=== PATIENT | male | born 1965 | race Caucasian/White ===

== ENCOUNTER 2018-02-13 14:57 | Inpatient (IN) | payer OTHER, SELFPAY ==
[2018-02-13] VITALS (27 sets, daily range): BP systolic 93–165; BP diastolic 62–106; PULSE 54–93; RESP 9–20; TEMP 36.6–37; O2SAT 93–100; BMI 40.2; BMI 18.2; BMI 41.3
--- NOTE | 2018-02-13 14:59 | EKG12_ITS ---
Test Reason : STEMI Blood Pressure : / mmHG Vent. Rate : 062 BPM Atrial Rate : 062 BPM P-R Int : 196 ms QRS Dur : 088 ms QT Int : 404 ms P-R-T Axes : 040 019 098 degrees QTc Int : 410 ms Normal sinus rhythm Inferior injury pattern ACUTE RI / STEMI Consider right ventricular involvement in acute inferior infarct Abnormal ECG Confirmed by VIKASH MEADOWS, BERTHA ([id number]), editor publications FLORIDALMA IRENE ([id number]) on 02/15/2018 2:09:21 PM Referred By: Davian Ngo Confirmed By:BERTHA SUH MD
--- NOTE | 2018-02-13 14:59 | RAD_ITS ---
STUDY: X-RAY CHEST REASON FOR EXAM: Male, 52 years old. Sudden onset of chest pain TECHNIQUE: Single view of the chest was obtained COMPARISON: None. FINDINGS: No lung consolidation or pneumothorax. Cardiomegaly with mild perihilar streaky opacities. Osseous structures demonstrate no acute abnormalities. Degenerative changes in the thoracic spine. IMPRESSION: Cardiomegaly. No evidence for focal airspace consolidation. Electronically Signed: Hamlet Ortez, at 15:15 EDT Tel , Service support , RAD/Chest 1 View (Portable)
--- NOTE | 2018-02-13 15:01 | NURSING ---
NO OLD EKGS
--- NOTE | 2018-02-13 15:05 | PCM.HP.STD ---
Problem List (1) Morbid obesity Status: Chronic (2) STEMI (ST elevation myocardial infarction) Status: Acute Comment: Inferiolateral History of Present Illness Date of Admission: 02/13/18 Chief Complaint: Chest Pain The patient is a 52 y/o M w/ PMHx: Morbid Obesity otherwise noting he takes no medications and healthy who presents to the [facility] [place] ED on 02/13/18 via EMS with reported onset of diffuse across the chest pressure and discomfort with radiation to BL UE and jaws initially while seated at rest at ~ 8 pm the evening prior rated 5/10 with at that time no markedly associated symptoms with continued symptoms eventually worsening [employer] in the ED with reported mowing with onset worsened discomfort, rated then 8/10 with associated diaphoresis and dyspnea. In the ED work-up included EMS EKG w/ evidence of inferiolateral STEMI, VS AF, HR 55, BP 93/75, RR19, 96% on 2L NC, pending CBC, BMP, coags, trop, CXR, repeat EKG. Dr. Ngo contacted w/ STEMI call and requested administration of heparin 4,000 u IV load, brillinta 180 mg po x 1 load, NS 1L IVFs given hypotension. Past Medical History Past Medical History (Chronic Problems): Chronic Problems Morbid obesity (Chronic) Allergies No Known Allergies Allergy (Verified 02/13/18 14:58) Home Medications: Ambulatory Orders Medication Instructions Recorded NK [NK] 02/13/18 Surgical History: - - T+A, appendectomy. Psychiatric History: No pertinent psych hx Lives: Spouse/ Significant Other Smoking Status: Never smoker Tobacco Use: Non-smoker Alcohol: Occasional Drugs: None - *Family History Maternal History Items: - - Patient is a maternal and paternal family history of diabetes. Paternal History Items: - - Patient is a maternal and paternal family history of diabetes. Review of Systems Constitutional: Reports: Malaise, Weakness, Fatigue. Denies: Chills, Fever, Weight Change HEENT: Denies: Head Aches, Sinus Congestion, Sinus Drainage Cardiovascular: Reports: Chest Pain, Chest Pressure, Heaviness. Denies: Light Headedness, Orthopnea, Palpitations, Syncope Respiratory: Reports: Shortness of Breath, Shortness of breath at rest, Shortness of breath upon exertion. Denies: Cough, Sputum production Gastrointestinal: Denies: Abdominal Pain, Nausea, Vomiting Genitourinary: Denies: Dysuria Musculoskeletal: Reports: Arm Pain. Denies: Joint Pain, Joint Tenderness Skin: Denies: Rash, Wounds Neurological: Denies: Numbness, Tingling, Focal weakness Psychiatric: Denies: Anxiety, Depression, Homicidal Ideations, Suicidal Ideations Hematologic/ Lymphatic: Denies: Easy Bruising, Easy Bleeding VTE Information - Inpt Only VTE Present on Admission: No VTE Mechan Device Prophylaxis: SCD's VTE Pharm Prophylaxis ordered?: Yes Patient Problems: Active and Suspected Problems STEMI (ST elevation myocardial infarction) (Acute) Inferiolateral Subjective: Seated upright in the ED, uncomfortable appearing, ongoing chest discomfort, pressure. Objective: Physical Examination: General: awake, alert, oriented x 3 and cooperative, seated upright in the ED bed, notes ongoing chest pain, arm heaviness primarily. Skin: normal color, turgor, no icterus, cyanosis. HEENT: AT/NC, EOMI, PERRLA, MMM, no carotid bruits or JVD noted. Lungs: CTA bilaterally, moderate effort, mild decrease BL bases, no rales, ronchi or wheezing. Heart: Regular rate and rhythm; no gallop, rub audible. Abdomen: soft, morbidly obese, NTTP, ND, normal BS, no HSM; however, habitus makes examination difficult. Extremities: no cyanosis, clubbing, or edema. Neurological: patient awake, alert, oriented x 3; cognitive function intact; pupils equally reactive to light and accomodation; cranial nerves II-XII grossly normal, moving all 4 extremities, no focal deficits, strength moderately to severely globally decreased secondary to acute presentation. Psychiatric: affect appears fatigued, mildly strained, no acute evidence of depressive or anxiety feelings. - Physical Exam Vital Signs Pulse Resp BP Pulse Ox 55 L 19 H 93/75 96 02/13/18 14:59 02/13/18 14:59 02/13/18 14:59 02/13/18 14:59 Weight: 296 lb 11.875 oz Body Mass Index (BMI) 40.2 Assessment/Plan Active and Suspected Problems STEMI (ST elevation myocardial infarction) (Acute) Inferiolateral The patient is a 52 y/o M w/ PMHx: Morbid Obesity otherwise noting he takes no medications and healthy who presents to the [facility] [place] ED on 02/13/18 via EMS with reported onset of diffuse across the chest pressure and discomfort with radiation to BL UE and jaws initially while seated at rest at ~ 8 pm the evening prior rated 5/10 with at that time no markedly associated symptoms with continued symptoms eventually worsening [employer] in the ED with reported mowing with onset worsened discomfort, rated then 8/10 with associated diaphoresis and dyspnea. (1) Chest Pain w/ Acute Inferiolateral STEMI: EKG in ED transmitted per EMS with inferior lateral STEMI evident with repeat pending, CXR w/ no acute process on preliminary, final read pending. ED presentation labs including CBC, BMP, coags and cardiac enzymes pending. Dr. Ngo called per STEMI protocol and patient administered heparin and brillinta bolus. Will transition from ED to catheterization lab w/ expected PCI needs, following if appropriate expect transition to the ICU, will continue IVFs given hypotension noted in the ED, maintain on a monitored bed, continue serial cardiac enzymes and EKGs. Obtain magnesium level upon admission. Continue medical management w/ asa, brillinta, add low dose BB pending BP post-catheterization, add high dose statin w/ AM FLP. ASA, NG, morphine. (2) Morbid Obesity: Weight loss and lifestyle changes encouraged, nutrition consulted. (3) DVT Prophylaxis: SCDs, heparin bolus given in the ED, start SC lovenox chemoprophylaxis 02/14/18. Code Visit Inpatient E&M: 99789 Init Hosp L3
--- NOTE | 2018-02-13 15:07 | NURSING ---
ICU 1 STEMI BURK
[2018-02-13] MEDS: TICAGRELOR 90 MG TABLET 180 MG PO (15:10)
--- NOTE | 2018-02-13 15:16 | HP.PCM_ITS ---
Problem List (1) Morbid obesity Status: Chronic (2) STEMI (ST elevation myocardial infarction) Status: Acute Comment: Inferiolateral History of Present Illness Date of Admission: 02/13/18 Chief Complaint: Chest Pain The patient is a 52 y/o M w/ PMHx: Morbid Obesity otherwise noting he takes no medications and healthy who presents to the [facility] ED on 02/13/18 via EMS with reported onset of diffuse across the chest pressure and discomfort with radiation to BL UE and jaws initially while seated at rest at ~ 8 pm the evening prior rated 5/10 with at that time no markedly associated symptoms with continued symptoms eventually worsening [employer] in the ED with reported mowing with onset worsened discomfort, rated then 8/10 with associated diaphoresis and dyspnea. In the ED work-up included EMS EKG w/ evidence of inferiolateral STEMI , VS AF, HR 55, BP 93/75, RR19, 96% on 2L NC, pending CBC, BMP, coags, trop, CXR , repeat EKG. Dr. Ngo contacted w/ STEMI call and requested administration of heparin 4,000 u IV load, brillinta 180 mg po x 1 load, NS 1L IVFs given hypotension. Past Medical History Past Medical History (Chronic Problems): Chronic Problems Morbid obesity (Chronic) Allergies No Known Allergies Allergy (Verified 02/13/18 14:58) Home Medications: Ambulatory Orders Medication Instructions Recorded NK [NK] 02/13/18 Surgical History: - - T+A, appendectomy. Psychiatric History: No pertinent psych hx Lives: Spouse/ Significant Other Smoking Status: Never smoker Tobacco Use: Non-smoker Alcohol: Occasional Drugs: None - *Family History Maternal History Items: - - Patient is a maternal and paternal family history of diabetes. Paternal History Items: - - Patient is a maternal and paternal family history of diabetes. Review of Systems Constitutional: Reports: Malaise, Weakness, Fatigue. Denies: Chills, Fever, Weight Change HEENT: Denies: Head Aches, Sinus Congestion, Sinus Drainage Cardiovascular: Reports: Chest Pain, Chest Pressure, Heaviness. Denies: Light Headedness, Orthopnea, Palpitations, Syncope Respiratory: Reports: Shortness of Breath, Shortness of breath at rest, Shortness of breath upon exertion. Denies: Cough, Sputum production Gastrointestinal: Denies: Abdominal Pain, Nausea, Vomiting Genitourinary: Denies: Dysuria Musculoskeletal: Reports: Arm Pain. Denies: Joint Pain, Joint Tenderness Skin: Denies: Rash, Wounds Neurological: Denies: Numbness, Tingling, Focal weakness Psychiatric: Denies: Anxiety, Depression, Homicidal Ideations, Suicidal Ideations Hematologic/ Lymphatic: Denies: Easy Bruising, Easy Bleeding VTE Information - Inpt Only VTE Present on Admission: No VTE Mechan Device Prophylaxis: SCD's VTE Pharm Prophylaxis ordered?: Yes Patient Problems: Active and Suspected Problems STEMI (ST elevation myocardial infarction) (Acute) Inferiolateral Subjective: Seated upright in the ED, uncomfortable appearing, ongoing chest discomfort, pressure. Objective: Physical Examination: General: awake, alert, oriented x 3 and cooperative, seated upright in the ED bed, notes ongoing chest pain, arm heaviness primarily. Skin: normal color, turgor, no icterus, cyanosis. HEENT: AT/NC, EOMI, PERRLA, MMM, no carotid bruits or JVD noted. Lungs: CTA bilaterally, moderate effort, mild decrease BL bases, no rales, ronchi or wheezing. Heart: Regular rate and rhythm; no gallop, rub audible. Abdomen: soft, morbidly obese, NTTP, ND, normal BS, no HSM; however, habitus makes examination difficult. Extremities: no cyanosis, clubbing, or edema. Neurological: patient awake, alert, oriented x 3; cognitive function intact; pupils equally reactive to light and accomodation; cranial nerves II-XII grossly normal, moving all 4 extremities, no focal deficits, strength moderately to severely globally decreased secondary to acute presentation. Psychiatric: affect appears fatigued, mildly strained, no acute evidence of depressive or anxiety feelings. - Physical Exam Vital Signs Pulse Resp BP Pulse Ox 55 L 19 H 93/75 96 02/13/18 14:59 02/13/18 14:59 02/13/18 14:59 02/13/18 14:59 Weight: 296 lb 11.875 oz Body Mass Index (BMI) 40.2 Assessment/Plan Active and Suspected Problems STEMI (ST elevation myocardial infarction) (Acute) Inferiolateral The patient is a 52 y/o M w/ PMHx: Morbid Obesity otherwise noting he takes no medications and healthy who presents to the [facility] ED on 02/13/18 via EMS with reported onset of diffuse across the chest pressure and discomfort with radiation to BL UE and jaws initially while seated at rest at ~ 8 pm the evening prior rated 5/10 with at that time no markedly associated symptoms with continued symptoms eventually worsening [employer] in the ED with reported mowing with onset worsened discomfort, rated then 8/10 with associated diaphoresis and dyspnea. (1) Chest Pain w/ Acute Inferiolateral STEMI: EKG in ED transmitted per EMS with inferior lateral STEMI evident with repeat pending, CXR w/ no acute process on preliminary, final read pending. ED presentation labs including CBC , BMP, coags and cardiac enzymes pending. Dr. Ngo called per STEMI protocol and patient administered heparin and brillinta bolus. Will transition from ED to catheterization lab w/ expected PCI needs, following if appropriate expect transition to the ICU, will continue IVFs given hypotension noted in the ED, maintain on a monitored bed, continue serial cardiac enzymes and EKGs. Obtain magnesium level upon admission. Continue medical management w/ asa, brillinta, add low dose BB pending BP post-catheterization, add high dose statin w/ AM FLP. ASA, NG, morphine. (2) Morbid Obesity: Weight loss and lifestyle changes encouraged, nutrition consulted. (3) DVT Prophylaxis: SCDs, heparin bolus given in the ED, start SC lovenox chemoprophylaxis 02/14/18. Code Visit Inpatient E&M: 28895 Init Hosp L3
--- NOTE | 2018-02-13 15:16 | ED.VISSUMM ---
- ER Visit Summary Date of Service: 02/13/18 Chief Complaint: Chest tightness radiating to both shoulders and neck with nausea, diaphoresis and dyspnea. History of Present Illness: The patient is a 52 M who has no sniffing a past medical history states that his chest discomfort started last night. The discomfort got worse while mowing the yard. He states he took a shower prior to calling the paramedics. EKG that was submitted by EMS prior to his arrival reveals an acute inferolateral AR. Heart rate is 78. He denies any fever, chills night sweats. Eyes ocular, visual auditory symptoms. He denies cough. He denies hematemesis, melena hematochezia. Denies abdominal pain or back pain. He denies any symptoms of claudication. He denies any urologic symptoms. He has no contraindication to anticoagulation therapy. Physical Examination: Blood pressure is 93/75 with a heart rate of 55 respiration of 19 and saturation 96%. Patient appears uncomfortable. Head is atraumatic normocephalic. Pupils are equal round reactive. Extraocular muscles are intact. TMs are pearly white with landmarks noted. Nares patent with no drainage. Posterior pharynx without erythema or exudate. Uvula is midline. There is no dysphonia or dysphasia. Trachea is midline. There is no stridor with auscultation of the neck. Heart is regular without murmur, gallop or rub. S1 and S2 are normal. Lungs are clear to auscultation with good movement of air bilaterally. Abdomen is soft and nontender. There is no guarding or peritoneal findings. There is no palpable pulsatile mass. There is no abdominal bruit. García sign is negative. Negative Rovsing sign. There is no evidence of inguinal or umbilical hernia. There is no asymmetry, swelling, discoloration, leg vein distention, palpable cords or tenderness along the distribution of the deep venous system. Neuro exam is nonfocal. Test Results: Next field EKG that was obtained by respiratory therapist reveals an acute ST elevation inferolateral injury pattern. Because patient is bradycardic and hypotensive he received a fluid bolus and a right-sided EKG was obtained. There is no evidence of RV involvement. He received aspirin by paramedics. He was given 4000 units of heparin IV push and 180 mg of Brilinta p.o. He was made n.p.o. Chest x-ray is suboptimal because it is portable and the fact that he has limited inspiratory volume with only 5 ribs visualized. Difficult to make any assessment because of the suboptimal quality. Blood work is pending. Emergency Department Course and Treatment: ST elevation order set was initiated. Dr. Ngo was paged. He has been spoken to on 3 separate occasions. Patient was consented for emergent cardiac catheterization. Please read test results Treatment Plan: To Mandarin Speaking Nanny with patient. Disposition: To cardiac Mandarin Speaking Nanny Impression: 1. Acute inferolateral ST elevation AR 2. Hypotension 3. Bradycardia This note was generated with Chatterfly dictation software. It may contain incorrect words, spelling, and punctuation that were not noted in review of the chart prior to signing ED Disposition - Plan for ED Patient: Chief Complaint: Chest Pain
[2018-02-13] MEDS: HYDROmorphone 1 MG/ML Syringe 0.5 MG IV (15:18)
[2018-02-13] MEDS: Heparin Injection (Vial) 5,000 UNIT/ML VIAL 4000 UNIT IV (15:18)
[2018-02-13] MEDS: Ondansetron 4 MG/2 ML Vial IV (15:19)
--- NOTE | 2018-02-13 15:21 | ED.DCSUM_ITS ---
- ER Visit Summary Date of Service: 02/13/18 Chief Complaint: Chest tightness radiating to both shoulders and neck with nausea, diaphoresis and dyspnea. History of Present Illness: The patient is a 52 M who has no sniffing a past medical history states that his chest discomfort started last night. The discomfort got worse while mowing the yard. He states he took a shower prior to calling the paramedics. EKG that was submitted by EMS prior to his arrival reveals an acute inferolateral AL. Heart rate is 78. He denies any fever, chills night sweats. Eyes ocular, visual auditory symptoms. He denies cough. He denies hematemesis, melena hematochezia. Denies abdominal pain or back pain. He denies any symptoms of claudication. He denies any urologic symptoms. He has no contraindication to anticoagulation therapy. Physical Examination: Blood pressure is 93/75 with a heart rate of 55 respiration of 19 and saturation 96%. Patient appears uncomfortable. Head is atraumatic normocephalic. Pupils are equal round reactive. Extraocular muscles are intact. TMs are pearly white with landmarks noted. Nares patent with no drainage. Posterior pharynx without erythema or exudate. Uvula is midline. There is no dysphonia or dysphasia. Trachea is midline. There is no stridor with auscultation of the neck. Heart is regular without murmur, gallop or rub. S1 and S2 are normal. Lungs are clear to auscultation with good movement of air bilaterally. Abdomen is soft and nontender. There is no guarding or peritoneal findings. There is no palpable pulsatile mass. There is no abdominal bruit. García sign is negative. Negative Rovsing sign. There is no evidence of inguinal or umbilical hernia. There is no asymmetry, swelling , discoloration, leg vein distention, palpable cords or tenderness along the distribution of the deep venous system. Neuro exam is nonfocal. Test Results: Next field EKG that was obtained by respiratory therapist reveals an acute ST elevation inferolateral injury pattern. Because patient is bradycardic and hypotensive he received a fluid bolus and a right-sided EKG was obtained. There is no evidence of RV involvement. He received aspirin by paramedics. He was given 4000 units of heparin IV push and 180 mg of Brilinta p.o. He was made n.p.o. Chest x-ray is suboptimal because it is portable and the fact that he has limited inspiratory volume with only 5 ribs visualized. Difficult to make any assessment because of the suboptimal quality. Blood work is pending. Emergency Department Course and Treatment: ST elevation order set was initiated. Dr. Ngo was paged. He has been spoken to on 3 separate occasions. Patient was consented for emergent cardiac catheterization. Please read test results Treatment Plan: To Receiving Operator with patient. Disposition: To cardiac Receiving Operator Impression: 1. Acute inferolateral ST elevation AL 2. Hypotension 3. Bradycardia This note was generated with TransferGo dictation software. It may contain incorrect words, spelling, and punctuation that were not noted in review of the chart prior to signing ED Disposition - Plan for ED Patient: Chief Complaint: Chest Pain
[2018-02-13 15:26] LABS: Prothrombin Time (Protime)PT. 12.8 SECONDS (11.7-14.9)
[2018-02-13 15:27] LABS: Partial Thromboplast Time 25.6 Seconds (24.1-36.2)
[2018-02-13 15:28] LABS: Basophil# 0.04 X10^3/uL; Basophil% 0.4 % (0-1); Eosinophil# 0.07 X10^3/uL; Eosinophils% 0.8 % (0-5); Hematocrit 43.4 % (40-54); Hemoglobin 15.2 g/dl (13.0-16.5); Mean Corpuscular Hgb 31.9 pg (27.0-32.0); Mean Platelet Vol. 9.2 fl (6.2-12.0); Monocyte# 0.67 X10^3/uL; Monocyte% 7.3 % (0-10); Neutrophil # 5.04 X10^3/uL (2.7-7.7); Neutrophil % 55.1 % (47-70); Platelet Count 332 K/mm3 (150-450); RBC Distribution Width CV 11.5 % (11.6-14.6); RBC Distribution Width SD 38.3 fl (35.1-43.9); Red Blood Count 4.77 M/mm3 (4.6-6.2); White Blood Count 9.2 K/mm3 (4.4-11.0)
[2018-02-13 15:30] LABS: POSITIVE COUNT NO; POSITIVE DIFFERENTIAL NO; POSITIVE MORPHOLOGY NO
[2018-02-13 15:39] LABS: Anion Gap 6 (5-15); BUN 18 mg/dL (7-18); BUN/Creat Ratio 19.7 RATIO (10-20); Calcium,Total 8.8 mg/dL (8.5-10.1); Chloride 103 mmol/L (98-107); Creatinine, Serum 0.91 mg/dL (0.70-1.30); EST Glomerular Filtration Rate 93 mL/min (>60); Est Glom Filt Rate - Afr Amer 113 mL/min (>60); Estimated Creatinine Clearance 106.59 ml/min; Glucose 158 mg/dL (74-106); Potassium 3.7 mmol/L (3.5-5.1); Sodium Level 136 mmol/L (136-145)
--- NOTE | 2018-02-13 16:17 | ECHOCS_ITS ---
Reason For Study: CAD/ASHD Procedure This was a 2D Doppler, Color Flow transthoracic echocardiogram. The study was technically difficult. Exam performed portable in ICU/CCU. Left Ventricle Normal size and thickness. The estimated ejection fraction is 50-55 %. Stage 1 diastolic dysfunction. Posterior-Basal: Mildly hypokinetic. Infero-Basal: Mildly hypokinetic. Mid-Lateral : Mildly hypokinetic. Right Ventricle Normal size and thickness. Normal systolic function. Atria Normal left atrium. Normal right atrium. Normal atrial septum. Mitral Valve The mitral valve is structurally normal. No prolapse or stenosis seen. Tricuspid Valve Normal tricuspid valve. Trivial tricuspid valve insufficiency. Right ventricular systolic pressure estimated to be 23 mmHg. Aortic Valve Normal aortic valve. Trisinus/trileaflet aortic valve. Pulmonic Valve Normal pulmonic valve. Great Vessels Normal aortic root. Normal arch. Normal inferior vena cava. Inferior vena cava collapse with sniff. Pericardium/Pleural No pericardial effusion. Medication Definity0.4ml given slow IV push to enhance endocardial definition. MMode/2D Measurements & Calculations LVIDd: 4.7 cm IVSd: 1.0 cm Ao root diam: 3.1 cm LVIDs: 3.5 cm LVPWd: 0.96 cm LA dimension: 3.9 cm RVDd: 4.2 cm FS: 26.2 % LAV(MOD-bp): 28.8 ml LA A4 area: 11.5 cm2 RA A4 area: 11.8 cm2 LAV(MOD-bp) Indexed: 11.4 ml/m2 LAV(MOD-sp2): 35.9 ml LAV(MOD-sp4): 22.9 ml Doppler Measurements & Calculations MV E max ramon: 51.7 cm/sec Lat Peak E' Ramon: 8.6 cm/sec Med Peak E' Ramon: 7.4 cm/sec MV A max ramon: 66.1 cm/sec E/E' lat: 6.0 E/E' med: 7.0 MV E/A: 0.78 Ao V2 max: 118.1 cm/sec LV V1 max: 96.6 cm/sec PA V2 max: 104.2 cm/sec Ao max P.6 mmHg LV V1 max P.7 mmHg Ao V2 mean: 81.4 cm/sec Ao mean P.0 mmHg Ao V2 VTI: 21.5 cm TR max ramon: 206.3 cm/sec TR max P.0 mmHg Interpretation Summary The estimated ejection fraction is 50-55 %. Stage 1 diastolic dysfunction. Posterior-Basal: Mildly hypokinetic Infero-Basal: Mildly hypokinetic Mid-Lateral : Mildly hypokinetic Trivial tricuspid valve insufficiency. Right ventricular systolic pressure estimated to be 23 mmHg. The study was technically difficult. There is no comparison study available. Contrast injection was performed. Ordering Physician: Davian Ngo Referring Physician: Davian Ngo Performed By: Martita Green RDCS, RVT
--- NOTE | 2018-02-13 16:30 | EKG12_ITS ---
Test Reason : STEMI Blood Pressure : / mmHG Vent. Rate : 055 BPM Atrial Rate : 055 BPM P-R Int : 180 ms QRS Dur : 090 ms QT Int : 418 ms P-R-T Axes : 039 027 104 degrees QTc Int : [address] elevation consider inferolateral injury or acute infarct ACUTE ID / STEMI Consider right ventricular involvement in acute inferior infarct Abnormal ECG Confirmed by VIKASH MEADOWS, BERTHA ([id number]), publications editor FLORIDALMA IRENE ([id number]) on 02/15/2018 2:09:50 PM Referred By: Davian Ngo Confirmed By:BERTHA SUH MD
--- NOTE | 2018-02-13 16:34 | CL.I_ITS ---
Patient Name: SAM SHANKS Study Date: 02/13/2018 Performing: Davian Ngo MD Ht: 72 inches 183 cm : 1965 Wt: 298 lbs 135 kg Age: 52 Gender: male BSA: 2.52 PROCEDURE(S) PERFORMED [id number], DEBBIE AND/OR PTCA, ARTERY OR GRAFT, SINGLE VESSEL PS50-RYP/COR/LV CLINICAL PROFILE AND CO-MORBIDITIES Patient presents with STEMI for emergent cardiac cath. Indications: ACS <= 24 hrs Heart Failure: None Stress/Imaging Stress/Image Study Performed: No CAD Presentations: STEMI. Symptom onset Date/Time: 02/12/2018 20:00:00 Time Estimated CONCLUSIONS Single vessel CAD of the distal RCA with thrombus Successful emergent PCI with Drug eluting stent and PTCA to the distal RCA, utilizing Sheldon catheter , with 3.5 x 16 Promus Synergy, post dilated throughout with a 4.0 x 12 NC Balloon; 90%-->0%, no diss ection. RECOMMENDATIONS Referred for immediate PCI ASA Indefinitely Management as per referring Cardboard Inserter Highly recommend quitting all tobacco products Follow up with primary gas or water meter installer Risk factor modification ASA Indefinitley Plavix for at least 12 months Routine post interventional care Refer for Outpatient Cardiac Rehab Manual sheath removal per protocol Follow up with Dr. Huber GARCIA Indefinisofiya Brilinta for at least 12 months Routine post interventional care Manual sheath removal per protocol DESCRIPTION OF PROCEDURE The patient arrived to the procedure lab. The risks and benefits of the procedure as well as a full d escription of our services here and lack of surgical backup were fully explained to the patient and/o r their significant other prior to the catheterization. The Timeout was completed, verifying the malvin ect patient and procedure. The patient's procedural site was prepped and draped in the usual fashion. Local anesthetic was given subcutaneously to right groin region with Lidocaine 2%. Using a modified Seldinger technique, arterial access was obtained via the right femoral artery, a 6Fr sheath was inse rted.. Left Coronary Artery selective angiography was performed in multiple views using a 4 Fr. JL5 catheter. Left Ventriculography was performed in SALAS projection using a 4 Fr. Pigtail catheter. LV to AO pullback pressures were then recorded HS II medtronic Guide catheter was inserted and engaged into the RCA. Angiogram performed pre balloon dilatation. runthrough Guide wire was advanced to the Right PDA. Sheldon AP inserted Pass # 1 Sheldon AP Removed 2.5 x 12 emerge Balloon catheter was advanced across lesion in the posterior descending, d istal. PTCA balloon inflated at 8 atms for 10 secs Angiogram performed post balloon dilatation. 3.5x1 6 synergy Drug Eluting stent was advanced across the lesion in the posterior descending, distal. 4.0x 12 NC emerge Balloon catheter was inserted post stent. Angiogram performed post stent deployment.. . The arterial sheath was sutured in place and capped. CORONARY ANGIOGRAPHY DOMINANCE: Right Dominant LEFT HEART ASSESSMENT Left Ventricular Ejection Fraction: by LV Gram 4-45 % Depressed Left Ventricular systolic function Inferior Mid Hypokinesis - Moderate LEFT MAIN: Angiographically normal LEFT ANTERIOR DECENDING ARTERY: Angiographically normal CIRCUMFLEX ARTERY: Angiographically normal RIGHT CORONARY ARTERY: DISTAL RCA: 90 % Stenosis RT PDA: Proximal - Angiographically normal INTERVENTION INFORMATION LESION SITE: RT PDA (Distal) Lesion Complexity: High/C, lesion at bifurcation: Yes, thrombus present: Yes, lesion length: 16 mm, c ulprit lesion: Yes Pre Stenosis: 90 % Pre intervention EVELIA flow: 2 PROCEDURE: Drug Eluting Stent with pre and post dilatation Post Stenosis: 0 % Post intervention EVELIA flow: 3 Lesion Devices: Terumo .014 Runthrough Extra Floppy 180cm straight Medtronic 6 Fr HSII 100cm Guide Catheter Bo Sci EMERGE MR 2.50x12 BALLOON Bo Sci NC EMERGE MR 4.00x12 BALLOON Medtronic 6 Fr. Sheldon AP Aspiration Catheter Bo Sci Synergy MR DEBBIE 3.50x16 COMPLICATIONS No Complications PROCEDURE MEDICATIONS Oxygen: 2 L/min via nasal cannula Heparin 6000 unit(s) IV 02/13/2018 15:48:21 Heparin 6000 unit(s) IV 02/13/2018 15:48:21 Nitro 200 mcg IC 02/13/2018 15:50:11 Nitro 200 mcg IC 02/13/2018 15:50:11 SUMMARY OF HEMODYNAMIC DATA Time AIR REST ECG 15:33:41 LV 136/-8, 30 16:03:11 LV 136/-9, 24 16:03:19 LVp 142/-10, 22 16:03:26 AOp 123/72 (95) 16:03:31 Signed By Davian Ngo MD On 02/13/2018 16:33:24 Davian Ngo MD
[2018-02-13 16:36] LABS: ACT Activated Clotting Time 120 sec (74-137)
[2018-02-13 16:36] LABS: ACT Activated Clotting Time 142 sec (74-137)
[2018-02-13 17:06] LABS: Hematocrit 42.1 % (40-54); Hemoglobin 14.3 g/dl (13.0-16.5); Mean Corpuscular Volume 91.3 fL (80-94); Mean Platelet Vol. 8.9 fl (6.2-12.0); Platelet Count 228 K/mm3 (150-450); RBC Distribution Width CV 11.8 % (11.6-14.6); Red Blood Count 4.61 M/mm3 (4.6-6.2); White Blood Count 13.1 K/mm3 (4.4-11.0)
[2018-02-13 17:12] LABS: Scan Indicated on CBC? Y/N NO
[2018-02-13 17:25] LABS: Magnesium 1.7 mg/dL (1.6-2.6)
[2018-02-13 17:27] LABS: CPK Total, Creatine Kinase 87 U/L (39-308)
[2018-02-13 17:32] LABS: Hemoglobin A1c 8.1 % (4.2-6.3)
[2018-02-13] MEDS: 0.9% Normal Saline 1,000 ML 150 ML IV (17:37)
[2018-02-13 18:21] LABS: ACT Activated Clotting Time 175 sec (74-137)
[2018-02-13 19:34] LABS: M R Staph aureus DNA By PCR Negative (Negative); Probe Check PASS; Specimen Processing Control PASS
[2018-02-13 19:36] LABS: ACT Activated Clotting Time 147 sec (74-137)
[2018-02-13] MEDS: 0.9% NaCl Peripheral Flush Adult/Peds IV ×2 (20:10→20:19)
[2018-02-13] MEDS: Morphine 2 MG/ML Syringe IV (20:10)
[2018-02-13] MEDS: proMETHazine 25 MG/ML Syringe 12.5 MG IV (20:17)
[2018-02-13 21:55] LABS: Hematocrit 40.3 % (40-54); Hemoglobin 13.7 g/dl (13.0-16.5); Mean Corpuscular Hgb 31.1 pg (27.0-32.0); Mean Corpuscular Volume 91.4 fL (80-94); Mean Platelet Vol. 8.8 fl (6.2-12.0); Platelet Count 233 K/mm3 (150-450); RBC Distribution Width CV 11.9 % (11.6-14.6); RBC Distribution Width SD 39.6 fl (35.1-43.9); Red Blood Count 4.41 M/mm3 (4.6-6.2); White Blood Count 12.2 K/mm3 (4.4-11.0)
[2018-02-13 21:56] LABS: Scan Indicated on CBC? Y/N NO
[2018-02-13 22:15] LABS: CPK Total, Creatine Kinase 227 U/L (39-308)
[2018-02-13] MEDS: TICAGRELOR 90 MG TABLET PO (22:49)
[2018-02-13] MEDS: Metoprolol Tartrate 25 MG Tablet 12.5 MG PO (22:49)
[2018-02-13] MEDS: Famotidine 20 MG Tablet PO (22:50)
[2018-02-13] MEDS: Atorvastatin Calcium 80 MG Tablet PO (22:51)
[2018-02-14] VITALS (23 sets, daily range): BP systolic 123–153; BP diastolic 82–102; PULSE 66–91; RESP 11–24; TEMP 36.6–37.3; O2SAT 93–100
[2018-02-14 01:16] LABS: Bedside Glucose 174 mg/dL (70-110)
[2018-02-14 04:47] LABS: Absolute Lymphocyte Count 2.55 X10^3/ul (0.83-4.51); Absolute Neutrophil Count 6.7 X10^3/uL (2.0-7.7); Basophil# 0.02 X10^3/uL; Basophil% 0.2 % (0-1); Eosinophil# 0.02 X10^3/uL; Eosinophils% 0.2 % (0-5); Hematocrit 39.8 % (40-54); Hemoglobin 13.2 g/dl (13.0-16.5); Lymphocyte # 2.55 X10^3/ul (4.0); Mean Corp Hgb Conc 33.2 g/gl (32-36); Mean Corpuscular Hgb 30.8 pg (27.0-32.0); Mean Platelet Vol. 8.7 fl (6.2-12.0); Monocyte# 0.47 X10^3/uL; Monocyte% 4.8 % (0-10); Neutrophil # 6.69 X10^3/uL (2.7-7.7); Neutrophil % 68.4 % (47-70); Platelet Count 232 K/mm3 (150-450); RBC Distribution Width CV 12.2 % (11.6-14.6); RBC Distribution Width SD 41.2 fl (35.1-43.9); Red Blood Count 4.28 M/mm3 (4.6-6.2); White Blood Count 9.8 K/mm3 (4.4-11.0)
[2018-02-14 04:51] LABS: POSITIVE COUNT NO; POSITIVE DIFFERENTIAL NO; POSITIVE MORPHOLOGY NO
[2018-02-14 05:07] LABS: CPK Total, Creatine Kinase 334 U/L (39-308)
[2018-02-14 05:09] LABS: Anion Gap 7 (5-15); BUN 11 mg/dL (7-18); BUN/Creat Ratio 15.5 RATIO (10-20); Calcium,Total 7.4 mg/dL (8.5-10.1); Chloride 110 mmol/L (98-107); Cholesterol 208 mg/dL (200); Creatinine, Serum 0.71 mg/dL (0.70-1.30); EST Glomerular Filtration Rate 125 mL/min (>60); Est Glom Filt Rate - Afr Amer 151 mL/min (>60); Estimated Creatinine Clearance 132.57 ml/min; Glucose 142 mg/dL (74-106); High Density Lipoprotein 36 mg/dL; Sodium Level 142 mmol/L (136-145); Triglycerides 250 mg/dL; Very Low Density Lipoprotein 50 mg/dL (5-40)
--- NOTE | 2018-02-14 05:55 | EKG12_ITS ---
Test Reason : POST PCI Blood Pressure : / mmHG Vent. Rate : 082 BPM Atrial Rate : 082 BPM P-R Int : 174 ms QRS Dur : 088 ms QT Int : 382 ms P-R-T Axes : 056 -10 050 degrees QTc Int : 446 ms Normal sinus rhythm with sinus arrhythmia Nonspecific ST abnormality Abnormal ECG No previous ECGs available Confirmed by VIKASH MEADOWS, BERTHA ([id number]), manuscript editor FLORIDALMA IRENE ([id number]) on 02/18/2018 3:53:27 PM Referred By: Davian Ngo Confirmed By:BERTHA SUH MD
--- NOTE | 2018-02-14 08:06 | PCM.PN.CARD ---
Subjectve: Patient doing very well this morning, no further chest pain. Telemetry negative. Right groin is clean/dry/intact without evidence of thrills, bruits or hematoma. Hemoglobin and creatinine within nominal limits. Peak troponin of 9.58 this morning. Objective: Vital Signs Temp Pulse Resp BP Pulse Ox 99.1 F 79 19 H 124/82 H 97 02/14/18 02:39 02/14/18 07:00 02/14/18 07:00 02/14/18 07:00 02/14/18 07:00 Oxygen Flow Rate (L/min) 2 Oxygen Delivery Method Room Air Weight: 285 lb 0.923 oz Body Mass Index (BMI) 41.3 Intake and Output for Last 24 Hours 02/12/18 02/13/18 02/14/18 23:59 23:59 23:59 Intake Total 1544 / 1544 Output Total 2150 / 2150 Balance -606 / -606 General: Awake, Alert, Oriented x 3 HEENT: PERRL, EOMI, Sclera Non Icteric Neck: Supple, Good ROM, No Lymph Node Enlargement Lungs: Clear to auscultation Cardiovascular: Regular Rhythm, Normal S1, Normal S2, No Murmurs, No Rubs, No Gallops 02/13/18 16:55: Hemoglobin A1c 8.1 H 02/13/18 16:55: Magnesium 1.7 02/13/18 16:55: WBC 13.1 H, RBC 4.61, Hgb 14.3, Hct 42.1, MCV 91.3, MCH 31.0, MCHC 34.0, RDW 11.8, RDW Differential 39.0, Plt Count 228, MPV 8.9 02/13/18 16:55: Troponin I 0.96 H* 02/13/18 21:40: WBC 12.2 H, RBC 4.41 L, Hgb 13.7, Hct 40.3, MCV 91.4, MCH 31.1, MCHC 34.0, RDW 11.9, RDW Differential 39.6, Plt Count 233, MPV 8.8 02/13/18 21:40: Troponin I 5.91 H* 02/14/18 01:30: Troponin I 9.58 H* 02/14/18 04:30: WBC 9.8, RBC 4.28 L, Hgb 13.2, Hct 39.8 L, MCV 93.0, MCH 30.8, MCHC 33.2, RDW 12.2, RDW Differential 41.2, Plt Count 232, MPV 8.7, Immature Gran % (Auto) 0.400, Neut % (Auto) 68.4, Lymph % (Auto) 26.0, [place] % (Auto) 4.8, Eos % (Auto) 0.2, Baso % (Auto) 0.2, Absolute Neuts (auto) 6.7, Total Counted Not Reportable 02/14/18 04:30: Sodium 142, Potassium 4.0, Chloride 110 H, Carbon Dioxide 25.0, Anion Gap 7, BUN 11, Creatinine 0.71, Est GFR (MDRD) Af Amer 151, Est GFR (MDRD) Non-Af 125, BUN/Creatinine Ratio 15.5, Glucose 142 H, Calcium 7.4 L, Triglycerides 250 H, Cholesterol 208 H, LDL Cholesterol 122, VLDL Cholesterol 50 H, HDL Cholesterol 36 L Rhythm: EKG: Normal sinus rhythm with left anterior hemiblock, ST segments resolved. ECHO: Pending Stress Test: Cardiac Cath: PCI: CT Surgery: Holter monitor: EPS: PPM: CXR: Chest CT Scan: Medical Necessity - Tobacco Use Smoking Status: Never smoker Tobacco Use: Non-smoker, Chew Assessment/Plan 1. Coronary artery disease: The patient presented with acute inferior wall myocardial infarction requiring emergent catheterization, thrombectomy, drug-eluting stent ?1 to the distal RCA. All other coronary arteries appear to be within normal limits and minimal nonobstructive disease. Patient's EF of the end of the procedure was around 40-45% with moderate mid inferior hypokinesis. Overnight the patient has done very well. His chest pain is resolved. His peak troponin thus far is 9.58. Telemetry is negative. Recommend he continue his aspirin, Brilinta, Lopressor, lisinopril. Patient to be transferred to stepdown unit. He may be able to go home tomorrow if troponins are trending downward and no arrhythmias are occurring. 2. Hyperlipidemia: LDL is 208, and HDL is 44. Continue Lipitor. Repeat lipid profile in 6 weeks time. 3. Patient may be transferred to stepdown unit. Thank you very much for the opportunity to participate in the cardiac care of your patient. Code Visit Inpatient E&M: 95138 Subs Hosp L2
--- NOTE | 2018-02-14 08:09 | PN.CARD_ITS ---
Subjectve: Patient doing very well this morning, no further chest pain. Telemetry negative. Right groin is clean/dry/intact without evidence of thrills, bruits or hematoma. Hemoglobin and creatinine within nominal limits. Peak troponin of 9.58 this morning. Objective: Vital Signs Temp Pulse Resp BP Pulse Ox 99.1 F 79 19 H 124/82 H 97 02/14/18 02:39 02/14/18 07:00 02/14/18 07:00 02/14/18 07:00 02/14/18 07:00 Oxygen Flow Rate (L/min) 2 Oxygen Delivery Method Room Air Weight: 285 lb 0.923 oz Body Mass Index (BMI) 41.3 Intake and Output for Last 24 Hours 02/12/18 02/13/18 02/14/18 23:59 23:59 23:59 Intake Total 1544 / 1544 Output Total 2150 / 2150 Balance -606 / -606 General: Awake, Alert, Oriented x 3 HEENT: PERRL, EOMI, Sclera Non Icteric Neck: Supple, Good ROM, No Lymph Node Enlargement Lungs: Clear to auscultation Cardiovascular: Regular Rhythm, Normal S1, Normal S2, No Murmurs, No Rubs, No Gallops 02/13/18 16:55: Hemoglobin A1c 8.1 H 02/13/18 16:55: Magnesium 1.7 02/13/18 16:55: WBC 13.1 H, RBC 4.61, Hgb 14.3, Hct 42.1, MCV 91.3, MCH 31.0, MCHC 34.0, RDW 11.8, RDW Differential 39.0, Plt Count 228, MPV 8.9 02/13/18 16:55: Troponin I 0.96 H* 02/13/18 21:40: WBC 12.2 H, RBC 4.41 L, Hgb 13.7, Hct 40.3, MCV 91.4, MCH 31.1, MCHC 34.0, RDW 11.9, RDW Differential 39.6, Plt Count 233, MPV 8.8 02/13/18 21:40: Troponin I 5.91 H* 02/14/18 01:30: Troponin I 9.58 H* 02/14/18 04:30: WBC 9.8, RBC 4.28 L, Hgb 13.2, Hct 39.8 L, MCV 93.0, MCH 30.8, MCHC 33.2, RDW 12.2, RDW Differential 41.2, Plt Count 232, MPV 8.7, Immature Gran % (Auto) 0.400, Neut % (Auto) 68.4, Lymph % (Auto) 26.0, Wallace % (Auto) 4.8 , Eos % (Auto) 0.2, Baso % (Auto) 0.2, Absolute Neuts (auto) 6.7, Total Counted Not Reportable 02/14/18 04:30: Sodium 142, Potassium 4.0, Chloride 110 H, Carbon Dioxide 25.0, Anion Gap 7, BUN 11, Creatinine 0.71, Est GFR (MDRD) Af Amer 151, Est GFR (MDRD ) Non-Af 125, BUN/Creatinine Ratio 15.5, Glucose 142 H, Calcium 7.4 L, Triglycerides 250 H, Cholesterol 208 H, LDL Cholesterol 122, VLDL Cholesterol 50 H, HDL Cholesterol 36 L Rhythm: EKG: Normal sinus rhythm with left anterior hemiblock, ST segments resolved. ECHO: Pending Stress Test: Cardiac Cath: PCI: CT Surgery: Holter monitor: EPS: PPM: CXR: Chest CT Scan: Medical Necessity - Tobacco Use Smoking Status: Never smoker Tobacco Use: Non-smoker, Chew Assessment/Plan 1. Coronary artery disease: The patient presented with acute inferior wall myocardial infarction requiring emergent catheterization, thrombectomy, drug- eluting stent ?1 to the distal RCA. All other coronary arteries appear to be within normal limits and minimal nonobstructive disease. Patient's EF of the end of the procedure was around 40-45% with moderate mid inferior hypokinesis. Overnight the patient has done very well. His chest pain is resolved. His peak troponin thus far is 9.58. Telemetry is negative. Recommend he continue his aspirin, Brilinta, Lopressor, lisinopril. Patient to be transferred to stepdown unit. He may be able to go home tomorrow if troponins are trending downward and no arrhythmias are occurring. 2. Hyperlipidemia: LDL is 208, and HDL is 44. Continue Lipitor. Repeat lipid profile in 6 weeks time. 3. Patient may be transferred to stepdown unit. Thank you very much for the opportunity to participate in the cardiac care of your patient. Code Visit Inpatient E&M: 78720 Subs Hosp L2
--- NOTE | 2018-02-14 08:59 | CASEMGMT ---
Addendum entered by Elias Gonzalez 02/14/18 09:51: Pt sees Dr. Lynn for PCP, has insurance and prescription coverage. [facility] pharmacy. brilinta savings card given to pt and explained. Dinah ZAVALA RN ACM Original Note: See RN CM Assessment Link. DC Plan home. Dinah ZAVALA RN ACM
[2018-02-14] MEDS: 0.9% NaCl Peripheral Flush Adult/Peds IV (09:29)
[2018-02-14] MEDS: Enoxaparin 40 MG/0.4 ML Syringe SC (09:29)
[2018-02-14] MEDS: Metoprolol Tartrate 25 MG Tablet 12.5 MG PO ×2 (09:30→21:21)
[2018-02-14] MEDS: Famotidine 20 MG Tablet PO ×2 (09:30→21:22)
[2018-02-14] MEDS: Aspirin 81 MG TAB.CHEW PO (09:30)
[2018-02-14] MEDS: TICAGRELOR 90 MG TABLET PO ×2 (09:30→21:21)
[2018-02-14] MEDS: Lisinopril 2.5 MG Tablet PO (09:30)
--- NOTE | 2018-02-14 10:08 | NURSING ---
BP meds given see MAR
--- NOTE | 2018-02-14 10:45 | CRPHASE1 ---
Patient Data/Charges Start Phase II:: FOLLOWING OFFICE VISIT WITH LABORER WOOD PRESERVING PLANT Risk Factors/Lifestyle Smoking Status: Never smoker Hx Diabetes Mellitus Type 2: Yes - NEW DX Hx Metabolic Disorders: Yes Hx Dyslipidemia: Yes Hx Obesity: Yes Height: 5 ft 11 in - BMI 39.8 Stress: Work-related, Home/Family Substance Abuse: No Risk Factor for Sedentary Lifestyle: Moderate Risk, Highest Risk Laboratory Values: Cardiac Rehab Phase I Labs Hemoglobin A1c 8.1 % (4.2-6.3) H 02/13/18 16:55 Triglycerides 250 mg/dL (-199) H 02/14/18 04:30 Cholesterol 208 mg/dL (200) H 02/14/18 04:30 LDL Cholesterol 122 mg/dL (0-130) 02/14/18 04:30 HDL Cholesterol 36 mg/dL (40-) L 02/14/18 04:30 Phase I Education Given On:: [place], Nutrition, Antiplatelet medication, Diabetes - Type II Issues Affecting Care:: None Knowledge of Condition:: Yes Learning Preferences: Verbal, Written - AND FAMILY AT BEDSIDE Hospital Course Presenting Symptoms:: STEMI Medical/Surgical History NV:: Yes - STEMI Diabetes Type II:: Yes - NEW DX Hypertension:: No Dyslipidemia:: Yes Discharge/Home/Social Eval Discharge Disposition: Home Marital Status:
--- NOTE | 2018-02-14 10:49 | CRPHASE1_ITS ---
Patient Data/Charges Start Phase II:: FOLLOWING OFFICE VISIT WITH RESEARCH ASSISTANT PROFESSOR Risk Factors/Lifestyle Smoking Status: Never smoker Hx Diabetes Mellitus Type 2: Yes - NEW DX Hx Metabolic Disorders: Yes Hx Dyslipidemia: Yes Hx Obesity: Yes Height: 5 ft 11 in - BMI 39.8 Stress: Work-related, Home/Family Substance Abuse: No Risk Factor for Sedentary Lifestyle: Moderate Risk, Highest Risk Laboratory Values: Cardiac Rehab Phase I Labs Hemoglobin A1c 8.1 % (4.2-6.3) H 02/13/18 16:55 Triglycerides 250 mg/dL (-199) H 02/14/18 04:30 Cholesterol 208 mg/dL (200) H 02/14/18 04:30 LDL Cholesterol 122 mg/dL (0-130) 02/14/18 04:30 HDL Cholesterol 36 mg/dL (40-) L 02/14/18 04:30 Phase I Education Given On:: [place], Nutrition, Antiplatelet medication, Diabetes - Type II Issues Affecting Care:: None Knowledge of Condition:: Yes Learning Preferences: Verbal, Written - AND FAMILY AT BEDSIDE Hospital Course Presenting Symptoms:: STEMI Medical/Surgical History AL:: Yes - STEMI Diabetes Type II:: Yes - NEW DX Hypertension:: No Dyslipidemia:: Yes Discharge/Home/Social Eval Discharge Disposition: Home Marital Status:
--- NOTE | 2018-02-14 10:51 | CRPH1.INST_ITS ---
General Education CAD and cardiac anatomy and function:: Patient communicates acknowledgment, Family communicates acknowledgment Explanation of diagnoses and procedures:: Patient communicates acknowledgment, Family communicates acknowledgment Sign/Symptoms of NM:: Patient communicates acknowledgment, Family communicates acknowledgment Antiplatelet therapy: Patient communicates acknowledgment, Family communicates acknowledgment Proper use of NTG-SL: Patient communicates acknowledgment, Family communicates acknowledgment Emergency procedures and activation of EMS: Patient communicates acknowledgment , Family communicates acknowledgment Compliance of all prescribed medications: Patient communicates acknowledgment, Family communicates acknowledgment - AND FAMILY AT BEDSIDE Smoking Patient Nicotine/Smoking Risk Factors Are:: Never smoked Dyslipidemia Patient Dyslipidemia Risk Factors Are:: Total Cholesterol, Triglycerides, HDL, LDL Recommendations Include:: Lipid profile provided, Reviewed NCEP/ATP guidelines, Therapeutic Lifestyle Change dietary guidelines Dyslipidemia Response Code:: Patient communicates acknowledgment, Family communicates acknowledgment Overweight/Obesity Patient Overweight/Obesity Risk Factors Are:: Obesity - > or = 30 Recommendations Include:: Weight loss of 5-10%, Reduced calorie diet, Exercise 5 -7 times/week Overweight/Obesity:: Patient communicates acknowledgment, Family communicates acknowledgment Hypertension Patient Hypertension Risk Factors Are:: No documented hx of HTN Heart Disease Recommendations Include:: Educated family members of their risk Heart Disease Response Code:: Patient communicates acknowledgment, Family communicates acknowledgment Diabetes Patient Diabetes Risk Factors Are:: Elevated blood sugars Recommendations Include:: Maintain fasting blood sugars 70-110 md/dL, Maintain HgbA1c of 6% or less, Monitor blood sugar as prescribed, Diabetic dietary guidelines, Decrease/maintain body weight Diabetes:: Patient communicates acknowledgment, Family communicates acknowledgment Metabolic Syndrome Patient Metabolic Syndrome Risk Factors Are [3 of 5]:: Fasting blood sugar > 100 mg/dL, Waist circumference > 35 [female] or 40 [male], High triglyceride > 150, Low HDL <40 [male] or < 50 [female] Recommendations Include:: Reinforce compliance to risk factor modifications, Patient is diabetic, Encouraged follow-up with Primary Care Physician Metabolic Syndrome Response Code:: Patient communicates acknowledgment, Family communicates acknowledgment Sedentary Patient Sedentary Risk Factors Are:: Lack of regular exercise Recommendations Include:: Aerobic exercise 5-7 times/week for 20-30 minutes continuously, Benefits of regular exercise, Discussed home walking program, Monitored Outpatient Cardiac Rehab Sedentary Response Code:: Patient communicates acknowledgment, Family communicates acknowledgment - PT TRAVELS FOR JOB, NOT SURE HE'LL BE ABLE TO DO REHAB Stress Recommendations Include:: Identification of stressors, and assessment of coping skills, Stress management techniques Stress Response Code:: Patient communicates acknowledgment, Family communicates acknowledgment
--- NOTE | 2018-02-14 11:04 | PCM.PN.HOSP ---
Patient Problems: Active and Suspected Problems STEMI (ST elevation myocardial infarction) (Acute) Inferiolateral Subjective: no chest pain. no leg pain. Vitals/I&O's: Vital Signs Temp Pulse Resp BP Pulse Ox 36.8 C 81 20 H 153/101 H 99 02/14/18 08:00 02/14/18 10:00 02/14/18 10:00 02/14/18 10:00 02/14/18 10:00 Oxygen Flow Rate (L/min) 2 Oxygen Delivery Method Room Air Weight: 129.3 kg Body Mass Index (BMI) 41.3 Intake and Output for Last 24 Hours 02/12/18 02/13/18 02/14/18 23:59 23:59 23:59 Intake Total 1544 / 1544 Output Total 2150 / 2150 Balance -606 / -606 General: Alert, Cooperative, No apparent distress HEENT: Atraumatic, Normocephalic Neck: No Nodes, Thyroid Normal Size and Texture Lungs: Clear to auscultation, Normal air movement, No rhonchi, No wheeze Cardiovascular: Regular rate, Regular Rhythm, Normal S1, Normal S2, No murmurs Abdomen: Bowel Sounds Present, Soft, Non Tender, Non-Distended, No Hepato-splenomegaly Extremities: No edema, No Calf Tenderness, Peripheral Pulses Normal Skin: No rashes, No breakdown Psych/Mental Status: Normal Affect, Appropriate Laboratory Results 02/13/18 15:45: Activated Clotting Time 120 02/13/18 16:04: Activated Clotting Time 142 H 02/13/18 16:55: Hemoglobin A1c 8.1 H 02/13/18 16:55: Magnesium 1.7 02/13/18 16:55: Total Creatine Kinase 87 02/13/18 16:55: WBC 13.1 H, RBC 4.61, Hgb 14.3, Hct 42.1, MCV 91.3, MCH 31.0, MCHC 34.0, RDW 11.8, RDW Differential 39.0, Plt Count 228, MPV 8.9 02/13/18 16:55: Troponin I 0.96 H* 02/13/18 18:00: MRSA (PCR) Negative 02/13/18 18:06: Activated Clotting Time 175 H 02/13/18 19:23: Activated Clotting Time 147 H 02/13/18 21:40: Total Creatine Kinase 227 02/13/18 21:40: WBC 12.2 H, RBC 4.41 L, Hgb 13.7, Hct 40.3, MCV 91.4, MCH 31.1, MCHC 34.0, RDW 11.9, RDW Differential 39.6, Plt Count 233, MPV 8.8 02/13/18 21:40: Troponin I 5.91 H* 02/13/18 22:55: POC Glucose 174 H 02/14/18 01:30: Troponin I 9.58 H* 02/14/18 04:30: WBC 9.8, RBC 4.28 L, Hgb 13.2, Hct 39.8 L, MCV 93.0, MCH 30.8, MCHC 33.2, RDW 12.2, RDW Differential 41.2, Plt Count 232, MPV 8.7, Immature Gran % (Auto) 0.400, Neut % (Auto) 68.4, Lymph % (Auto) 26.0, [place] % (Auto) 4.8, Eos % (Auto) 0.2, Baso % (Auto) 0.2, Absolute Neuts (auto) 6.7, Absolute Lymphs (auto) 2.55, Total Counted Not Reportable 02/14/18 04:30: Sodium 142, Potassium 4.0, Chloride 110 H, Carbon Dioxide 25.0, Anion Gap 7, BUN 11, Creatinine 0.71, Estim Creat Clear Calc 132.57, Est GFR (MDRD) Af Amer 151, Est GFR (MDRD) Non-Af 125, BUN/Creatinine Ratio 15.5, Glucose 142 H, Calcium 7.4 L, Triglycerides 250 H, Cholesterol 208 H, LDL Cholesterol 122, VLDL Cholesterol 50 H, HDL Cholesterol 36 L 02/14/18 04:30: Total Creatine Kinase 334 H 02/14/18 07:35: Troponin I 9.86 H* Current Medications Acetaminophen (Tylenol) 650 mg PO Q6H PRN PRN PRN Reason: Non-cardiac pain (mod-severe) Hydrocodone Bitart/Acetaminophen ([place] 5mg-325mg) 1 - 2 tablet PO Q6H PRN PRN PRN Reason: Moderate-severe pain Al Hydroxide/Mg Hydroxide (Mylanta Ii) 30 ml PO Q6H PRN PRN PRN Reason: Gastric burning Aspirin (Aspirin, Baby) 81 mg PO DAILY@0800 [facility] Last Admin: 02/14/18 09:30 Dose: 81 mg Atorvastatin Calcium (Lipitor) 80 mg PO QHS [facility] Last Admin: 02/13/18 22:51 Dose: 80 mg Atropine Sulfate () 0.5 mg IV UD PRN PRN Reason: HR <50 bpm Dextrose (D50w Syringe) 0 gm IV X1 PRN; Protocol PRN Reason: Hypoglycemia Diazepam (Valium) 5 mg PO Q6H PRN PRN PRN Reason: BACK SPASMS/ANXIETY Enoxaparin Sodium (Lovenox) 40 mg SC DAILY@1000 [facility] Last Admin: 02/14/18 09:29 Dose: 40 mg Famotidine (Pepcid) 20 mg PO BID [facility] Last Admin: 02/14/18 09:30 Dose: 20 mg Glucagon () 1 mg IM .X1 PRN PRN Reason: Hypoglycemia Hydralazine HCl (Apresoline Iv) 10 mg IV Q4H PRN PRN PRN Reason: SBP > 160 Insulin Aspart (Novolog Flexpen (Bkc)) 0 units SC ACHS [facility] PRN Reason: Protocol Last Admin: 02/14/18 08:01 Dose: Not Given Lisinopril (Zestril) 2.5 mg PO DAILY [facility] Last Admin: 02/14/18 09:30 Dose: 2.5 mg Magnesium Hydroxide (Milk Of Magnesia) 30 ml PO DAILY PRN PRN PRN Reason: Constipation Metoclopramide HCl (Reglan) 5 mg IV Q6H PRN PRN Reason: NAUSEA/VOMITING Metoprolol Tartrate (Lopressor (Beta Marcia)) 12.5 mg PO BID [facility] Last Admin: 02/14/18 09:30 Dose: 12.5 mg Morphine Sulfate () 1 - 2 mg IV Q4H PRN PRN PRN Reason: PAIN Last Admin: 02/13/18 20:10 Dose: 2 mg Nitroglycerin (Nitrostat) 0.4 mg SUBLINGUAL Q5M PRN PRN Reason: CHEST PAIN Ondansetron HCl (Zofran) 4 mg IV Q8H PRN PRN PRN Reason: NAUSEA Promethazine HCl (Phenergan) 12.5 mg IV Q6H PRN PRN PRN Reason: NAUSEA/VOMITING Last Admin: 02/13/18 20:17 Dose: 12.5 mg Sodium Chloride () 500 ml IV BOLUS PRN PRN Reason: VASO-VAGAL PROTOCOL Sodium Chloride () 5 - 30 ml IV UD PRN PRN Reason: SALINE FLUSH Last Admin: 02/14/18 09:29 Dose: 20 ml Ticagrelor (Brilinta) 90 mg PO BID [place] Last Admin: 02/14/18 09:30 Dose: 90 mg Medical Necessity - Tobacco Use Smoking Status: Never smoker Tobacco Use: Non-smoker, Chew Assessment/Plan Active and Suspected Problems STEMI (ST elevation myocardial infarction) (Acute) Inferiolateral 1. STEMI s/p DEBBIE to distal RCA on DAPT, HIS, metoprolol, lisinopril cardiology following 2. Ischemic CM: EF 40-45% on LHC, echo done, orders pending medical mgmt for now. 3. Hyperlipidemia: HIS 4. DVT proph: LMWH Code Visit Inpatient E&M: 70147 Subs Hosp L2
--- NOTE | 2018-02-14 11:08 | PN_ITS ---
Patient Problems: Active and Suspected Problems STEMI (ST elevation myocardial infarction) (Acute) Inferiolateral Subjective: no chest pain. no leg pain. Vitals/I&O's: Vital Signs Temp Pulse Resp BP Pulse Ox 36.8 C 81 20 H 153/101 H 99 02/14/18 08:00 02/14/18 10:00 02/14/18 10:00 02/14/18 10:00 02/14/18 10:00 Oxygen Flow Rate (L/min) 2 Oxygen Delivery Method Room Air Weight: 129.3 kg Body Mass Index (BMI) 41.3 Intake and Output for Last 24 Hours 02/12/18 02/13/18 02/14/18 23:59 23:59 23:59 Intake Total 1544 / 1544 Output Total 2150 / 2150 Balance -606 / -606 General: Alert, Cooperative, No apparent distress HEENT: Atraumatic, Normocephalic Neck: No Nodes, Thyroid Normal Size and Texture Lungs: Clear to auscultation, Normal air movement, No rhonchi, No wheeze Cardiovascular: Regular rate, Regular Rhythm, Normal S1, Normal S2, No murmurs Abdomen: Bowel Sounds Present, Soft, Non Tender, Non-Distended, No Hepato- splenomegaly Extremities: No edema, No Calf Tenderness, Peripheral Pulses Normal Skin: No rashes, No breakdown Psych/Mental Status: Normal Affect, Appropriate Laboratory Results 02/13/18 15:45: Activated Clotting Time 120 02/13/18 16:04: Activated Clotting Time 142 H 02/13/18 16:55: Hemoglobin A1c 8.1 H 02/13/18 16:55: Magnesium 1.7 02/13/18 16:55: Total Creatine Kinase 87 02/13/18 16:55: WBC 13.1 H, RBC 4.61, Hgb 14.3, Hct 42.1, MCV 91.3, MCH 31.0, MCHC 34.0, RDW 11.8, RDW Differential 39.0, Plt Count 228, MPV 8.9 02/13/18 16:55: Troponin I 0.96 H* 02/13/18 18:00: MRSA (PCR) Negative 02/13/18 18:06: Activated Clotting Time 175 H 02/13/18 19:23: Activated Clotting Time 147 H 02/13/18 21:40: Total Creatine Kinase 227 02/13/18 21:40: WBC 12.2 H, RBC 4.41 L, Hgb 13.7, Hct 40.3, MCV 91.4, MCH 31.1, MCHC 34.0, RDW 11.9, RDW Differential 39.6, Plt Count 233, MPV 8.8 02/13/18 21:40: Troponin I 5.91 H* 02/13/18 22:55: POC Glucose 174 H 02/14/18 01:30: Troponin I 9.58 H* 02/14/18 04:30: WBC 9.8, RBC 4.28 L, Hgb 13.2, Hct 39.8 L, MCV 93.0, MCH 30.8, MCHC 33.2, RDW 12.2, RDW Differential 41.2, Plt Count 232, MPV 8.7, Immature Gran % (Auto) 0.400, Neut % (Auto) 68.4, Lymph % (Auto) 26.0, Hinds % (Auto) 4.8 , Eos % (Auto) 0.2, Baso % (Auto) 0.2, Absolute Neuts (auto) 6.7, Absolute Lymphs (auto) 2.55, Total Counted Not Reportable 02/14/18 04:30: Sodium 142, Potassium 4.0, Chloride 110 H, Carbon Dioxide 25.0, Anion Gap 7, BUN 11, Creatinine 0.71, Estim Creat Clear Calc 132.57, Est GFR ( MDRD) Af Amer 151, Est GFR (MDRD) Non-Af 125, BUN/Creatinine Ratio 15.5, Glucose 142 H, Calcium 7.4 L, Triglycerides 250 H, Cholesterol 208 H, LDL Cholesterol 122, VLDL Cholesterol 50 H, HDL Cholesterol 36 L 02/14/18 04:30: Total Creatine Kinase 334 H 02/14/18 07:35: Troponin I 9.86 H* Current Medications Acetaminophen (Tylenol) 650 mg PO Q6H PRN PRN PRN Reason: Non-cardiac pain (mod-severe) Hydrocodone Bitart/Acetaminophen ([place] 5mg-325mg) 1 - 2 tablet PO Q6H PRN PRN PRN Reason: Moderate-severe pain Al Hydroxide/Mg Hydroxide (Mylanta Ii) 30 ml PO Q6H PRN PRN PRN Reason: Gastric burning Aspirin (Aspirin, Baby) 81 mg PO DAILY@0800 [facility] Last Admin: 02/14/18 09:30 Dose: 81 mg Atorvastatin Calcium (Lipitor) 80 mg PO QHS [facility] Last Admin: 02/13/18 22:51 Dose: 80 mg Atropine Sulfate () 0.5 mg IV UD PRN PRN Reason: HR <50 bpm Dextrose (D50w Syringe) 0 gm IV X1 PRN; Protocol PRN Reason: Hypoglycemia Diazepam (Valium) 5 mg PO Q6H PRN PRN PRN Reason: BACK SPASMS/ANXIETY Enoxaparin Sodium (Lovenox) 40 mg SC DAILY@1000 [facility] Last Admin: 02/14/18 09:29 Dose: 40 mg Famotidine (Pepcid) 20 mg PO BID [facility] Last Admin: 02/14/18 09:30 Dose: 20 mg Glucagon () 1 mg IM .X1 PRN PRN Reason: Hypoglycemia Hydralazine HCl (Apresoline Iv) 10 mg IV Q4H PRN PRN PRN Reason: SBP > 160 Insulin Aspart (Novolog Flexpen (Bkc)) 0 units SC ACHS [facility] PRN Reason: Protocol Last Admin: 02/14/18 08:01 Dose: Not Given Lisinopril (Zestril) 2.5 mg PO DAILY [facility] Last Admin: 02/14/18 09:30 Dose: 2.5 mg Magnesium Hydroxide (Milk Of Magnesia) 30 ml PO DAILY PRN PRN PRN Reason: Constipation Metoclopramide HCl (Reglan) 5 mg IV Q6H PRN PRN Reason: NAUSEA/VOMITING Metoprolol Tartrate (Lopressor (Beta Marcia)) 12.5 mg PO BID [facility] Last Admin: 02/14/18 09:30 Dose: 12.5 mg Morphine Sulfate () 1 - 2 mg IV Q4H PRN PRN PRN Reason: PAIN Last Admin: 02/13/18 20:10 Dose: 2 mg Nitroglycerin (Nitrostat) 0.4 mg SUBLINGUAL Q5M PRN PRN Reason: CHEST PAIN Ondansetron HCl (Zofran) 4 mg IV Q8H PRN PRN PRN Reason: NAUSEA Promethazine HCl (Phenergan) 12.5 mg IV Q6H PRN PRN PRN Reason: NAUSEA/VOMITING Last Admin: 02/13/18 20:17 Dose: 12.5 mg Sodium Chloride () 500 ml IV BOLUS PRN PRN Reason: VASO-VAGAL PROTOCOL Sodium Chloride () 5 - 30 ml IV UD PRN PRN Reason: SALINE FLUSH Last Admin: 02/14/18 09:29 Dose: 20 ml Ticagrelor (Brilinta) 90 mg PO BID [facility] Last Admin: 02/14/18 09:30 Dose: 90 mg Medical Necessity - Tobacco Use Smoking Status: Never smoker Tobacco Use: Non-smoker, Chew Assessment/Plan Active and Suspected Problems STEMI (ST elevation myocardial infarction) (Acute) Inferiolateral 1. STEMI * s/p DEBBIE to distal RCA * on DAPT, HIS, metoprolol, lisinopril * cardiology following 2. Ischemic CM: * EF 40-45% on LHC, * echo done, orders pending * medical mgmt for now. 3. Hyperlipidemia: * HIS 4. DVT proph: * LMWH Code Visit Inpatient E&M: 22126 Subs Hosp L2
[2018-02-14 12:25] LABS: Bedside Glucose 168 mg/dL (70-110)
--- NOTE | 2018-02-14 16:30 | EKG12_ITS ---
Test Reason : AM EKG Blood Pressure : / mmHG Vent. Rate : 064 BPM Atrial Rate : 064 BPM P-R Int : 174 ms QRS Dur : 086 ms QT Int : 416 ms P-R-T Axes : 053 -23 025 degrees QTc Int : 429 ms Normal sinus rhythm Normal ECG When compared with ECG of 13-FEB-2018 16:39, MANUAL COMPARISON REQUIRED, DATA IS UNCONFIRMED Confirmed by VIKASH MEADOWS, BERTHA ([id number]), brands editor FLORIDALMA IRENE ([id number]) on 02/18/2018 3:53:18 PM Referred By: Davian Ngo Confirmed By:BERTHA SUH MD
[2018-02-14 17:35] LABS: Bedside Glucose 161 mg/dL (70-110)
[2018-02-14] MEDS: Atorvastatin Calcium 80 MG Tablet PO (21:22)
[2018-02-14 21:30] LABS: Bedside Glucose 151 mg/dL (70-110)
[2018-02-15] VITALS (7 sets, daily range): BP systolic 107–138; BP diastolic 74–89; PULSE 72–94; RESP 15–16; TEMP 36.8–37; O2SAT 94–98
--- NOTE | 2018-02-15 05:55 | EKG12_ITS ---
Test Reason : AM EKG Blood Pressure : / mmHG Vent. Rate : 074 BPM Atrial Rate : 074 BPM P-R Int : 170 ms QRS Dur : 086 ms QT Int : 392 ms P-R-T Axes : 041 -24 -43 degrees QTc Int : 435 ms Normal sinus rhythm Normal ECG When compared with ECG of 14-FEB-2018 05:37, MANUAL COMPARISON REQUIRED, DATA IS UNCONFIRMED Confirmed by VIKASH MEADOWS, BERTHA ([id number]), sound editor FLORIDALMA IRENE ([id number]) on 02/18/2018 3:50:43 PM Referred By: Davian Ngo Confirmed By:BERTHA SUH MD
[2018-02-15 06:56] LABS: Bedside Glucose 167 mg/dL (70-110)
[2018-02-15] MEDS: Aspirin 81 MG TAB.CHEW PO (08:02)
--- NOTE | 2018-02-15 09:09 | PN_ITS ---
Patient Problems: Active and Suspected Problems STEMI (ST elevation myocardial infarction) (Acute) Inferiolateral Subjective: no chest pain. no shortness of breath. Vitals/I&O's: Vital Signs Temp Pulse Resp BP Pulse Ox 37.0 C 76 16 138/89 H 95 02/15/18 02:18 02/15/18 07:40 02/15/18 02:18 02/15/18 02:18 02/15/18 02:18 Oxygen Flow Rate (L/min) 2 Oxygen Delivery Method Room Air Weight: 129.3 kg Body Mass Index (BMI) 41.3 Intake and Output for Last 24 Hours 02/13/18 02/14/18 02/15/18 23:59 23:59 23:59 Intake Total 2664 / 2664 60 / 60 Output Total 4550 / 4550 700 / 700 Balance -1886 / -1886 -640 / -640 General: Alert, Cooperative, No apparent distress HEENT: Atraumatic, Normocephalic Neck: No Nodes, Thyroid Normal Size and Texture Lungs: Clear to auscultation, Normal air movement, No rhonchi, No wheeze Cardiovascular: Regular rate, Regular Rhythm, Normal S1, Normal S2, No murmurs Abdomen: Bowel Sounds Present, Soft, Non Tender, Non-Distended Extremities: No edema, No Calf Tenderness Skin: No rashes, No breakdown Psych/Mental Status: Normal Affect, Appropriate Laboratory Results 02/14/18 12:14: POC Glucose 168 H 02/14/18 17:15: POC Glucose 161 H 02/14/18 21:20: POC Glucose 151 H 02/15/18 06:46: POC Glucose 167 H Current Medications Acetaminophen (Tylenol) 650 mg PO Q6H PRN PRN PRN Reason: Non-cardiac pain (mod-severe) Hydrocodone Bitart/Acetaminophen ([place] 5mg-325mg) 1 - 2 tablet PO Q6H PRN PRN PRN Reason: Moderate-severe pain Al Hydroxide/Mg Hydroxide (Mylanta Ii) 30 ml PO Q6H PRN PRN PRN Reason: Gastric burning Aspirin (Aspirin, Baby) 81 mg PO DAILY@0800 [facility] Last Admin: 02/15/18 08:02 Dose: 81 mg Atorvastatin Calcium (Lipitor) 80 mg PO QHS [facility] Last Admin: 02/14/18 21:22 Dose: 80 mg Atropine Sulfate () 0.5 mg IV UD PRN PRN Reason: HR <50 bpm Dextrose (D50w Syringe) 0 gm IV X1 PRN; Protocol PRN Reason: Hypoglycemia Diazepam (Valium) 5 mg PO Q6H PRN PRN PRN Reason: BACK SPASMS/ANXIETY Enoxaparin Sodium (Lovenox) 40 mg SC DAILY@1000 [facility] Last Admin: 02/14/18 09:29 Dose: 40 mg Famotidine (Pepcid) 20 mg PO BID [facility] Last Admin: 02/14/18 21:22 Dose: 20 mg Glucagon () 1 mg IM .X1 PRN PRN Reason: Hypoglycemia Hydralazine HCl (Apresoline Iv) 10 mg IV Q4H PRN PRN PRN Reason: SBP > 160 Insulin Aspart (Novolog Flexpen (Bkc)) 0 units SC ACHS [facility] PRN Reason: Protocol Last Admin: 02/15/18 08:02 Dose: 1 unit Lisinopril (Zestril) 2.5 mg PO DAILY [facility] Last Admin: 02/14/18 09:30 Dose: 2.5 mg Magnesium Hydroxide (Milk Of Magnesia) 30 ml PO DAILY PRN PRN PRN Reason: Constipation Metoclopramide HCl (Reglan) 5 mg IV Q6H PRN PRN Reason: NAUSEA/VOMITING Metoprolol Tartrate (Lopressor (Beta Marcia)) 12.5 mg PO BID [facility] Last Admin: 02/14/18 21:21 Dose: 12.5 mg Morphine Sulfate () 1 - 2 mg IV Q4H PRN PRN PRN Reason: PAIN Last Admin: 02/13/18 20:10 Dose: 2 mg Nitroglycerin (Nitrostat) 0.4 mg SUBLINGUAL Q5M PRN PRN Reason: CHEST PAIN Ondansetron HCl (Zofran) 4 mg IV Q8H PRN PRN PRN Reason: NAUSEA Promethazine HCl (Phenergan) 12.5 mg IV Q6H PRN PRN PRN Reason: NAUSEA/VOMITING Last Admin: 02/13/18 20:17 Dose: 12.5 mg Sodium Chloride () 500 ml IV BOLUS PRN PRN Reason: VASO-VAGAL PROTOCOL Sodium Chloride () 5 - 30 ml IV UD PRN PRN Reason: SALINE FLUSH Last Admin: 02/14/18 09:29 Dose: 20 ml Ticagrelor (Brilinta) 90 mg PO BID [facility] Last Admin: 02/14/18 21:21 Dose: 90 mg Medical Necessity - Tobacco Use Smoking Status: Never smoker Tobacco Use: Non-smoker, Chew Assessment/Plan Active and Suspected Problems STEMI (ST elevation myocardial infarction) (Acute) Inferiolateral 1. STEMI * s/p DEBBIE to distal RCA * on DAPT, HIS, metoprolol, lisinopril * cardiology following 2. Ischemic CM: * EF 40-45% on LHC, * echo done, orders pending * medical mgmt for now. 3. Hyperlipidemia: * HIS 4. DVT proph: * LMWH 5. Disposition: to home when ok'd by cardiology. Code Visit Inpatient E&M: 12526 Subs Hosp L2
[2018-02-15] MEDS: Famotidine 20 MG Tablet PO (09:15)
[2018-02-15] MEDS: Metoprolol Tartrate 25 MG Tablet 12.5 MG PO (09:15)
[2018-02-15] MEDS: Lisinopril 2.5 MG Tablet PO (09:15)
[2018-02-15] MEDS: Enoxaparin 40 MG/0.4 ML Syringe SC (09:16)
[2018-02-15] MEDS: TICAGRELOR 90 MG TABLET PO (09:16)
--- NOTE | 2018-02-15 09:38 | PN_ITS ---
Progress Note Patient is scheduled for a post PCI/STEMI follow-up with [facility] on March 17, 2018 at 10:00. This appointment will be with Lauren, Physician Fisheries Officer. He will follow-up with Dr. Ngo long-term.
--- NOTE | 2018-02-15 10:18 | PCM.PN.CARD ---
Subjectve: Patient continues to improve. Telemetry negative. Right groin is clean/dry/intact, creatinine and hemoglobin within nominal limits. Echocardiogram shows intact LV function, with an overall ejection fraction of 50-55% with mild inferior, posterior and lateral hypokinesis. Objective: Vital Signs Temp Pulse Resp BP Pulse Ox 98.2 F 94 15 122/74 H 94 02/15/18 08:15 02/15/18 09:15 02/15/18 08:15 02/15/18 08:15 02/15/18 08:15 Oxygen Flow Rate (L/min) 2 Oxygen Delivery Method Room Air Weight: 285 lb 0.923 oz Body Mass Index (BMI) 41.3 Intake and Output for Last 24 Hours 02/13/18 02/14/18 02/15/18 23:59 23:59 23:59 Intake Total 2664 / 2664 60 / 60 Output Total 4550 / 4550 700 / 700 Balance -1886 / -1886 -640 / -640 General: Awake, Alert, Oriented x 3 HEENT: PERRL, EOMI, Sclera Non Icteric Neck: Supple, Good ROM, No Lymph Node Enlargement Lungs: Clear to auscultation Cardiovascular: Regular Rhythm, Normal S1, Normal S2, No Murmurs, No Rubs, No Gallops Rhythm: EKG: ECHO: Stress Test: Cardiac Cath: PCI: CT Surgery: Holter monitor: EPS: PPM: CXR: Chest CT Scan: Medical Necessity - Tobacco Use Smoking Status: Never smoker Tobacco Use: Non-smoker, Chew Assessment/Plan 1. Coronary artery disease: The patient presented with acute inferior wall myocardial infarction requiring emergent catheterization, thrombectomy, drug-eluting stent ?1 to the distal RCA. All other coronary arteries appear to be within normal limits and minimal nonobstructive disease. Patient's EF of the end of the procedure was around 40-45% with moderate mid inferior hypokinesis. Echocardiogram shows intact LV function, with an overall ejection fraction of 50-55% with mild inferior, posterior and lateral hypokinesis. Overnight the patient has done very well. His chest pain is resolved. His peak troponin thus far is 9.58. Telemetry is negative. Recommend he continue his aspirin, Brilinta, Lopressor, lisinopril. Patient to be transferred to stepdown unit. He may be able to go home today to follow-up with me going forward. Arrangements have been made for the patient to undergo cardiac rehab. 2. Hyperlipidemia: LDL is 208, and HDL is 44. Continue Lipitor. Repeat lipid profile in 6 weeks time. 3. Patient may be transferred to stepdown unit. Thank you very much for the opportunity to participate in the cardiac care of your patient.
--- NOTE | 2018-02-15 10:24 | PN.CARD_ITS ---
Subjectve: Patient continues to improve. Telemetry negative. Right groin is clean/dry/ intact, creatinine and hemoglobin within nominal limits. Echocardiogram shows intact LV function, with an overall ejection fraction of 50-55% with mild inferior, posterior and lateral hypokinesis. Objective: Vital Signs Temp Pulse Resp BP Pulse Ox 98.2 F 94 15 122/74 H 94 02/15/18 08:15 02/15/18 09:15 02/15/18 08:15 02/15/18 08:15 02/15/18 08:15 Oxygen Flow Rate (L/min) 2 Oxygen Delivery Method Room Air Weight: 285 lb 0.923 oz Body Mass Index (BMI) 41.3 Intake and Output for Last 24 Hours 02/13/18 02/14/18 02/15/18 23:59 23:59 23:59 Intake Total 2664 / 2664 60 / 60 Output Total 4550 / 4550 700 / 700 Balance -1886 / -1886 -640 / -640 General: Awake, Alert, Oriented x 3 HEENT: PERRL, EOMI, Sclera Non Icteric Neck: Supple, Good ROM, No Lymph Node Enlargement Lungs: Clear to auscultation Cardiovascular: Regular Rhythm, Normal S1, Normal S2, No Murmurs, No Rubs, No Gallops Rhythm: EKG: ECHO: Stress Test: Cardiac Cath: PCI: CT Surgery: Holter monitor: EPS: PPM: CXR: Chest CT Scan: Medical Necessity - Tobacco Use Smoking Status: Never smoker Tobacco Use: Non-smoker, Chew Assessment/Plan 1. Coronary artery disease: The patient presented with acute inferior wall myocardial infarction requiring emergent catheterization, thrombectomy, drug- eluting stent ?1 to the distal RCA. All other coronary arteries appear to be within normal limits and minimal nonobstructive disease. Patient's EF of the end of the procedure was around 40-45% with moderate mid inferior hypokinesis. Echocardiogram shows intact LV function, with an overall ejection fraction of 50-55% with mild inferior, posterior and lateral hypokinesis. Overnight the patient has done very well. His chest pain is resolved. His peak troponin thus far is 9.58. Telemetry is negative. Recommend he continue his aspirin, Brilinta, Lopressor, lisinopril. Patient to be transferred to stepdown unit. He may be able to go home today to follow-up with me going forward. Arrangements have been made for the patient to undergo cardiac rehab. 2. Hyperlipidemia: LDL is 208, and HDL is 44. Continue Lipitor. Repeat lipid profile in 6 weeks time. 3. Patient may be transferred to stepdown unit. Thank you very much for the opportunity to participate in the cardiac care of your patient.
[2018-02-15 11:21] LABS: Bedside Glucose 199 mg/dL (70-110)
--- NOTE | 2018-02-15 11:51 | PCM.DC ---
- Discharge Diagnoses Current Active Problems: Current Active and Chronic Problems Morbid obesity (Chronic) STEMI (ST elevation myocardial infarction) (Acute) Inferiolateral You will use the following diet at home:: Cardiac Your food should be the consistency of: Regular Your liquids should be the consistency of: Regular/Thin Discharge Activity: Return to Normal Activity Call your doctor if you observe: Fever of 101 or Higher, Inability to urinate, Shortness of breath, Chest pain Allergies/Adverse Reactions: Allergies No Known Allergies Allergy (Verified 02/13/18 14:58) Medications to take at Discharge Aspirin [Aspirin, Baby] 81 mg PO DAILY@0800 tab.chew 02/15/18 Atorvastatin Calcium [Lipitor] 80 mg PO QHS #30 tab 02/15/18 Lisinopril [Zestril] 2.5 mg PO DAILY #30 tab 02/15/18 Metoprolol Tartrate [Lopressor (beta joel)] 12.5 mg PO BID #60 tab 02/15/18 Ticagrelor [Brilinta] 90 mg PO BID #60 tab 02/15/18 The following prescriptions were given: Atorvastatin Calcium [Lipitor] 80 mg PO QHS #30 tab Lisinopril [Zestril] 2.5 mg PO DAILY #30 tab Metoprolol Tartrate [Lopressor (beta joel)] 12.5 mg PO BID #60 tab Ticagrelor [Brilinta] 90 mg PO BID #60 tab Primary Care Physician: Care Physician,No Primary [NON-STAFF] - Please Follow Up With: [facility] When: March 17 at 10am Proposed Discharge Date: 02/15/18
--- NOTE | 2018-02-15 11:53 | PCM.DC.SUM ---
Discharge Date and Diagnosis - Problem List Patient Problems: Active and Suspected Problems STEMI (ST elevation myocardial infarction) (Acute) Inferiolateral Date of Admission: 02/13/18 Date of Discharge: 02/15/18 - Primary Discharge Diagnosis Active and Suspected Problems STEMI (ST elevation myocardial infarction) (Acute) Inferiolateral - Secondary Discharge Diagnosis Chronic Problems Morbid obesity (Chronic) Hospital Course and Treatment Imaging Results: Clinical Impression(s) from Imaging Studies Chest X-Ray 02/13/18 14:59 Operations: None Procedures: 2-D Echocardiogram, Cardiac catheterization Summary of Care Provided: The patient is a 52 year old M presents with a ST elevation myocardial infarction. Patient underwent a drug-eluting stent to the distal RCA. Patient also had an echocardiogram showed an EF of 50-55%. On left heart catheterization showed that was 40-45%. Patient be medically managed. Patient will follow up with cardiology on March 17. Patient is otherwise doing well. Patient may return to work in a week's time. 1. STEMI s/p DEBBIE to distal RCA on DAPT, HIS, metoprolol, lisinopril cardiology following 2. Ischemic CM: EF 40-45% on C, echo done, orders pending medical mgmt for now. 3. Hyperlipidemia: HIS [] Discharge Diet: Low fat/ Low Cholesterol Discharge Activity: Return to Normal Activity Return to work on:: 02/21/18 Call your doctor if you observe: Fever of 101 or Higher, Inability to urinate, Shortness of breath, Chest pain Home Medications: Medications to take at Discharge Aspirin [Aspirin, Baby] 81 mg PO DAILY@0800 tab.chew 02/15/18 Atorvastatin Calcium [Lipitor] 80 mg PO QHS #30 tab 02/15/18 Lisinopril [Zestril] 2.5 mg PO DAILY #30 tab 02/15/18 Metoprolol Tartrate [Lopressor (beta joel)] 12.5 mg PO BID #60 tab 02/15/18 Ticagrelor [Brilinta] 90 mg PO BID #60 tab 02/15/18 Following Prescrptions Were Given to Patient: Atorvastatin Calcium [Lipitor] 80 mg PO QHS #30 tab Lisinopril [Zestril] 2.5 mg PO DAILY #30 tab Metoprolol Tartrate [Lopressor (beta joel)] 12.5 mg PO BID #60 tab Ticagrelor [Brilinta] 90 mg PO BID #60 tab Primary Care Physician: Care Physician,No Primary [NON-STAFF] - Please Follow Up With: [facility] When: March 17 at 10am Medical Necessity - Tobacco Use Smoking Status: Never smoker Tobacco Use: Non-smoker, Chew Meaningful Use Info Meaningful Use Diagnoses (Choose all that apply): AMI - AMI Aspirin given w/in 24hrs of arrival?: Yes ASA at discharge?: Yes Statins at discharge?: Yes Chris/ARB at discharge?: Yes Beta Joel at discharge?: Yes Done w/ Acute [place] measure.: Yes Code Visit Inpatient E&M: 49423 Disch Hosp
--- NOTE | 2018-02-15 11:57 | DS.PCM_ITS ---
Discharge Date and Diagnosis - Problem List Patient Problems: Active and Suspected Problems STEMI (ST elevation myocardial infarction) (Acute) Inferiolateral Date of Admission: 02/13/18 Date of Discharge: 02/15/18 - Primary Discharge Diagnosis Active and Suspected Problems STEMI (ST elevation myocardial infarction) (Acute) Inferiolateral - Secondary Discharge Diagnosis Chronic Problems Morbid obesity (Chronic) Hospital Course and Treatment Imaging Results: Clinical Impression(s) from Imaging Studies Chest X-Ray 02/13/18 14:59 Operations: None Procedures: 2-D Echocardiogram, Cardiac catheterization Summary of Care Provided: The patient is a 52 year old M presents with a ST elevation myocardial infarction. Patient underwent a drug-eluting stent to the distal RCA. Patient also had an echocardiogram showed an EF of 50-55%. On left heart catheterization showed that was 40-45%. Patient be medically managed. Patient will follow up with cardiology on March 17. Patient is otherwise doing well. Patient may return to work in a week's time. 1. STEMI * s/p DEBBIE to distal RCA * on DAPT, HIS, metoprolol, lisinopril * cardiology following 2. Ischemic CM: * EF 40-45% on LHC, * echo done, orders pending * medical mgmt for now. 3. Hyperlipidemia: * HIS [] Discharge Diet: Low fat/ Low Cholesterol Discharge Activity: Return to Normal Activity Return to work on:: 02/21/18 Call your doctor if you observe: Fever of 101 or Higher, Inability to urinate, Shortness of breath, Chest pain Home Medications: Medications to take at Discharge Aspirin [Aspirin, Baby] 81 mg PO DAILY@0800 tab.chew 02/15/18 Atorvastatin Calcium [Lipitor] 80 mg PO QHS #30 tab 02/15/18 Lisinopril [Zestril] 2.5 mg PO DAILY #30 tab 02/15/18 Metoprolol Tartrate [Lopressor (beta joel)] 12.5 mg PO BID #60 tab 02/15/18 Ticagrelor [Brilinta] 90 mg PO BID #60 tab 02/15/18 Following Prescrptions Were Given to Patient: Atorvastatin Calcium [Lipitor] 80 mg PO QHS #30 tab Lisinopril [Zestril] 2.5 mg PO DAILY #30 tab Metoprolol Tartrate [Lopressor (beta joel)] 12.5 mg PO BID #60 tab Ticagrelor [Brilinta] 90 mg PO BID #60 tab Primary Care Physician: Care Physician,No Primary [NON-STAFF] - Please Follow Up With: [facility] When: March 17 at 10am Medical Necessity - Tobacco Use Smoking Status: Never smoker Tobacco Use: Non-smoker, Chew Meaningful Use Info Meaningful Use Diagnoses (Choose all that apply): AMI - AMI Aspirin given w/in 24hrs of arrival?: Yes ASA at discharge?: Yes Statins at discharge?: Yes Chris/ARB at discharge?: Yes Beta Joel at discharge?: Yes Done w/ Acute DE measure.: Yes Code Visit Inpatient E&M: 28108 Disch Hosp
== END 2018-02-15 13:00 | disposition home or self-care (01) | DRG 247 ==
LOC: ED 15:07 → ICU 15:22
PROVIDERS: Family Medicine; Admitting Provider Internal Medicine Cardiovascular Disease; Emergency Provider Emergency Medicine; Family Provider Family Medicine; PCP Family Medicine; Visit Provider Internal Medicine Cardiovascular Disease
DX: I21.19 ST elevation (STEMI) myocardial infarction involving other coronary artery of inferior wall (principal); Z68.41 Body mass index [BMI] 40.0-44.9, adult; I25.10 Atherosclerotic heart disease of native coronary artery without angina pectoris; E11.9 Type 2 diabetes mellitus without complications; E66.01 Morbid (severe) obesity due to excess calories; E78.5 Hyperlipidemia, unspecified; I25.5 Ischemic cardiomyopathy
CPT/HCPCS: 71045; 80048; 80061; 82550; 82962; 83036; 83735; 84484; 85025; 85027; 85347; 85610; 85730; 87641; 92941; 93005; 93306; 93458; 97802; 99284; J7030; J7040; Q9957; A4216; C1725; C1757; C1769; C1874; C1887; C8929; C9606; Q9967

== ENCOUNTER → 2018-03-11 12:29 | Outpatient (CLI) | payer OTHER, SELFPAY ==
--- NOTE | 2018-03-11 12:47 | PCM.CR.ITP ---
General Information - General Information Admitting Diagnosis: STEMI, f/b PCI w/ coronary stent placement Special Needs: Patient is scheduled to travel internationally for aprx 30-35 days for work - Education/Goals Barriers to Learning: None Individual Counseling: Initial Assessment: Abnormal Cholesterol Levels, Overweight/Obesity Cardiac Rehabilitation Goals: 1. Maintain the individual as the primary focus of care. 2. To improve the patient's quality of life. 3. Identification of cardiac risk factors and provide cardiac risk factor management. 4. Enhance the psychosocial status of the patient. 5. Reconditioning enough to allow the patient to resume customary activities. 6. Control symptoms of cardiac disease Scale for measuring improvement of personal goals: Enter appropriate number in Comments. 2 = Unchanged. 3 = Slightly Better. 4 = Moderate Improvement. 5 = Met my Goal Personal Goals: Initial Assessment: Improve energy level, Participate in home exercise program, Get back to work, or to resume activities faster, Improve knowledge of cardiac disease, Improve muscle strength and endurance, Improve diet and eating habits (eat healthier), Control risk factors (learn risk factor modification) Exercise - Initial Assessment - Visit Date of Eval: 03/11/18 - Delayed starting CR for now due to international travel in March-April Session #:: 0 - established initial ITP - Stages of Change Stages of Change:: Action - Exercise Prescription Mode:: Treadmill, Rower, Airdyne Angina with exercise?: Yes Target Heart Rate:: 127-136 - Hypertension Do any of the following apply?: No Resting Blood Pressure:: 120/82 - Intervention Home Exercise/Activity Goal:: Moderate Exercise 30 min/day x 5 days/wk - Education Goals:: Warm-up, RPE CHRISTINA Scale, S/S, Safe Exercise, Self-Monitoring - Exercise Program Goals Exercise Program Goals: Aerobic Activity >30 min Nutrition - Initial Assessment - Program Goals Nutrition Program Goals: LDL <70. Total Cholesterol <200. HDL >45. Triglycerides <150. HgbA1C <7%. BMI <25 - Visit Date of Assessment:: 03/11/18 - Stages of Change Stages of Change:: Action - Lipids Total Cholesterol (mg/dL) Goal = less than 200 mg/dL: 208 HDL Cholesterol (mg/dL) Goal = less than 45 mg/dL: 36 LDL Cholesterol (mg/dL) Goal = less than 70 mg/dL: 122 Triglycerides (mg/dL) Goal = less than 150 mg/dL: 250 - Diabetes Diabetes:: No - Weight Management Height: 6 ft Weight:: 264 lb - Intervention Referral to dietitian:: Yes - Patient may benefit from strucutred weight loss planning. Referral to Diabetic Clinic:: No Will attend diet classes:: Yes - Education Gave educational materials for:: Healthy eating Tobacco - Initial Assessment - Program Goals Tobacco Program Goals: Complete smoking cessation. Attend education classes. Improve Knowledge Test score - Stage of Change Stages of Change:: Action - Learning Barriers Learning Barriers: Ready to Learn - Family Support Do you have family support?: Yes - Tobacco Use Tobacco Use: Non-smoker - Intervention Smoking Cessation Referral:: No Individual Education/Counseling:: No Education Schedule Given:: Yes - Education Gave educational material for:: Coronary artery disease, Risk factors, Sexuality, Medical compliance, Cardiac A&P, Angina signs & symptoms Psychosocial - Initial Assess - Target Goals Target Goals: Assess presence or absence of depression. Using a valid screening tool, maximizes coping skills. Positive support system - Stages of Change Stages of Change:: Action - Psychosocial Test Tool Used:: HANDS Depression Questionnaire - Intervention PS - Interventions: Yes Attend Stress Management Classes, Yes Uses Stress Management Skills, No Referral to Mental Health, No Referral to [facility] Case Management, No Referral to Physician - Education Gave educational materials for:: Coping techniques, Signs & symptoms of depression, Stress management, Relaxation techniques - Patient/Program Goal Preventative Medication(s):: Aspirin, Clopidogrel, Beta joel, Statin/lipid - Assistive Devices Assistive Devices:: None Fall Risk Assessed:: Yes Patient Health Questionnaire Initial Assessment 1. Little interest or pleasure in doing things: Not at all 2. Feeling down, depressed, or hopeless: Not at all 3. Trouble falling or staying asleep, or sleeping too much: Not at all 4. Feeling tired or having little energy: Not at all 5. Poor appetite or overeating: Not at all 6. Feeling bad about yourself -- or that you are a failure or have let yourself or your family down: Not at all 7. Trouble concentrating on things, such as reading the newspaper or watching television: Not at all 8. Moving or speaking so slowly that other people could have noticed. Or the opposite - being so fidgety or restless that you have been moving around a lot more than usual: Not at all 9. Thoughts that you would be better off , or of hurting yourself in some way: Not at all How difficult have these problems made it for you to do your work, take care of things at home, or get along with other people?: Not difficult at all Total Score: 0 BEKA-Q SV Test - Statements CAD is a disease of the arteries in the heart: False Examples of risk factors for heart disease: True Angina is chest pain or discomfort: True The benefits of resistance training include: True Eating more meat and dairy products: False Anti-platelet medications such as aspirin are important: True The only effective way to manage stress: False An exercise warm-up slowly increases heart rate: True Prepared, processed foods usually have high sodium: True Depression is common after a heart attack: True The statin medications lower cholesterol: True To control blood pressure, lower the amount of sodium: True If someone gets chest discomfort during walking: False Transfats are partially hydrogenated vegetable oils: True Sleep apnea that is not treated increases the risk: True To control cholesterol, one should become a vegetarian: False Someone knows if he/she is exercising at the right level: True Diabetes cannot be prevented with exercise & health eating: False Stress is a large risk for heart attack: True A diet that can help lower blood pressure is rich in: True - Total Score Total Correct Responses: 19 Self-Efficacy Initial Assessment We would like to know how confident you are in doing certain activities. Please select your confidence level for:: Select your confidence level for the following using the scale 1-10 where 1 is not at all confident and 10 is totally confident. Your score is the average of all 6 responses. Fatigue: How confident are you that you can keep the fatigue caused by your disease from interfering with the things you want to do? Select Number: 9 Physical Discomfort or Pain: How confident are you that you can keep the physical discomfort or pain of your disease from interfering with the things you want to do? Select Number: 9 Emotional Distress: How confident are you that you can keep the emotional distress caused by your disease from interfering with the things you want to do? Select Number: 9 Other Symptoms or Health Problems: How confident are you that you can keep other symptoms or health problems from interfering with the things you want to do? Select Number: 9 Different Tasks and Activities: How confident are you that you can do the different tasks and activities needed to manage your health condition so as to reduce your need to see a doctor? Select Number: 10 Medication: How confident are you that you can do things other than just taking medication to reduce how much your illness affects your everyday life? Select Number: 9 Total Score:: 9 Nutrition Survey - Nutrition Survey Instructions Scoring Instructions: Scoring is as follows: Yes = 1 points. No = 0 point. Patient score that is >/=12 is considered to be at potential nutritional risk and could benefit from a referral to a registered dietitian. - Nutrition Survey Initial Have you lost >10 lbs over the past 2 months without trying?: No Are you following a special diet at home for diabetes, low fat, or low salt?: Yes Are you interested in meeting with a dietitian for help understanding your diet?: Yes Do you eat less than 3 meals a day?: No Do you eat fatty meats (guerin, sausage, ribs, etc), fried foods, desserts, large amounts of salad dressings, margarine, butter, or cheese most days?: No Do you have food allergies? [Enter types in comment field]: No Do you eat in restaurants more than 3 times a week?: Yes Do you season food with salt, seasoning salt, or garlic salt?: No Do you used canned, boxed, frozen meals, or soups, seasoning packets?: No Total Score:: 3
--- NOTE | 2018-03-11 12:48 | PCM.CR.HP2 ---
CR - History & Physical - General Arrival date:: 03/11/18 Arrival time:: 12:48 Date of Referral:: 02/18/18 Date of CR Evaluation:: 03/11/18 Referring Physician: Dr. Davian Ngo Primary Diagnosis: Status post coronary stent placement - History of Present Cardiac Event Onset Date: Enter Onset Date of cardiac illnesses in Comment field below Acute Myocardial Infarction within 12 months:: Yes - STEMI 02/13/2018 PTCA or coronary stenting:: Yes - 02/13/2018 Type of Symptoms:: TIGHTNESS AND PAIN IN UPPER CHEST AND IN TO THE JAW. Interventions with present event:: EMERGENCY ROOM TO EMERGENT HEART CATH Were there any complications?: NONE - Medications Home Medications: Ambulatory Orders Medication Instructions Recorded Aspirin [Aspirin, Baby] 81 mg PO DAILY@0800 tab.chew 02/15/18 Atorvastatin Calcium [Lipitor] 80 mg PO QHS #30 tab 02/15/18 Lisinopril [Zestril] 2.5 mg PO DAILY #30 tab 02/15/18 Metoprolol Tartrate [Lopressor 12.5 mg PO BID #60 tab 02/15/18 (beta joel)] Ticagrelor [Brilinta] 90 mg PO BID #60 tab 02/15/18 - Allergies Allergies/Adverse Reactions: Allergies No Known Allergies Allergy (Verified 02/13/18 14:58) - Sleep Disorder Evaluation Hx of Sleep Apnea: No Do you snore loudly (louder than talking or can be heard through closed doors)?: No Do you often feel tired/ fatigued/ sleepy during daytime?: No Has anyone observed you stop breathing during sleep?: No History of Hypertension (for STOP score): Yes STOP Results: Negative Advanced Directives - Advanced Directives Power of Auto Former Machine Operator: No Living Will: No Advance Directives Information Provided: Yes Advance Directives on File: No DNR Order?:: No - MOLST See MOLST form: No Past Medical History - Past Medical Illness Medical History: Past Medical History (Last Updated 02/18/18 @ 09:50 by Shirlene Aguilar) Stented coronary artery (Chronic) Z95.5 Morbid obesity (Chronic) E66.01 STEMI (ST elevation myocardial infarction) (Acute) I21.3 Inferiolateral - Past Surgical History Surgical History: - - T+A, appendectomy. Social History - Smoking History Smoking Status: Never smoker Hx Tobacco Use: No Hx Smoking Exposure: No - Alcohol Use Alcohol Usage: Yes - ocassional 2-3 beer liquor a day, occasionally wine. - Substance Abuse Hx Substance Use: No - Occupation Occupation (List type of work in comments):: Employed Hours worked per day:: 10 Returned to work on:: 02/21/18 - Hobbies, Recreation, Social Activities Hobbies: Other - horse back riding Recreational Activities: I am able to engage in all my recreational activities Social Environment - Status Marital Status: - Current Living Arrangements Living Environment:: Spouse - Children How many children do you have?: 2 Do any of your children live nearby?: Yes - no - Safety Do you feel safe in your surroundings?: Yes - Assistance Do you need any assistance at home?: none Review of Systems - Review of Systems Hints: Right click = Denies (Slash). Left click = Reports ([place]) Review of Present Symptoms: Reports: Appetite - Normal, Appetite - Special Diet - cardiac diet, low fat, low salt.. Denies: Shortness of Breath at Rest, Shortness of Breath with Exertion, Dizziness/Lightheadedness, Fatigue, Heart Arrhythmia/Irregularities, Sleep - Normal - sleep alot less now 6-7 hours max., Sexual Changes - Pain Is Patient Pain Free?: No Pain Location: none Risk Factor Assessment - Chief Complaint Chief Complaint: Carlos is a 52 year old male of Dr. Davian Ngo who presents to cardiac rehab today floowing a recent STEMI and PCI intervention on 02/13/2018. 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 Smoking Moderate Risk: Smoker or quit 6 months or less ago. Smoking High Risk: Smoker - For Dyslipidemia Dyslipidemia Risk Guidelines: Low Risk: Moderate Risk: High Risk: 15-25% fat 25.1-29% fat >/= 30% fat. <7% sat fat 7-9% sat fat >9% sat fat. <150 mg chol 150-299 mg chol >/= 300 mg chol. LDL <100 LDL 100-129 LDL >/= 130. Chol/HDL ratio <5.0 Chol/HDL ratio 5.0-6.0 Chol/HDL ratio >6.0. Triglycerides <100 Triglycerides 100-149 Triglycerides >/= 150 - For Diabetes Mellitus Diabetes Risk Guidelines: Diabetes Low Risk: HgA1c <6.5% and/or FBG <120. Diabetes Moderate Risk: HgA1c 6.6-7.9% and/or FBG 120-180. Diabetes High Risk: HgA1c >/= 8% and/or FBG >180 - For Obesity/Overweight Obesity/Overweight Risk Guidelines: Obesity Low Risk: BMI <25.0. Obesity Moderate Risk: BMI 25-29.9. Obesity High Risk: BMI >/= 30.0 - For Hypertension Hypertension Risk Guidelines: Hypertension Low Risk: Systolic <120 and Diastolic <80. Hypertension Moderate Risk: Systolic 120-139 and Diastolic 80-89. Hypertension High Risk: Systolic >/= 140 and Diastolic >/= 90 - For Sedentary Lifestyle Sedentary Lifestyle Risk Guidelines: Sedentary Lifestyle Low Risk: >/= 1,500 kcal/week. Sedentary Lifestyle Moderate Risk: 700-1,499 kcal/week. Sedentary Lifestyle High Risk: < 700 kcal/week - For Depression Depression Risk Guidelines: Depression Low Risk: Not clinically depressed. Depression Moderate Risk: Mildly depressed. Depression High Risk: Clinically depressed Motivation - Motivation to Participate On a scale of 1 to 10, how prepared are you to commit to attending program?: 10 What do you see as barriers to successfully being able to complete the program?: travel for work/training What do you see as the benefits of succesfully completing the program? In other words, what do you hope to get out of participating in the program?: educating myself about heart disease, correcting 50 years of bad habits Are there issues you are dealing with that will interfere with completing the program?: none Do you have a spouse or signficant other, family or friends who will help support you to complete the program?: excellent family support.
--- NOTE | 2018-03-11 12:58 | CR.HP_ITS ---
CR - History & Physical - General Arrival date:: 03/11/18 Arrival time:: 12:48 Date of Referral:: 02/18/18 Date of CR Evaluation:: 03/11/18 Referring Physician: Dr. Davian Ngo Primary Diagnosis: Status post coronary stent placement - History of Present Cardiac Event Onset Date: Enter Onset Date of cardiac illnesses in Comment field below Acute Myocardial Infarction within 12 months:: Yes - STEMI 02/13/2018 PTCA or coronary stenting:: Yes - 02/13/2018 Type of Symptoms:: TIGHTNESS AND PAIN IN UPPER CHEST AND IN TO THE JAW. Interventions with present event:: EMERGENCY ROOM TO EMERGENT HEART CATH Were there any complications?: NONE - Medications Home Medications: Ambulatory Orders Medication Instructions Recorded Aspirin [Aspirin, Baby] 81 mg PO DAILY@0800 tab.chew 02/15/18 Atorvastatin Calcium [Lipitor] 80 mg PO QHS #30 tab 02/15/18 Lisinopril [Zestril] 2.5 mg PO DAILY #30 tab 02/15/18 Metoprolol Tartrate [Lopressor 12.5 mg PO BID #60 tab 02/15/18 (beta joel)] Ticagrelor [Brilinta] 90 mg PO BID #60 tab 02/15/18 - Allergies Allergies/Adverse Reactions: Allergies No Known Allergies Allergy (Verified 02/13/18 14:58) - Sleep Disorder Evaluation Hx of Sleep Apnea: No Do you snore loudly (louder than talking or can be heard through closed doors)? : No Do you often feel tired/ fatigued/ sleepy during daytime?: No Has anyone observed you stop breathing during sleep?: No History of Hypertension (for STOP score): Yes STOP Results: Negative Advanced Directives - Advanced Directives Power of Mental Health Consultant: No Living Will: No Advance Directives Information Provided: Yes Advance Directives on File: No DNR Order?:: No - MOLST See MOLST form: No Past Medical History - Past Medical Illness Medical History: Past Medical History (Last Updated 02/18/18 @ 09:50 by Shirlene Aguilar) Stented coronary artery (Chronic) Z95.5 Morbid obesity (Chronic) E66.01 STEMI (ST elevation myocardial infarction) (Acute) I21.3 Inferiolateral - Past Surgical History Surgical History: - - T+A, appendectomy. Social History - Smoking History Smoking Status: Never smoker Hx Tobacco Use: No Hx Smoking Exposure: No - Alcohol Use Alcohol Usage: Yes - ocassional 2-3 beer liquor a day, occasionally wine. - Substance Abuse Hx Substance Use: No - Occupation Occupation (List type of work in comments):: Employed Hours worked per day:: 10 Returned to work on:: 02/21/18 - Hobbies, Recreation, Social Activities Hobbies: Other - horse back riding Recreational Activities: I am able to engage in all my recreational activities Social Environment - Status Marital Status: - Current Living Arrangements Living Environment:: Spouse - Children How many children do you have?: 2 Do any of your children live nearby?: Yes - no - Safety Do you feel safe in your surroundings?: Yes - Assistance Do you need any assistance at home?: none Review of Systems - Review of Systems Hints: Right click = Denies (Slash). Left click = Reports ([place]) Review of Present Symptoms: Reports: Appetite - Normal, Appetite - Special Diet - cardiac diet, low fat, low salt.. Denies: Shortness of Breath at Rest, Shortness of Breath with Exertion, Dizziness/Lightheadedness, Fatigue, Heart Arrhythmia/Irregularities, Sleep - Normal - sleep alot less now 6-7 hours max., Sexual Changes - Pain Is Patient Pain Free?: No Pain Location: none Risk Factor Assessment - Chief Complaint Chief Complaint: Carlos is a 52 year old male of Dr. Davian Ngo who presents to cardiac rehab today floowing a recent STEMI and PCI intervention on 02/13/2018. 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 Smoking Moderate Risk: Smoker or quit 6 months or less ago. Smoking High Risk: Smoker - For Dyslipidemia Dyslipidemia Risk Guidelines: Low Risk: Moderate Risk: High Risk: 15-25% fat 25.1-29% fat >/= 30% fat. <7% sat fat 7-9% sat fat >9% sat fat. <150 mg chol 150-299 mg chol >/= 300 mg chol. LDL <100 LDL 100-129 LDL >/= 130. Chol/HDL ratio <5.0 Chol/HDL ratio 5.0-6.0 Chol/HDL ratio >6.0. Triglycerides <100 Triglycerides 100-149 Triglycerides >/= 150 - For Diabetes Mellitus Diabetes Risk Guidelines: Diabetes Low Risk: HgA1c <6.5% and/or FBG <120. Diabetes Moderate Risk: HgA1c 6.6-7.9% and/or FBG 120-180. Diabetes High Risk: HgA1c >/= 8% and/or FBG >180 - For Obesity/Overweight Obesity/Overweight Risk Guidelines: Obesity Low Risk: BMI <25.0. Obesity Moderate Risk: BMI 25-29.9. Obesity High Risk: BMI >/= 30.0 - For Hypertension Hypertension Risk Guidelines: Hypertension Low Risk: Systolic <120 and Diastolic <80. Hypertension Moderate Risk: Systolic 120-139 and Diastolic 80-89. Hypertension High Risk: Systolic >/= 140 and Diastolic >/= 90 - For Sedentary Lifestyle Sedentary Lifestyle Risk Guidelines: Sedentary Lifestyle Low Risk: >/= 1 ,500 kcal/week. Sedentary Lifestyle Moderate Risk: 700-1,499 kcal/week. Sedentary Lifestyle High Risk: < 700 kcal/week - For Depression Depression Risk Guidelines: Depression Low Risk: Not clinically depressed. Depression Moderate Risk: Mildly depressed. Depression High Risk: Clinically depressed Motivation - Motivation to Participate On a scale of 1 to 10, how prepared are you to commit to attending program?: 10 What do you see as barriers to successfully being able to complete the program? : travel for work/training What do you see as the benefits of succesfully completing the program? In other words, what do you hope to get out of participating in the program?: educating myself about heart disease, correcting 50 years of bad habits Are there issues you are dealing with that will interfere with completing the program?: none Do you have a spouse or signficant other, family or friends who will help support you to complete the program?: excellent family support.
[2018-03-11 13:02] VITALS: BP 120/82; PULSE 71; RESP 14; TEMP 37.1; O2SAT 96; BMI 35.8
[2018-03-11 13:51] VITALS: BP 120/82
== END ==
PROVIDERS: Family Provider Family Medicine; PCP Family Medicine; Visit Provider Internal Medicine Cardiovascular Disease
DX: Z95.5 Presence of coronary angioplasty implant and graft (principal)

== ENCOUNTER → 2018-03-17 10:36 | Outpatient (CLI) | payer OTHER, SELFPAY ==
[2018-03-17 12:57] LABS: AST(SGOT) 30 U/L (15-37); Alanine Aminotransfer ALT/SGPT 68 U/L (16-61); Albumin, Serum 3.9 g/dL (3.2-5.0); Alkaline Phosphatase 82 U/L (45-117); Bilirubin, Direct 0.18 mg/dL (0.00-0.30); Cholesterol 119 mg/dL (200); Globulin 3.6 g/dL (2.2-4.2); High Density Lipoprotein 43 mg/dL; Protein, Total 7.5 g/dL (6.4-8.2); Triglycerides 85 mg/dL; Very Low Density Lipoprotein 17 mg/dL (5-40)
== END ==
PROVIDERS: Family Provider Family Medicine; PCP Family Medicine; Visit Provider Physician Assistant Medical
DX: I25.10 Atherosclerotic heart disease of native coronary artery without angina pectoris (principal); E78.5 Hyperlipidemia, unspecified
CPT/HCPCS: 80061; 80076

== ENCOUNTER → 2018-07-01 07:39 | Outpatient (CLI) | payer OTHER, SELFPAY ==
--- NOTE | 2018-07-01 07:41 | ECHOD_ITS ---
Reason For Study: CAD Procedure This was a 2D Doppler, Color Flow transthoracic echocardiogram. Exam performed in department. Left Ventricle Normal size and thickness. The estimated ejection fraction is 60 %. Normal diastology for age. Posterior-Basal: Mildly hypokinetic. Right Ventricle Normal size and thickness. Normal systolic function. Atria Normal left atrium. Normal right atrium. Normal atrial septum. Mitral Valve The mitral valve is structurally normal. No prolapse or stenosis seen. Tricuspid Valve Normal tricuspid valve. Mild (1+) tricuspid valve insufficiency. Right ventricular systolic pressure estimated to be 30 mmHg. Aortic Valve Trisinus/trileaflet aortic valve. Pulmonic Valve Normal pulmonic valve. Great Vessels Normal aortic root. Normal arch. Normal inferior vena cava. Inferior vena cava collapse with sniff. Pericardium/Pleural No pericardial effusion. Medication 22 gauge I.V. with prn adaptor inserted into right arm. Diluted definity 3ml given slow IV push to enhance endocardial definition. MMode/2D Measurements & Calculations LVIDd: 4.4 cm IVSd: 0.98 cm LVOT diam: 2.0 cm LVIDs: 3.0 cm LVPWd: 0.95 cm LVOT area: 3.2 cm2 RVDd: 3.6 cm FS: 31.4 % Ao root diam: 3.4 cm LAV(MOD-bp): 67.9 ml EDV(MOD-sp4): 109.9 ml LAV(MOD-bp) Indexed: 28.6 ml/m2 ESV(MOD-sp4): 44.4 ml LAV(MOD-sp2): 67.8 ml EF(MOD-sp4): 59.6 % LAV(MOD-sp4): 61.1 ml EDV(MOD-sp2): 130.8 ml SV(MOD-sp4): 65.5 ml SV(MOD-sp2): 80.7 ml EF(MOD-sp2): 61.7 % LA A4 area: 20.9 cm2 RA A4 area: 16.5 cm2 Time Measurements MV dec time: 0.18 sec Doppler Measurements & Calculations MV E max ramon: 80.2 cm/sec Lat Peak E' Ramon: 11.1 cm/sec Med Peak E' Ramon: 9.9 cm/sec MV A max ramon: 61.1 cm/sec E/E' lat: 7.2 E/E' med: 8.1 MV E/A: 1.3 Ao V2 max: 141.5 cm/sec LV V1 max: 100.2 cm/sec SV(LVOT): 74.4 ml Ao max P.0 mmHg LV V1 max P.0 mmHg Ao V2 mean: 97.9 cm/sec LV V1 mean P.2 mmHg Ao mean P.2 mmHg LV V1 mean: 68.8 cm/sec Ao V2 VTI: 29.2 cm LV V1 VTI: 23.3 cm LUCIA(I,D): 2.5 cm2 LUCIA(V,D): 2.3 cm2 TR max ramon: 236.7 cm/sec TR max P.6 mmHg Interpretation Summary The estimated ejection fraction is 60 %. Normal diastology for age. Posterior-Basal: Mildly hypokinetic Mild (1+) tricuspid valve insufficiency. Right ventricular systolic pressure estimated to be 30 mmHg. Compared to echo report dated 02/14/2018, LV function has normalized with only minimal inferobasal hypokinesis. EF has gone from 50% to 60%. The study was technically difficult. Contrast injection was performed. Ordering Physician: Davian Ngo Referring Physician: RANDA ALTMAN Performed By: Andressa Vora, MEGHA, RVT
[2018-07-01 08:39] LABS: AST(SGOT) 15 U/L (15-37); Alanine Aminotransfer ALT/SGPT 33 U/L (16-61); Albumin, Serum 3.6 g/dL (3.2-5.0); Alkaline Phosphatase 79 U/L (45-117); Bilirubin, Direct 0.23 mg/dL (0.00-0.30); Cholesterol 145 mg/dL (200); Globulin 3.7 g/dL (2.2-4.2); High Density Lipoprotein 46 mg/dL; Protein, Total 7.3 g/dL (6.4-8.2); Triglycerides 112 mg/dL; Very Low Density Lipoprotein 22 mg/dL (5-40)
== END ==
PROVIDERS: Family Provider Family Medicine; PCP Family Medicine; Visit Provider Internal Medicine Cardiovascular Disease
DX: I25.10 Atherosclerotic heart disease of native coronary artery without angina pectoris (principal); I21.3 ST elevation (STEMI) myocardial infarction of unspecified site; I42.9 Cardiomyopathy, unspecified; E78.5 Hyperlipidemia, unspecified; Z95.5 Presence of coronary angioplasty implant and graft
CPT/HCPCS: 36415; 80061; 80076; 93306; Q9957; A4216; C8929

== ENCOUNTER 2018-07-25 22:13 | Emergency (ER) | payer OTHER, SELFPAY ==
[2018-07-25 22:14] VITALS: BP 123/81; PULSE 107; RESP 14; TEMP 36.9; O2SAT 98; BMI 37.0
--- NOTE | 2018-07-25 22:42 | ED.DCSUM_ITS ---
- ER Visit Summary Date of Service: 07/25/18 Chief Complaint: [] Sided nosebleed History of Present Illness: The patient is a 53 M right-sided nosebleed for last 4-1/2 hours. Gradual onset continuous right-sided. He is on Brilinta for history of coronary artery disease and has a stent. He had one earlier this week. He was out in [place] where it was dry. He has had 4 since starting Brilinta and february. Use a napkin to get it to stop. He just got off the plane and came right here. Physical Examination: [] Vital signs reviewed General: Well-nourished well-developed Head: Normocephalic atraumatic Eyes: Pupils equal round and reactive to light extraocular movements intact ENT: TMs clear no hemotympanum no trauma. Right-sided nares with a clot. No active bleeding. Nothing in his throat Neck: Nontender full range of motion Cardiovascular: Regular rate rhythm no murmurs normal S1-S2 Respiratory: No distress clear to auscultation bilaterally chest nontender Abdomen: Soft nontender nondistended normal bowel sounds no masses Back: Nontender no CVA tenderness Extremities: Nontender active range of motion ?4 extremities no trauma Skin: Normal color no trauma Neuro alert oriented cranial nerves II through XII intact normal strength sensation reflexes Test Results: [] Emergency Department Course and Treatment: [] Patient use Afrin nasal spray and gently blew his nose. No active bleeding. He was given a nose clamp and cotton balls and surgical loop to use. He will follow-up with ENT. Stopped on its own. Treatment Plan: [] Disposition: [] Impression: [] Right-sided nosebleed This note was generated with [employer] dictation software. It may contain incorrect words, spelling, and punctuation that were not noted in review of the chart prior to signing ED Disposition - Plan for ED Patient: Chief Complaint: Nosebleed Referrals: Jonh Lynn MD [Primary Care Provider] -
[2018-07-25] MEDS: Oxymetazoline 0.05% 1 SPRAY SPRAY.BTL 2 SPRAY NASAL (22:47)
--- NOTE | 2018-07-25 23:02 | ED.DEP ---
ED Disposition - Plan for ED Patient: Disposition: Home or Assisted Living Chief Complaint: Nosebleed Instructions: Nosebleed Referrals: Jonh Lynn MD [Primary Care Provider] - Rohan Allen MD [STAFF PHYSICIAN] -
[2018-07-25 23:22] VITALS: RESP 16
== END 2018-07-25 23:23 | disposition home or self-care (01) ==
PROVIDERS: Emergency Provider Emergency Medicine; Family Provider Family Medicine; PCP Family Medicine
DX: R04.0 Epistaxis (principal); I25.10 Atherosclerotic heart disease of native coronary artery without angina pectoris; Z95.5 Presence of coronary angioplasty implant and graft; Z79.02 Long term (current) use of antithrombotics/antiplatelets; Z79.82 Long term (current) use of aspirin; Z79.899 Other long term (current) drug therapy
CPT/HCPCS: 99282

== ENCOUNTER 2018-09-03 13:20 | Emergency (ER) | payer OTHER, SELFPAY ==
[2018-09-03 13:20] VITALS: BP 148/92; PULSE 81; RESP 16; TEMP 36.7; O2SAT 98; BMI 34.5
--- NOTE | 2018-09-03 13:37 | ED.VISSUMM ---
- ER Visit Summary Date of Service: 09/03/18 Chief Complaint: Finger laceration History of Present Illness: The patient is a 53 M who sustained a finger laceration about 16 hours ago. He was in the kitchen cutting with his knife and sustained a right dorsum middle finger laceration. No sensory deficit no functional deficit. Physical Examination: Patient has a 3 cm laceration over the middle phalanx dorsally of his right hand. He has normal extensor and flexor function. Emergency Department Course and Treatment: Wound is too old to be sutured, we will clean it, applied Steri-Strips, update tetanus and given a finger splint. Disposition: Discharge stable condition Impression: 3 cm finger laceration This note was generated with [employer] dictation software. It may contain incorrect words, spelling, and punctuation that were not noted in review of the chart prior to signing ED Disposition - Plan for ED Patient: Disposition: Home or Assisted Living Chief Complaint: Laceration Instructions: ED Laceration Hand Referrals: Jonh Lynn MD [Primary Care Provider] - 1 Week
[2018-09-03] MEDS: Diphth,Pertuss(Acell),Tet Vac 0.5 ML Vial IM (13:54)
== END 2018-09-03 14:12 | disposition home or self-care (01) ==
LOC: ED 13:59
PROVIDERS: Emergency Provider Emergency Medicine; Family Provider Family Medicine; PCP Family Medicine
DX: S61.219A Laceration without foreign body of unspecified finger without damage to nail, initial encounter (principal); Z23 Encounter for immunization; I25.10 Atherosclerotic heart disease of native coronary artery without angina pectoris; Z79.82 Long term (current) use of aspirin; Z79.899 Other long term (current) drug therapy; W26.0XXA Contact with knife, initial encounter; Y93.89 Activity, other specified; Y92.000 Kitchen of unspecified non-institutional (private) residence as the place of occurrence of the external cause; Y99.8 Other external cause status
CPT/HCPCS: 90471; 90715; 99282

== ENCOUNTER → 2018-09-14 08:15 | Outpatient (CLI) | payer OTHER, SELFPAY ==
[2018-09-03 13:20] VITALS: BMI 34.5
[2018-09-14 08:28] LABS: Red Blood Cells-Urine 0 SEEN /hpf (0-5); White Blood Cells 0 SEEN /hpf (0-5)
[2018-09-14 09:17] LABS: Color, Urine Yellow (Yellow); Glucose, Dipstick Normal (Normal); Ketone-Dipstick Negative (Negative); Leukocyte Esterase-Dipstick Negative /ul (Negative); Nitrite-Dipstick Negative (Negative); Occult Blood-Urine Negative /ul (Negative); Protein-Dipstick 15 mg/dl (Negative); Specific Gravity, Urine 1.025 (1.002-1.030); Urine Bilirubin Dipstick Negative (Negative); Urine Clarity Sl. Cloudy (Clear); Urine Urobilinogen Normal (Normal)
[2018-09-14 09:21] LABS: BUN 16 mg/dL (7-18); Creatinine, Serum 0.86 mg/dL (0.70-1.30); Glucose 133 mg/dL (74-106)
[2018-09-14 09:22] LABS: AST(SGOT) 12 U/L (15-37); Alanine Aminotransfer ALT/SGPT 27 U/L (16-61); Albumin, Serum 3.6 g/dL (3.2-5.0); Alkaline Phosphatase 94 U/L (45-117); Anion Gap 6 (5-15); BUN/Creat Ratio 18.5 RATIO (10-20); Calcium,Total 8.9 mg/dL (8.5-10.1); Chloride 104 mmol/L (98-107); Cholesterol 151 mg/dL (200); EST Glomerular Filtration Rate 99 mL/min (>60); Est Glom Filt Rate - Afr Amer 120 mL/min (>60); Globulin 3.5 g/dL (2.2-4.2); High Density Lipoprotein 53 mg/dL; Potassium 4.7 mmol/L (3.5-5.1); Protein, Total 7.1 g/dL (6.4-8.2); Sodium Level 140 mmol/L (136-145); Triglycerides 101 mg/dL; Very Low Density Lipoprotein 20 mg/dL (5-40)
[2018-09-14 09:27] LABS: Bacteria 1+ /hpf (None Seen); Mucous, Urine 2+ /hpf (<or=2+); Squamous Epithelial Cells - UA 0-5 SEEN /hpf (0-5)
--- OUTSIDE RECORDS SUMMARY | 2018-11-09 13:25 | XMS RPT_ITS ---
:1965 Author Organization OHIP Support Name Relationship Address Phone DIMITRIS DORON Unavailable [address] + [place] [address] DIMITRIS, JANIS Unavailable Unavailable + [place] [address] RAYCO Unavailable [address] + [place] [address] DIMITRIS, DORON Unavailable [address] + [place] [address] DIMITRIS, JANIS Unavailable Unavailable + [place] [address] RAYCO Unavailable [address] + [place] [address] DIMITRIS, DORON Unavailable [address] + [place] [address] DIMITRIS, JANIS Unavailable Unavailable + [place] [address] RAYCO Unavailable [address] + [place] [address] DIMITRIS, DORON Unavailable [address] + [place] [address] DIMITRIS, JANIS Unavailable Unavailable + [place] [address] RAYCO Unavailable [address] + [place] [address] DIMITRIS, DORON Unavailable [address] + [place] [address] DIMITRIS, JANIS Unavailable Unavailable + [place] [address] RAYCO Unavailable [address] + [place] [address] DIMITRIS, DORON Unavailable [address] + [place] [address] RAYCO Unavailable [address] + [place] [address] DIMITRIS, DORON Unavailable [address] + [place] [address] RAYCO Unavailable [address] + [place] [address] DIMITRIS, DORON Unavailable [address] + [place] [address] RAYCO Unavailable [address] + [place] [address] RAYCO Unavailable [address] + [place] [address] DIMITRIS, DORON Unavailable [address] + [place] [address] DIMITRIS, STEPAN Unavailable Unavailable + [place] Unavailable [address] + [place] [address] DIMITRIS, DORON Unavailable [address] + [place] [address] DIMITRIS, STEPAN Unavailable Unavailable + [place] Unavailable [address] + [place] [address] DIMITRIS, DORON Unavailable [address] + [place] [address] DIMITRIS, STEPAN Unavailable Unavailable + [place] Unavailable [address] + [place] [address] DIMITRIS, DORON Unavailable [address] + [place] [address] DIMITRIS, STEPAN Unavailable Unavailable + [place] Unavailable [address] + [place] [address] DIMITRIS, DORON Unavailable [address] + [place] [address] DIMITRIS, STEPAN Unavailable Unavailable + [place] Unavailable [address] + [place] [address] DIMITRIS, DORON Unavailable [address] + [place] [address] DIMITRIS, STEPAN Unavailable Unavailable + [place] Unavailable [address] + [place] [address] DIMITRIS, DORON Unavailable [address] + [place] [address] DIMITRIS, STEPAN Unavailable Unavailable + [place] Unavailable [address] + [place] [address] DIMITRIS, DORON Unavailable [address] + [place] [address] DIMITRIS, STEPAN Unavailable Unavailable + [place] Unavailable [address] + [place] [address] DIMITRIS, DORON Unavailable [address] + [place] [address] RAYCO Unavailable [address] + [place] [address] Care Team Providers Name Role Phone PARMINDER MERCADO (WHEEL FILLER) Attending Unavailable GABI NEWBY (PA) Attending Unavailable JONH ALTMAN Referring Unavailable LUANNE SINGH Admitting Unavailable LUANNE SINGH Attending Unavailable JONH ALTMAN Referring Unavailable JONH ALTMAN Attending Unavailable JONH ALTMAN Attending Unavailable PARMINDER MERCADO (WHEEL FILLER) Referring Unavailable PARMINDER MERCADO (WHEEL FILLER) Referring Unavailable Davian Ngo Referring Unavailable Davian Ngo Admitting Unavailable Davian Ngo Attending Unavailable Davian Ngo Consulting Unavailable Jonh Altman Primary Care Unavailable Davian Ngo Admitting Unavailable Saadia Barrera Attending Unavailable Davian Ngo Referring Unavailable Primay Care Physicia, No Primary Care Unavailable Davian Ngo Consulting Unavailable Davian Ngo Admitting Unavailable Davian Ngo Attending Unavailable Davian Ngo Referring Unavailable Primay Care Physicia, No Primary Care Unavailable Davian Ngo Consulting Unavailable Davian Ngo Admitting Unavailable Quinn Warren Attending Unavailable Davian Ngo Referring Unavailable Jonh Altman Primary Care Unavailable Davian Ngo Consulting Unavailable Davian Ngo Admitting Unavailable Quinn Warren Attending Unavailable Ngo, Davian Referring Unavailable Leah, Jonh Primary Care Unavailable Ngo, Davian Consulting Unavailable Davian Ngo Admitting Unavailable Michi Green Attending Unavailable Ngo, Davian Referring Unavailable Leah, Jonh Primary Care Unavailable Ngo, Davian Consulting Unavailable Davian Ngo Attending Unavailable Ngo, Davian Attending Unavailable Ngo, Davian Referring Unavailable Leah, Jonh Primary Care Unavailable Lauren Valenzuela Attending Unavailable Leah, Jonh Referring Unavailable Leah, Jonh Primary Care Unavailable Lauren Valenzuela Attending Unavailable Leah, Jonh Primary Care Unavailable Reynaldo Cobb Attending Unavailable Ngo, Davian Referring Unavailable NgoDavian Attending Unavailable Leah, Jonh Referring Unavailable Leah, Jonh Primary Care Unavailable Davian Ngo Attending Unavailable Ngo, Davian Referring Unavailable Leah, Jonh Primary Care Unavailable Leah, Jonh Primary Care Unavailable Kareem Osborn Attending Unavailable Davian Ngo Attending Unavailable Ngo, Davian Referring Unavailable Leah, Jonh Primary Care Unavailable Norbert Hsieh Attending Unavailable Leah, Jonh Attending Unavailable Leah, Jonh Referring Unavailable Leah, Jonh Primary Care Unavailable PROBLEMS PROBLEMS DATE TYPE CONDITION / CODE ATTENDING STATUS SOURCE 08/12/2018 Active Snoring / NA Active [place] R06.83(ICD-10) Clinic Other [place] Repository 08/12/2018 Active Other specified NA Active [place] personal risk factors, Clinic Other not elsewhere [place] classified / Repository Z91.89(ICD-10) 08/09/2018 Active Encounter for [facility] screening for LUANNE T [facility] Main malignant neoplasm of [place] colon / Z12.11(ICD-10) Repository 07/01/2018 Unknown I25.10 - Davina Ngo Active [place] Atherosclerotic heart Community disease of [facility] coronary artery Repository without angina pectoris / I25.10(ICD-10) 07/01/2018 Unknown Z95.5 - Presence of Davian Ngo Active [place] coronary angioplasty Community implant and graft / Hospital Z95.5(ICD-10) Repository 06/17/2018 Unknown I21.3 - ST elevation Davian Ngo Active [place] (STEMI) myocardial Community infarction of Hospital unspecified site / Repository I21.3(ICD-10) 06/17/2018 Unknown E78.5 - Davian Ngo Active [place] Hyperlipidemia, Community unspecified / Hospital E78.5(ICD-10) Repository 06/17/2018 Unknown I42.9 - Davian Ngo Active [place] Cardiomyopathy, Community unspecified / Hospital I42.9(ICD-10) Repository 03/29/2018 Unknown R94.31 - Abnormal JordynReynaldo kincaid Active [place] electrocardiogram Community [ECG] [EKG] / Hospital R94.31(ICD-10) Repository PROCEDURES PROCEDURES No Procedure Records FoundRESULTS RESULTS PROGRESS Observed: 09/22/2018 Status: COMPLETED Source: [place] 9:58 AM [facility] REPOSITORY HNO ID: [id number] Author: Jonh Altman Service: (none) Author Type: Physician Type: Progress Notes Filed: 09/22/2018 11:15 PM Note Text: Chief Complaint Patient presents with: Recheck: 3 months HPI Sam Shanks is a 53 year old male who presents here today for Chronic Medical Conditions.. Patient with Hx of CAD, Hyperlipidemia, elevated fasting blood sugar, CAD, epistaxis as well as those reviewed and addressed below. Since last being in did see ENT and had the right nares catheterized. This has done much better. Some slight bleeding but not like it had been. Past medical history, appointments, medications, allergies reviewed. Previous Medical History PAST MEDICAL HISTORY Diagnosis Date - Arthritis of right knee 12/04/2015 - Coronary artery disease due to lipid rich plaque 02/16/2018 CT 01/2018, Stent to distal RCA - Hyperlipidemia - Hypertension - ST elevation myocardial infarction involving right coronary artery (HCC) 02/16/2018 CT 01/2018, Stent to distal RCA Previous Surgical History PAST SURGICAL HISTORY Procedure Laterality Date - 2D ECHO (EXEP) 02/14/2018 EF=50-55%,mid diast dysf, mild hypokensis - 2D ECHO (EXEP) 07/01/2018 EF=60%, 1+ TI, improved EF and hypokensis compared to echo from 01/2018 - APPENDECTOMY HX - COLONOSCOP W/ OR W/O BRSH SPEC 08/09/2018 Colonoscopy - HEART SURGERY HX cardiac stent January 2018 - PAST SURGICAL HISTORY OF tonsilectomy - PAST SURGICAL HISTORY OF 01/2018 single coronary stent placed Family History FAMILY HISTORY Problem Relation Age of Onset - Diabetes Father - Stroke Father - Alcohol/Drug Father alcohol - Diabetes Sister - Diabetes Brother - Seizures Brother due to brain trauma Patient Allergies ALLERGIES Allergen Reactions - Hay Fever [Seasonal* Itching Current Medications Current Outpatient Prescriptions on File Prior to Visit: atorvastatin (LIPITOR) 80 mg tablet AT BEDTIME lisinopril 2.5 mg tablet DAILY metoprolol tartrate, short acting, (LOPRESSOR) 25 mg tablet TWICE A DAY aspirin 81 mg chewable tablet DAILY@0800 coenzyme Q10 (COENZYME Q-10) 100 mg cap capsule Take 1 capsule by mouth twice daily. ticagrelor (BRILINTA) 90 mg tablet TWICE A DAY No current facility-administered medications on file prior to visit. Social History Social History Marital status: Spouse name: Years of education: Number of children: Social History Main Topics Smoking status: Never Smoker Smokeless tobacco: Former User Quit date: 10/18/2015 Alcohol use: Yes Comment: rarely Drug use: No Review of Symptoms REVIEW OF SYSTEMS GENERAL: No unexplained weight loss, malaise or fevers NECK: Negative for lumps, goiter, pain and significant neck swelling RESPIRATORY: Negative for cough, hemoptysis, wheezing, COPD, dyspnea or shortness of breath CARDIOVASCULAR: Negative for chest pain, increased occasional leg swelling, hypertension, CHF or palpitations GI: No nausea, vomiting, or diarrhea and No heartburn or reflux symptoms : No history of dysuria or blood. ENDOCRINE: Negative for polyuria, polydipsia or polyphagia NEURO: No history of headaches, syncope, paralysis, seizures or tremors. Downey some tingling in his feet at times. EXAM: BP 118/80 Pulse 78 Resp 18 Wt 116.6 kg (257 lb) BMI 35.84 kg/m? Last 4 Encounter Wt Readings: Date: Wt: 09/22/2018 116.6 kg (257 lb) 08/26/2018 117.5 kg (259 lb) 08/05/2018 120.7 kg (266 lb 1.5 oz) 07/04/2018 120.7 kg (266 lb) General Appearance: Well appearing, alert, in no acute distress, well-hydrated, well nourished.. Eyes: Anicteric sclera. Pupils are equally round and reactive to light. Extraocular movements are intact. . Oropharynx: Lips, mucosa, and tongue normal, teeth and gums normal, oropharynx normal. Neck: Supple, no adenopathy; thyroid symmetric, normal size, no bruits. Lungs: lungs clear to auscultation. No wheezing, rhonchi, rales. Heart: RRR without murmur, gallop, or rubs. No ectopy. Abdomen: Normal abdominal exam, Abdomen soft, non-tender. Bowel sounds normal. No masses, organomegaly. Extremities: No deformities, edema, skin discoloration, clubbing or cyanosis. Musculoskeletal: Muscular strength intact, No joint swelling, deformity, or tenderness. Peripheral Pulses: Normal. Neurologic: Gait normal. Reflexes normal and symmetric. Sensation to light touch and crainal nerves 2-12 intact.. Diabetic Foot Exam: Feet: Shoes and socks removed, normal distal pulses, sensitive to 10 gm microfilament, vibratory exam within normal limits and calluses noted bilaterally Skin: warm, dry and normal hair growth Vascular Pulses: Normal SEMMES-ANNABELLE MONOFILAMENT TESTING Left Foot Right Foot Dorsal Surface Intact Dorsal Surface Intact Plantar Surface Intact Plantar Surface Intact Health Maintenance List LDL CHOLESTEROL due on 04/21/2017 STATIN MED ADHERENCE due on 10/18/2018 ANNUAL PCP TEAM CHRONIC DISEASE VISIT due on 08/26/2019 DIABETES SCREEN due on 09/14/2021 LIPID SCREEN due on 09/14/2023 COLORECTAL CANCER SCREENING,SEE MODIFIER due on 08/09/2028 DTAP,TDAP,TD(3 - Td) due on 09/03/2028 INFLUENZA Completed Data reviewed Component Latest Ref Rng AND Units 03/17/2018 07/01/2018 09/14/2018 NA 136 - 145 mmol/L 140 K 3.5 - 5.1 mmol/L 4.7 Chloride 98 - 107 MEQ/L 104 CO2 21 - 32 MEQ/L 30.0 Glucose 74 - 106 MG/DL 133 (A) BUN 7 - 18 MG/DL 16 Creatinine 0.6 - 1.3 MG/DL 0.86 GFR mL/MIN 99 GFR AFR AMER mL/MIN 120 Total Protein 6.4 - 8.2 gm/dL 7.1 Albumin 3.2 - 4.6 gm/dL 3.6 Calcium 8.5 - 10.1 mg/dL 8.9 Bili Total 0.2 - 1 mg/dL 0.90 AST 8 - 37 U/L 12 ALT (SGPT) 12 - 78 U/L 27 Alk Phos Total 45 - 117 U/L 94 Triglyceride 149 mg/dL 85 112 101 Cholesterol, Total 0 - 200 MG/DL 119 145 151 HDC-L 41 mg/dL 43 (A) 46 (A) 53 (A) LDL Chol, calculated 130 MG/DL 59 77 78 Hemoglobin A1C 4.3 - 5.6 7.0 (A) A/P ASSESSMENT/PLAN: 1. Diabetes mellitus type 2, uncontrolled, without complications (HCC) - ICD9: 250.02, ICD10: E11.65 (primary diagnosis) uncontrolled newly diagnosed - Encouraged regular aerobic exercise and weight loss - Every other day Asprin therapy recommended - BP goal of <130/80 - LDL goal of <100 - Discussed life style changes with diet and exercise. No meds at this time. - Discussed need to start getting yearly eye exams. 2. Mixed hyperlipidemia - ICD9: 272.2, ICD10: E78.2 - good control - Encouraged following a low fat, low cholesterol diet. - Discussed the benefits of regular aerobic exercise and weight loss. - Encouraged following a low carbohydrate, healthy oil intake diet. - Continue current therapy. 3. Coronary artery disease due to lipid rich plaque - ICD9: 414.00, 414.3, ICD10: I25.10, I25.83 - clinically stable no changes and cont f/u with Cardio 4. ST elevation myocardial infarction involving right coronary artery (HCC) - ICD9: 410.31, ICD10: I21.11 - See #3 5. Epistaxis - ICD9: 784.7, ICD10: R04.0 - Improved since cauterization. - Ok with taking baby ASA QOD. 6. Need for vaccination - ICD9: V05.9, ICD10: Z23 - PNEUMOCOCCAL-13 VACCINE PCV-13 given F/u 4 months WAE check CMP, FLP, UA., urine micro albumin, A1c and PSA prior. Jonh Altman MD CNOV Observed: 09/22/2018 Status: COMPLETED Source: [place] 9:20 AM [facility] REPOSITORY Office Visit (FAMPWS) SAM SHANKS ([id number]) 1965 M Date Time Provider Department 09/22/18 9:20 AM JONH ALTMAN During your visit today, we recorded the following information about you: Pulse Respiration Blood pressure Weight 78/minute 18/minute 118/80 116.6 kg Jonh Altman MD 09/22/2018 11:15 PM Signed Chief Complaint Patient presents with: Recheck: 3 months HPI Sam Shanks is a 53 year old male who presents here today for Chronic Medical Conditions.. Patient with Hx of CAD, Hyperlipidemia, elevated fasting blood sugar, CAD, epistaxis as well as those reviewed and addressed below. Since last being in did see ENT and had the right nares catheterized. This has done much better. Some slight bleeding but not like it had been. Past medical history, appointments, medications, allergies reviewed. Previous Medical History PAST MEDICAL HISTORY Diagnosis Date - Arthritis of right knee 12/04/2015 - Coronary artery disease due to lipid rich plaque 02/16/2018 CT 01/2018, Stent to distal RCA - Hyperlipidemia - Hypertension - ST elevation myocardial infarction involving right coronary artery (HCC) 02/16/2018 CT 01/2018, Stent to distal RCA Previous Surgical History PAST SURGICAL HISTORY Procedure Laterality Date - 2D ECHO (EXEP) 02/14/2018 EF=50-55%,mid diast dysf, mild hypokensis - 2D ECHO (EXEP) 07/01/2018 EF=60%, 1+ TI, improved EF and hypokensis compared to echo from 01/2018 - APPENDECTOMY HX - COLONOSCOP W/ OR W/O BRSH SPEC 08/09/2018 Colonoscopy - HEART SURGERY HX cardiac stent January 2018 - PAST SURGICAL HISTORY OF tonsilectomy - PAST SURGICAL HISTORY OF 01/2018 single coronary stent placed Family History FAMILY HISTORY Problem Relation Age of Onset - Diabetes Father - Stroke Father - Alcohol/Drug Father alcohol - Diabetes Sister - Diabetes Brother - Seizures Brother due to brain trauma Patient Allergies ALLERGIES Allergen Reactions - Hay Fever [Seasonal* Itching Current Medications Current Outpatient Prescriptions on File Prior to Visit: atorvastatin (LIPITOR) 80 mg tablet AT BEDTIME lisinopril 2.5 mg tablet DAILY metoprolol tartrate, short acting, (LOPRESSOR) 25 mg tablet TWICE A DAY aspirin 81 mg chewable tablet DAILY@0800 coenzyme Q10 (COENZYME Q-10) 100 mg cap capsule Take 1 capsule by mouth twice daily. ticagrelor (BRILINTA) 90 mg tablet TWICE A DAY No current facility-administered medications on file prior to visit. Social History Social History Marital status: Spouse name: Years of education: Number of children: Social History Main Topics Smoking status: Never Smoker Smokeless tobacco: Former User Quit date: 10/18/2015 Alcohol use: Yes Comment: rarely Drug use: No Review of Symptoms REVIEW OF SYSTEMS GENERAL: No unexplained weight loss, malaise or fevers NECK: Negative for lumps, goiter, pain and significant neck swelling RESPIRATORY: Negative for cough, hemoptysis, wheezing, COPD, dyspnea or shortness of breath CARDIOVASCULAR: Negative for chest pain, increased occasional leg swelling, hypertension, CHF or palpitations GI: No nausea, vomiting, or diarrhea and No heartburn or reflux symptoms : No history of dysuria or blood. ENDOCRINE: Negative for polyuria, polydipsia or polyphagia NEURO: No history of headaches, syncope, paralysis, seizures or tremors. Downey some tingling in his feet at times. EXAM: BP 118/80 Pulse 78 Resp 18 Wt 116.6 kg (257 lb) BMI 35.84 kg/m? Last 4 Encounter Wt Readings: Date: Wt: 09/22/2018 116.6 kg (257 lb) 08/26/2018 117.5 kg (259 lb) 08/05/2018 120.7 kg (266 lb 1.5 oz) 07/04/2018 120.7 kg (266 lb) General Appearance: Well appearing, alert, in no acute distress, well-hydrated, well nourished.. Eyes: Anicteric sclera. Pupils are equally round and reactive to light. Extraocular movements are intact. . Oropharynx: Lips, mucosa, and tongue normal, teeth and gums normal, oropharynx normal. Neck: Supple, no adenopathy; thyroid symmetric, normal size, no bruits. Lungs: lungs clear to auscultation. No wheezing, rhonchi, rales. Heart: RRR without murmur, gallop, or rubs. No ectopy. Abdomen: Normal abdominal exam, Abdomen soft, non-tender. Bowel sounds normal. No masses, organomegaly. Extremities: No deformities, edema, skin discoloration, clubbing or cyanosis. Musculoskeletal: Muscular strength intact, No joint swelling, deformity, or tenderness. Peripheral Pulses: Normal. Neurologic: Gait normal. Reflexes normal and symmetric. Sensation to light touch and crainal nerves 2-12 intact.. Diabetic Foot Exam: Feet: Shoes and socks removed, normal distal pulses, sensitive to 10 gm microfilament, vibratory exam within normal limits and calluses noted bilaterally Skin: warm, dry and normal hair growth Vascular Pulses: Normal SEMMES-ANNABELLE MONOFILAMENT TESTING Left Foot Right Foot Dorsal Surface Intact Dorsal Surface Intact Plantar Surface Intact Plantar Surface Intact Health Maintenance List LDL CHOLESTEROL due on 04/21/2017 STATIN MED ADHERENCE due on 10/18/2018 ANNUAL PCP TEAM CHRONIC DISEASE VISIT due on 08/26/2019 DIABETES SCREEN due on 09/14/2021 LIPID SCREEN due on 09/14/2023 COLORECTAL CANCER SCREENING,SEE MODIFIER due on 08/09/2028 DTAP,TDAP,TD(3 - Td) due on 09/03/2028 INFLUENZA Completed Data reviewed Component Latest Ref Rng AND Units 03/17/2018 07/01/2018 09/14/2018 NA 136 - 145 mmol/L 140 K 3.5 - 5.1 mmol/L 4.7 Chloride 98 - 107 MEQ/L 104 CO2 21 - 32 MEQ/L 30.0 Glucose 74 - 106 MG/DL 133 (A) BUN 7 - 18 MG/DL 16 Creatinine 0.6 - 1.3 MG/DL 0.86 GFR mL/MIN 99 GFR AFR AMER mL/MIN 120 Total Protein 6.4 - 8.2 gm/dL 7.1 Albumin 3.2 - 4.6 gm/dL 3.6 Calcium 8.5 - 10.1 mg/dL 8.9 Bili Total 0.2 - 1 mg/dL 0.90 AST 8 - 37 U/L 12 ALT (SGPT) 12 - 78 U/L 27 Alk Phos Total 45 - 117 U/L 94 Triglyceride 149 mg/dL 85 112 101 Cholesterol, Total 0 - 200 MG/DL 119 145 151 HDC-L 41 mg/dL 43 (A) 46 (A) 53 (A) LDL Chol, calculated 130 MG/DL 59 77 78 Hemoglobin A1C 4.3 - 5.6 7.0 (A) A/P ASSESSMENT/PLAN: 1. Diabetes mellitus type 2, uncontrolled, without complications (HCC) - ICD9: 250.02, ICD10: E11.65 (primary diagnosis) uncontrolled newly diagnosed - Encouraged regular aerobic exercise and weight loss - Every other day Asprin therapy recommended - BP goal of <130/80 - LDL goal of <100 - Discussed life style changes with diet and exercise. No meds at this time. - Discussed need to start getting yearly eye exams. 2. Mixed hyperlipidemia - ICD9: 272.2, ICD10: E78.2 - good control - Encouraged following a low fat, low cholesterol diet. - Discussed the benefits of regular aerobic exercise and weight loss. - Encouraged following a low carbohydrate, healthy oil intake diet. - Continue current therapy. 3. Coronary artery disease due to lipid rich plaque - ICD9: 414.00, 414.3, ICD10: I25.10, I25.83 - clinically stable no changes and cont f/u with Cardio 4. ST elevation myocardial infarction involving right coronary artery (HCC) - ICD9: 410.31, ICD10: I21.11 - See #3 5. Epistaxis - ICD9: 784.7, ICD10: R04.0 - Improved since cauterization. - Ok with taking baby ASA QOD. 6. Need for vaccination - ICD9: V05.9, ICD10: Z23 - PNEUMOCOCCAL-13 VACCINE PCV-13 given F/u 4 months WAE check CMP, FLP, UA., urine micro albumin, A1c and PSA prior. MD Jonh Reynoso MD 09/22/2018 10:23 AM Signed Lease get fasting labs and urine testing done on or after 01/13/2019 prior to next visit. Referring Provider: PARMINDER MERCADO ([facility]) [[id number]] Allergies As of Date: 09/22/2018 Noted Allergy Reaction HAY FEVER (SEASONAL ALLERGIES) 12/04/2015 9 - Itching Date Reviewed: 09/22/2018 Reviewed by: Jonh Altman - Fully Assessed Reason for Visit: Recheck [92] Cmt: 3 months Primary Visit Diagnosis:Diabetes mellitus type 2, uncontrolled, without complications (HCC) [E11.65] Other Visit Diagnoses:Mixed hyperlipidemia [E78.2] Coronary artery disease due to lipid rich plaque [I25.10, I25.83] ST elevation myocardial infarction involving right coronary artery (HCC) [I21.11] Epistaxis [R04.0] Screening for prostate cancer [Z12.5] Need for vaccination [Z23] Order(s):COMP METABOLIC PANEL [SQCMP] Order #: [id number] FUTURE ALBUMIN/CREAT RATIO RND UR [SQUACR] Order #: [id number] FUTURE HGB A1C [NAUMF0X] Order #: [id number] FUTURE PSA/PROSTSPECAG DIAG [SQPSA] Order #: [id number] FUTURE URINALYSIS WITH MICROSCOPIC [SQUAWMIC] Order #: [id number] FUTURE LIPID PANEL, NONFASTING [SQLIPNF] Order #: [id number] FUTURE PNEUMOCOCCAL-13 VACCINE PCV-13 [12159NCI] Order #: [id number] Prescriptions as of 09/22/2018 Sig: ATORVASTATIN 80 MG TABLET AT BEDTIME LISINOPRIL 2.5 MG TABLET DAILY METOPROLOL TARTRATE 25 MG TAB* TWICE A DAY TICAGRELOR 90 MG TABLET TWICE A DAY ASPIRIN 81 MG CHEWABLE TABLET DAILY@0800 COENZYME Q10 100 MG CAPSULE Take 1 capsule by mouth twice* Problem List As Of Date 09/22/2018 Noted Resolved Arthritis of right knee [M17.11] INVALID FOR* Well adult exam [Z00.00] INVALID FOR* More... 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 Elevated blood pressure reading without diagnos*INVALID FOR* Tinea cruris [B35.6] INVALID FOR* Mixed hyperlipidemia [E78.2] INVALID FOR* ST elevation myocardial infarction involving ri*INVALID FOR* More... Coronary artery disease due to lipid rich plaqu*INVALID FOR* More... Diabetes mellitus type 2, uncontrolled, without*INVALID FOR* Epistaxis [R04.0] INVALID FOR* Screening for prostate cancer [Z12.5] INVALID FOR* Other instructions from your clinician: Makaylaase get fasting labs and urine testing done on or after 01/13/2019 prior to next visit. Disposition: Return in about 4 months (around 01/21/2019) for complete PE. Follow-up and Disposition History Recorded Encounter Status:Closed by JONH ALTMAN on 09/22/18 COMPREHENSIVE METABOLIC Collected: 09/14/2018 Status: F Source: [place] 8:26 AM [facility] REPOSITORY TYPE CODE TESTS RESULT OUT OF RANGE REFERENCE UNITS LAB L501.0100 74-106 mg/dL High GLU 133 Result Comment: Fasting Glucose result greater than or equal to 126 mg/dL suggests DIABETES MELLITUS per A.D.A. criteria. Please note revised GLUCOSE reference range effective 2017. LAB L501.1000 7-18 mg/dL Normal BUN 16 LAB L501.1100 0.70-1.30 mg/dL Normal CREAT,SERUM 0.86 Result Comment: The validity of the calculated GFR AND GFRAA in patients over 70 years has not been determined. Clinical correlation is essential. LAB L501.1110 >60 mL/min Normal EST GFR 99 Result Comment: Non- GFR Calc LAB L501.1115 >60 mL/min Normal EST GFR - AA 120 Result Comment: GFR Calc LAB L501.1300 10-20 RATIO Normal BUN/CRE 18.5 LAB L501.1500 6.4-8.2 g/dL T Normal PROT 7.1 LAB L501.1800 3.2-5.0 g/dL Normal ALB 3.6 LAB L501.1950 2.2-4.2 g/dL Normal GLOB 3.5 LAB L501.2000 0.9-2.4 RATIO Normal A/G 1.0 LAB L501.2200 8.5-10.1 mg/dL CA Normal 8.9 LAB L501.4100 15-37 U/L Low AST 12 LAB L501.4305 45-117 U/L Normal ALK P 94 LAB L501.4405 16-61 U/L Normal ALT 27 LAB L501.4600 0.20-1.00 mg/dL T Normal BILI 0.90 LAB L501.5300 136-145 mmol/L NA Normal 140 LAB L501.5600 3.5-5.1 mmol/L K Normal 4.7 LAB L501.5900 98-107 mmol/L CL Normal 104 LAB L501.6100 21.0-32.0 mmol/L Normal CO2 30.0 LAB L501.6200 5-15 Normal GAP 6 Performed By: #### L500.4050, L500.4100 #### [facility] [address] [place], [address] LIPID PROFILE Collected: 09/14/2018 Status: F Source: [place] 8:26 AM [facility] REPOSITORY TYPE CODE TESTS RESULT OUT OF RANGE REFERENCE UNITS LAB L501.4900 200 mg/dL Normal CHOL 151 Result Comment: <200 mg/dL Desirable 200-240 mg/dL Borderline >240 mg/dL High Risk LAB L501.5000 mg/dL Normal TRIG 101 Result Comment: The drugs N-Acetylcysteine and Metamizole may falsely depress this assay. Serum Triglycerides Reference Interval Normal <150 mg/dL Borderline high 150 - 199 mg/dL High 200 - 499 mg/dL Very High > or = 500 mg/dL LAB L501.6400 mg/dL Normal HDL 53 Result Comment: The drugs N-Acetylcysteine and Metamizole may falsely depress this assay. Reference Range HDL <40 mg/dL Low HDL Cholesterol HDL >or= 60 mg/dL High HDL Cholesterol LAB L501.6500 0-130 mg/dL Normal LDL 78 LAB L501.6600 5-40 mg/dL Normal VLDL 20 Performed By: #### L500.4050, L500.4100 #### [facility] [address] [place], [address] URINALYSIS, COMPLETE Collected: 09/14/2018 Status: F Source: [place] 8:26 AM [facility] REPOSITORY Order Comment: How was Urine Obtained? CLEAN CATCH TYPE CODE TESTS RESULT OUT OF RANGE REFERENCE UNITS LAB L400.3000 Yellow COLOR Normal Yellow LAB L400.3050 Clear Normal CLARITY Sl. Cloudy LAB L400.3200 Normal mg/dl Normal GLUCOSE, UR Normal LAB L400.3300 Negative mg/dL Normal BILIRUBIN URINE Negative LAB L400.3400 Negative mg/dl Normal KETONE UR Negative LAB L400.3465 1.002-1.030 Normal SP.GR. DIPSTX 1.025 LAB L400.3550 5.0 - 8.0 pH UR Normal 5.0 LAB L400.3600 Negative mg/dl High PROT 15 DIPSTX LAB L400.3700 Normal mg/dl Normal UROBILI Normal LAB L400.3750 Negative Normal NITRITE UR Negative LAB L400.3780 Negative /ul Normal OCCULT BLOOD-UR Negative LAB L400.3800 Negative /ul LEUK Normal ESTERASE Negative LAB L400.4050 0-5 /hpf WBC 0 Normal SEEN LAB L400.4100 0-5 /hpf 0 Normal RBC-UA SEEN LAB L400.4150 0-5 /hpf SQUAM Normal EPI 0-5 SEEN LAB L400.4300 None Seen /hpf 1+ Normal BACTERIA LAB L400.4350 <or=2+ /hpf 2+ Normal MUCUS, URINE Performed By: #### L400.0001 #### [facility] [address] [place] [place], [address] HEMOGLOBIN A1C Collected: 09/14/2018 Status: F Source: [place] 8:26 AM [facility] REPOSITORY TYPE CODE TESTS RESULT OUT OF RANGE REFERENCE UNITS LAB L501.9985 4.2-6.3 % High HGB A1C 7.0 Performed By: #### L501.9985 #### [facility] [address] [place], [address] CNPN Observed: 09/14/2018 Status: COMPLETED Source: [place] 12:00 AM [facility] RE[facility]ITORY [facility] ([id number]) 1965 M Date Time Provider Department 09/14/18 JONH ALTMAN [facility] During your visit today, we recorded the following information about you: Allergies As of Date: 09/14/2018 Noted Allergy Reaction HAY FEVER (SEASONAL ALLERGIES) 12/04/2015 9 - Itching Date Reviewed: 08/26/2018 Reviewed by: Jonh Altman - Fully Assessed Reason for Visit: Outside Labs-[facility] Ordered [1004] Order(s):CMP (EXTERNAL) [9971740] Order #: [id number] LIPID PANEL (EXTERNAL) [9924395] Order #: [id number] HBA1C (OUTSIDE) [3068090] Order #: [id number] Prescriptions as of 09/14/2018 Sig: ATORVASTATIN 80 MG TABLET AT BEDTIME LISINOPRIL 2.5 MG TABLET DAILY METOPROLOL TARTRATE 25 MG TAB* TWICE A DAY TICAGRELOR 90 MG TABLET TWICE A DAY ASPIRIN 81 MG CHEWABLE TABLET DAILY@0800 COENZYME Q10 100 MG CAPSULE Take 1 capsule by mouth twice* Problem List As Of Date 09/14/2018 Noted Resolved Arthritis of right knee [M17.11] INVALID FOR* Priority: M Well adult exam [Z00.00] INVALID FOR* Priority: E More... 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 Elevated blood pressure reading without diagnos*INVALID FOR* Tinea cruris [B35.6] INVALID FOR* Priority: D Mixed hyperlipidemia [E78.2] INVALID FOR* Priority: A Elevated fasting blood sugar [R73.01] INVALID FOR* Priority: A ST elevation myocardial infarction involving ri*INVALID FOR* Priority: A More... Coronary artery disease due to lipid rich plaqu*INVALID FOR* Priority: A More... Encounter Status:Closed by VICENTE LEE MA on 09/14/18 HOSP Observed: 09/05/2018 Status: COMPLETED Source: [place] 12:00 AM [facility] REPOSITORY Patient Update ([facility]) SAM SHANKS ([id number]) 1965 M Date Time Provider Department 09/05/18 [facility] During your visit today, we recorded the following information about you: Allergies As of Date: 09/05/2018 Noted Allergy Reaction HAY FEVER (SEASONAL ALLERGIES) 12/04/2015 9 - Itching Date Reviewed: 08/26/2018 Reviewed by: Jonh Altman - Fully Assessed Prescriptions as of 09/05/2018 Sig: ATORVASTATIN 80 MG TABLET AT BEDTIME LISINOPRIL 2.5 MG TABLET DAILY METOPROLOL TARTRATE 25 MG TAB* TWICE A DAY TICAGRELOR 90 MG TABLET TWICE A DAY ASPIRIN 81 MG CHEWABLE TABLET DAILY@0800 COENZYME Q10 100 MG CAPSULE Take 1 capsule by mouth twice* Problem List As Of Date 09/05/2018 Noted Resolved Arthritis of right knee [M17.11] INVALID FOR* Priority: M Well adult exam [Z00.00] INVALID FOR* Priority: E More... 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 Elevated blood pressure reading without diagnos*INVALID FOR* Tinea cruris [B35.6] INVALID FOR* Priority: D Mixed hyperlipidemia [E78.2] INVALID FOR* Priority: A Elevated fasting blood sugar [R73.01] INVALID FOR* Priority: A ST elevation myocardial infarction involving ri*INVALID FOR* Priority: A More... Coronary artery disease due to lipid rich plaqu*INVALID FOR* Priority: A More... Encounter Status:Closed by JONH ALTMAN on 09/05/18 EMERGENCY DEPARTMENT Observed: 09/03/2018 Status: F Source: [place] SUMMARY 1:39 PM [facility] REPOSITORY [facility] Medical Records Department [address] [place] [address] Emergency Department Summary 09/03/18 1337 MR#: [id number] Acct: [id number] Name: SAM SHANKS Rep #: [id number] : 1965 53 From: Norbert Hsieh MD PCP: Jonh Altman MD Status: PRE ER - ER Visit Summary Date of Service: 09/03/18 Chief Complaint: Finger laceration History of Present Illness: The patient is a 53 M who sustained a finger laceration about 16 hours ago. He was in the kitchen cutting with his knife and sustained a right dorsum middle finger laceration. No sensory deficit no functional deficit. Physical Examination: Patient has a 3 cm laceration over the middle phalanx dorsally of his right hand. He has normal extensor and flexor function. Emergency Department Course and Treatment: Wound is too old to be sutured, we will clean it, applied Steri-Strips, update tetanus and given a finger splint. Disposition: Discharge stable condition Impression: 3 cm finger laceration This note was generated with [employer] dictation software. It may contain incorrect words, spelling, and punctuation that were not noted in review of the chart prior to signing ED Disposition - Plan for ED Patient: Disposition: Home or Assisted Living Chief Complaint: Laceration Instructions: ED Laceration Hand Referrals: Jonh Altman MD [Primary Care Provider] - 1 Week What to do if you have Problems For any increased pain, shortness of breath, bleeding, nausea or vomiting, chest pain, or any unexpected problems, contact your Primary Care Provider. Call [facility] ([phone]) or report to the closest Emergency Room. Call 911 if necessary. 09/03/18 2914 <Electronically signed by Norbert Hsieh MD> Date Norbert Hsieh MD Cosigner Signature (If Indicated): Date CC: Jonh Altman MD PROGRESS Observed: 08/26/2018 Status: COMPLETED Source: [place] 3:52 PM [facility] REPOSITORY O ID: [id number] Author: Jonh Altman Service: (none) Author Type: Physician Type: Progress Notes Filed: 08/26/2018 9:09 PM Note Text: Chief Complaint Patient presents with: Nose Bleed: right nostril x 6 months (has one once a week) HPI Sam Shanks is a 53 year old male who presents here today for Above Complaints.. Since CT and being placed on the blood thinners he has had a nose bleed almost once a week. Tends to be the right nares. Was at the ER for a nose bleed a month ago. Had his nose cauterized in his twenties and had not had any significant issues till now. Past medical history, appointments, medications, allergies reviewed. Previous Medical History PAST MEDICAL HISTORY Diagnosis Date - Arthritis of right knee 12/04/2015 - Coronary artery disease due to lipid rich plaque 02/16/2018 CT 01/2018, Stent to distal RCA - Hyperlipidemia - Hypertension - ST elevation myocardial infarction involving right coronary artery (HCC) 02/16/2018 CT 01/2018, Stent to distal RCA Previous Surgical History PAST SURGICAL HISTORY Procedure Laterality Date - 2D ECHO (EXEP) 02/14/2018 EF=50-55%,mid diast dysf, mild hypokensis - 2D ECHO (EXEP) 07/01/2018 EF=60%, 1+ TI, improved EF and hypokensis compared to echo from 01/2018 - APPENDECTOMY HX - COLONOSCOP W/ OR W/O BRSH SPEC 08/09/2018 Colonoscopy - HEART SURGERY HX cardiac stent January 2018 - PAST SURGICAL HISTORY OF tonsilectomy - PAST SURGICAL HISTORY OF 01/2018 single coronary stent placed Family History FAMILY HISTORY Problem Relation Age of Onset - Diabetes Father - Stroke Father - Alcohol/Drug Father alcohol - Diabetes Sister - Diabetes Brother - Seizures Brother due to brain trauma Patient Allergies ALLERGIES Allergen Reactions - Hay Fever [Seasonal* Itching Current Medications Current Outpatient Prescriptions on File Prior to Visit: atorvastatin (LIPITOR) 80 mg tablet AT BEDTIME lisinopril 2.5 mg tablet DAILY metoprolol tartrate, short acting, (LOPRESSOR) 25 mg tablet TWICE A DAY ticagrelor (BRILINTA) 90 mg tablet TWICE A DAY aspirin 81 mg chewable tablet DAILY@0800 coenzyme Q10 (COENZYME Q-10) 100 mg cap capsule Take 1 capsule by mouth twice daily. No current facility-administered medications on file prior to visit. Social History Social History Marital status: Spouse name: Years of education: Number of children: Social History Main Topics Smoking status: Never Smoker Smokeless tobacco: Former User Quit date: 10/18/2015 Alcohol use: Yes Comment: rarely Drug use: No Review of Symptoms REVIEW OF SYSTEMS See HPI EXAM: BP 122/78 Pulse 76 Resp 14 Wt 117.5 kg (259 lb) BMI 36.12 kg/m? General Appearance: Well appearing, alert, in no acute distress, well-hydrated, well nourished.. Nose/Sinuses: Nares normal, septum midline, mucosa normal, no drainage or sinus tenderness, in the right nares has an enlarged vessel on the mid nasal septum. Health Maintenance List ANNUAL PCP TEAM CHRONIC DISEASE VISIT due on 1985 LDL CHOLESTEROL due on 04/21/2017 STATIN MED ADHERENCE due on 09/17/2018 DIABETES SCREEN due on 04/21/2019 DTAP,TDAP,TD(2 - Td) due on 06/27/2022 LIPID SCREEN due on 07/01/2023 COLORECTAL CANCER SCREENING,SEE MODIFIER due on 08/09/2028 INFLUENZA Completed Data reviewed A/P ASSESSMENT/PLAN: 1. Epistaxis - ICD9: 784.7, ICD10: R04.0 - CONSULT TO ENT: Dr. Allen's group for possible cauterization Jonh Altman MD CNOV Observed: 08/26/2018 Status: COMPLETED Source: [place] 3:40 PM [facility] REPOSITORY Office Visit ([facility]AMPWS) SAM SHANKS ([id number]) 1965 M Date Time Provider Department 08/26/18 3:40 PM [facility] During your visit today, we recorded the following information about you: Pulse Respiration Blood pressure Weight 76/minute 14/minute 122/78 117.5 kg Jonh Altman MD 08/26/2018 9:09 PM Signed Chief Complaint Patient presents with: Nose Bleed: right nostril x 6 months (has one once a week) HPI Sam Shanks is a 53 year old male who presents here today for Above Complaints.. Since CT and being placed on the blood thinners he has had a nose bleed almost once a week. Tends to be the right nares. Was at the ER for a nose bleed a month ago. Had his nose cauterized in his twenties and had not had any significant issues till now. Past medical history, appointments, medications, allergies reviewed. Previous Medical History PAST MEDICAL HISTORY Diagnosis Date - Arthritis of right knee 12/04/2015 - Coronary artery disease due to lipid rich plaque 02/16/2018 CT 01/2018, Stent to distal RCA - Hyperlipidemia - Hypertension - ST elevation myocardial infarction involving right coronary artery (HCC) 02/16/2018 CT 01/2018, Stent to distal RCA Previous Surgical History PAST SURGICAL HISTORY Procedure Laterality Date - 2D ECHO (EXEP) 02/14/2018 EF=50-55%,mid diast dysf, mild hypokensis - 2D ECHO (EXEP) 07/01/2018 EF=60%, 1+ TI, improved EF and hypokensis compared to echo from 01/2018 - APPENDECTOMY HX - COLONOSCOP W/ OR W/O BRSH SPEC 08/09/2018 Colonoscopy - HEART SURGERY HX cardiac stent January 2018 - PAST SURGICAL HISTORY OF tonsilectomy - PAST SURGICAL HISTORY OF 01/2018 single coronary stent placed Family History FAMILY HISTORY Problem Relation Age of Onset - Diabetes Father - Stroke Father - Alcohol/Drug Father alcohol - Diabetes Sister - Diabetes Brother - Seizures Brother due to brain trauma Patient Allergies ALLERGIES Allergen Reactions - Hay Fever [Seasonal* Itching Current Medications Current Outpatient Prescriptions on File Prior to Visit: atorvastatin (LIPITOR) 80 mg tablet AT BEDTIME lisinopril 2.5 mg tablet DAILY metoprolol tartrate, short acting, (LOPRESSOR) 25 mg tablet TWICE A DAY ticagrelor (BRILINTA) 90 mg tablet TWICE A DAY aspirin 81 mg chewable tablet DAILY@0800 coenzyme Q10 (COENZYME Q-10) 100 mg cap capsule Take 1 capsule by mouth twice daily. No current facility-administered medications on file prior to visit. Social History Social History Marital status: Spouse name: Years of education: Number of children: Social History Main Topics Smoking status: Never Smoker Smokeless tobacco: Former User Quit date: 10/18/2015 Alcohol use: Yes Comment: rarely Drug use: No Review of Symptoms REVIEW OF SYSTEMS See HPI EXAM: BP 122/78 Pulse 76 Resp 14 Wt 117.5 kg (259 lb) BMI 36.12 kg/m? General Appearance: Well appearing, alert, in no acute distress, well-hydrated, well nourished.. Nose/Sinuses: Nares normal, septum midline, mucosa normal, no drainage or sinus tenderness, in the right nares has an enlarged vessel on the mid nasal septum. Health Maintenance List ANNUAL PCP TEAM CHRONIC DISEASE VISIT due on 1985 LDL CHOLESTEROL due on 04/21/2017 STATIN MED ADHERENCE due on 09/17/2018 DIABETES SCREEN due on 04/21/2019 DTAP,TDAP,TD(2 - Td) due on 06/27/2022 LIPID SCREEN due on 07/01/2023 COLORECTAL CANCER SCREENING,SEE MODIFIER due on 08/09/2028 INFLUENZA Completed Data reviewed A/P ASSESSMENT/PLAN: 1. Epistaxis - ICD9: 784.7, ICD10: R04.0 - CONSULT TO ENT: Dr. Allen's group for possible cauterization Jonh Altman MD Referring Provider: SELF [200] Allergies As of Date: 08/26/2018 Noted Allergy Reaction HAY FEVER (SEASONAL ALLERGIES) 12/04/2015 9 - Itching Date Reviewed: 08/26/2018 Reviewed by: Jonh Altman - Fully Assessed Reason for Visit: Nose Bleed [204] Cmt: right nostril x 6 months (has one once a week) Primary Visit Diagnosis:Epistaxis [R04.0] Order(s):CONSULT TO ENT [9008] Order #: [id number]: 1 Prescriptions as of 08/26/2018 Sig: ATORVASTATIN 80 MG TABLET AT BEDTIME LISINOPRIL 2.5 MG TABLET DAILY METOPROLOL TARTRATE 25 MG TAB* TWICE A DAY TICAGRELOR 90 MG TABLET TWICE A DAY ASPIRIN 81 MG CHEWABLE TABLET DAILY@0800 COENZYME Q10 100 MG CAPSULE Take 1 capsule by mouth twice* Problem List As Of Date 08/26/2018 Noted Resolved Arthritis of right knee [M17.11] INVALID FOR* Priority: M Well adult exam [Z00.00] INVALID FOR* Priority: E More... 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 Elevated blood pressure reading without diagnos*INVALID FOR* Tinea cruris [B35.6] INVALID FOR* Priority: D Mixed hyperlipidemia [E78.2] INVALID FOR* Priority: A Elevated fasting blood sugar [R73.01] INVALID FOR* Priority: A ST elevation myocardial infarction involving ri*INVALID FOR* Priority: A More... Coronary artery disease due to lipid rich plaqu*INVALID FOR* Priority: A More... Encounter Status:Closed by JONH ALTMAN on 08/26/18 PROGRESS Observed: 08/13/2018 Status: COMPLETED Source: [place] 4:02 AM [facility] REPOSITORY O ID: [id number] Author: Ale Gilliland Service: (none) Author Type: (none) Type: Progress Notes Filed: 08/13/2018 4:03 AM Note Text: Sleep Study Check-In Documentation Date: August 13, 2018 Name: Sam Shanks Patient was accompanied by Self. Location: [place] Latex allergy: No Tape allergy: No Current medications were reviewed with the patient:Yes Sleep aid taken by patient for the sleep study: [place] of sleep aid: Not Applicable Procedure was explained to the patient and all questions were answered. PAP treatment discussed and shown to patient: Yes Knowledge Program (KP): KP was not completed in [facility] by patient and accepted Study type: Polysomnogram Adverse Event: No (If yes create a new abstract) SERS Event: No Comments: Patient was advised to follow up with their ordering provider regarding test results Ale Gilliland NURSING PROG Observed: 08/09/2018 Status: COMPLETED Source: [place] 10:40 AM [facility] REPOSITORY HNO ID: [id number] Author: Izabel Cantrell) MADHU Ramey Service: (none) Author Type: Registered Nurse Type: Nursing Progress Note Filed: 08/09/2018 10:43 AM Note Text: Patient did not experience a fall prior to discharge. Patient did not experience a burn prior to discharge. Izabel Ramey RN PT ED Observed: 08/09/2018 Status: COMPLETED Source: [place] 10:22 AM [facility] REPOSITORY HNO ID: [id number] Author: Izabel Ramey RN Service: (none) Author Type: Registered Nurse Type: Patient Education Filed: 08/09/2018 10:23 AM Note Text: POST OP LEARNING RESPONSE INSTRUCTION PROVIDED TO: Patient and Family member METHOD OF INSTRUCTION: Individual instruction Written instruction - handouts Verbal instruction PATIENT / FAMILY RESPONSE: Verbalizes understanding of: INFECTION MANAGEMENT-Signs and symptoms of an infection and importance of contacting the physician MEDICAL REGIMEN-Importance of following prescribed medical regimen PAIN MANAGEMENT-Effective strategies to manage pain in addition to pain medication PHYSICAL RESTRICTIONS-Physical restrictions and recommendations after discharge from the hospital POST-PROCEDURE INSTRUCTIONS-Correct actions to take to reduce post procedure complications PATIENT SAFETY PRINCIPLES SYMPTOM MANAGEMENT-Correct actions to take to manage symptoms associated with his/her disease/illness WORSENING CONDITION-Signs and symptoms of a worsening condition that warrant a call to the physician FOLLOW-UP PLAN: Patient instructed to call with any further issues Follow up phone call. Contact information given. SUPPLEMENTAL MATERIAL: AVS REFERRAL (RECOMMENDATION): None Electronically Signed By: Izabel Ramey RN In Department: AMBULATORY SURGERY NURSING PROG Observed: 08/09/2018 Status: COMPLETED Source: [place] 10:22 AM [facility] REPOSITORY HNO ID: [id number] Author: Izabel Ramey RN Service: (none) Author Type: Registered Nurse Type: Nursing Progress Note Filed: 08/09/2018 10:22 AM Note Text: Patient sitting up in bed tolerating snack and drink without problems. Izabel Ramey RN NURSING PROG Observed: 08/09/2018 Status: COMPLETED Source: [place] 9:57 AM [facility] REPOSITORY HNO ID: [id number] Author: Izabel Ramey RN Service: (none) Author Type: Registered Nurse Type: Nursing Progress Note Filed: 08/09/2018 10:03 AM Note Text: Patient arrived to PACU, on left side, abdomen soft. Patient resting comfortably. Izabel Ramey RN NURSING PROG Observed: 08/09/2018 Status: COMPLETED Source: [place] 9:55 AM [facility] REPOSITORY HNO ID: [id number] Author: Starr Rocha RN Service: Nursing Author Type: Registered Nurse Type: Nursing Progress Note Filed: 08/09/2018 9:55 AM Note Text: Patient did not experience a fall within the Intraoperative area. Patient did not experience a burn within the Intraoperative area. Starr Rocha RN NURSING PROG Observed: 08/09/2018 Status: COMPLETED Source: [place] 9:17 AM [facility] REPOSITORY HNO ID: [id number] Author: Izabel Ramey RN Service: (none) Author Type: Registered Nurse Type: Nursing Progress Note Filed: 08/09/2018 9:17 AM Note Text: Patient did not experience a fall within the Preoperative area. Patient did not experience a burn within the Preoperative area. [facility] [place] PRE-OP NURSING HAND OFF NOTE SBAR Hand off given to Starr Rocha RN. Hand off was communicated verbally and at the patient's bedside and all questions were answered. MADHU Ortega RN PT ED Observed: 08/09/2018 Status: COMPLETED Source: [place] 8:07 AM [facility] REPOSITORY HNO ID: [id number] Author: Izabel Ramey RN Service: (none) Author Type: Registered Nurse Type: Patient Education Filed: 08/09/2018 8:09 AM Note Text: PRE OP LEARNING ASSESSMENT PROCEDURE/SURGERY: GI PROCEDURES: Colonoscopy READINESS TO LEARN COGNITIVE ABILITY: Alert and oriented MOTIVATION TO LEARN: Eager Interested FAMILY SUPPORT: High - Very involved in pt care PATIENT LEARNS BEST BY: Individual Instruction Written Instruction - Hand-outs Verbal Instruction Multiple Methods FACTORS AFFECTING LEARNING: None PHYSICAL LIMITATIONS AFFECTING LEARNING: None Electronically Signed By: Izabel Ramey RN In Department: AMBULATORY SURGERY HISTORY PHYSICAL Observed: 08/09/2018 Status: COMPLETED Source: [place] 7:48 AM [facility] REPOSITORY O ID: [id number] Author: Luanne Singh Service: General Surgery Author Type: Physician Type: HANDP Filed: 08/09/2018 7:48 AM Note Text: HISTORY AND PHYSICAL ? Sam Shanks 1965 ? REFERRING PHYSICIAN: Jonh Altman MD ? CHIEF COMPLAINT: Consult (colonoscopy) ? HPI: The patient is a 53 year old male referred for endoscopy. Sam notes no history of colon complaints. He denies any change in bowel habits, weight changes, blood in stools, black tarry stools or abdominal pain. Denies family history of colon cancer. The patient notes no history of upper GI complaints. Sam has not undergone prior endoscopy. Patient's past medical history is significant for CT in January 2018. He had a single coronary stent placed and is maintained on aspirin and Brilinta. He denies any chest pain or shortness of breath currently. The patient follows with Dr. Altman for his chronic medical conditions and with Dr. Ngo in cardiology. He has had recent primary care follow-up. Patient is referred by Parminder Mercado CNP to set up screening colonoscopy. Patient denies any problems with sedation in the past. ? ? PAST?MEDICAL?HISTORY PAST MEDICAL HISTORY Diagnosis Date - Arthritis of right knee 12/04/2015 - Coronary artery disease due to lipid rich plaque 02/16/2018 ? CT 01/2018, Stent to distal RCA - Hyperlipidemia ? - Hypertension ? - ST elevation myocardial infarction involving right coronary artery (HCC) 02/16/2018 ? CT 01/2018, Stent to distal RCA ? ? PAST?SURGICAL?HISTORY PAST SURGICAL HISTORY Procedure Laterality Date - 2D ECHO (EXEP) ? 02/14/2018 ? EF=50-55%,mid diast dysf, mild hypokensis - APPENDECTOMY HX ? ? - PAST SURGICAL HISTORY OF ? ? ? tonsilectomy - PAST SURGICAL HISTORY OF ? 01/2018 ? single coronary stent placed ? ? ? CURRENT?MEDICATIONS ? Current Outpatient Prescriptions: atorvastatin (LIPITOR) 80 mg tablet AT BEDTIME lisinopril 2.5 mg tablet DAILY metoprolol tartrate, short acting, (LOPRESSOR) 25 mg tablet TWICE A DAY ticagrelor (BRILINTA) 90 mg tablet TWICE A DAY aspirin 81 mg chewable tablet DAILY@0800 coenzyme Q10 (COENZYME Q-10) 100 mg cap capsule Take 1 capsule by mouth twice daily. ? No current facility-administered medications for this visit. ? ALLERGIES: Hay Fever [Seasonal Allergies] ? PERSONAL HISTORY: SOCIAL?HISTORY Social History Marital status: Spouse name: Years of education: Number of children: ? Social History Main Topics Smoking status: Never Smoker ? Smokeless tobacco: Former User Quit date: 10/18/2015 Alcohol use: Yes Comment: rarely Drug use: No ? FAMILY HISTORY: FAMILY?HISTORY FAMILY HISTORY Problem Relation Age of Onset - Diabetes Father ? - Stroke Father ? - Alcohol/Drug Father ? ? alcohol - Diabetes Sister ? - Diabetes Brother ? - Seizures Brother ? ? due to brain trauma ? ? REVIEW OF SYMPTOMS: The review of systems data was entered by the nurse and reviewed by me ? Nursing Notes: Daina Preston RN 07/04/2018 8:56 AM Signed REVIEW OF SYSTEMS: General: The patient denies fatigue, denies weight loss, denies weight gain, denies feeling hot, and denies feelings of cold. Eyes: The patient denies glaucoma, denies eye injury/surgery, wears glasses or contacts. Ear/Nose/Throat: The patient denies allergies, notes hayfever, denies ear infections, and denies bloody noses. Cardiovascular: The patient denies chest pain, denies heart disease, notes high blood pressure,notes cardiac stent, notes prior heart attack, denies irregular heart beat, notes high cholesterol, denies poor circulation, denies heart failure, other cardiac issues, denies claudication, denies cold feet, denies peripheral arterial stent. Respiratory: The patient denies tuberculosis, denies pneumonia, denies frequent cough, denies pulmonary embolism, denies shortness of breath, and denies coughing up blood. Gastrointestinal: The patient denies difficulty swallowing, denies acid reflux, denies ulcers, denies vomiting, denies jaundice/hepatitis, denies gallbladder problems, denies black or tarry stools, notes hemorrhoids, denies bleeding from rectum, denies diverticulitis, denies constipation, denies diarrhea, denies loss of stool control, and denies hernias. Kidney/Bladder: The patient denies kidney stones, denies urine infections, and denies bloody urine. Skin: The patient notes a history of skin cancer, denies bleeding/changing moles, and denies a history of skin rash. Neurologic: The patient denies a history of epilepsy/convulsions, denies headaches, denies head/spinal injuries, and denies stroke/TIA. Psychiatric: The patient denies psychiatric medications, denies depression, and denies voices, denies substance abuse. Endocrine: The patient denies thyroid disorders, denies diabetes, and denies hormonal problems. Hematologic: The patient notes a history of bruising, notes bleeding, and denies anemia, denies blood clots. Infections: The patient denies a history of measles and mumps, denies rheumatic fever, and denies sexually transmitted diseases. Musculoskeletal: The patient denies back pain/injury, denies back problems, denies sciatica, denies knee/foot trouble, denies arthritis, or denies gout. ? ? When was patient's last Mammogram screening? N/A ? Last Colonoscopy: never ? Daina Preston RN I have confirmed and edited as necessary, the PFSH and ROS obtained by others. ? PHYSICAL EXAMINATION: ? General: The patient is 53 year old male, well nourished, well hydrated in no acute distress. The patient is oriented to time, place, and person. ? VITALS: Blood pressure 130/84, pulse 84, weight 120.7 kg (266 lb). Body mass index is 37.1 kg/m?. ? HEENT: Normal cephalic, ataumatic, pupils are equally round, sclera are anicteric, mucous membranes are moist, oropharynx is clear. Neck has no masses, asymmetry or lymphadenopathy. Thyroid is unremarkable. ? Respiratory: Clear to auscultation and percussion. Normal respiratory excursion and pattern. ? Cardiac: Examination is regular rate and rhythm. ? Abdominal exam: Soft, nontender, with no palpable masses. No hepatosplenomegaly. No palpable hernias. ? Rectal exam: exam deferred ? Extremities: no clubbing, cyanosis or edema. No adenopathy. ? Other: ? LABORATORY VALUES: As Noted ? RADIOLOGIC STUDIES: As Noted ? Assessment IMPRESSION: encounter for screening colonoscopy. History of STEMI January 2018 ? PLAN: We will plan for screening colonoscopy. We discussed the risks and benefits of the planned endoscopy. I have informed the patient that complications can occur including failure to complete the endoscopy and perforation. The patient had the opportunity to ask questions concerning the planned endoscopy. My staff has also explained the procedure to the patient in understandable terms and has given the patient printed material concerning the procedure. The patient freely consents to surgery. ? Cardiac clearance request form was faxed to Dr. Ngo's office, received clearance from Dr. Ngo to proceed with colonoscopy. Scanned into Quemulus. ? I plan to use golytely bowel preparation for endoscopy ? Patient to REMAIN ON his anticoagulation for the procedure ? Diagnoses: (Z12.11) Encounter for screening for malignant neoplasm of colon (primary encounter diagnosis) (I25.2) History of ST elevation myocardial infarction (STEMI) (Z79.01) On continuous oral anticoagulation ? My findings have been communicated to Dr. Altman via shared medical record. This note will be forwarded to Dr. Jonh Altman MD. Return to Clinic: The patient is instructed to follow-up with me 1 week post operatively. ? Gabi Newby PA-C HOSP Observed: 08/05/2018 Status: COMPLETED Source: [place] 12:00 AM [facility] REPOSITORY Patient:Sam Shanks MRN: <[id number]> Height:5' 11(1.803 m) Weight:266 lb 1.5 oz (120.7 kg) Outpatient Medications as of 08/09/18: atorvastatin (LIPITOR) 80 mg tablet lisinopril 2.5 mg tablet metoprolol tartrate, short acting, (LOPRESSOR) 25 mg tablet ticagrelor (BRILINTA) 90 mg tablet aspirin 81 mg chewable tablet coenzyme Q10 (COENZYME Q-10) 100 mg cap capsule Admission/Clinic Administered Medications as of 08/09/18: lactated ringers infusion Problem List: Arthritis of right knee [M17.11] Well adult exam [Z00.00] 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] Elevated blood pressure reading without diagnosis of hypertension [R03.0] Tinea cruris [B35.6] Mixed hyperlipidemia [E78.2] Elevated fasting blood sugar [R73.01] ST elevation myocardial infarction involving right coronary artery (HCC) [I21.11] Coronary artery disease due to lipid rich plaque [I25.10, I25.83] Allergies: Hay Fever [Seasonal Allergies] Date Verified: 08/09/18 Lab Values No results within the last 30 days for the following basenames: K,HCT Progress Notes (NEUR SLEEP MAIN): Elizabeth Cobos Psr 07/28/2018 3:49 PM Sign at close encounter July 28, 2018 An order has been received for Polysomnogram (PSG) from [facility] Staff. Visit prep complete. Comments :No The sleep study is scheduled for HSAT on 08/31. Insurance: Payor: [employer] / Plan: [employer] PPO / Product Type: PPO / Elizabeth Cobos Psr Gennaro Alcala III, PhD 07/29/2018 12:18 PM Sign at close encounter July 29, 2018 The electronic medical record was reviewed to determine if the proposed sleep study conforms to the AASM Practice Parameters for the Indications for Polysomnography and Related Procedures, or if the sleep study is indicated for other reasons. Indications for study: CRISTOFER suspected without comorbid medical or sleep disorders Sleep study to be performed: Polysomnogram Special instructions: Target REM/supine sleep Add EtCO2 or Transcutaneous CO2 if available Tori Chacon [facility] I have read the above protocol, edited as needed, and agree to the plan Gennaro Alcala III, PhD, [facility] Previous Version PROGRESS Observed: 07/29/2018 Status: COMPLETED Source: [place] 2:39 AM [facility] REPOSITORY O ID: [id number] Author: Gennaro Alcala III Service: (none) Author Type: Physician Type: Progress Notes Filed: 08/13/2018 4:03 AM Note Text: July 29, 2018 The electronic medical record was reviewed to determine if the proposed sleep study conforms to the AASM Practice Parameters for the Indications for Polysomnography and Related Procedures, or if the sleep study is indicated for other reasons. Indications for study: CRISTOFER suspected without comorbid medical or sleep disorders Sleep study to be performed: Polysomnogram Special instructions: Target REM/supine sleep Add EtCO2 or Transcutaneous CO2 if available Tori Chacon [facility] I have read the above protocol, edited as needed, and agree to the plan Gennaro Alcala III, PhD, [facility] PROGRESS Observed: 07/28/2018 Status: COMPLETED Source: [place] 3:48 PM [facility] REPOSITORY HNO ID: [id number] Author: Elizabeth Cobos Psr Service: (none) Author Type: (none) Type: Progress Notes Filed: 08/13/2018 4:03 AM Note Text: July 28, 2018 An order has been received for Polysomnogram (PSG) from [facility] Staff. Visit prep complete. Comments :No The sleep study is scheduled for HSAT on 08/31. Insurance: Payor: [employer] / Plan: [employer] PPO / Product Type: PPO / Elizabeth Cobos Psr EMERGENCY DEPARTMENT Observed: 07/25/2018 Status: F Source: [place] SUMMARY 11:20 PM [facility] REPOSITORY [facility] Medical Records Department [address] [place] [address] Emergency Department Summary 07/25/18 2241 MR#: [id number] Acct: [id number] Name: SAM SHANKS Rep #: [id number] : 1965 53 From: Kareem Osborn MD PCP: Jonh Altman MD Status: REG ER - ER Visit Summary Date of Service: 07/25/18 Chief Complaint: [] Sided nosebleed History of Present Illness: The patient is a 53 M right-sided nosebleed for last 4-1/2 hours. Gradual onset continuous right-sided. He is on Brilinta for history of coronary artery disease and has a stent. He had one earlier this week. He was out in [place] where it was dry. He has had 4 since starting Brilinta and february. Use a napkin to get it to stop. He just got off the plane and came right here. Physical Examination: [] Vital signs reviewed General: Well-nourished well-developed Head: Normocephalic atraumatic Eyes: Pupils equal round and reactive to light extraocular movements intact ENT: TMs clear no hemotympanum no trauma. Right-sided nares with a clot. No active bleeding. Nothing in his throat Neck: Nontender full range of motion Cardiovascular: Regular rate rhythm no murmurs normal S1-S2 Respiratory: No distress clear to auscultation bilaterally chest nontender Abdomen: Soft nontender nondistended normal bowel sounds no masses Back: Nontender no CVA tenderness Extremities: Nontender active range of motion 4 extremities no trauma Skin: Normal color no trauma Neuro alert oriented cranial nerves II through XII intact normal strength sensation reflexes Test Results: [] Emergency Department Course and Treatment: [] Patient use Afrin nasal spray and gently blew his nose. No active bleeding. He was given a nose clamp and cotton balls and surgical loop to use. He will follow-up with ENT. Stopped on its own. Treatment Plan: [] Disposition: [] Impression: [] Right-sided nosebleed This note was generated with [employer] dictation software. It may contain incorrect words, spelling, and punctuation that were not noted in review of the chart prior to signing ED Disposition - Plan for ED Patient: Chief Complaint: Nosebleed Referrals: Jonh Altman MD [Primary Care Provider] - What to do if you have Problems For any increased pain, shortness of breath, bleeding, nausea or vomiting, chest pain, or any unexpected problems, contact your Primary Care Provider. Call [facility] ([phone]) or report to the closest Emergency Room. Call 911 if necessary. 07/25/18 2320 <Electronically signed by Kareem Osborn MD> Date Kareem Osborn MD Cosigner Signature (If Indicated): Date CC: Jonh Altman MD DISCHARGE INSTRUCTION Observed: 07/25/2018 Status: F Source: [place] 11:20 PM [facility] REPOSITORY [facility] Medical Records Department [address] [place] [address] Discharge Instruction 07/25/18 2302 MR#: [id number] Acct: [id number] Name: SAM SHANKS Rep #: [id number] : 1965 53 From: Kareem Osborn MD PCP: Jonh Altman MD Status: REG ER ED Disposition - Plan for ED Patient: Disposition: Home or Assisted Living Chief Complaint: Nosebleed Instructions: Nosebleed Referrals: Jonh Altman MD [Primary Care Provider] - Rohan Allen MD [STAFF PHYSICIAN] - What to do if you have Problems For any increased pain, shortness of breath, bleeding, nausea or vomiting, chest pain, or any unexpected problems, contact your Primary Care Provider. Call [facility] ([phone]) or report to the closest Emergency Room. Call 911 if necessary. 07/25/182319 <Electronically signed by Kareem Osborn MD> Date Kareem Osborn MD Cosigner Signature (If Indicated): Date CC: Jonh Altman MD PROGRESS Observed: 07/04/2018 Status: COMPLETED Source: [place] 8:48 AM [facility] REPOSITORY O ID: [id number] Author: Gabi Newby (Pa) Service: (none) Author Type: Physician Sealing Machine Operator Type: Progress Notes Filed: 07/05/2018 4:38 PM Note Text: HISTORY AND PHYSICAL Sam Shanks 1965 REFERRING PHYSICIAN: Jonh Altman MD CHIEF COMPLAINT: Consult (colonoscopy) HPI: The patient is a 53 year old male referred for endoscopy. Sam notes no history of colon complaints. He denies any change in bowel habits, weight changes, blood in stools, black tarry stools or abdominal pain. Denies family history of colon cancer. The patient notes no history of upper GI complaints. Sam has not undergone prior endoscopy. Patient's past medical history is significant for CT in January 2018. He had a single coronary stent placed and is maintained on aspirin and Brilinta. He denies any chest pain or shortness of breath currently. The patient follows with Dr. Altman for his chronic medical conditions and with Dr. Ngo in cardiology. He has had recent primary care follow-up. Patient is referred by Parminder Mercado CNP to set up screening colonoscopy. Patient denies any problems with sedation in the past. PAST MEDICAL HISTORY Diagnosis Date - Arthritis of right knee 12/04/2015 - Coronary artery disease due to lipid rich plaque 02/16/2018 CT 01/2018, Stent to distal RCA - Hyperlipidemia - Hypertension - ST elevation myocardial infarction involving right coronary artery (HCC) 02/16/2018 CT 01/2018, Stent to distal RCA PAST SURGICAL HISTORY Procedure Laterality Date - 2D ECHO (EXEP) 02/14/2018 EF=50-55%,mid diast dysf, mild hypokensis - APPENDECTOMY HX - PAST SURGICAL HISTORY OF tonsilectomy - PAST SURGICAL HISTORY OF 01/2018 single coronary stent placed Current Outpatient Prescriptions: atorvastatin (LIPITOR) 80 mg tablet AT BEDTIME lisinopril 2.5 mg tablet DAILY metoprolol tartrate, short acting, (LOPRESSOR) 25 mg tablet TWICE A DAY ticagrelor (BRILINTA) 90 mg tablet TWICE A DAY aspirin 81 mg chewable tablet DAILY@0800 coenzyme Q10 (COENZYME Q-10) 100 mg cap capsule Take 1 capsule by mouth twice daily. No current facility-administered medications for this visit. ALLERGIES: Hay Fever [Seasonal Allergies] PERSONAL HISTORY: Social History Marital status: Spouse name: Years of education: Number of children: Social History Main Topics Smoking status: Never Smoker Smokeless tobacco: Former User Quit date: 10/18/2015 Alcohol use: Yes Comment: rarely Drug use: No FAMILY HISTORY: FAMILY HISTORY Problem Relation Age of Onset - Diabetes Father - Stroke Father - Alcohol/Drug Father alcohol - Diabetes Sister - Diabetes Brother - Seizures Brother due to brain trauma REVIEW OF SYMPTOMS: The review of systems data was entered by the nurse and reviewed by ky Nursing Notes: Daina Preston RN 07/04/2018 8:56 AM Signed REVIEW OF SYSTEMS: General: The patient denies fatigue, denies weight loss, denies weight gain, denies feeling hot, and denies feelings of cold. Eyes: The patient denies glaucoma, denies eye injury/surgery, wears glasses or contacts. Ear/Nose/Throat: The patient denies allergies, notes hayfever, denies ear infections, and denies bloody noses. Cardiovascular: The patient denies chest pain, denies heart disease, notes high blood pressure,notes cardiac stent, notes prior heart attack, denies irregular heart beat, notes high cholesterol, denies poor circulation, denies heart failure, other cardiac issues, denies claudication, denies cold feet, denies peripheral arterial stent. Respiratory: The patient denies tuberculosis, denies pneumonia, denies frequent cough, denies pulmonary embolism, denies shortness of breath, and denies coughing up blood. Gastrointestinal: The patient denies difficulty swallowing, denies acid reflux, denies ulcers, denies vomiting, denies jaundice/hepatitis, denies gallbladder problems, denies black or tarry stools, notes hemorrhoids, denies bleeding from rectum, denies diverticulitis, denies constipation, denies diarrhea, denies loss of stool control, and denies hernias. Kidney/Bladder: The patient denies kidney stones, denies urine infections, and denies bloody urine. Skin: The patient notes a history of skin cancer, denies bleeding/changing moles, and denies a history of skin rash. Neurologic: The patient denies a history of epilepsy/convulsions, denies headaches, denies head/spinal injuries, and denies stroke/TIA. Psychiatric: The patient denies psychiatric medications, denies depression, and denies voices, denies substance abuse. Endocrine: The patient denies thyroid disorders, denies diabetes, and denies hormonal problems. Hematologic: The patient notes a history of bruising, notes bleeding, and denies anemia, denies blood clots. Infections: The patient denies a history of measles and mumps, denies rheumatic fever, and denies sexually transmitted diseases. Musculoskeletal: The patient denies back pain/injury, denies back problems, denies sciatica, denies knee/foot trouble, denies arthritis, or denies gout. When was patient's last Mammogram screening? N/A Last Colonoscopy: never Daina Preston RN I have confirmed and edited as necessary, the PFSH and ROS obtained by others. PHYSICAL EXAMINATION: General: The patient is 53 year old male, well nourished, well hydrated in no acute distress. The patient is oriented to time, place, and person. VITALS: Blood pressure 130/84, pulse 84, weight 120.7 kg (266 lb). Body mass index is 37.1 kg/m?. HEENT: Normal cephalic, ataumatic, pupils are equally round, sclera are anicteric, mucous membranes are moist, oropharynx is clear. Neck has no masses, asymmetry or lymphadenopathy. Thyroid is unremarkable. Respiratory: Clear to auscultation and percussion. Normal respiratory excursion and pattern. Cardiac: Examination is regular rate and rhythm. Abdominal exam: Soft, nontender, with no palpable masses. No hepatosplenomegaly. No palpable hernias. Rectal exam: exam deferred Extremities: no clubbing, cyanosis or edema. No adenopathy. Other: LABORATORY VALUES: As Noted RADIOLOGIC STUDIES: As Noted Assessment IMPRESSION: encounter for screening colonoscopy. History of STEMI January 2018 PLAN: We will plan for screening colonoscopy. We discussed the risks and benefits of the planned endoscopy. I have informed the patient that complications can occur including failure to complete the endoscopy and perforation. The patient had the opportunity to ask questions concerning the planned endoscopy. My staff has also explained the procedure to the patient in understandable terms and has given the patient printed material concerning the procedure. The patient freely consents to surgery. Cardiac clearance request form was faxed to Dr. Ngo's office, received clearance from Dr. Ngo to proceed with colonoscopy. Scanned into Quemulus. I plan to use golytely bowel preparation for endoscopy Patient to REMAIN ON his anticoagulation for the procedure Diagnoses: (Z12.11) Encounter for screening for malignant neoplasm of colon (primary encounter diagnosis) (I25.2) History of ST elevation myocardial infarction (STEMI) (Z79.01) On continuous oral anticoagulation My findings have been communicated to Dr. Altman via shared medical record. This note will be forwarded to Dr. Jonh Altman MD. Return to Clinic: The patient is instructed to follow-up with me 1 week post operatively. EMERALD Kim Observed: 07/04/2018 Status: COMPLETED Source: [place] 8:30 AM [facility] REPOSITORY Office Visit (GENSWS) SAM SHANKS ([id number]) 1965 M Date Time Provider Department 07/04/18 8:30 AM GABI NEWBY (PA) GENDATS During your visit today, we recorded the following information about you: Pulse Blood pressure Weight 84/minute 130/84 120.7 kg Gabi Newby PA-C 07/05/2018 4:38 PM Signed HISTORY AND PHYSICAL Sam Zuluaga Dimitris 1965 REFERRING PHYSICIAN: Jonh Altman MD CHIEF COMPLAINT: Consult (colonoscopy) HPI: The patient is a 53 year old male referred for endoscopy. Sam notes no history of colon complaints. He denies any change in bowel habits, weight changes, blood in stools, black tarry stools or abdominal pain. Denies family history of colon cancer. The patient notes no history of upper GI complaints. Sam has not undergone prior endoscopy. Patient's past medical history is significant for CT in January 2018. He had a single coronary stent placed and is maintained on aspirin and Brilinta. He denies any chest pain or shortness of breath currently. The patient follows with Dr. Altman for his chronic medical conditions and with Dr. Ngo in cardiology. He has had recent primary care follow-up. Patient is referred by Parminder Mercado CNP to set up screening colonoscopy. Patient denies any problems with sedation in the past. PAST MEDICAL HISTORY Diagnosis Date - Arthritis of right knee 12/04/2015 - Coronary artery disease due to lipid rich plaque 02/16/2018 CT 01/2018, Stent to distal RCA - Hyperlipidemia - Hypertension - ST elevation myocardial infarction involving right coronary artery (HCC) 02/16/2018 CT 01/2018, Stent to distal RCA PAST SURGICAL HISTORY Procedure Laterality Date - 2D ECHO (EXEP) 02/14/2018 EF=50-55%,mid diast dysf, mild hypokensis - APPENDECTOMY HX - PAST SURGICAL HISTORY OF tonsilectomy - PAST SURGICAL HISTORY OF 01/2018 single coronary stent placed Current Outpatient Prescriptions: atorvastatin (LIPITOR) 80 mg tablet AT BEDTIME lisinopril 2.5 mg tablet DAILY metoprolol tartrate, short acting, (LOPRESSOR) 25 mg tablet TWICE A DAY ticagrelor (BRILINTA) 90 mg tablet TWICE A DAY aspirin 81 mg chewable tablet DAILY@0800 coenzyme Q10 (COENZYME Q-10) 100 mg cap capsule Take 1 capsule by mouth twice daily. No current facility-administered medications for this visit. ALLERGIES: Hay Fever [Seasonal Allergies] PERSONAL HISTORY: Social History Marital status: Spouse name: Years of education: Number of children: Social History Main Topics Smoking status: Never Smoker Smokeless tobacco: Former User Quit date: 10/18/2015 Alcohol use: Yes Comment: rarely Drug use: No FAMILY HISTORY: FAMILY HISTORY Problem Relation Age of Onset - Diabetes Father - Stroke Father - Alcohol/Drug Father alcohol - Diabetes Sister - Diabetes Brother - Seizures Brother due to brain trauma REVIEW OF SYMPTOMS: The review of systems data was entered by the nurse and reviewed by ky Nursing Notes: Daina Preston RN 07/04/2018 8:56 AM Signed REVIEW OF SYSTEMS: General: The patient denies fatigue, denies weight loss, denies weight gain, denies feeling hot, and denies feelings of cold. Eyes: The patient denies glaucoma, denies eye injury/surgery, wears glasses or contacts. Ear/Nose/Throat: The patient denies allergies, notes hayfever, denies ear infections, and denies bloody noses. Cardiovascular: The patient denies chest pain, denies heart disease, notes high blood pressure,notes cardiac stent, notes prior heart attack, denies irregular heart beat, notes high cholesterol, denies poor circulation, denies heart failure, other cardiac issues, denies claudication, denies cold feet, denies peripheral arterial stent. Respiratory: The patient denies tuberculosis, denies pneumonia, denies frequent cough, denies pulmonary embolism, denies shortness of breath, and denies coughing up blood. Gastrointestinal: The patient denies difficulty swallowing, denies acid reflux, denies ulcers, denies vomiting, denies jaundice/hepatitis, denies gallbladder problems, denies black or tarry stools, notes hemorrhoids, denies bleeding from rectum, denies diverticulitis, denies constipation, denies diarrhea, denies loss of stool control, and denies hernias. Kidney/Bladder: The patient denies kidney stones, denies urine infections, and denies bloody urine. Skin: The patient notes a history of skin cancer, denies bleeding/changing moles, and denies a history of skin rash. Neurologic: The patient denies a history of epilepsy/convulsions, denies headaches, denies head/spinal injuries, and denies stroke/TIA. Psychiatric: The patient denies psychiatric medications, denies depression, and denies voices, denies substance abuse. Endocrine: The patient denies thyroid disorders, denies diabetes, and denies hormonal problems. Hematologic: The patient notes a history of bruising, notes bleeding, and denies anemia, denies blood clots. Infections: The patient denies a history of measles and mumps, denies rheumatic fever, and denies sexually transmitted diseases. Musculoskeletal: The patient denies back pain/injury, denies back problems, denies sciatica, denies knee/foot trouble, denies arthritis, or denies gout. When was patient's last Mammogram screening? N/A Last Colonoscopy: never Daina Preston RN I have confirmed and edited as necessary, the PFSH and ROS obtained by others. PHYSICAL EXAMINATION: General: The patient is 53 year old male, well nourished, well hydrated in no acute distress. The patient is oriented to time, place, and person. VITALS: Blood pressure 130/84, pulse 84, weight 120.7 kg (266 lb). Body mass index is 37.1 kg/m?. HEENT: Normal cephalic, ataumatic, pupils are equally round, sclera are anicteric, mucous membranes are moist, oropharynx is clear. Neck has no masses, asymmetry or lymphadenopathy. Thyroid is unremarkable. Respiratory: Clear to auscultation and percussion. Normal respiratory excursion and pattern. Cardiac: Examination is regular rate and rhythm. Abdominal exam: Soft, nontender, with no palpable masses. No hepatosplenomegaly. No palpable hernias. Rectal exam: exam deferred Extremities: no clubbing, cyanosis or edema. No adenopathy. Other: LABORATORY VALUES: As Noted RADIOLOGIC STUDIES: As Noted Assessment IMPRESSION: encounter for screening colonoscopy. History of STEMI January 2018 PLAN: We will plan for screening colonoscopy. We discussed the risks and benefits of the planned endoscopy. I have informed the patient that complications can occur including failure to complete the endoscopy and perforation. The patient had the opportunity to ask questions concerning the planned endoscopy. My staff has also explained the procedure to the patient in understandable terms and has given the patient printed material concerning the procedure. The patient freely consents to surgery. Cardiac clearance request form was faxed to Dr. Ngo's office, received clearance from Dr. Ngo to proceed with colonoscopy. Scanned into [facility]. I plan to use golytely bowel preparation for endoscopy Patient to REMAIN ON his anticoagulation for the procedure Diagnoses: (Z12.11) Encounter for screening for malignant neoplasm of colon (primary encounter diagnosis) (I25.2) History of ST elevation myocardial infarction (STEMI) (Z79.01) On continuous oral anticoagulation My findings have been communicated to Dr. Altman via shared medical record. This note will be forwarded to Dr. Jonh Altman MD. Return to Clinic: The patient is instructed to follow-up with me 1 week post operatively. EMERALD Kim RN 07/04/2018 8:56 AM Signed REVIEW OF SYSTEMS: General: The patient denies fatigue, denies weight loss, denies weight gain, denies feeling hot, and denies feelings of cold. Eyes: The patient denies glaucoma, denies eye injury/surgery, wears glasses or contacts. Ear/Nose/Throat: The patient denies allergies, notes hayfever, denies ear infections, and denies bloody noses. Cardiovascular: The patient denies chest pain, denies heart disease, notes high blood pressure,notes cardiac stent, notes prior heart attack, denies irregular heart beat, notes high cholesterol, denies poor circulation, denies heart failure, other cardiac issues, denies claudication, denies cold feet, denies peripheral arterial stent. Respiratory: The patient denies tuberculosis, denies pneumonia, denies frequent cough, denies pulmonary embolism, denies shortness of breath, and denies coughing up blood. Gastrointestinal: The patient denies difficulty swallowing, denies acid reflux, denies ulcers, denies vomiting, denies jaundice/hepatitis, denies gallbladder problems, denies black or tarry stools, notes hemorrhoids, denies bleeding from rectum, denies diverticulitis, denies constipation, denies diarrhea, denies loss of stool control, and denies hernias. Kidney/Bladder: The patient denies kidney stones, denies urine infections, and denies bloody urine. Skin: The patient notes a history of skin cancer, denies bleeding/changing moles, and denies a history of skin rash. Neurologic: The patient denies a history of epilepsy/convulsions, denies headaches, denies head/spinal injuries, and denies stroke/TIA. Psychiatric: The patient denies psychiatric medications, denies depression, and denies voices, denies substance abuse. Endocrine: The patient denies thyroid disorders, denies diabetes, and denies hormonal problems. Hematologic: The patient notes a history of bruising, notes bleeding, and denies anemia, denies blood clots. Infections: The patient denies a history of measles and mumps, denies rheumatic fever, and denies sexually transmitted diseases. Musculoskeletal: The patient denies back pain/injury, denies back problems, denies sciatica, denies knee/foot trouble, denies arthritis, or denies gout. When was patient's last Mammogram screening? N/A Last Colonoscopy: never Daina Preston RN Referring Provider: JONH ALTMAN [[id number]] Allergies As of Date: 07/04/2018 Noted Allergy Reaction HAY FEVER (SEASONAL ALLERGIES) 12/04/2015 9 - Itching Date Reviewed: 07/04/2018 Reviewed by: Daina Preston RN - Fully Assessed Reason for Visit: Consult [173] Cmt: colonoscopy Primary Visit Diagnosis:Encounter for screening for malignant neoplasm of colon [Z12.11] Other Visit Diagnoses:History of ST elevation myocardial infarction (STEMI) [I25.2] On continuous oral anticoagulation [Z79.01] Order(s):[] peg 3350-Electrolytes (GOLYTELY) 236-22.74-6.74 -5.86 gram suspensionTake 4,000 mL by mouth one time only for 1 dose.Disp: 1 BottleRfl: 0 Prescriptions as of 07/04/2018 Sig: ATORVASTATIN 80 MG TABLET AT BEDTIME LISINOPRIL 2.5 MG TABLET DAILY METOPROLOL TARTRATE 25 MG TAB* TWICE A DAY TICAGRELOR 90 MG TABLET TWICE A DAY ASPIRIN 81 MG CHEWABLE TABLET DAILY@0800 COENZYME Q10 100 MG CAPSULE Take 1 capsule by mouth twice* PEG 3350-ELECTROLYTES 236 GRA* Take 4,000 mL by mouth one ti* Problem List As Of Date 07/04/2018 Noted Resolved Arthritis of right knee [M17.11] INVALID FOR* Priority: M Well adult exam [Z00.00] INVALID FOR* Priority: E More... 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 Elevated blood pressure reading without diagnos*INVALID FOR* Tinea cruris [B35.6] INVALID FOR* Priority: D Mixed hyperlipidemia [E78.2] INVALID FOR* Priority: A Elevated fasting blood sugar [R73.01] INVALID FOR* Priority: A ST elevation myocardial infarction involving ri*INVALID FOR* Priority: A More... Coronary artery disease due to lipid rich plaqu*INVALID FOR* Priority: A More... Visit Notes: >> Daina Preston RN Mon Jul 04, 2018 8:55 AM Status: Signed REVIEW OF SYSTEMS: General: The patient denies fatigue, denies weight loss, denies weight gain, denies feeling hot, and denies feelings of cold. Eyes: The patient denies glaucoma, denies eye injury/surgery, wears glasses or contacts. Ear/Nose/Throat: The patient denies allergies, notes hayfever, denies ear infections, and denies bloody noses. Cardiovascular: The patient denies chest pain, denies heart disease, notes high blood pressure,notes cardiac stent, notes prior heart attack, denies irregular heart beat, notes high cholesterol, denies poor circulation, denies heart failure, other cardiac issues, denies claudication, denies cold feet, denies peripheral arterial stent. Respiratory: The patient denies tuberculosis, denies pneumonia, denies frequent cough, denies pulmonary embolism, denies shortness of breath, and denies coughing up blood. Gastrointestinal: The patient denies difficulty swallowing, denies acid reflux, denies ulcers, denies vomiting, denies jaundice/hepatitis, denies gallbladder problems, denies black or tarry stools, notes hemorrhoids, denies bleeding from rectum, denies diverticulitis, denies constipation, denies diarrhea, denies loss of stool control, and denies hernias. Kidney/Bladder: The patient denies kidney stones, denies urine infections, and denies bloody urine. Skin: The patient notes a history of skin cancer, denies bleeding/changing moles, and denies a history of skin rash. Neurologic: The patient denies a history of epilepsy/convulsions, denies headaches, denies head/spinal injuries, and denies stroke/TIA. Psychiatric: The patient denies psychiatric medications, denies depression, and denies voices, denies substance abuse. Endocrine: The patient denies thyroid disorders, denies diabetes, and denies hormonal problems. Hematologic: The patient notes a history of bruising, notes bleeding, and denies anemia, denies blood clots. Infections: The patient denies a history of measles and mumps, denies rheumatic fever, and denies sexually transmitted diseases. Musculoskeletal: The patient denies back pain/injury, denies back problems, denies sciatica, denies knee/foot trouble, denies arthritis, or denies gout. When was patient's last Mammogram screening? N/A Last Colonoscopy: never Daina Preston RN Prescriptions ordered this encounter Disp Refills Start End PEG 3350-ELECTROLYTES 236 GRAM-22.74* 1 Edre* 0 07/04/2018 07/04/2018 Route: ORAL Sig: Take 4,000 mL by mouth one time only for 1 dose. Follow-up and Disposition History Recorded Encounter Status:Closed by GABI NEWBY PA-C on 07/05/18 ECHOCARDIOGRAM COMPLETE Observed: 07/01/2018 Status: F Source: [place] 3:24 PM [facility] REPOSITORY [facility] Cardiovascular Services [address] [place] [address] [id number] Echo Complete W/ Contrast 07/01/18 0745 MR#: [id number] Acct: [id number] Name: SAM SHANKS Rep #: [id number] : 1965 53 From: Davian Ngo MD Attending Dr: Davian Ngo MD Status: REG CLI Ordering Dr: Davian Ngo MD Date: 07/01/18 Location: [facility] Sex: M C Admitted: Reason For Study: CAD Procedure This was a 2D Doppler, Color Flow transthoracic echocardiogram. Exam performed in department. Left Ventricle Normal size and thickness. The estimated ejection fraction is 60 %. Normal diastology for age. Posterior-Basal: Mildly hypokinetic. Right Ventricle Normal size and thickness. Normal systolic function. Atria Normal left atrium. Normal right atrium. Normal atrial septum. Mitral Valve The mitral valve is structurally normal. No prolapse or stenosis seen. Tricuspid Valve Normal tricuspid valve. Mild (1+) tricuspid valve insufficiency. Right ventricular systolic pressure estimated to be 30 mmHg. Aortic Valve Trisinus/trileaflet aortic valve. Pulmonic Valve Normal pulmonic valve. Great Vessels Normal aortic root. Normal arch. Normal inferior vena cava. Inferior vena cava collapse with sniff. Pericardium/Pleural No pericardial effusion. Medication 22 gauge I.V. with prn adaptor inserted into right arm. Diluted definity 3ml given slow IV push to enhance endocardial definition. MMode/2D Measurements AND Calculations LVIDd: 4.4 cm IVSd: 0.98 cm LVOT diam: 2.0 cm LVIDs: 3.0 cm LVPWd: 0.95 cm LVOT area: 3.2 cm2 RVDd: 3.6 cm FS: 31.4 % Ao root diam: 3.4 cm LAV(MOD-bp): 67.9 ml EDV(MOD-sp4): 109.9 ml LAV(MOD-bp) Indexed: 28.6 ml/m2 ESV(MOD-sp4): 44.4 ml LAV(MOD-sp2): 67.8 ml EF(MOD-sp4): 59.6 % LAV(MOD-sp4): 61.1 ml EDV(MOD-sp2): 130.8 ml SV(MOD-sp4): 65.5 ml SV(MOD-sp2): 80.7 ml EF(MOD-sp2): 61.7 % LA A4 area: 20.9 cm2 RA A4 area: 16.5 cm2 Time Measurements MV dec time: 0.18 sec Doppler Measurements AND Calculations MV E max elena: 80.2 cm/sec Lat Peak E' Elena: 11.1 cm/sec Med Peak E' Elena: 9.9 cm/sec MV A max elena: 61.1 cm/sec E/E' lat: 7.2 E/E' med: 8.1 MV E/A: 1.3 Ao V2 max: 141.5 cm/sec LV V1 max: 100.2 cm/sec SV(LVOT): 74.4 ml Ao max P.0 mmHg LV V1 max P.0 mmHg Ao V2 mean: 97.9 cm/sec LV V1 mean P.2 mmHg Ao mean P.2 mmHg LV V1 mean: 68.8 cm/sec Ao V2 VTI: 29.2 cm LV V1 VTI: 23.3 cm LUCIA(I,D): 2.5 cm2 LUCIA(V,D): 2.3 cm2 TR max elena: 236.7 cm/sec TR max P.6 mmHg Interpretation Summary The estimated ejection fraction is 60 %. Normal diastology for age. Posterior-Basal: Mildly hypokinetic Mild (1+) tricuspid valve insufficiency. Right ventricular systolic pressure estimated to be 30 mmHg. Compared to echo report dated 02/14/2018, LV function has normalized with only minimal inferobasal hypokinesis. EF has gone from 50% to 60%. The study was technically difficult. Contrast injection was performed. Ordering Physician: Davian Ngo Referring Physician: JONH ALTMAN Performed By: Andressa Vora, MEGHA, RVT 07/01/18 1523 Date Davian Ngo MD CC: Davian Ngo MD; Jonh Altman MD Date Dictated: 07/01/18 0745 Date Transcribed: 07/01/18 1523 Courtesy Booth Cashier: Signed LIVER PROFILE Collected: 07/01/2018 Status: F Source: [place] 7:42 AM [facility] REPOSITORY TYPE CODE TESTS RESULT OUT OF RANGE REFERENCE UNITS LAB L501.1500 6.4-8.2 g/dL Normal T PROT 7.3 LAB L501.1800 3.2-5.0 g/dL Normal ALB 3.6 LAB L501.1950 2.2-4.2 g/dL Normal GLOB 3.7 LAB L501.4100 15-37 U/L Normal AST 15 LAB L501.4305 45-117 U/L Normal ALK P 79 LAB L501.4405 16-61 U/L Normal ALT 33 LAB L501.4600 0.20-1.00 mg/dL Normal T BILI 0.90 LAB L501.4700 0.00-0.30 mg/dL Normal D BILI 0.23 Performed By: #### L500.3400, L500.4100 #### [facility] [address] [place], [address] LIPID PROFILE Collected: 07/01/2018 Status: F Source: [place] 7:42 AM [facility] REPOSITORY TYPE CODE TESTS RESULT OUT OF RANGE REFERENCE UNITS LAB L501.4900 200 mg/dL Normal CHOL 145 Result Comment: <200 mg/dL Desirable 200-240 mg/dL Borderline >240 mg/dL High Risk LAB L501.5000 mg/dL Normal TRIG 112 Result Comment: The drugs N-Acetylcysteine and Metamizole may falsely depress this assay. Serum Triglycerides Reference Interval Normal <150 mg/dL Borderline high 150 - 199 mg/dL High 200 - 499 mg/dL Very High > or = 500 mg/dL LAB L501.6400 mg/dL Normal HDL 46 Result Comment: The drugs N-Acetylcysteine and Metamizole may falsely depress this assay. Reference Range HDL <40 mg/dL Low HDL Cholesterol HDL >or= 60 mg/dL High HDL Cholesterol LAB L501.6500 0-130 mg/dL Normal LDL 77 LAB L501.6600 5-40 mg/dL Normal VLDL 22 Performed By: #### L500.3400, L500.4100 #### [facility] [address] [place], [place], [id number] PROGRESS Observed: 06/24/2018 Status: COMPLETED Source: [place] 12:02 PM [facility] REPOSITORY HNO ID: [id number] Author: Karey Salas Service: (none) Author Type: (none) Type: Progress Notes Filed: 06/24/2018 12:02 PM Note Text: Patient scheduled for colonoscopy consultation with Gabi Newby on 07/04/2018 Karey Salas PROGRESS Observed: 06/23/2018 Status: COMPLETED Source: [place] 3:28 PM [facility] REPOSITORY HNO ID: [id number] Author: Parminder Mercado Service: (none) Author Type: Nurse Practitioner Type: Progress Notes Filed: 06/23/2018 6:16 PM Note Text: CC: Patient presents with: Yearly Exam HPI Sam Shanks is a 53 year old male who presents today for yearly physical, colonoscopy and complaints for bilateral knee pain. is a patient of and has not been seen since April 2016. He expresses some dissatisfaction that he is not seeing today. Since his last visit patient suffered a STEMI in January 2018. He has since been followed by [facility] and is currently on regimen of Brilinta, Lipitor, Lisinopril, ASA and Metoprolol. Patient was unable to participate in cardiac rehab following his CT given his schedule. He tries to exercise by walking ~2 miles 3-4x/week. He is down ~20lbs over the past 6 months. Bilateral knee pain ongoing for the past 11 years. States he had previous imaging of the left? Knee showing arthritis. Patient notes increased pain since participating in more regular exercise following his CT. No aggrevating factors. Pain is intermittent and described as a burning sensation. He treats with Tylenol Arthritis with some relief. Pain is currently rated 1/10. He has also tried braces with no improvement as they tend to roll down his leg. No previous injury or recent fall. Patient would like to schedule his screening colonoscopy. Has lab work coming up in the next month per cardiology to check kidney function, lipid recently checked and within acceptable limits. Patient states he is tolerating Lipitor, but has ongoing leg cramps. Takes Co-Q10 without much relief, indicates cramps are tolerable. Patient also notes that he was told in the hospital that he had sleep apnea, but has never been formally tested. Reports he snores, but not as bad. Denies any recent episodes of apnea, but notes hx. Family hx of CRISTOFER- father and brother. REVIEW OF SYSTEMS General: no fevers, no chills, no night sweats, no recurrent infections, no change in appetite and no change in energy HEENT: no frequent or significant headaches, no changes in hearing, no visual changes, no nose bleeds, no sinus or nasal problems Neck: no lumps, no pain and no swelling Respiratory: no cough, no wheezing, no shortness of breath, no hemoptysis Cardiovascular: no chest pain, no chest pressure, no palpitations and no swelling GI: No nausea, vomiting, or diarrhea : No history of dysuria, frequency or incontinence, No difficulty urinating, nocturia > 1 time per night or hematuria Musculoskeletal: Negative for or swelling, back pain or muscle pain Positive: joint pain or swelling Endocrine: no fatigue, no weight gain, no weight loss, no hair loss, no dry skin, no cold intolerance, no heat intolerance, no neck pain/pressure, no polyuria, no polyphagia and no polydipsia Neurologic: No headache, weakness, numbness, tingling, neck stiffness, tremor, vertigo, dizziness, memory loss, syncope. Notes occasional tingling to bilateral feet PAST MEDICAL HISTORY Diagnosis Date - Arthritis of right knee 12/04/2015 - Coronary artery disease due to lipid rich plaque 02/16/2018 CT 01/2018, Stent to distal RCA - ST elevation myocardial infarction involving right coronary artery (HCC) 02/16/2018 CT 01/2018, Stent to distal RCA PAST SURGICAL HISTORY Procedure Laterality Date - 2D ECHO (EXEP) 02/14/2018 EF=50-55%,mid diast dysf, mild hypokensis - APPENDECTOMY HX - PAST SURGICAL HISTORY OF tonsilectomy ALLERGIES Hay Fever [Seasonal Allergies] MEDICATIONS atorvastatin (LIPITOR) 80 mg tablet AT BEDTIME lisinopril 2.5 mg tablet DAILY metoprolol tartrate, short acting, (LOPRESSOR) 25 mg tablet TWICE A DAY ticagrelor (BRILINTA) 90 mg tablet TWICE A DAY aspirin 81 mg chewable tablet DAILY@0800 FAMILY HISTORY Problem Relation Age of Onset - Coronary Artery Disease Father mid 70's - Diabetes Father - Diabetes Sister - Diabetes Brother - Seizures Brother due to brain trauma - Stroke Father - Alcohol/Drug Father alcohol Social History Substance Use Topics - Smoking status: Never Smoker - Smokeless tobacco: Former User Quit date: 10/18/2015 - Alcohol use Not on file PHYSICAL EXAM BP 112/76 Pulse 72 Resp 20 Wt 120.7 kg (266 lb) BMI 37.10 kg/m? General Appearance: well appearing, in no acute distress, alert Pysch: mood and affect flat and restricted Skin: Skin color, texture, turgor normal for age; Head: normocephalic, atraumatic Eyes: PERRLA, EOM's intact, conjunctiva pink and moist, no icterus, sclera white, non-injected Ears: external ears normal to inspection and palpation, canals clear, Left tympanic membrane normal. , Right tympanic membrane normal Neck: Thyroid normal size and symmetric without palpable nodules, No adenopathy Oropharynx: lips normal without lesions, tongue midline and normal, soft palate, uvula, and tonsils normal Lungs: Lungs clear to auscultation. No wheezing, rhonchi, rales Heart: RRR without murmur, gallop, or rubs. No ectopy Abdomen: Abdomen soft, non-tender. Bowel sounds normal. No masses, organomegaly Musculoskeletal/Bilateral knee Peripheral pulses: Normal ROM: Bilateral: Extension 0 degrees, Flexion 110 degress Tenderness: none Effusion: none Erythema: No Warmth: No Stability: Yulissa: Negative and Aliyah: Negative - Patella: Compression - Negative - Hips: Normal ROM Ankles: Normal ROM ANNUAL PCP TEAM CHRONIC DISEASE VISIT due on 1985 COLORECTAL CANCER SCREENING,SEE MODIFIER due on 2017 LDL CHOLESTEROL due on 04/21/2017 INFLUENZA(1) due on 06/18/2018 DIABETES SCREEN due on 04/21/2019 DTAP,TDAP,TD(2 - Td) due on 06/27/2022 LIPID SCREEN due on 03/17/2023 ASSESSMENT/PLAN: 1. ST elevation myocardial infarction involving right coronary artery (HCC) - ICD9: 410.31, ICD10: I21.11 (primary diagnosis) - Followed by cardiology - Continue current medications - Labs ordered per cardiology, recent lipid panel reviewed with patient - ATORVASTATIN 80 MG TABLET - LISINOPRIL 2.5 MG TABLET - METOPROLOL TARTRATE 25 MG TABLET - ASPIRIN 81 MG CHEWABLE TABLET 2. Mixed hyperlipidemia - ICD9: 272.2, ICD10: E78.2 - good control - Continue current medication. - Encouraged following a low fat, low cholesterol diet. - Discussed the benefits of regular aerobic exercise and weight loss. - Follow up in 12 weeks. - Encouraged following a low carbohydrate, healthy oil intake diet. 3. Chronic pain of both knees - ICD9: 719.46, 338.29, ICD10: M25.561, M25.562, G89.29 - No acute or concerning exam findings, imaging not indicated at this time - May continue tylenol arthritis as this seems to control symptoms - Discussed potential for PT vs injections - Offered NSAIDs prescription, patient declined - Recommend additional weight loss for pain improvement 4. At risk for obstructive sleep apnea - ICD9: V49.89, ICD10: Z91.89 - POLYSOMNOGRAM (PSG)/HOME SLEEP APNEA TESTING (HSAT) 5. Snoring - ICD9: 786.09, ICD10: R06.83 - POLYSOMNOGRAM (PSG)/HOME SLEEP APNEA TESTING (HSAT) 6. Special screening for malignant neoplasms, colon - ICD9: V76.51, ICD10: Z12.11 - PEG 3350 240 GRAM-ELECTROLYTES 22.72 GRAM-6.72 G-5.84 G POWDR FOR SOLN - COLONOSCOPY SCRN NOT HIGH RISK Parminder Mercado APRN.WHEEL FILLER Prescription instructions reviewed with patient as applicable. Potential red flag symptoms discussed with the patient. Reviewed appropriate action plan to take if red flag symptoms occur. Patient agreeable to treatment plan. [facility] OPEN ACCESS QUESTIONNAIRE 1. Are you or could you be ? No 2. Are you currently having any stomach/gastrointestinal issues at this time such as constipation, diarrhea, abdominal pain, rectal bleeding etc? No 3. Do you have an implanted device such as a defibrillator, pacemaker, Cardiac Stent or deep brain stimulation device? No 4. Do you have any new or past cardiac (heart) or pulmonary (lung) issues? Yes / hx CT 5. Is the patient's BMI 40 or greater? No:Body mass index is 37.1 kg/m?.. Last Wt 06/23/18 : 120.7 kg (266 lb) Last Ht 12/04/15 : 180.3 cm (5' 11) 6. Have you had difficulty with prior sedations or complications with other procedures? No 7. Have you had difficulty with anesthesia previously re: ? Difficult intubation? No ? Other difficulty or allergic reaction to anesthesia other than post op N/V? No 8. Do you currently use oxygen or a breathing machine at night? No 9. Do you take any narcotics, depression or anti-Anxiety medications or 3 or more prescription drugs on a daily basis? Yes / see medication list 10. Do you use any illegal or recreational drugs? No 11. Have you been hospitalized in the past 6 weeks? No 12. Are you on dialysis or have Chronic Kidney Disease? No 13. Have you been diagnosed with chronic liver disease such as hepatitis or cirrhosis? No 14. Do you have a seizure disorder? No 15. Do you have difficulty swallowing? No 16. Do you have ulcerative colitis or Crohn's disease? No 17. Do you take any Blood thinners, including Aspirin or fish oil? YES:Brilinta (anti-platelet) 18. Do you have any blood disorders (re:hemophiliac)? No 19. Are you Diabetic? No 20. Any other important health information we should be made aware of prior to your colonoscopy? No 21. Any alcohol use: social To be completed by LIP: Patient appropriate for Open Access Colonoscopy: Yes: appropriate for Open Access Procedure Checklist: Prior to closing the encounter: ? Complete questionnaire: Yes ? Confirm Prep order has been Ordered/Pended: Yes. ? Patient's procedure could be delayed if not given the script for the prep. Please ensure the prep is escripted to pharmacy or printed. Instructions for the prep will print upon filing or pending this smartset. ? Please send all open access questionnaires to [facility] Sched Pool #[id number] CNOV Observed: 06/23/2018 Status: COMPLETED Source: [place] 2:40 PM [facility] REPOSITORY Office Visit (INTMWS) SAM SHANKS ([id number]) 1965 M Date Time Provider Department 06/23/18 2:40 PM PARMINDER MERCADO ([facility]) INTMWS During your visit today, we recorded the following information about you: Pulse Respiration Blood pressure Weight 72/minute 20/minute 112/76 120.7 kg Parminder Mercado APRN.CNP 06/23/2018 6:16 PM Signed CC: Patient presents with: Yearly Exam HPI Sam Shanks is a 53 year old male who presents today for yearly physical, colonoscopy and complaints for bilateral knee pain. is a patient of and has not been seen since April 2016. He expresses some dissatisfaction that he is not seeing today. Since his last visit patient suffered a STEMI in January 2018. He has since been followed by [facility] and is currently on regimen of Brilinta, Lipitor, Lisinopril, ASA and Metoprolol. Patient was unable to participate in cardiac rehab following his CT given his schedule. He tries to exercise by walking ~2 miles 3-4x/week. He is down ~20lbs over the past 6 months. Bilateral knee pain ongoing for the past 11 years. States he had previous imaging of the left? Knee showing arthritis. Patient notes increased pain since participating in more regular exercise following his CT. No aggrevating factors. Pain is intermittent and described as a burning sensation. He treats with Tylenol Arthritis with some relief. Pain is currently rated 1/10. He has also tried braces with no improvement as they tend to roll down his leg. No previous injury or recent fall. Patient would like to schedule his screening colonoscopy. Has lab work coming up in the next month per cardiology to check kidney function, lipid recently checked and within acceptable limits. Patient states he is tolerating Lipitor, but has ongoing leg cramps. Takes Co-Q10 without much relief, indicates cramps are tolerable. Patient also notes that he was told in the hospital that he had sleep apnea, but has never been formally tested. Reports he snores, but not as bad. Denies any recent episodes of apnea, but notes hx. Family hx of CRISTOFER- father and brother. REVIEW OF SYSTEMS General: no fevers, no chills, no night sweats, no recurrent infections, no change in appetite and no change in energy HEENT: no frequent or significant headaches, no changes in hearing, no visual changes, no nose bleeds, no sinus or nasal problems Neck: no lumps, no pain and no swelling Respiratory: no cough, no wheezing, no shortness of breath, no hemoptysis Cardiovascular: no chest pain, no chest pressure, no palpitations and no swelling GI: No nausea, vomiting, or diarrhea : No history of dysuria, frequency or incontinence, No difficulty urinating, nocturia > 1 time per night or hematuria Musculoskeletal: Negative for or swelling, back pain or muscle pain Positive: joint pain or swelling Endocrine: no fatigue, no weight gain, no weight loss, no hair loss, no dry skin, no cold intolerance, no heat intolerance, no neck pain/pressure, no polyuria, no polyphagia and no polydipsia Neurologic: No headache, weakness, numbness, tingling, neck stiffness, tremor, vertigo, dizziness, memory loss, syncope. Notes occasional tingling to bilateral feet PAST MEDICAL HISTORY Diagnosis Date - Arthritis of right knee 12/04/2015 - Coronary artery disease due to lipid rich plaque 02/16/2018 CT 01/2018, Stent to distal RCA - ST elevation myocardial infarction involving right coronary artery (HCC) 02/16/2018 CT 01/2018, Stent to distal RCA PAST SURGICAL HISTORY Procedure Laterality Date - 2D ECHO (EXEP) 02/14/2018 EF=50-55%,mid diast dysf, mild hypokensis - APPENDECTOMY HX - PAST SURGICAL HISTORY OF tonsilectomy ALLERGIES Hay Fever [Seasonal Allergies] MEDICATIONS atorvastatin (LIPITOR) 80 mg tablet AT BEDTIME lisinopril 2.5 mg tablet DAILY metoprolol tartrate, short acting, (LOPRESSOR) 25 mg tablet TWICE A DAY ticagrelor (BRILINTA) 90 mg tablet TWICE A DAY aspirin 81 mg chewable tablet DAILY@0800 FAMILY HISTORY Problem Relation Age of Onset - Coronary Artery Disease Father mid 70's - Diabetes Father - Diabetes Sister - Diabetes Brother - Seizures Brother due to brain trauma - Stroke Father - Alcohol/Drug Father alcohol Social History Substance Use Topics - Smoking status: Never Smoker - Smokeless tobacco: Former User Quit date: 10/18/2015 - Alcohol use Not on file PHYSICAL EXAM BP 112/76 Pulse 72 Resp 20 Wt 120.7 kg (266 lb) BMI 37.10 kg/m? General Appearance: well appearing, in no acute distress, alert Pysch: mood and affect flat and restricted Skin: Skin color, texture, turgor normal for age; Head: normocephalic, atraumatic Eyes: PERRLA, EOM's intact, conjunctiva pink and moist, no icterus, sclera white, non-injected Ears: external ears normal to inspection and palpation, canals clear, Left tympanic membrane normal. , Right tympanic membrane normal Neck: Thyroid normal size and symmetric without palpable nodules, No adenopathy Oropharynx: lips normal without lesions, tongue midline and normal, soft palate, uvula, and tonsils normal Lungs: Lungs clear to auscultation. No wheezing, rhonchi, rales Heart: RRR without murmur, gallop, or rubs. No ectopy Abdomen: Abdomen soft, non-tender. Bowel sounds normal. No masses, organomegaly Musculoskeletal/Bilateral knee Peripheral pulses: Normal ROM: Bilateral: Extension 0 degrees, Flexion 110 degress Tenderness: none Effusion: none Erythema: No Warmth: No Stability: Yulissa: Negative and Aliyah: Negative - Patella: Compression - Negative - Hips: Normal ROM Ankles: Normal ROM ANNUAL PCP TEAM CHRONIC DISEASE VISIT due on 1985 COLORECTAL CANCER SCREENING,SEE MODIFIER due on 2017 LDL CHOLESTEROL due on 04/21/2017 INFLUENZA(1) due on 06/18/2018 DIABETES SCREEN due on 04/21/2019 DTAP,TDAP,TD(2 - Td) due on 06/27/2022 LIPID SCREEN due on 03/17/2023 ASSESSMENT/PLAN: 1. ST elevation myocardial infarction involving right coronary artery (HCC) - ICD9: 410.31, ICD10: I21.11 (primary diagnosis) - Followed by cardiology - Continue current medications - Labs ordered per cardiology, recent lipid panel reviewed with patient - ATORVASTATIN 80 MG TABLET - LISINOPRIL 2.5 MG TABLET - METOPROLOL TARTRATE 25 MG TABLET - ASPIRIN 81 MG CHEWABLE TABLET 2. Mixed hyperlipidemia - ICD9: 272.2, ICD10: E78.2 - good control - Continue current medication. - Encouraged following a low fat, low cholesterol diet. - Discussed the benefits of regular aerobic exercise and weight loss. - Follow up in 12 weeks. - Encouraged following a low carbohydrate, healthy oil intake diet. 3. Chronic pain of both knees - ICD9: 719.46, 338.29, ICD10: M25.561, M25.562, G89.29 - No acute or concerning exam findings, imaging not indicated at this time - May continue tylenol arthritis as this seems to control symptoms - Discussed potential for PT vs injections - Offered NSAIDs prescription, patient declined - Recommend additional weight loss for pain improvement 4. At risk for obstructive sleep apnea - ICD9: V49.89, ICD10: Z91.89 - POLYSOMNOGRAM (PSG)/HOME SLEEP APNEA TESTING (HSAT) 5. Snoring - ICD9: 786.09, ICD10: R06.83 - POLYSOMNOGRAM (PSG)/HOME SLEEP APNEA TESTING (HSAT) 6. Special screening for malignant neoplasms, colon - ICD9: V76.51, ICD10: Z12.11 - PEG 3350 240 GRAM-ELECTROLYTES 22.72 GRAM-6.72 G-5.84 G POWDR FOR SOLN - COLONOSCOPY SCRN NOT HIGH RISK Parminder Mercado APRN.WHEEL FILLER Prescription instructions reviewed with patient as applicable. Potential red flag symptoms discussed with the patient. Reviewed appropriate action plan to take if red flag symptoms occur. Patient agreeable to treatment plan. [facility] OPEN ACCESS QUESTIONNAIRE 1. Are you or could you be ? No 2. Are you currently having any stomach/gastrointestinal issues at this time such as constipation, diarrhea, abdominal pain, rectal bleeding etc? No 3. Do you have an implanted device such as a defibrillator, pacemaker, Cardiac Stent or deep brain stimulation device? No 4. Do you have any new or past cardiac (heart) or pulmonary (lung) issues? Yes / hx CT 5. Is the patient's BMI 40 or greater? No:Body mass index is 37.1 kg/m?.. Last Wt 06/23/18 : 120.7 kg (266 lb) Last Ht 12/04/15 : 180.3 cm (5' 11) 6. Have you had difficulty with prior sedations or complications with other procedures? No 7. Have you had difficulty with anesthesia previously re: ? Difficult intubation? No ? Other difficulty or allergic reaction to anesthesia other than post op N/V? No 8. Do you currently use oxygen or a breathing machine at night? No 9. Do you take any narcotics, depression or anti-Anxiety medications or 3 or more prescription drugs on a daily basis? Yes / see medication list 10. Do you use any illegal or recreational drugs? No 11. Have you been hospitalized in the past 6 weeks? No 12. Are you on dialysis or have Chronic Kidney Disease? No 13. Have you been diagnosed with chronic liver disease such as hepatitis or cirrhosis? No 14. Do you have a seizure disorder? No 15. Do you have difficulty swallowing? No 16. Do you have ulcerative colitis or Crohn's disease? No 17. Do you take any Blood thinners, including Aspirin or fish oil? YES:Brilinta (anti-platelet) 18. Do you have any blood disorders (re:hemophiliac)? No 19. Are you Diabetic? No 20. Any other important health information we should be made aware of prior to your colonoscopy? No 21. Any alcohol use: social To be completed by LIP: Patient appropriate for Open Access Colonoscopy: Yes: appropriate for Open Access Procedure Checklist: Prior to closing the encounter: ? Complete questionnaire: Yes ? Confirm Prep order has been Ordered/Pended: Yes. ? Patient's procedure could be delayed if not given the script for the prep. Please ensure the prep is escripted to pharmacy or printed. Instructions for the prep will print upon filing or pending this smartset. ? Please send all open access questionnaires to [facility] Sched Pool #[id number] Parminder MercadoAPRN.WHEEL FILLER 06/23/2018 5:51 PM Signed Health Information For Patients and the Community How to Prepare for Your Colonoscopy Using Golytely, Nulytely, Trilyte or Colyte Preparations IMPORTANT - Please Read These Instructions at Least 2 Weeks Before Your Colonoscopy [place] Instructions: ?Your bowel must be empty so that your doctor can clearly view your colon. Follow all of the instructions in this handout EXACTLY as they are written. If you do NOT follow the directions for when to start drinking the bowel preparation (see next page), your colonoscopy WILL be cancelled. ?Do NOT eat any solid food the ENTIRE day before your colonoscopy. ?Buy your bowel preparation at least 5 days before your colonoscopy. ?Do NOT mix the solution until the day before your colonoscopy. Designated Associate Program Manager on the Day of Your Exam A responsible family member or friend MUST come with you to your colonoscopy and REMAIN in the endoscopy area until you are discharged! You are NOT ALLOWED to drive, take a taxi or bus, or leave the Endoscopy Center ALONE. If you do not have a responsible waste collection driver (family member or friend) with you to take you home, your exam cannot be done with sedation and will be cancelled. Medications Some of the medicines you take may need to be stopped or adjusted before your colonoscopy. You MUST call the doctor who ordered any of the following medicines at least 2 weeks before your colonoscopy. ?Blood thinners -- such as Coumadin? (warfarin), Plavix? (clopidogrel), Ticlid? (ticlopidine hydrochloride), Agrylin? (anagrelide), Xarelto? (Rivaroxaban), Pradaxa? (Dabigatran), Eliquis? (Apixaban), and Effient? (Prasugrel). ?Insulin or diabetes pills. Please call the doctor that monitors your glucose levels. Your insulin dosage may need to be adjusted due to the diet restrictions required with this bowel preparation. (Please bring your diabetes medicines with you on the day of your procedure.) If you take aspirin, take it and ALL other medications prescribed by your doctor. On the day of your colonoscopy, take your medications with a sip of water. Revised 11/2016 1 Five (5) Days Before Your Colonoscopy ?Do NOT take medicines that stop diarrhea -- such as Imodium?, Kaopectate?, or Pepto Bismol?. ?Do NOT take fiber supplements -- such as Metamucil?, Citrucel?, or Perdiem?. ?Do NOT take products that contain iron -- such as multi-vitamins -- (the label lists what is in the products). ?Do NOT take vitamin E. Buy the prescription bowel preparation solution at your local pharmacy or [facility]. Three (3) Days Before Your Colonoscopy Do NOT eat high-fiber foods -- such as popcorn, beans, seeds (flax, sunflower, quinoa), multigrain bread, nuts, salad/vegetables, or fresh and dried fruit. One (1) Day Before Your Colonoscopy Only drink clear liquids the ENTIRE DAY before your colonoscopy. Do NOT eat any solid foods. Drink at least 8 ounces of clear liquids every hour after waking up. The clear liquids you can drink include: ?water, apple, or white grape juice; broth; coffee or tea (without milk or creamer); clear carbonated beverages such as chelita bernard or [place] soda; Gatorade? or other sports drinks (not red); Marin-Aid? or other flavored drinks (not red). You may eat plain jello or other gelatins (not red) or popsicles (not red). Do NOT drink alcohol on the day before or the day of the procedure. 2 Revised 11/2016 When to Mix and Drink Your Bowel Prep Follow the instructions on the label. After mixing, place the solution in the refrigerator for a couple of hours before drinking. You may add the flavor packet that came with the bowel preparation. DO NOT add ice, sugar or any flavorings to the solution. Evening Before Your Colonoscopy ?Start drinking the bowel preparation at 6 PM the evening before your colonoscopy. Drink an 8-oz glass of bowel preparation every 10 minutes. You must finish drinking the solution by 9 PM the night before your scheduled procedure. ?You may continue to drink clear liquids only until midnight. Do NOT eat or drink ANYTHING after midnight the night before your procedure or your procedure may be cancelled. This is for your safety and will reduce the risk of having any food or liquid in your stomach move into your lungs (aspiration) during a procedure. If you take aspirin, take it and ALL other prescribed medicines with a sip of water on the day of your colonoscopy. Contact Information: If you are unable to keep your appointment or have any questions about the instructions, please call the facility where the procedure is being performed. Call between the hours of 8:00 AM and 5:00 PM. If you are calling after 5:00 PM, please call Nurse hauling contractor at [phone]. [facility] [address] [address] Index # [id number] Revised 11/2016 3 Colonoscopy Procedure Overview Please Read Prior to the Procedure What is a Colonoscopy A colonoscopy is an outpatient procedure in which the inside of the large intestine (colon and rectum) is examined. A colonoscopy is commonly used to evaluate gastrointestinal symptoms, such as rectal and intestinal bleeding, abdominal pain, or changes in bowel habits. Colonoscopies are also performed in individuals without symptoms to check for colorectal polyps or cancer. A screening colonoscopy is recommended for anyone 50 years of age and older, and for anyone with parents, siblings or children with a history of colorectal cancer or polyps. What Happens Before a Colonoscopy To have a successful colonoscopy, your bowel must be empty so that your physician can clearly view the colon. To do this, it is very important to read and follow all of the instructions given to you at least 2 weeks BEFORE your exam. If your bowel is not empty, your colonoscopy will not be successful and may have to be repeated. If you feel nauseated or vomit while taking the bowel preparation, wait 30 minutes before drinking more fluid and start with small sips of solution. Some activity (such as walking) or a few soda crackers may help decrease the nausea you are feeling. If the nausea persists, please contact nurse sand conditioner at [phone]. You may experience skin irritation around the anus due to the passage of liquid stools. To prevent and treat skin irritation, you should: ?Apply Vaseline? or Desitin? ointment to the skin around the anus before drinking the bowel preparation medications. These products can be purchased at any drugstore. ?Wipe the skin after each bowel movement with disposable wet wipes instead of toilet paper. These are found in the toilet paper area of the store. ?Sit in a bathtub filled with warm water for 10 to 15 minutes after you finish passing a stool; after soaking, blot the skin dry with a soft cloth, apply Vaseline? or Desitin? ointment to the anal area, and place a cotton ball just outside your anus to absorb leaking fluid. What Happens During a Colonoscopy During a colonoscopy, an experienced physician uses a colonoscope (a long, flexible instrument about 1/2 inch in diameter) to view the lining of the colon. The colonoscope is inserted into the rectum and advanced through the large intestine. If necessary during a colonoscopy, small amounts of tissue can be removed for analysis (a biopsy) and polyps can be identified and entirely removed. In many cases, a colonoscopy allows accurate diagnosis and treatment of colorectal problems without the need for a major operation. Revised 11/2016 5 ?You are asked to wear a hospital gown and an IV will be started. ?You are given a pain reliever and a sedative intravenously (in your vein). You will feel relaxed and somewhat drowsy. ?You will lie on your left side, with your knees drawn up towards your chest. ?A small amount of air is used to expand the colon so the physician can see the colon bo. ?You may feel mild cramping during the procedure. Cramping can be reduced by taking slow, deep breaths. ?The colonoscope is slowly withdrawn while the lining of your bowel is carefully examined. ?The procedure lasts from 30 minutes to 1 hour. What Happens After a Colonoscopy ?You will stay in a recovery room for observation until you are ready for discharge. ?You may feel some cramping or a sensation of having gas, but this quickly passes. ?If sedation has been given, a responsible family member or friend must drive you home. ?Avoid alcohol, driving, and operating machinery for 24 hours following the procedure. ?Unless otherwise instructed, you may immediately return to your normal diet. We recommend you wait until the day after your procedure to resume normal activities. ?If polyps were removed or a biopsy was taken, the physician performing your colonoscopy will tell you when it is safe to resume taking your blood thinners. ?If a biopsy was taken or a polyp was removed, you may notice a little amount of rectal bleeding for 1 to 2 days after the procedure. If you have a large amount of rectal bleeding, high or persistent fevers, or severe abdominal pain within the next 2 weeks, please go to your local emergency room and call the physician who performed your exam. 6 Revised 11/2016 ?Copyright 8797-0719 The [facility]. All rights reserved. Revised 11/2016 Karey Salas 06/24/2018 12:02 PM Signed Patient scheduled for colonoscopy consultation with Gabi Newby on 07/04/2018 Karey Salas Referring Provider: SELF [[id number]] Allergies As of Date: 06/23/2018 Noted Allergy Reaction HAY FEVER (SEASONAL ALLERGIES) 12/04/2015 9 - Itching Date Reviewed: 04/21/2016 Reviewed by: Jonh Altman - Fully Assessed Reason for Visit: Yearly Exam [187] Primary Visit Diagnosis:ST elevation myocardial infarction involving right coronary artery (HCC) [I21.11] Other Visit Diagnoses:Mixed hyperlipidemia [E78.2] Chronic pain of both knees [M25.561, M25.562, G89.29] At risk for obstructive sleep apnea [Z91.89] Snoring [R06.83] Special screening for malignant neoplasms, colon [Z12.11] Order(s):AMARA PT ED DIGESTIVE DISEASES [8577460] Order #: [id number]. #:[id number]: 1 coenzyme Q10 (COENZYME Q-10) 100 mg cap capsuleTake 1 capsule by mouth twice daily.Disp: Rfl: POLYSOMNOGRAM (PSG)/HOME SLEEP APNEA TESTING (HSAT) [[id number]] Order #: [id number] FUTURE [] peg 3350-electrolytes (COLYTE) 240-22.72-6.72 -5.84 gram solutionTake 4,000 mL by mouth one time only for 1 dose.Disp: 4000 mLRfl: 0 COLONOSCOPY SCRN NOT HIGH RISK [[id number]] Order #: [id number] FUTURE Prescriptions as of 06/23/2018 Sig: ATORVASTATIN 80 MG TABLET AT BEDTIME LISINOPRIL 2.5 MG TABLET DAILY METOPROLOL TARTRATE 25 MG TAB* TWICE A DAY TICAGRELOR 90 MG TABLET TWICE A DAY ASPIRIN 81 MG CHEWABLE TABLET DAILY@0800 COENZYME Q10 100 MG CAPSULE Take 1 capsule by mouth twice* PEG 3350 240 GRAM-ELECTROLYTE* Take 4,000 mL by mouth one ti* Problem List As Of Date 06/23/2018 Noted Resolved Arthritis of right knee [M17.11] INVALID FOR* Priority: M Well adult exam [Z00.00] INVALID FOR* Priority: E More... 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 Elevated blood pressure reading without diagnos*INVALID FOR* Tinea cruris [B35.6] INVALID FOR* Priority: D Mixed hyperlipidemia [E78.2] INVALID FOR* Priority: A Elevated fasting blood sugar [R73.01] INVALID FOR* Priority: A ST elevation myocardial infarction involving ri*INVALID FOR* Priority: A More... Coronary artery disease due to lipid rich plaqu*INVALID FOR* Priority: A More... Other instructions from your clinician: Health Information For Patients and the Community How to Prepare for Your Colonoscopy Using Golytely, Nulytely, Trilyte or Colyte Preparations IMPORTANT - Please Read These Instructions at Least 2 Weeks Before Your Colonoscopy [place] Instructions: ?Your bowel must be empty so that your doctor can clearly view your colon. Follow all of the instructions in this handout EXACTLY as they are written. If you do NOT follow the directions for when to start drinking the bowel preparation (see next page), your colonoscopy WILL be cancelled. ?Do NOT eat any solid food the ENTIRE day before your colonoscopy. ?Buy your bowel preparation at least 5 days before your colonoscopy. ?Do NOT mix the solution until the day before your colonoscopy. Designated Associate Program Manager on the Day of Your Exam A responsible family member or friend MUST come with you to your colonoscopy and REMAIN in the endoscopy area until you are discharged! You are NOT ALLOWED to drive, take a taxi or bus, or leave the Endoscopy Center ALONE. If you do not have a responsible waste collection driver (family member or friend) with you to take you home, your exam cannot be done with sedation and will be cancelled. Medications Some of the medicines you take may need to be stopped or adjusted before your colonoscopy. You MUST call the doctor who ordered any of the following medicines at least 2 weeks before your colonoscopy. ?Blood thinners -- such as Coumadin? (warfarin), Plavix? (clopidogrel), Ticlid? (ticlopidine hydrochloride), Agrylin? (anagrelide), Xarelto? (Rivaroxaban), Pradaxa? (Dabigatran), Eliquis? (Apixaban), and Effient? (Prasugrel). ?Insulin or diabetes pills. Please call the doctor that monitors your glucose levels. Your insulin dosage may need to be adjusted due to the diet restrictions required with this bowel preparation. (Please bring your diabetes medicines with you on the day of your procedure.) If you take aspirin, take it and ALL other medications prescribed by your doctor. On the day of your colonoscopy, take your medications with a sip of water. Revised 11/2016 1 Five (5) Days Before Your Colonoscopy ?Do NOT take medicines that stop diarrhea -- such as Imodium?, Kaopectate?, or Pepto Bismol?. ?Do NOT take fiber supplements -- such as Metamucil?, Citrucel?, or Perdiem?. ?Do NOT take products that contain iron -- such as multi- vitamins -- (the label lists what is in the products). ?Do NOT take vitamin E. Buy the prescription bowel preparation solution at your local pharmacy or drugstore pharmacy. Three (3) Days Before Your Colonoscopy Do NOT eat high-fiber foods -- such as popcorn, beans, seeds (flax, sunflower, quinoa), multigrain bread, nuts, salad/vegetables, or fresh and dried fruit. One (1) Day Before Your Colonoscopy Only drink clear liquids the ENTIRE DAY before your colonoscopy. Do NOT eat any solid foods. Drink at least 8 ounces of clear liquids every hour after waking up. The clear liquids you can drink include: ?water, apple, or white grape juice; broth; coffee or tea (without milk or creamer); clear carbonated beverages such as chelita bernard or [place] soda; Gatorade? or other sports drinks (not red); Marin-Aid? or other flavored drinks (not red). You may eat plain jello or other gelatins (not red) or popsicles (not red). Do NOT drink alcohol on the day before or the day of the procedure. 2 Revised 11/2016 When to Mix and Drink Your Bowel Prep Follow the instructions on the label. After mixing, place the solution in the refrigerator for a couple of hours before drinking. You may add the flavor packet that came with the bowel preparation. DO NOT add ice, sugar or any flavorings to the solution. Evening Before Your Colonoscopy ?Start drinking the bowel preparation at 6 PM the evening before your colonoscopy. Drink an 8-oz glass of bowel preparation every 10 minutes. You must finish drinking the solution by 9 PM the night before your scheduled procedure. ?You may continue to drink clear liquids only until midnight. Do NOT eat or drink ANYTHING after midnight the night before your procedure or your procedure may be cancelled. This is for your safety and will reduce the risk of having any food or liquid in your stomach move into your lungs (aspiration) during a procedure. If you take aspirin, take it and ALL other prescribed medicines with a sip of water on the day of your colonoscopy. Contact Information: If you are unable to keep your appointment or have any questions about the instructions, please call the facility where the procedure is being performed. Call between the hours of 8:00 AM and 5:00 PM. If you are calling after 5:00 PM, please call Nurse hauling contractor at [phone]. [facility] [address] [place] [id number] Index # [id number] Revised 11/2016 3 Colonoscopy Procedure Overview Please Read Prior to the Procedure What is a Colonoscopy A colonoscopy is an outpatient procedure in which the inside of the large intestine (colon and rectum) is examined. A colonoscopy is commonly used to evaluate gastrointestinal symptoms, such as rectal and intestinal bleeding, abdominal pain, or changes in bowel habits. Colonoscopies are also performed in individuals without symptoms to check for colorectal polyps or cancer. A screening colonoscopy is recommended for anyone 50 years of age and older, and for anyone with parents, siblings or children with a history of colorectal cancer or polyps. What Happens Before a Colonoscopy To have a successful colonoscopy, your bowel must be empty so that your physician can clearly view the colon. To do this, it is very important to read and follow all of the instructions given to you at least 2 weeks BEFORE your exam. If your bowel is not empty, your colonoscopy will not be successful and may have to be repeated. If you feel nauseated or vomit while taking the bowel preparation, wait 30 minutes before drinking more fluid and start with small sips of solution. Some activity (such as walking) or a few soda crackers may help decrease the nausea you are feeling. If the nausea persists, please contact nurse sand conditioner at [phone]. You may experience skin irritation around the anus due to the passage of liquid stools. To prevent and treat skin irritation, you should: ?Apply Vaseline? or Desitin? ointment to the skin around the anus before drinking the bowel preparation medications. These products can be purchased at any [employer]. ?Wipe the skin after each bowel movement with disposable wet wipes instead of toilet paper. These are found in the toilet paper area of the store. ?Sit in a bathtub filled with warm water for 10 to 15 minutes after you finish passing a stool; after soaking, blot the skin dry with a soft cloth, apply Vaseline? or Desitin? ointment to the anal area, and place a cotton ball just outside your anus to absorb leaking fluid. What Happens During a Colonoscopy During a colonoscopy, an experienced physician uses a colonoscope (a long, flexible instrument about 1/2 inch in diameter) to view the lining of the colon. The colonoscope is inserted into the rectum and advanced through the large intestine. If necessary during a colonoscopy, small amounts of tissue can be removed for analysis (a biopsy) and polyps can be identified and entirely removed. In many cases, a colonoscopy allows accurate diagnosis and treatment of colorectal problems without the need for a major operation. Revised 11/2016 5 ?You are asked to wear a hospital gown and an IV will be started. ?You are given a pain reliever and a sedative intravenously (in your vein). You will feel relaxed and somewhat drowsy. ?You will lie on your left side, with your knees drawn up towards your chest. ?A small amount of air is used to expand the colon so the physician can see the colon bo. ?You may feel mild cramping during the procedure. Cramping can be reduced by taking slow, deep breaths. ?The colonoscope is slowly withdrawn while the lining of your bowel is carefully examined. ?The procedure lasts from 30 minutes to 1 hour. What Happens After a Colonoscopy ?You will stay in a recovery room for observation until you are ready for discharge. ?You may feel some cramping or a sensation of having gas, but this quickly passes. ?If sedation has been given, a responsible family member or friend must drive you home. ?Avoid alcohol, driving, and operating machinery for 24 hours following the procedure. ?Unless otherwise instructed, you may immediately return to your normal diet. We recommend you wait until the day after your procedure to resume normal activities. ?If polyps were removed or a biopsy was taken, the physician performing your colonoscopy will tell you when it is safe to resume taking your blood thinners. ?If a biopsy was taken or a polyp was removed, you may notice a little amount of rectal bleeding for 1 to 2 days after the procedure. If you have a large amount of rectal bleeding, high or persistent fevers, or severe abdominal pain within the next 2 weeks, please go to your local emergency room and call the physician who performed your exam. 6 Revised 11/2016 ?Copyright 8819-2043 The [facility]. All rights reserved. Revised 11/2016 Prescriptions ordered this encounter Disp Refills Start End COENZYME Q10 100 MG CAPSULE 06/23/2018 Class: Med Update Route: ORAL Sig: Take 1 capsule by mouth twice daily. PEG 3350 240 GRAM-ELECTROLYTES 22.72* 4000* 0 06/23/2018 06/23/2018 Route: ORAL Sig: Take 4,000 mL by mouth one time only for 1 dose. Medications Discontinued During This Encounter gabapentin (NEURONTIN) 300 mg capsule 0 04/21/2016 06/23/2018 Class: Historical Med Route: ORAL Sig: Take 1 capsule by mouth daily at bedtime. Disc: Reason for discontinue is not on file. Follow-up and Disposition History Recorded Encounter Status:Closed by PARMINDER MERCADO CNP on 06/23/18 CARDIOLOGY VISIT Observed: 06/17/2018 Status: F Source: [place] REPORT 1:45 PM [facility] [place] REPOS[facility] [address] [place] [address] OFFICE VISIT Date of Service: 06/17/18 MR#: [id number] Acct: [id number] Name: SAM SHANKS Rep #: [id number] : 1965 Provider: Davian Ngo MD Age/Sex: 53/M [place] [facility] [place] Signed HPI HPI Chief Complaint: Routine f/u Details: SAM SHANKS, is a 53 M who presents to the office today for a hospital follow-up. He was hospitalized in January [address] elevation myocardial infarction. He underwent stenting of his distal RCA. Patient was also noted to have a decreased ejection fraction of 40-45%. His peak troponin was 9.78. From a cardiac standpoint, patient is doing well. He does not have any chest discomfort/heaviness/tightness. His exercise tolerance is stable for his age. He does not have any worsening symptoms of shortness of breath. He denies any PND. He does not have any orthopnea. He does not have any symptoms of congestive heart failure. He does not have any palpitations that he is aware of. He does not have any lightheadedness or dizziness. He does not have any near-syncope or syncope. He does not have any lower extremity edema. He does not have any symptoms of claudication. Unfortunately due to his lifestyle, he was unable to participate in cardiac rehab. Nonetheless he tries to exercise on his own. He is unable to do treadmill due to weakness and pain in his knees per Patient feels that since his myocardial infarction his symptoms have significantly improved. He is no longer fatigued. He is able to walk 3 miles a day without any difficulty. He has drastically changed his lifestyle and has lost 15 pounds since his myocardial infarction. In our office today's blood pressure is 100/60, pulse is 72 and regular. Physical exam is as below. His lipids as of 03/17/18 1 month after his stent showed an LDL of 59 HDL 43. Repeat echo is pending. Intake Vital Signs06/17/18 Height 5 ft 11 in 06/17/18 Weight: 262 lb 06/17/18 Body Mass Index (BMI) 36.5 06/17/18 Blood Pressure 100/60 Intake Visit Reasons: 3 M FU Vocal Performer Required: No Is patient in pain?: No Allergies No Known Allergies Allergy (Verified 06/17/18 13:33) Medications Aspirin [Aspirin, Baby] 81 mg PO DAILY@0800 tab.chew 02/15/18 [Rx Confirmed 06/16/18] atorvastatin 80 mg tablet 80 mg PO QHS #90 tab 04/26/18 [Rx Confirmed 06/16/18] lisinopril 2.5 mg tablet 2.5 mg PO DAILY #90 tab 04/26/18 [Rx Confirmed 06/16/18] metoprolol tartrate 25 mg tablet 12.5 mg PO BID #90 tab 04/26/18 [Rx Confirmed 06/16/18] ticagrelor 90 mg tablet 90 mg PO BID #180 tab 04/28/18 [Rx Confirmed 06/16/18] [facility] Medical History Cardiomyopathy (Chronic) Morbid obesity (Chronic) STEMI (ST elevation myocardial infarction) (Acute 02/13/18) Surgical History History of tonsillectomy (Resolved) Hx of appendectomy (Resolved) Stented coronary artery (Chronic 02/13/18) Family History Father Diabetes Mother Diabetes Social History Smoking Status: Never smoker alcohol intake: current Alcohol type: beer substance use type: does not use caffeine: Yes Type: coffee Number of servings: 2 what type of physical activity do you participate in: walking frequency: daily ROS Const Const: Positive for other (Feels well); negative for fatigue, weakness, body ache, fever(s), headache(s), chills, frequent falls, night sweats, daytime sleepiness, difficulty sleeping, excessive sweating, weight gain, weight loss, increased appetite, poor appetite or anorexia Eyes Eyes: Negative for blind spots, loss of peripheral vision, transient loss of vision, blurry vision, change in vision, double vision, floaters, tunnel vision or other ENT ENT: Negative for headache(s), dizziness, hearing loss, tinnitus, Nosebleed/epistaxis, balance problems, post nasal drip, lip swelling, tongue swelling, bleeding gums, hoarseness, neck pain, dry mouth or other Cardio Chest Pain: No Palpitations: No Edema: None Muscle aches with walking: None Resp Respiratory: Negative for SOB with activity, SOB at rest, SOB orthopnea\SOB lying down, Cough, Coughing up blood/hemoptysis, chest congestion, pain on inspiration, snoring, stridor, wheezing, crackles, paroxysmal nocturnal dyspnea or other GI GI: Negative nausea, vomiting, heartburn, constipation, belching, bloating, cramping, vomiting blood/hematemesis, bright, red blood in stools, black,tarry stools, loose stools, Difficulty Swallowing or other : Negative for hematuria, frequent nighttime urination/ nocturia, erectile dysfunction or abnormal vaginal bleeding Musc Musc: Negative for balance problems, muscle aches/ myalgia, muscle weakness or joint pain Skin Skin: Negative redness, non-healing lesions, rash, unusual bruising, skin ulcer, wounds, jaundice or other Neuro Neuro: Negative for weakness, headache(s), frequent falls, blurry vision, double vision, dizziness, lightheadedness, near syncope, syncope, orthostatic symptoms, confusion, memory loss, restless legs, vertigo, seizures, lack of coordination or other Ruddy Hematologic/Lymphatic: Negative for easy bleeding, easy bruising, enlarged lymph nodes or other Endo Endo: Negative for fatigue, excessive sweating, cold intolerance, heat intolerance, flushing, increased thirst/drinking, increased hunger, hair loss, hair growth or other Psych Psych: Negative for anxiety, depression, thoughts of harming anyone, thoughts of harming yourself, visual hallucinations, panic attacks or audible hallucinations Allergy Allergy/Immunology: Negative for lip swelling, Negative for tongue swelling, Negative for rash, Negative for throat swelling, Negative for hives Cardiology Exam Const Appearance: cooperative, healthy appearing and no acute distress Nutritional Appearance: well nourished Orientation: alert, oriented x3 and oriented to person Head Head: normal to inspection, atraumatic and normocephalic Nose: external nose normal Face and Sinus: face symmetric Mouth: oral mucosae normal Eyes General: appearance normal, both eyes and all related structures Eyelids: eyelids normal Conjunctivae: conjunctivae normal Pupils: PERRL and normal by confrontation EOM: EOM intact bilaterally Neck Neck: normal visual inspection and full ROM Carotids: normal carotid upstroke Chest Chest inspection: normal inspection of the chest Auscultation: Bilateral: Clear to Auscultation Cardio Palpation: normal PMI Rate: regular rate Rhythm: regular rhythm Heart sounds: S1 normal and S2 normal GI GI: normal to inspection, no hepatosplenomegaly and bowel sounds present Neuro General: alert, oriented x3, awake, CN's II-XI intact bilaterally and moves all extremities Skin Skin: no rashes or lesions noted Extremities Pulses: Normal: Right Femoral Pulse, Left Femoral Pulse, Right Dorsalis Pedis Pulse, Left Dorsalis Pedis Pulse, Right Posterior Tibial Pulse, Left Posterior Tibial Pulse, Right Radial Pulse, Left Radial Pulse Lower Extremity Edema: None: Bilateral Psych Psychological: normal affect Assessment AND Plan 1. Coronary artery disease involving [place] coronary artery of [place] heart without angina pectoris I25.10 Stent to RCA 2018 Plan 1. Coronary artery disease: Patient is completely asymptomatic at this time. Recommend he continue his baby aspirin, lisinopril, Brilinta and metoprolol. I have encouraged him to continue to exercise on his own as best he can despite his work schedule. Orders Orders: 2. Ischemic cardiomyopathy I25.5 Plan 2. Ischemic cardiomyopathy: Recommend that we repeat his echocardiogram to determine if his LV function has improved since his CT. Patient had baseline mild inferior hypokinesis with an overall ejection fraction of 50-55% immediately after his STEMI. 3. Hyperlipidemia: His LDL and HDL cholesterol are fairly well-controlled. Will repeat lipid profile to ensure that has not worsened. Continue Lipitor. 4. Return office in 6 months. This note was generated using a voice recognition system and there may be incorrect words, spelling or punctuation that were not noted when reviewing the office note prior to saving. Plan Detail Other Orders Orders: Follow Up +6M ([place]) Coding Level of Care Code Off vis,est,level 3 Diagnoses Coronary artery disease involving [place] coronary artery of [place] heart without angina pectoris I25.10 Coronary Disease-Associated Artery/Lesion type: [place] artery [place] vs. transplanted heart: [place] heart Associated angina: without angina Ischemic cardiomyopathy I25.5 Cardiomyopathy type: ischemic Coding Level of Care Code Off vis,est,level 3 Diagnoses Coronary artery disease involving [place] coronary artery of [place] heart without angina pectoris I25.10 Coronary Disease-Associated Artery/Lesion type: [place] artery [place] vs. transplanted heart: [place] heart Associated angina: without angina Ischemic cardiomyopathy I25.5 Cardiomyopathy type: ischemic 06/17/18 1345 <Electronically signed by Davian Ngo MD> Date Davian Ngo MD Cosigner Signature: Date (if applicable) CC: Jonh Altman MD CARDIOLOGY VISIT Observed: 04/08/2018 Status: F Source: [place] REPORT 1:47 PM [facility] [place] REPOSIT[facility] [address] [place] [address] OFFICE VISIT Date of Service: 03/17/18 MR#: [id number] Acct: [id number] Name: SAM SHANKS Rep #: [id number] : 1965 Provider: Lauren Valenzuela Age/Sex: 52/M Location: [facility] Status: Signed HPI HPI Details: SAM SHANKS, is a 52 M who presents to the office today for a hospital follow-up. He was hospitalized in January [address] elevation myocardial infarction. He underwent stenting of his distal RCA. Patient was also noted to have a decreased ejection fraction of 40-45%. His peak troponin was 9.78. From a cardiac standpoint, patient is doing well. He does not have any chest discomfort/heaviness/tightness. His exercise tolerance is stable for his age. He does not have any worsening symptoms of shortness of breath. He denies any PND. He does not have any orthopnea. He does not have any symptoms of congestive heart failure. He does not have any palpitations that he is aware of. He does not have any lightheadedness or dizziness. He does not have any near-syncope or syncope. He does not have any lower extremity edema. He does not have any symptoms of claudication. Patient feels that since his myocardial infarction his symptoms have significantly improved. He is no longer fatigued. He is able to walk 3 miles a day without any difficulty. He has drastically changed his lifestyle and has lost 15 pounds since his myocardial infarction. Intake Vital Signs03/17/18 Height 5 ft 11 in 03/17/18 Weight: 269 lb 03/17/18 Body Mass Index (BMI) 37.5 03/17/18 Blood Pressure 110/72 Intake Visit Reasons: S/P STEMI / PCI Vocal Performer Required: No Is patient in pain?: No Allergies No Known Allergies Allergy (Verified 03/17/18 09:53) Medications Aspirin [Aspirin, Baby] 81 mg PO DAILY@0800 tab.chew 02/15/18 [Rx] atorvastatin 80 mg tablet 80 mg PO QHS #90 tab 03/17/18 [Rx Confirmed 03/17/18] lisinopril 2.5 mg tablet 2.5 mg PO DAILY #90 tab 03/17/18 [Rx Confirmed 03/17/18] metoprolol tartrate 25 mg tablet 12.5 mg PO BID #90 tab 03/17/18 [Rx Confirmed 03/17/18] ticagrelor 90 mg tablet 90 mg PO BID #180 tab 03/17/18 [Rx Confirmed 03/17/18] Ejection fraction %: 50 to 54 PFSH Medical History Cardiomyopathy (Chronic) Morbid obesity (Chronic) STEMI (ST elevation myocardial infarction) (Acute) Surgical History History of tonsillectomy (Resolved) Hx of appendectomy (Resolved) Stented coronary artery (Chronic) Social History Smoking Status: Never smoker alcohol intake: current Alcohol type: beer substance use type: does not use caffeine: Yes Type: coffee Number of servings: 2 what type of physical activity do you participate in: walking frequency: daily ROS Const Const: Negative for weakness, fever(s), fatigue or headache(s) Eyes Eyes: Negative for blind spots, loss of peripheral vision or transient loss of vision ENT ENT: Negative for headache(s), dizziness, tinnitus or Nosebleed/epistaxis Cardio Chest Pain: No Palpitations: No Edema: None Muscle aches with walking: None Resp Respiratory: Negative for SOB with activity, SOB at rest, SOB orthopnea\SOB lying down or Cough GI GI: Negative nausea, vomiting, heartburn or vomiting blood/hematemesis : Negative for hematuria Musc Musc: Negative for muscle aches/ myalgia Neuro Neuro: Negative for near syncope, syncope, lightheadedness, orthostatic symptoms, weakness, headache(s) or dizziness Ruddy Hematologic/Lymphatic: Negative for easy bleeding Endo Endo: Negative for fatigue Cardiology Exam Const Appearance: cooperative, no acute distress and well developed Orientation: alert, awake and oriented x3 Head Head: normocephalic and atraumatic Mouth: moist mucous membranes Eyes General: appearance normal, both eyes and all related structures Conjunctivae: conjunctivae normal Pupils: PERRL EOM: EOM intact bilaterally Neck Neck: normal visual inspection, no lymphadenopathy and no JVD Carotids: Negative bruit Neck Mass: Negative Neck mass Chest Chest inspection: normal inspection of the chest and symmetric chest movement Auscultation: Bilateral: Clear to Auscultation Cardio Palpation: normal PMI Rate: regular rate Rhythm: regular rhythm Heart sounds: S1 normal and S2 normal; negative rub, gallop or murmur GI GI: normal to inspection, soft, no hepatosplenomegaly and bowel sounds present; negative tender Neuro General: alert, awake, oriented x3, CN's II-XI intact bilaterally and moves all extremities Extremities Pulses: Normal: Right Posterior Tibial Pulse, Left Posterior Tibial Pulse, Right Radial Pulse, Left Radial Pulse Lower Extremity Edema: None: Bilateral Psych Psychological: normal affect Supplemental Info Echocardiogram done in January 2018 during hospital stay demonstrated the estimated ejection fraction is 50-55 %. Stage 1 diastolic dysfunction. Posterior-Basal: Mildly hypokinetic Infero-Basal: Mildly hypokinetic Mid-Lateral : Mildly hypokinetic Trivial tricuspid valve insufficiency. Right ventricular systolic pressure estimated to be 23 mmHg. The study was technically difficult. There is no comparison study available. Contrast injection was performed. Assessment AND Plan 1. Coronary artery disease involving [place] coronary artery of [place] heart without angina pectoris I25.10 Stent to RCA 2018 Plan Patient does not have any symptoms of angina. Did review the importance of all of his medications. He will remain on all of his medications. We will continue to follow closely. He is on aggressive medical management. He was started on atorvastatin. He will remain on this. Will repeat his lipids in 6 weeks. Orders Orders: 2. Ischemic cardiomyopathy I25.5 Plan Patient's ejection fraction was noted to be decreased at the time of his heart catheterization. Patient will continue with aggressive medical management. Would like to repeat his echocardiogram after his next office visit to reassess his LV function to assure that it is improved. Plan Detail Other Orders Orders: Other Medications Refilled: Additional Comments Thank you for allowing us to participate in patient's plan of care, if you have any questions please do not hesitate to call. This note was generated using a voice recognition system and there may be incorrect words, spelling or punctuation errors that were not noted when reviewing the office note prior to saving. Follow Up 04/08/18 (keep as is with DEDRA) Coding Level of Care Code Off vis,est,level 3 Diagnoses Coronary artery disease involving northern che[place] coronary artery of [place] heart without angina pectoris I25.10 Coronary Disease-Associated Artery/Lesion type: northern [place] artery [place] vs. transplanted heart: [place] heart Associated angina: without angina Ischemic cardiomyopathy I25.5 Cardiomyopathy type: ischemic Coding Level of Care Code Off vis,est,level 3 Diagnoses Coronary artery disease involving [place] coronary artery of [place] heart without angina pectoris I25.10 Coronary Disease-Associated Artery/Lesion type: [place] artery [place] vs. transplanted heart: [place] heart Associated angina: without angina Ischemic cardiomyopathy I25.5 Cardiomyopathy type: ischemic 04/08/18 1347 <Electronically signed by Lauren LINDSAY> Date Lauren LINDSAY Cosigner Signature: Date (if applicable) CC: Jonh Altman MD LIVER PROFILE Collected: 03/17/2018 Status: F Source: [place] 10:38 AM [facility] REPOSITORY TYPE CODE TESTS RESULT OUT OF RANGE REFERENCE UNITS LAB L501.1500 6.4-8.2 g/dL Normal T PROT 7.5 LAB L501.1800 3.2-5.0 g/dL Normal ALB 3.9 LAB L501.1950 2.2-4.2 g/dL Normal GLOB 3.6 LAB L501.4100 15-37 U/L Normal AST 30 LAB L501.4305 45-117 U/L Normal ALK P 82 LAB L501.4405 16-61 U/L High ALT 68 LAB L501.4600 0.20-1.00 mg/dL Normal T BILI 0.70 LAB L501.4700 0.00-0.30 mg/dL Normal D BILI 0.18 Performed By: #### L500.3400, L500.4100 #### [facility] Mccauley [place], [place], [id number] LIPID PROFILE Collected: 03/17/2018 Status: F Source: [place] 10:38 AM [facility] REPOSITORY TYPE CODE TESTS RESULT OUT OF RANGE REFERENCE UNITS LAB L501.4900 200 mg/dL Normal CHOL 119 Result Comment: <200 mg/dL Desirable 200-240 mg/dL Borderline >240 mg/dL High Risk LAB L501.5000 mg/dL Normal TRIG 85 Result Comment: The drugs N-Acetylcysteine and Metamizole may falsely depress this assay. Serum Triglycerides Reference Interval Normal <150 mg/dL Borderline high 150 - 199 mg/dL High 200 - 499 mg/dL Very High > or = 500 mg/dL LAB L501.6400 mg/dL Normal HDL 43 Result Comment: The drugs N-Acetylcysteine and Metamizole may falsely depress this assay. Reference Range HDL <40 mg/dL Low HDL Cholesterol HDL >or= 60 mg/dL High HDL Cholesterol LAB L501.6500 0-130 mg/dL Normal LDL 59 LAB L501.6600 5-40 mg/dL Normal VLDL 17 Performed By: #### L500.3400, L500.4100 #### [facility] [address] [facility] [place], [address] 12 LEAD EKG PERFORMED Observed: 03/17/2018 Status: F Source: [place] BY [facility] 9:48 AM [facility] REPOSITORY [facility] [address] [place] [address] 12 Lead EKG performed by [facility] 03/17/18 0948 MR#: [id number] Acct: [id number] Name: SAM SHANKS Rep #: [id number] : 1965 52 From: Lauren LINDSAY Attending Dr: Lauren Valenzuela Status: DEP AMB Ordering Dr: Lauren Valenzuela Date: 03/17/18 [place] [facility] M C Admitted: [facility]/12 Lead EKG performed by [facility] ECG Report Interpretation Sinus Bradycardia Voltage criteria for LVH (R(I)+S(III) exceeds 2.50 mV) -Voltage criteria w/o ST/T abnormality may be normal. - Negative T-waves -Possible Inferior ischemia. ABNORMAL Electronically signed on 09/30/2018 at 15:22 by Davian Ngo 09/30/18 1526 Date Lauren LINDSAY CC: Jonh Altman MD Date Dictated: 03/17/18947 Date Transcribed: 03/17/18947 Courtesy Booth Cashier: HEIDY Signed HOSP Observed: 03/17/2018 Status: COMPLETED Source: [place] 12:00 AM [facility] REPOSITORY Patient Update (INTMWS) SAM SHANKS ([id number]) 1965 M Date Time Provider Department 03/17/18 JONH ALTMAN During your visit today, we recorded the following information about you: Allergies As of Date: 03/17/2018 Noted Allergy Reaction HAY FEVER (SEASONAL ALLERGIES) 12/04/2015 9 - Itching Date Reviewed: 04/21/2016 Reviewed by: Jonh Altman - Fully Assessed Reason for Visit: Results [95] Order(s):LIPID PANEL (EXTERNAL) [1238445] Order #: [id number] LIPID PANEL (EXTERNAL) [[id number]] Order #: [id number] Prescriptions as of 03/17/2018 Sig: X GABAPENTIN 300 MG CAPSULE Take 1 capsule by mouth daily* Problem List As Of Date 03/17/2018 Noted Resolved Arthritis of right knee [M17.11] INVALID FOR* Priority: M Well adult exam [Z00.00] INVALID FOR* Priority: E More... 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 Elevated blood pressure reading without diagnos*INVALID FOR* Tinea cruris [B35.6] INVALID FOR* Priority: D Mixed hyperlipidemia [E78.2] INVALID FOR* Priority: A Elevated fasting blood sugar [R73.01] INVALID FOR* Priority: A ST elevation myocardial infarction involving ri*INVALID FOR* Priority: A More... Coronary artery disease due to lipid rich plaqu*INVALID FOR* Priority: A More... Encounter Status:Closed by URBAN ESCALANTE LPN on 03/17/18 CR - HISTORY AND Observed: 03/16/2018 Status: F Source: [place] [facility] 8:43 AM [facility] REPOSITORY [facility] Cardiac Rehab [address] [place] [address] CR - History AND Physical MR#: [id number] Acct: [id number] Name: SAM SHANKS Rep #: [id number] : 1965 52 From: Jun Brown MINERALOGY TEACHER, BUILDINGS AND GROUNDS DIRECTOR, BS PCP: Jonh Altman MD DOS: 03/11/18 CR - History AND Physical - General Arrival date:: 03/11/18 Arrival time:: 12:48 Date of Referral:: 02/18/18 Date of CR Evaluation:: 03/11/18 Referring Physician: Dr. Davian Ngo Primary Diagnosis: Status post coronary stent placement - History of Present Cardiac Event Onset Date: Enter Onset Date of cardiac illnesses in Comment field below Acute Myocardial Infarction within 12 months:: Yes - STEMI 02/13/2018 PTCA or coronary stenting:: Yes - 02/13/2018 Type of Symptoms:: TIGHTNESS AND PAIN IN UPPER CHEST AND IN TO THE JAW. Interventions with present event:: EMERGENCY ROOM TO EMERGENT HEART CATH Were there any complications?: NONE - Medications Home Medications: Ambulatory Orders Medication Instructions Recorded Aspirin [Aspirin, Baby] 81 mg PO DAILY@0800 tab.chew 02/15/18 Atorvastatin Calcium [Lipitor] 80 mg PO QHS #30 tab 02/15/18 - Allergies Allergies/Adverse Reactions: Allergies No Known Allergies Allergy (Verified 02/13/18 14:58) - Sleep Disorder Evaluation Hx of Sleep Apnea: No Do you snore loudly (louder than talking or can be heard through closed doors)?: No Do you often feel tired/ fatigued/ sleepy during daytime?: No Has anyone observed you stop breathing during sleep?: No History of Hypertension (for STOP score): Yes STOP Results: Negative Advanced Directives - Advanced Directives Power of Production Repairer: No Living Will: No Advance Directives Information Provided: Yes Advance Directives on File: No DNR Order?:: No - MOLST See MOLST form: No Past Medical History - Past Medical Illness Medical History: Past Medical History (Last Updated 02/18/18 @ 09:50 by Shirlene Aguilar) Stented coronary artery (Chronic) Z95.5 Morbid obesity (Chronic) E66.01 STEMI (ST elevation myocardial infarction) (Acute) I21.3 Inferiolateral - Past Surgical History Surgical History: - - T+A, appendectomy. Social History - Smoking History Smoking Status: Never smoker Hx Tobacco Use: No Hx Smoking Exposure: No - Alcohol Use Alcohol Usage: Yes - ocassional 2-3 beer liquor a day, occasionally wine. - Substance Abuse Hx Substance Use: No - Occupation Occupation (List type of work in comments):: Employed Hours worked per day:: 10 Returned to work on:: 02/21/18 - Hobbies, Recreation, Social Activities Hobbies: Other - horse back riding Recreational Activities: I am able to engage in all my recreational activities Social Environment - Status Marital Status: - Current Living Arrangements Living Environment:: Spouse - Children How many children do you have?: 2 Do any of your children live nearby?: Yes - no - Safety Do you feel safe in your surroundings?: Yes - Assistance Do you need any assistance at home?: none Review of Systems - Review of Systems Hints: Right click = Denies ([place]ash). Left click = Reports ([place]) Review of Present Symptoms: Reports: Appetite - Normal, Appetite - Special Diet - cardiac diet, low fat, low salt.. Denies: Shortness of Breath at Rest, Shortness of Breath with Exertion, Dizziness/Lightheadedness, Fatigue, Heart Arrhythmia/Irregularities, Sleep - Normal - sleep alot less now 6-7 hours max., Sexual Changes - Pain Is Patient Pain Free?: No Pain Location: none Risk Factor Assessment - Chief Complaint Chief Complaint: Carlos is a 52 year old male of Dr. Davian Ngo who presents to cardiac rehab today floowing a recent STEMI and PCI intervention on 02/13/2018. 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 Smoking Moderate Risk: Smoker or quit 6 months or less ago. Smoking High Risk: Smoker - For Dyslipidemia Dyslipidemia Risk Guidelines: Low Risk: Moderate Risk: High Risk: 15-25% fat 25.1-29% fat >/= 30% fat. <7% sat fat 7-9% sat fat >9% sat fat. <150 mg chol 150-299 mg chol >/= 300 mg chol. LDL <100 LDL 100-129 LDL >/= 130. Chol/HDL ratio <5.0 Chol/HDL ratio 5.0-6.0 Chol/HDL ratio >6.0. Triglycerides <100 Triglycerides 100-149 Triglycerides >/= 150 - For Diabetes Mellitus Diabetes Risk Guidelines: Diabetes Low Risk: HgA1c <6.5% and/or FBG <120. Diabetes Moderate Risk: HgA1c 6.6-7.9% and/or FBG 120- 180. Diabetes High Risk: HgA1c >/= 8% and/or FBG >180 - For Obesity/Overweight Obesity/Overweight Risk Guidelines: Obesity Low Risk: BMI <25.0. Obesity Moderate Risk: BMI 25-29.9. Obesity High Risk: BMI >/= 30.0 - For Hypertension Hypertension Risk Guidelines: Hypertension Low Risk: Systolic <120 and Diastolic <80. Hypertension Moderate Risk: Systolic 120-139 and Diastolic 80-89. Hypertension High Risk: Systolic >/= 140 and Diastolic >/= 90 - For Sedentary Lifestyle Sedentary Lifestyle Risk Guidelines: Sedentary Lifestyle Low Risk: >/= 1,500 kcal/week. Sedentary Lifestyle Moderate Risk: 700-1,499 kcal/week. Sedentary Lifestyle High Risk: < 700 kcal/week - For Depression Depression Risk Guidelines: Depression Low Risk: Not clinically depressed. Depression Moderate Risk: Mildly depressed. Depression High Risk: Clinically depressed Motivation - Motivation to Participate On a scale of 1 to 10, how prepared are you to commit to attending program?: 10 What do you see as barriers to successfully being able to complete the program?: travel for work/training What do you see as the benefits of succesfully completing the program? In other words, what do you hope to get out of participating in the program?: educating myself about heart disease, correcting 50 years of bad habits Are there issues you are dealing with that will interfere with completing the program?: none Do you have a spouse or signficant other, family or friends who will help support you to complete the program?: excellent family support. 03/11/18 1302 <Electronically signed by Jun Brown MINERALOGY TEACHER, BUILDINGS AND GROUNDS DIRECTOR, MINISTERIO> Date Jun Brown CRT BUILDINGS AND GROUNDS DIRECTOR, BS Outcome assessment reviewed. Exercise plan approved as documented. Treatment plan and goals support patient needs/abilities. Continue with current plan. I certify the patient demonstrates improvement and remains willing and capable of participation. the patient continues to benefit from cardiac rehab services/training. The patient may continue at current intensity, endurance and modality and progress per protocol. 03/16/18 0843 <Electronically signed by Davian Ngo MD> [facility] Signature: Date Davian Ngo MD CC: Signed 12 LEAD ELECTROCARDIOGRAM Observed: 02/18/2018 Status: F Source: [place] 3:53 PM [facility] REPOSITORY [facility] Cardiovascular Services [address] [place] [address] 12 Lead EKG 02/14/18 0537 MR#: [id number] Acct: [id number] Name: SAM SHANKS Rep #: [id number] : 1965 52 From: Renyaldo Cobb MD Attending Dr: Davian Ngo MD Status: DIS IN Ordering Dr: Davian Ngo MD Date: 02/14/18 Location: ICU Sex: M C Admitted: 02/13/18 Test Reason : AM EKG Blood Pressure : / mmHG Vent. Rate : 064 BPM Atrial Rate : 064 BPM P-R Int : 174 ms QRS Dur : 086 ms QT Int : 416 ms P-R-T Axes : 053 -23 025 degrees QTc Int : 429 ms Normal sinus rhythm Normal ECG When compared with ECG of 13-FEB-2018 16:39, MANUAL COMPARISON REQUIRED, DATA IS UNCONFIRMED Confirmed by REYNALDO COBB MD ([id number]), photograph editor FLORIDALMA IRENE ([id number]) on 02/18/2018 3:53:18 PM Referred By: Davian Ngo Confirmed By:REYNALDO COBB MD 02/18/18 4612 Date Reynaldo Cobb MD CC: Davian Ngo MD; Jonh Altman MD Signed 12 LEAD ELECTROCARDIOGRAM Observed: 02/18/2018 Status: F Source: [place] 3:53 PM [facility] REPOSITORY [facility] Cardiovascular Services [address] [place] [address] 12 Lead EKG 02/13/18 1639 MR#: [id number] Acct: [id number] Name: SAM SHANKS Rep #: [id number] : 1965 52 From: Reynaldo Cobb MD Attending Dr: Davian Ngo MD Status: DIS IN Ordering Dr: Saadia Barrera Date: 02/14/18 Location: ICU Sex: M C Admitted: 02/13/18 Test Reason : POST PCI Blood Pressure : / mmHG Vent. Rate : 082 BPM Atrial Rate : 082 BPM P-R Int : 174 ms QRS Dur : 088 ms QT Int : 382 ms P-R-T Axes : 056 -10 050 degrees QTc Int : 446 ms Normal sinus rhythm with sinus arrhythmia Nonspecific ST abnormality Abnormal ECG No previous ECGs available Confirmed by REYNALDO COBB MD ([id number]), photograph editor FLORIDALMA IRENE ([id number]) on 02/18/2018 3:53:27 PM Referred By: Davian Ngo Confirmed By:REYNALDO COBB MD 02/18/18 7864 Date Reynaldo Cobb MD CC: Saadia Barrera; Davian Ngo MD; Jonh Altman MD Signed 12 LEAD ELECTROCARDIOGRAM Observed: 02/18/2018 Status: F Source: [place] 3:51 PM [facility] REPOSITORY [facility] Cardiovascular Services [address] [place] [address] 12 Lead EKG 02/15/18 0503 MR#: [id number] Acct: [id number] Name: SAM SHANKS Rep #: [id number] : 1965 52 From: Reynaldo Cobb MD Attending Dr: Davian Ngo MD Status: DIS IN Ordering Dr: Davian Ngo MD Date: 02/15/18 Location: ICU Sex: M C Admitted: 02/13/18 Test Reason : AM EKG Blood Pressure : / mmHG Vent. Rate : 074 BPM Atrial Rate : 074 BPM P-R Int : 170 ms QRS Dur : 086 ms QT Int : 392 ms P-R-T Axes : 041 -24 -43 degrees QTc Int : 435 ms Normal sinus rhythm Normal ECG When compared with ECG of 14-FEB-2018 05:37, MANUAL COMPARISON REQUIRED, DATA IS UNCONFIRMED Confirmed by JORDYN MEADOWS, REYNALDO ([id number]), photograph editor FLORIDALMA IRENE ([id number]) on 02/18/2018 3:50:43 PM Referred By: Davian Ngo Confirmed By:REYNALDO COBB MD 02/18/18 1550 Date Reynaldo Cobb MD CC: Davian Ngo MD; Jonh Altman MD Signed 12 LEAD ELECTROCARDIOGRAM Observed: 02/16/2018 Status: F Source: [place] 6:08 PM [facility] REPOSITORY [facility] Cardiovascular Services [address] [place] [address] 12 Lead EKG 02/13/18 1506 MR#: [id number] Acct: [id number] Name: DIMITRIS,SAM Rep #: [id number] : 1965 52 From: Reynaldo Cobb MD Attending Dr: Davian Ngo MD Status: DIS IN Ordering Dr: Michael Joseph MD Date: 02/13/18 Location: ICU Sex: M C Admitted: 02/13/18 Test Reason : STEMI Blood Pressure : / mmHG Vent. Rate : 062 BPM Atrial Rate : 062 BPM P-R Int : 196 ms QRS Dur : 088 ms QT Int : 404 ms P-R-T Axes : 040 019 098 degrees QTc Int : 410 ms Normal sinus rhythm Inferior injury pattern ACUTE CT / STEMI Consider right ventricular involvement in acute inferior infarct Abnormal ECG Confirmed by REYNALDO COBB MD ([id number]), photograph editor FLORIDALMA IRENE ([id number]) on 02/15/2018 2:09:21 PM Referred By: Davian Ngo Confirmed By:REYNALDO COBB MD 02/15/18 1409 Date Reynaldo Cobb MD CC: Davian Ngo MD; Jonh Altman MD; Michael Joseph MD Signed 12 LEAD ELECTROCARDIOGRAM Observed: 02/16/2018 Status: F Source: [place] 6:08 PM [facility] REPOSITORY [facility] Cardiovascular Services [address] [place] [address] 12 Lead EKG 02/13/18 1502 MR#: [id number] Acct: [id number] Name: SAM SHANKS Rep #: [id number] : 1965 52 From: Reynaldo Cobb MD Attending Dr: Davian Ngo MD Status: DIS IN Ordering Dr: Davian Ngo MD Date: 02/13/18 Location: ICU Sex: M C Admitted: 02/13/18 Test Reason : STEMI Blood Pressure : / mmHG Vent. Rate : 055 BPM Atrial Rate : 055 BPM P-R Int : 180 ms QRS Dur : 090 ms QT Int : 418 ms P-R-T Axes : 039 027 104 degrees QTc Int : [address] elevation consider inferolateral injury or acute infarct ACUTE CT / STEMI Consider right ventricular involvement in acute inferior infarct Abnormal ECG Confirmed by REYNALDO COBB MD ([id number]), photograph editor FLORIDALMA IRENE ([id number]) on 02/15/2018 2:09:50 PM Referred By: Davian Ngo Confirmed By:REYNALDO COBB MD 02/15/18 1409 Date Reynaldo Cobb MD CC: Davian Ngo MD; Jonh Altman MD Signed DISCHARGE INSTRUCTION Observed: 02/15/2018 Status: F Source: [place] 11:57 AM [facility] REPOSITORY [facility] Medical Records Department [address] [facility] [place] [address] Instructions for Home/Discharge Instructions 02/15/18 1151 MR#: [id number] Acct: [id number] Name: SAM SHANKS Rep #: [id number] : 1965 52 From: Quinn Warren DO PCP: Jonh Altman MD Status: ADM IN ADDENDUM by Quinn Warren DO on 02/15/18 at 1157 Return to work 02/21/18. Date Quinn Warren DO cc: Davian Ngo MD; Jonh Altman MD * Signed - Discharge Diagnoses Current Active Problems: Current Active and Chronic Problems Morbid obesity (Chronic) STEMI (ST elevation myocardial infarction) (Acute) Inferiolateral You will use the following diet at home:: Cardiac Your food should be the consistency of: Regular Your liquids should be the consistency of: Regular/Thin Discharge Activity: Return to Normal Activity Call your doctor if you observe: Fever of 101 or Higher, Inability to urinate, Shortness of breath, Chest pain Allergies/Adverse Reactions: Allergies No Known Allergies Allergy (Verified 02/13/18 14:58) Medications to take at Discharge Aspirin [Aspirin, Baby] 81 mg PO DAILY@0800 tab.chew 05/01/18 Atorvastatin Calcium [Lipitor] 80 mg PO QHS #30 tab 02/15/18 Lisinopril [Zestril] 2.5 mg PO DAILY #30 tab 02/15/18 Metoprolol Tartrate [Lopressor (beta joel)] 12.5 mg PO BID #60 tab 02/15/18 Ticagrelor [Brilinta] 90 mg PO BID #60 tab 02/15/18 The following prescriptions were given: Atorvastatin Calcium [Lipitor] 80 mg PO QHS #30 tab Lisinopril [Zestril] 2.5 mg PO DAILY #30 tab Metoprolol Tartrate [Lopressor (beta joel)] 12.5 mg PO BID #60 tab Ticagrelor [Brilinta] 90 mg PO BID #60 tab Primary Care Physician: Care Physician,No Primary [NON-STAFF] - Please Follow Up With: [facility] When: March 17 at 10am Proposed Discharge Date: 02/15/18 02/15/18 1152 <Electronically signed by Quinn Warren DO> Date Quinn Warren DO CC: Davian Ngo MD; Jonh Altman MD DISCHARGE SUMMARY Observed: 02/15/2018 Status: F Source: [place] 11:57 AM [facility] REPOSITORY [facility] Medical Records Department [address] [place] [address] Discharge Summary 02/15/18 1153 MR#: [id number] Acct: [id number] Name: SAM SHANKS Rep #: [id number] : 1965 52 From: Quinn Warren DO PCP: Jonh Altman MD Status: ADM IN Y Location: ICU ICU01-1 Discharge Date and Diagnosis - Problem List Patient Problems: Active and Suspected Problems STEMI (ST elevation myocardial infarction) (Acute) Inferiolateral Date of Admission: 02/13/18 Date of Discharge: 02/15/18 - Primary Discharge Diagnosis Active and Suspected Problems STEMI (ST elevation myocardial infarction) (Acute) Inferiolateral - Secondary Discharge Diagnosis Chronic Problems Morbid obesity (Chronic) Hospital Course and Treatment Imaging Results: Clinical Impression(s) from Imaging Studies Chest X-Ray 02/13/18 14:59 Operations: None Procedures: 2-D Echocardiogram, Cardiac catheterization Summary of Care Provided: The patient is a 52 year old M presents with a ST elevation myocardial infarction. Patient underwent a drug-eluting stent to the distal RCA. Patient also had an echocardiogram showed an EF of 50-55%. On left heart catheterization showed that was 40-45%. Patient be medically managed. Patient will follow up with cardiology on March 17. Patient is otherwise doing well. Patient may return to work in a week's time. 1. STEMI * s/p DEBBIE to distal RCA * on DAPT, HIS, metoprolol, lisinopril * cardiology following 2. Ischemic CM: * EF 40-45% on LHC, * echo done, orders pending * medical mgmt for now. 3. Hyperlipidemia: * HIS [] Discharge Diet: Low fat/ Low Cholesterol Discharge Activity: Return to Normal Activity Return to work on:: 02/21/18 Call your doctor if you observe: Fever of 101 or Higher, Inability to urinate, Shortness of breath, Chest pain Home Medications: Medications to take at Discharge Aspirin [Aspirin, Baby] 81 mg PO DAILY@0800 tab.chew 02/15/18 Atorvastatin Calcium [Lipitor] 80 mg PO QHS #30 tab 02/15/18 Lisinopril [Zestril] 2.5 mg PO DAILY #30 tab 02/15/18 Metoprolol Tartrate [Lopressor (beta joel)] 12.5 mg PO BID #60 tab 02/15/18 Ticagrelor [Brilinta] 90 mg PO BID #60 tab 02/15/18 Following Prescrptions Were Given to Patient: Atorvastatin Calcium [Lipitor] 80 mg PO QHS #30 tab Lisinopril [Zestril] 2.5 mg PO DAILY #30 tab Metoprolol Tartrate [Lopressor (beta joel)] 12.5 mg PO BID #60 tab Ticagrelor [Brilinta] 90 mg PO BID #60 tab Primary Care Physician: Care Physician,No Primary [NON-STAFF] - Please Follow Up With: [facility] When: March 17 at 10am Medical Necessity - Tobacco Use Smoking Status: Never smoker Tobacco Use: Non-smoker, Chew Meaningful Use Info Meaningful Use Diagnoses (Choose all that apply): AMI - AMI Aspirin given w/in 24hrs of arrival?: Yes ASA at discharge?: Yes Statins at discharge?: Yes Chris/ARB at discharge?: Yes Beta Joel at discharge?: Yes Done w/ Acute CT measure.: Yes Code Visit Inpatient FAITH: [id number] Disch Hosp 02/15/18 1157 <Electronically signed by Quinn Warren DO> Date Quinn Warren DO Cosigner Signature (if applicable): Date CC: Davian Ngo MD; Quinn Warren DO; Jonh Altman MD Signed BEDSIDE GLUCOSE Collected: 02/15/2018 Status: F Source: [place] 11:14 AM [facility] REPOSITORY TYPE CODE TESTS RESULT OUT OF REFERENCE UNITS RANGE LAB L501.080 70-110 mg/dL High BEDSIDE GLU 199 Result Comment: MANAGEMENT OF PATIENT CARE PER NURSING PROTOCOL Performed By: #### L501.080 #### [facility] Point of Care [address] [place] [address] ECHO, COMPLETE W/ Observed: 02/15/2018 Status: F Source: [place] CONTRAST 10:23 AM [facility] REPOSITORY [facility] Cardiovascular Services [address] [place] [address] Echo Complete W/ Contrast 02/14/18 0822 MR#: [id number] Acct: [id number] Name: SAM SHANKS Rep #: [id number] : 1965 52 From: Davian Ngo MD Attending Dr: Davian Ngo MD Status: ADM IN Ordering Dr: Davian Ngo MD Date: 02/13/18 Location: ICU Sex: M C Admitted: 02/13/18 Reason For Study: CAD/ASHD Procedure This was a 2D Doppler, Color Flow transthoracic echocardiogram. The study was technically difficult. Exam performed portable in ICU/CCU. Left Ventricle Normal size and thickness. The estimated ejection fraction is 50-55 %. Stage 1 diastolic dysfunction. Posterior-Basal: Mildly hypokinetic. Infero-Basal: Mildly hypokinetic. Mid-Lateral : Mildly hypokinetic. Right Ventricle Normal size and thickness. Normal systolic function. Atria Normal left atrium. Normal right atrium. Normal atrial septum. Mitral Valve The mitral valve is structurally normal. No prolapse or stenosis seen. Tricuspid Valve Normal tricuspid valve. Trivial tricuspid valve insufficiency. Right ventricular systolic pressure estimated to be 23 mmHg. Aortic Valve Normal aortic valve. Trisinus/trileaflet aortic valve. Pulmonic Valve Normal pulmonic valve. Great Vessels Normal aortic root. Normal arch. Normal inferior vena cava. Inferior vena cava collapse with sniff. Pericardium/Pleural No pericardial effusion. Medication Definity0.4ml given slow IV push to enhance endocardial definition. MMode/2D Measurements AND Calculations LVIDd: 4.7 cm IVSd: 1.0 cm Ao root diam: 3.1 cm LVIDs: 3.5 cm LVPWd: 0.96 cm LA dimension: 3.9 cm RVDd: 4.2 cm FS: 26.2 % LAV(MOD-bp): 28.8 ml LA A4 area: 11.5 cm2 RA A4 area: 11.8 cm2 LAV(MOD-bp) Indexed: 11.4 ml/m2 LAV(MOD-sp2): 35.9 ml LAV(MOD-sp4): 22.9 ml Doppler Measurements AND Calculations MV E max elena: 51.7 cm/sec Lat Peak E' Elena: 8.6 cm/sec Med Peak E' Elena: 7.4 cm/sec MV A max elena: 66.1 cm/sec E/E' lat: 6.0 E/E' med: 7.0 MV E/A: 0.78 Ao V2 max: 118.1 cm/sec LV V1 max: 96.6 cm/sec PA V2 max: 104.2 cm/sec Ao max P.6 mmHg LV V1 max P.7 mmHg Ao V2 mean: 81.4 cm/sec Ao mean P.0 mmHg Ao V2 VTI: 21.5 cm TR max elena: 206.3 cm/sec TR max P.0 mmHg Interpretation Summary The estimated ejection fraction is 50-55 %. Stage 1 diastolic dysfunction. Posterior-Basal: Mildly hypokinetic Infero-Basal: Mildly hypokinetic Mid-Lateral : Mildly hypokinetic Trivial tricuspid valve insufficiency. Right ventricular systolic pressure estimated to be 23 mmHg. The study was technically difficult. There is no comparison study available. Contrast injection was performed. Ordering Physician: Davian Ngo Referring Physician: Davian Ngo Performed By: Martita Green RDCS, RVT 02/15/18 1023 Date Davian Ngo MD CC: Davian Ngo MD; Jonh Altman MD Date Dictated: 02/14/18821 Date Transcribed: 02/15/18 1023 Courtesy Booth Cashier: Signed BEDSIDE GLUCOSE Collected: 02/15/2018 Status: F Source: [place] 6:46 AM [facility] REPOSITORY TYPE CODE TESTS RESULT OUT OF REFERENCE UNITS RANGE LAB L501.080 70-110 mg/dL High BEDSIDE GLU 167 Result Comment: MANAGEMENT OF PATIENT CARE PER NURSING PROTOCOL Performed By: #### L501.080 #### [facility] Point of Care [address] [place] [address] BEDSIDE GLUCOSE Collected: 02/14/2018 Status: F Source: [place] 9:20 PM [facility] REPOSITORY TYPE CODE TESTS RESULT OUT OF REFERENCE UNITS RANGE LAB L501.080 70-110 mg/dL High BEDSIDE GLU 151 Result Comment: MANAGEMENT OF PATIENT CARE PER NURSING PROTOCOL Performed By: #### L501.080 #### [facility] Point of Care [address] [place] [address] BEDSIDE GLUCOSE Collected: 02/14/2018 Status: F Source: [place] 5:15 PM [facility] REPOSITORY TYPE CODE TESTS RESULT OUT OF REFERENCE UNITS RANGE LAB L501.080 70-110 mg/dL High BEDSIDE GLU 161 Result Comment: MANAGEMENT OF PATIENT CARE PER NURSING PROTOCOL Performed By: #### L501.080 #### [facility] Point of Care [address] [place] [address] BEDSIDE GLUCOSE Collected: 02/14/2018 Status: F Source: [place] 12:14 PM [facility] REPOSITORY TYPE CODE TESTS RESULT OUT OF REFERENCE UNITS RANGE LAB L501.080 70-110 mg/dL High BEDSIDE GLU 168 Result Comment: MANAGEMENT OF PATIENT CARE PER NURSING PROTOCOL Performed By: #### L501.080 #### [facility] Point of Care [address] [place] [address] TROPONIN-I Collected: 02/14/2018 Status: F Source: [place] 7:35 AM [facility] REPOSITORY Order Comment: 'TROP' Serial specimen #1, #2, #3, or #4: 4 TYPE CODE TESTS RESULT OUT OF RANGE REFERENCE UNITS LAB L501.4010 <0.06 ng/mL High alert 9.86 TROPONIN-I Result Comment: Critical Result(s) Called at: 08:08:51 02/14/2018 by: Brenda Ferreira TROPONIN-I EXPECTED VALUES <0.05 NEGATIVE 0.06 - 0.[address] > OR = 0.[address] Performed By: #### L501.4010 #### [facility] [place], [address] CBC W/DIFF, AUTOMATED Collected: 02/14/2018 Status: F Source: [place] 4:30 AM [facility] REPOSITORY Order Comment: Comments: 6H post procedure AND Q6H x 4 TYPE CODE TESTS RESULT OUT OF RANGE REFERENCE UNITS LAB L100.1000 4.4-11.0 K/mm3 Normal WBC 9.8 LAB L100.1200 4.6-6.2 M/mm3 Low RBC 4.28 LAB L100.1300 13.0-16.5 g/dl Normal HGB 13.2 LAB L100.1400 40-54 % Low HCT 39.8 LAB L100.1500 80-94 fL Normal MCV 93.0 LAB L100.1600 27.0-32.0 pg Normal MCH 30.8 LAB L100.1700 32-36 g/gl Normal MCHC 33.2 LAB L100.1810 11.6-14.6 % Normal RDW CV 12.2 LAB L100.1820 35.1-43.9 fl Normal RDW SD 41.2 LAB L100.1900 150-450 K/mm3 Normal PLT 232 LAB L100.2000 6.2-12.0 fl Normal MPV 8.7 LAB L100.2100 47-70 % Normal NEUT% 68.4 LAB L100.2200 19-41 % Normal LY% 26.0 LAB L100.2300 0-10 % Normal MONO% 4.8 LAB L100.2400 0-5 % Normal EO% 0.2 LAB L100.2500 0-1 % Normal BASO% 0.2 LAB L100.2550 0.0-0.9 % Normal IM GRAN % 0.400 Result Comment: IG% - Immature Granulocytes (promyelocytes, myelocytes and metamyelocytes) > 1% indicates that a LEFT SHIFT is Present. LAB L100.2620 2.0-7.7 X10 3/uL Normal Absolute Neut 6.7 LAB L100.2720 0.83-4.51 X10 3/ul Normal Absolute Lymph 2.55 Performed By: #### L100.0100 #### [facility] [address] [place], [place], [address] CPK TOTAL, CREATINE Collected: 02/14/2018 Status: F Source: [place] KINASE 4:30 AM [facility] REPOSITORY TYPE CODE TESTS RESULT OUT OF RANGE REFERENCE UNITS LAB L501.3620 39-308 U/L High CPK TOTAL 334 Performed By: #### L501.3620 #### [facility] [address] [place], [address] BASIC METABOLIC Collected: 02/14/2018 Status: F Source: [place] PROFILE (BMP) 4:30 AM [facility] REPOSITORY TYPE CODE TESTS RESULT OUT OF RANGE REFERENCE UNITS LAB L501.0100 74-106 mg/dL High GLU 142 Result Comment: Fasting Glucose result greater than or equal to 126 mg/dL suggests DIABETES MELLITUS per A.D.A. criteria. Please note revised GLUCOSE reference range effective 2017. LAB L501.1000 7-18 mg/dL Normal BUN 11 LAB L501.1100 0.70-1.30 mg/dL Normal CREAT,SERUM 0.71 Result Comment: The validity of the calculated GFR AND GFRAA in patients over 70 years has not been determined. Clinical correlation is essential. LAB L501.1110 >60 mL/min Normal EST GFR 125 Result Comment: Non- GFR Calc LAB L501.1115 >60 mL/min Normal EST GFR - AA 151 Result Comment: GFR Calc LAB L501.1255 ml/min Normal Estimated CRCL 132.57 LAB L501.1300 10-20 RATIO BUN/CRE Normal 15.5 LAB L501.2200 8.5-10 mg/dL Low .1 CA 7.4 LAB L501.5300 136-14 mmol/L 5 NA Normal 142 LAB L501.5600 3.5-5. mmol/L 1 K Normal 4.0 LAB L501.5900 98-107 mmol/L High CL 110 LAB L501.6100 21.0-3 mmol/L 2.0 CO2 Normal 25.0 LAB L501.6200 5-15 GAP Normal 7 Performed By: #### L500.2500, L500.4100 #### [facility] [address] [place], [place], [address] LIPID PROFILE Collected: 02/14/2018 Status: F Source: [place] 4:30 AM [facility] REPOSITORY TYPE CODE TESTS RESULT OUT OF RANGE REFERENCE UNITS LAB L501.4900 200 mg/dL High CHOL 208 Result Comment: <200 mg/dL Desirable 200-240 mg/dL Borderline >240 mg/dL High Risk LAB L501.5000 mg/dL High TRIG 250 Result Comment: The drugs N-Acetylcysteine and Metamizole may falsely depress this assay. Serum Triglycerides Reference Interval Normal <150 mg/dL Borderline high 150 - 199 mg/dL High 200 - 499 mg/dL Very High > or = 500 mg/dL LAB L501.6400 mg/dL Low HDL 36 Result Comment: The drugs N-Acetylcysteine and Metamizole may falsely depress this assay. Reference Range HDL <40 mg/dL Low HDL Cholesterol HDL >or= 60 mg/dL High HDL Cholesterol LAB L501.6500 0-130 mg/dL Normal LDL 122 LAB L501.6600 5-40 mg/dL High VLDL 50 Performed By: #### L500.2500, L500.4100 #### [facility] [address] [place], [place], [address] TROPONIN-I Collected: 02/14/2018 Status: F Source: [place] 1:30 AM [facility] REPOSITORY Order Comment: 'TROP' Serial specimen #1, #2, #3, or #4: 3 TYPE CODE TESTS RESULT OUT OF RANGE REFERENCE UNITS LAB L501.4010 <0.06 ng/mL High alert 9.58 TROPONIN-I Result Comment: Critical Result(s) Called at: 02:21:57 02/14/2018 by: GOPI BLACKWELL RN ICU TROPONIN-I EXPECTED VALUES <0.05 NEGATIVE 0.06 - 0.[address] > OR = 0.[address] Performed By: #### L501.4010 #### [facility] [address] [place], [address] BEDSIDE GLUCOSE Collected: 02/13/2018 Status: F Source: [place] 10:55 PM [facility] REPOSITORY TYPE CODE TESTS RESULT OUT OF REFERENCE UNITS RANGE LAB L501.080 70-110 mg/dL High BEDSIDE GLU 174 Result Comment: MANAGEMENT OF PATIENT CARE PER NURSING PROTOCOL Performed By: #### L501.080 #### [facility] Point of Care [address] [place] [address] CBC-COMPLETE BLOOD CNT Collected: 02/13/2018 Status: F Source: [place] NO DIFF 9:40 PM [facility] REPOSITORY Order Comment: Comments: 6H post procedure AND Q6H x 4 TYPE CODE TESTS RESULT OUT OF RANGE REFERENCE UNITS LAB L100.1000 4.4-11.0 K/mm3 High WBC 12.2 LAB L100.1200 4.6-6.2 M/mm3 Low RBC 4.41 LAB L100.1300 13.0-16.5 g/dl Normal HGB 13.7 LAB L100.1400 40-54 % Normal HCT 40.3 LAB L100.1500 80-94 fL Normal MCV 91.4 LAB L100.1600 27.0-32.0 pg Normal MCH 31.1 LAB L100.1700 32-36 g/gl Normal MCHC 34.0 LAB L100.1810 11.6-14.6 % Normal RDW CV 11.9 LAB L100.1820 35.1-43.9 fl Normal RDW SD 39.6 LAB L100.1900 150-450 K/mm3 Normal PLT 233 LAB L100.2000 6.2-12.0 fl Normal MPV 8.8 Performed By: #### L100.0500 #### [facility] [address] [place], [place], [address] TROPONIN-I Collected: 02/13/2018 Status: F Source: [place] 9:40 PM [facility] REPOSITORY Order Comment: 'TROP' Serial specimen #1, #2, #3, or #4: 2 TYPE CODE TESTS RESULT OUT OF RANGE REFERENCE UNITS LAB L501.4010 <0.06 ng/mL High alert 5.91 TROPONIN-I Result Comment: CALLED [facility] ICU WITH CRITICAL CTNI ON 02-13-18 AT 2213PM READ BACK BY SAME TROPONIN-I EXPECTED VALUES <0.05 NEGATIVE 0.06 - 0.[address] > OR = 0.[address] Performed By: #### L501.4010 #### [facility] [address] [place], [address] CPK TOTAL, CREATINE Collected: 02/13/2018 Status: F Source: [place] KINASE 9:40 PM [facility] REPOSITORY TYPE CODE TESTS RESULT OUT OF RANGE REFERENCE UNITS LAB L501.3620 39-308 U/L Normal CPK TOTAL 227 Performed By: #### L501.3620 #### [facility] [address] [place], [address] ACT ACTIVATED CLOTTING Collected: 02/13/2018 Status: F Source: [place] TIME 7:23 PM [facility] REPOSITORY TYPE CODE TESTS RESULT OUT OF RANGE REFERENCE UNITS LAB L9100.0100 74-137 sec High ACTk CLOT 147 TIME Performed By: #### L9100.0100 #### [facility] Point of Care [address] [place] [address] ACT ACTIVATED CLOTTING Collected: 02/13/2018 Status: F Source: [place] TIME 6:06 PM [facility] REPOSITORY TYPE CODE TESTS RESULT OUT OF RANGE REFERENCE UNITS LAB L9100.0100 74-137 sec High ACTk CLOT 175 TIME Performed By: #### L9100.0100 #### [facility] Point of Care [address] [place] [place] [address] HISTORY AND PHYSICAL Observed: 02/13/2018 Status: F Source: [place] EXAM 6:01 PM [facility] REPOSITORY [facility] Medical Records Department [address] [place] [address] History and Physical 02/13/18 1505 MR#: [id number] Acct: [id number] Name: SAM SHANKS Rep #: [id number] : 1965 52 From: Saadia Barrera PCP: Care Physician, No Primary Status: ADM IN Y Location: ICU ICU01-1 ADDENDUM by Saadia Barrera on 02/13/18 at 1800 Code Visit HgbA1c 8.1%, new Diabetes mellitus type II Dx 02/13/18 1801 <Electronically signed by Saadia Barrera > Date Saadia Barrera cc: No Primary Care Physician; Saadia Barrera * Signed ADDENDUM by Saadia Barrera on 02/13/[address] Ngo update from catheterization lab w/ single distal RCA lesion, marginally successful aspiration clot also, EF 45%. Labs resulted with: Unremarkable CBC, BMP w/ glucose 158, trop 0.16, CXR w/ cardiomegaly. Hyperglycemia: Admission glucose 158, HgBA1c pending, ADA diet, accu checks w/ ISS until HgbA1c resulted, nutrition consulted. 02/13/18 1607 <Electronically signed by Saadia Barrera > Date Saadia Barrera cc: No Primary Care Physician; Saadia Barrera * Signed Problem List (1) Morbid obesity Status: Chronic (2) STEMI (ST elevation myocardial infarction) Status: Acute Comment: Inferiolateral History of Present Illness Date of Admission: 02/13/18 Chief Complaint: Chest Pain The patient is a 52 y/o M w/ PMHx: Morbid Obesity otherwise noting he takes no medications and healthy who presents to the [facility] ED on 02/13/18 via EMS with reported onset of diffuse across the chest pressure and discomfort with radiation to BL UE and jaws initially while seated at rest at 8 pm the evening prior rated 5/10 with at that time no markedly associated symptoms with continued symptoms eventually worsening SAFETY FIRE BOSS in the ED with reported mowing with onset worsened discomfort, rated then 8/10 with associated diaphoresis and dyspnea. In the ED work-up included EMS EKG w/ evidence of inferiolateral STEMI, VS AF, HR 55, BP 93/75, RR19, 96% on 2L NC, pending CBC, BMP, coags, trop, CXR, repeat EKG. Dr. Ngo contacted w/ STEMI call and requested administration of heparin 4,000 u IV load, brillinta 180 mg po x 1 load, NS 1L IVFs given hypotension. Past Medical History Past Medical History (Chronic Problems): Chronic Problems Morbid obesity (Chronic) Allergies No Known Allergies Allergy (Verified 02/13/18 14:58) Home Medications: Ambulatory Orders Medication Instructions Recorded NK [NK] 02/13/18 Surgical History: - - T+A, appendectomy. Psychiatric History: No pertinent psych hx Lives: Spouse/ Significant Other Smoking Status: Never smoker Tobacco Use: Non-smoker Alcohol: Occasional Drugs: None - *Family History Maternal History Items: - - Patient is a maternal and paternal family history of diabetes. Paternal History Items: - - Patient is a maternal and paternal family history of diabetes. Review of Systems Constitutional: Reports: Malaise, Weakness, Fatigue. Denies: Chills, Fever, Weight Change HEENT: Denies: Head Aches, Sinus Congestion, Sinus Drainage Cardiovascular: Reports: Chest Pain, Chest Pressure, Heaviness. Denies: Light Headedness, Orthopnea, Palpitations, Syncope Respiratory: Reports: Shortness of Breath, Shortness of breath at rest, Shortness of breath upon exertion. Denies: Cough, Sputum production Gastrointestinal: Denies: Abdominal Pain, Nausea, Vomiting Genitourinary: Denies: Dysuria Musculoskeletal: Reports: Arm Pain. Denies: Joint Pain, Joint Tenderness Skin: Denies: Rash, Wounds Neurological: Denies: Numbness, Tingling, Focal weakness Psychiatric: Denies: Anxiety, Depression, Homicidal Ideations, Suicidal Ideations Hematologic/ Lymphatic: Denies: Easy Bruising, Easy Bleeding VTE Information - Inpt Only VTE Present on Admission: No VTE Mechan Device Prophylaxis: SCD's VTE Pharm Prophylaxis ordered?: Yes Patient Problems: Active and Suspected Problems STEMI (ST elevation myocardial infarction) (Acute) Inferiolateral Subjective: Seated upright in the ED, uncomfortable appearing, ongoing chest discomfort, pressure. Objective: Physical Examination: General: awake, alert, oriented x 3 and cooperative, seated upright in the ED bed, notes ongoing chest pain, arm heaviness primarily. Skin: normal color, turgor, no icterus, cyanosis. HEENT: AT/NC, EOMI, PERRLA, MMM, no carotid bruits or JVD noted. Lungs: CTA bilaterally, moderate effort, mild decrease BL bases, no rales, ronchi or wheezing. Heart: Regular rate and rhythm; no gallop, rub audible. Abdomen: soft, morbidly obese, NTTP, ND, normal BS, no HSM; however, habitus makes examination difficult. Extremities: no cyanosis, clubbing, or edema. Neurological: patient awake, alert, oriented x 3; cognitive function intact; pupils equally reactive to light and accomodation; cranial nerves II-XII grossly normal, moving all 4 extremities, no focal deficits, strength moderately to severely globally decreased secondary to acute presentation. Psychiatric: affect appears fatigued, mildly strained, no acute evidence of depressive or anxiety feelings. - Physical Exam Vital Signs Pulse Resp BP Pulse Ox 55 L 19 H 93/75 96 02/13/18 14:59 02/13/18 14:59 02/13/18 14:59 02/13/18 14:59 Weight: 296 lb 11.875 oz Body Mass Index (BMI) 40.2 Assessment/Plan Active and Suspected Problems STEMI (ST elevation myocardial infarction) (Acute) Inferiolateral The patient is a 52 y/o M w/ PMHx: Morbid Obesity otherwise noting he takes no medications and healthy who presents to the [facility] ED on 02/13/18 via EMS with reported onset of diffuse across the chest pressure and discomfort with radiation to BL UE and jaws initially while seated at rest at 8 pm the evening prior rated 5/10 with at that time no markedly associated symptoms with continued symptoms eventually worsening SAFETY FIRE BOSS in the ED with reported mowing with onset worsened discomfort, rated then 8/10 with associated diaphoresis and dyspnea. (1) Chest Pain w/ Acute Inferiolateral STEMI: EKG in ED transmitted per EMS with inferior lateral STEMI evident with repeat pending, CXR w/ no acute process on preliminary, final read pending. ED presentation labs including CBC, BMP, coags and cardiac enzymes pending. Dr. Ngo called per STEMI protocol and patient administered heparin and brillinta bolus. Will transition from ED to catheterization lab w/ expected PCI needs, following if appropriate expect transition to the ICU, will continue IVFs given hypotension noted in the ED, maintain on a monitored bed, continue serial cardiac enzymes and EKGs. Obtain magnesium level upon admission. Continue medical management w/ asa, brillinta, add low dose BB pending BP post-catheterization, add high dose statin w/ AM FLP. ASA, NG, morphine. (2) Morbid Obesity: Weight loss and lifestyle changes encouraged, nutrition consulted. (3) DVT Prophylaxis: SCDs, heparin bolus given in the ED, start SC lovenox chemoprophylaxis 02/14/18. 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 [place], [place], [address] CBC-COMPLETE BLOOD CNT Collected: 02/13/2018 Status: F Source: [place] NO DIFF 4:55 PM [facility] REPOSITORY Order Comment: Comments: 6H post procedure AND Q6H x 4 TYPE CODE TESTS RESULT OUT OF RANGE REFERENCE UNITS LAB L100.1000 4.4-11.0 K/mm3 High WBC 13.1 LAB L100.1200 4.6-6.2 M/mm3 Normal RBC 4.61 LAB L100.1300 13.0-16.5 g/dl Normal HGB 14.3 LAB L100.1400 40-54 % Normal HCT 42.1 LAB L100.1500 80-94 fL Normal MCV 91.3 LAB L100.1600 27.0-32.0 pg Normal MCH 31.0 LAB L100.1700 32-36 g/gl Normal MCHC 34.0 LAB L100.1810 11.6-14.6 % Normal RDW CV 11.8 LAB L100.1820 35.1-43.9 fl Normal RDW SD 39.0 LAB L100.1900 150-450 K/mm3 Normal PLT 228 LAB L100.2000 6.2-12.0 fl Normal MPV 8.9 Performed By: #### L100.0500 #### [facility] [address] [place], [address] MAGNESIUM Collected: 02/13/2018 Status: F Source: [place] 4:55 PM [facility] REPOSITORY TYPE CODE TESTS RESULT OUT OF RANGE REFERENCE UNITS LAB L501.5200 1.6-2.6 mg/dL Normal MG 1.7 Performed By: #### L501.5200 #### [facility] [address] [place], [address] CPK TOTAL, CREATINE Collected: 02/13/2018 Status: F Source: [place] KINASE 4:55 PM [facility] REPOSITORY TYPE CODE TESTS RESULT OUT OF RANGE REFERENCE UNITS LAB L501.3620 39-308 U/L Normal CPK TOTAL 87 Performed By: #### L501.3620 #### [facility] [address] [place], [address] HEMOGLOBIN A1C Collected: 02/13/2018 Status: F Source: [place] 4:55 PM [facility] REPOSITORY TYPE CODE TESTS RESULT OUT OF RANGE REFERENCE UNITS LAB L501.9985 4.2-6.3 % High HGB A1C 8.1 Performed By: #### L501.9985 #### [facility] [address] [place], [address] TROPONIN-I Collected: 02/13/2018 Status: F Source: [place] 4:55 PM [facility] REPOSITORY Order Comment: Comments: Please use most recent specimen 'TROP' Serial specimen #1, #2, #3, or #4: 1 TYPE CODE TESTS RESULT OUT OF RANGE REFERENCE UNITS LAB L501.4010 <0.06 ng/mL High alert 0.96 TROPONIN-I Result Comment: called dexter icu with critical ctni by [facility] 02-13-18 AT 1802PM READ BACK BY SAME TROPONIN-I EXPECTED VALUES <0.05 NEGATIVE 0.06 - 0.[address] > OR = 0.[address] Performed By: #### L501.4010 #### [facility] [address] [place], [address] ACT ACTIVATED CLOTTING Collected: 02/13/2018 Status: F Source: [place] TIME 4:04 PM [facility] REPOSITORY TYPE CODE TESTS RESULT OUT OF RANGE REFERENCE UNITS LAB L9100.0100 74-137 sec High ACTk CLOT 142 TIME Performed By: #### L9100.0100 #### [facility] Point of Care [address] [place] [address] ACT ACTIVATED CLOTTING Collected: 02/13/2018 Status: F Source: [place] TIME 3:45 PM [facility] REPOSITORY TYPE CODE TESTS RESULT OUT OF RANGE REFERENCE UNITS LAB L9100.0100 74-137 sec Normal ACTk CLOT 120 TIME Performed By: #### L9100.0100 #### [facility] Point of Care [address] [place] [address] EMERGENCY DEPARTMENT Observed: 02/13/2018 Status: F Source: [place] SUMMARY 3:21 PM [facility] REPOSITORY [facility] [place] [address] Emergency Department Summary 02/13/18 1516 MR#: [id number] Acct: [id number] Name: SAM SHANKS Rep #: [id number] : 1965 52 From: Michael Joseph MD PCP: Care Physician, No Primary Status: ADM IN - ER Visit Summary Date of Service: 02/13/18 Chief Complaint: Chest tightness radiating to both shoulders and neck with nausea, diaphoresis and dyspnea. History of Present Illness: The patient is a 52 M who has no sniffing a past medical history states that his chest discomfort started last night. The discomfort got worse while mowing the yard. He states he took a shower prior to calling the paramedics. EKG that was submitted by EMS prior to his arrival reveals an acute inferolateral CT. Heart rate is 78. He denies any fever, chills night sweats. Eyes ocular, visual auditory symptoms. He denies cough. He denies hematemesis, melena hematochezia. Denies abdominal pain or back pain. He denies any symptoms of claudication. He denies any urologic symptoms. He has no contraindication to anticoagulation therapy. Physical Examination: Blood pressure is 93/75 with a heart rate of 55 respiration of 19 and saturation 96%. Patient appears uncomfortable. Head is atraumatic normocephalic. Pupils are equal round reactive. Extraocular muscles are intact. TMs are pearly white with landmarks noted. Nares patent with no drainage. Posterior pharynx without erythema or exudate. Uvula is midline. There is no dysphonia or dysphasia. Trachea is midline. There is no stridor with auscultation of the neck. Heart is regular without murmur, gallop or rub. S1 and S2 are normal. Lungs are clear to auscultation with good movement of air bilaterally. Abdomen is soft and nontender. There is no guarding or peritoneal findings. There is no palpable pulsatile mass. There is no abdominal bruit. García sign is negative. Negative Rovsing sign. There is no evidence of inguinal or umbilical hernia. There is no asymmetry, swelling, discoloration, leg vein distention, palpable cords or tenderness along the distribution of the deep venous system. Neuro exam is nonfocal. Test Results: Next field EKG that was obtained by respiratory therapist reveals an acute ST elevation inferolateral injury pattern. Because patient is bradycardic and hypotensive he received a fluid bolus and a right-sided EKG was obtained. There is no evidence of RV involvement. He received aspirin by paramedics. He was given 4000 units of heparin IV push and 180 mg of Brilinta p.o. He was made n.p.o. Chest x-ray is suboptimal because it is portable and the fact that he has limited inspiratory volume with only 5 ribs visualized. Difficult to make any assessment because of the suboptimal quality. Blood work is pending. Emergency Department Course and Treatment: ST elevation order set was initiated. Dr. Ngo was paged. He has been spoken to on 3 separate occasions. Patient was consented for emergent cardiac catheterization. Please read test results Treatment Plan: To Therapeutic Program Worker with patient. Disposition: To cardiac Therapeutic Program Worker Impression: 1. Acute inferolateral ST elevation CT 2. Hypotension 3. Bradycardia This note was generated with Dragon dictation software. It may contain incorrect words, spelling, and punctuation that were not noted in review of the chart prior to signing ED Disposition - Plan for ED Patient: Chief Complaint: Chest Pain What to do if you have Problems For any increased pain, shortness of breath, bleeding, nausea or vomiting, chest pain, or any unexpected problems, contact your Primary Care Provider. Call [facility] ([phone]) or report to the closest Emergency Room. Call 911 if necessary. 02/13/18 1521 <Electronically signed by Michael Joseph MD> Date Michael Joseph MD Cosigner Signature (If Indicated): Date CC: No Primary Care Physician CHEST 1 VIEW Observed: 02/13/2018 Status: F Source: [place] (PORTABLE) 3:02 PM [facility] REPOSITORY [facility] Imaging Services [address] [place] [address] Chest 1 View (Portable) MR#: [id number] Acct: [id number] Name: SAM SHANKS Rep #: [id number] : 1965 M 52 From: Hamlet Ortez MD PCP: Status: REG ER Study: Chest 1 View (Portable) Date of Exam: 02/13/18 Exam# [id number] Ordering Dr: Michael Joseph MD STUDY: X-RAY CHEST REASON FOR EXAM: Male, 52 years old. Sudden onset of chest pain TECHNIQUE: Single view of the chest was obtained COMPARISON: None. FINDINGS: No lung consolidation or pneumothorax. Cardiomegaly with mild perihilar streaky opacities. Osseous structures demonstrate no acute abnormalities. Degenerative changes in the thoracic spine. IMPRESSION: Cardiomegaly. No evidence for focal airspace consolidation. Electronically Signed: Hamlet Ortez, at 15:15 EDT Tel , Service support , RAD/Chest 1 View (Portable) CC: Michael Joseph MD Courtesy Booth Cashier: Signed CBC W/DIFF, AUTOMATED Collected: 02/13/2018 Status: F Source: [place] 3:00 PM [facility] REPOSITORY TYPE CODE TESTS RESULT OUT OF RANGE REFERENCE UNITS LAB L100.1000 4.4-11.0 K/mm3 Normal WBC 9.2 LAB L100.1200 4.6-6.2 M/mm3 Normal RBC 4.77 LAB L100.1300 13.0-16.5 g/dl Normal HGB 15.2 LAB L100.1400 40-54 % Normal HCT 43.4 LAB L100.1500 80-94 fL Normal MCV 91.0 LAB L100.1600 27.0-32.0 pg Normal MCH 31.9 LAB L100.1700 32-36 g/gl Normal MCHC 35.0 LAB L100.1810 11.6-14.6 % Low RDW CV 11.5 LAB L100.1820 35.1-43.9 fl Normal RDW SD 38.3 LAB L100.1900 150-450 K/mm3 Normal PLT 332 LAB L100.2000 6.2-12.0 fl Normal MPV 9.2 LAB L100.2100 47-70 % Normal NEUT% 55.1 LAB L100.2200 19-41 % Normal LY% 36.0 LAB L100.2300 0-10 % Normal MONO% 7.3 LAB L100.2400 0-5 % Normal EO% 0.8 LAB L100.2500 0-1 % Normal BASO% 0.4 LAB L100.2550 0.0-0.9 % Normal IM GRAN % 0.400 Result Comment: IG% - Immature Granulocytes (promyelocytes, myelocytes and metamyelocytes) > 1% indicates that a LEFT SHIFT is Present. LAB L100.2620 2.0-7.7 X10 3/uL Normal Absolute Neut 5.0 LAB L100.2720 0.83-4.51 X10 3/ul Normal Absolute Lymph 3.30 Performed By: #### L100.0100 #### [facility] [address] [place], [place], [address] PROTHROMBIN TIME W/INR Collected: 02/13/2018 Status: F Source: [place] 3:00 PM [facility] REPOSITORY TYPE CODE TESTS RESULT OUT OF RANGE REFERENCE UNITS LAB L300.4150 11.7-14.9 SECONDS Normal PROTIME 12.8 LAB L300.4200 Normal INR 1.0 Performed By: #### L300.3900, L300.4310 #### [facility] [address] [place], [address] PARTIAL THROMBOPLAST Collected: 02/13/2018 Status: F Source: [place] TIME 3:00 PM [facility] REPOSITORY TYPE CODE TESTS RESULT OUT OF RANGE REFERENCE UNITS LAB L300.4310 24.1-36.2 Seconds Normal PTT 25.6 Performed By: #### L300.3900, L300.4310 #### [facility] [address] [place], [address] BASIC METABOLIC Collected: 02/13/2018 Status: F Source: [place] PROFILE (BMP) 3:00 PM [facility] REPOSITORY Order Comment: 'TROP' Serial specimen #1, #2, #3, or #4: 1 TYPE CODE TESTS RESULT OUT OF RANGE REFERENCE UNITS LAB L501.0100 74-106 mg/dL High GLU 158 Result Comment: Fasting Glucose result greater than or equal to 126 mg/dL suggests DIABETES MELLITUS per A.D.A. criteria. Please note revised GLUCOSE reference range effective 2017. LAB L501.1000 7-18 mg/dL Normal BUN 18 LAB L501.1100 0.70-1.30 mg/dL Normal CREAT,SERUM 0.91 Result Comment: The validity of the calculated GFR AND GFRAA in patients over 70 years has not been determined. Clinical correlation is essential. LAB L501.1110 >60 mL/min Normal EST GFR 93 Result Comment: Non- GFR Calc LAB L501.1115 >60 mL/min Normal EST GFR - AA 113 Result Comment: GFR Calc LAB L501.1255 ml/min Normal Estimated CRCL 106.59 LAB L501.1300 10-20 RATIO BUN/CRE Normal 19.7 LAB L501.2200 8.5-10 mg/dL .1 CA Normal 8.8 LAB L501.5300 136-14 mmol/L 5 NA Normal 136 LAB L501.5600 3.5-5. mmol/L 1 K Normal 3.7 LAB L501.5900 98-107 mmol/L CL Normal 103 LAB L501.6100 21.0-3 mmol/L 2.0 CO2 Normal 27.0 LAB L501.6200 5-15 GAP Normal 6 Performed By: #### L500.2500, L501.4010 #### [facility] [address] [place], [place], [address] TROPONIN-I Collected: 02/13/2018 Status: F Source: [place] 3:00 PM [facility] REPOSITORY Order Comment: 'TROP' Serial specimen #1, #2, #3, or #4: 1 TYPE CODE TESTS RESULT OUT OF RANGE REFERENCE UNITS LAB L501.4010 <0.06 ng/mL High 0.16 TROPONIN-I Result Comment: TROPONIN-I EXPECTED VALUES <0.05 NEGATIVE 0.06 - 0.[address] > OR = 0.[address] Performed By: #### L500.2500, L501.4010 #### [facility] [address] [place], [place], [address] ALLERGIES ALLERGIES DATE TYPE / CODE NAME / CODE REACTION SEVERITY SOURCE 09/03/2018 Drug No Known Unknown [facility] Allergy/416 Allergies/C81351 [facility] 450502(SNOM 0388(RXNORM) Repository ED CT) 12/04/2015 Environ/420 SEASONAL ITCHING Med [facility] 751422(SNOM ALLERGIES Main [place] ED CT) Repository 12/04/2015 Environ/420 SEASONAL ITCHING [facility] 055535(SNOM ALLERGIES [facility] ED CT) Repository ENCOUNTERS ENCOUNTERS ADMIT/DISCHARGE ACCOUNT ADMITTING ENCOUNTER LOCATION SOURCE NUMBER CLASS 09/22/2018/09/23/20 [id number] Ambulatory [address] Repository 09/14/2018 [id number] Ambulatory [facility] ing:LAB Repository 09/03/2018/09/03/20 [id number] Emergency [address] ing:ED Repository 08/26/2018/08/29/20 [id number] Ambulatory [address] Repository 08/12/2018/08/24/20 [id number] Ambulatory [address] Other [place] Repository 08/09/2018/08/09/20 [id number] FRANCISCO, Ambulatory [address] Repository 07/25/2018/07/25/20 [id number] Emergency [address] ing:ED Repository 07/04/2018/07/06/20 [id number] Ambulatory [address] Repository 07/01/2018 [id number] Ambulatory [facility] ing:CVS Repository 07/01/2018 [id number] Ambulatory BMSBuilding:W [facility] Repository 06/23/2018/06/24/20 [id number] Ambulatory [address] Repository 06/17/2018/06/17/20 [id number] Ambulatory BMSBuilding:B Douglas 18 MS.[facility] Repository 03/17/2018 [id number] Ambulatory [facility] ing:POLAB3 Repository 03/17/2018/03/17/20 [id number] Ambulatory BMSBuilding:B Consuelo 18 MS.[facility] Repository 03/11/2018 [id number] Ambulatory [facility] ing:CR Repository 02/13/2018/02/16/20 [id number] Huber, Inpatient Consuelo Consuelo 18 [facility] ing:ICURoom: Repository [id number]: 1 02/13/2018 [id number] Huber, Ambulatory BMSBuilding:Tori Marcelo MS.[facility] Repository 02/13/2018 [id number] Huber, Ambulatory BMSBuilding:Tori Marcelo MS.CF.[facility] Repository 02/13/2018 [id number] Huber, Ambulatory BMSBuilding:Tori Marcelo MS.[facility] Repository 02/13/2018 [id number] Huber, Ambulatory BMSBuilding:Tori Marcelo MS.WIP [facility] Repository 02/13/2018 [id number] Ngo, Ambulatory BMSBuilding:Tori Marcelo MS.CF.[facility] Repository 02/13/2018/02/16/20 [id number] Ambulatory BMSBuilding:Jony Cordero 18 [facility] Repository 02/13/2018/02/16/20 [id number] Ambulatory BMSBuilding:W Douglas 18 [facility] Repository PAYERS PAYERS ENCOUNTER GUARANTOR PAYER SUBSCRIBER SOURCE 09/14/2018 SAM T Primary Insurance:EGP SAM T Douglas [id number] E RAYCO MANUFACTURINGPolicy GRESSDOB: Pending Sale To [facility] ALEJANDRE Number: [id number] [id number] Repository [address]Aed: (330) Date: [phone] () [place] [address]PW: 09/14/2018 Secondary Insurance:SELF NOT GIVENUNK Consuelo PAY INSURANCEPolicy Community Number: Effective Hospital Date:2018-09-14 Repository 09/03/2018 SAM T Primary Insurance:EGP SAM T Consuelo [id number] E [employer] MANUFACTURINGPolicy GRESSDOB: Pending Sale To [facility] ALEJANDRE Number: [id number], [place] [id number] Repository 274[address]Kha: (330) Date: [phone] () [place] [address]SN: 09/03/2018 Secondary Insurance:SELF NOT GIVENUNK Consuelo PAY INSURANCEPolicy Community Number: Effective Hospital Date:2018-09-03 Repository 07/25/2018 SAM T Primary Insurance:EGP SAM Zan Consuelo [id number] E [employer] MANUFACTURINGPolicy GRESSDOB: Community ALEJANDRE Number: [id number], [place] [id number] Repository [address]Ruz: (330) Date: [phone] () [place] [address]BM: 07/25/2018 Secondary Insurance:SELF NOT GIVENUNK Consuelo PAY INSURANCEPolicy Community Number: Effective Hospital Date:2018-07-25 Repository 07/01/2018 SAM [id number] Primary Insurance:EGP SAM HOLASSDOB: Consuelo E ALEJANDRE [employer]AY[employer] MANUFACTURINGPolicy [id number] [facility] [place] Number: Hospital [address]Edj: 330 [id number] Repository [phone] () Date: [place] [address]VB: 07/01/2018 Secondary Insurance:SELF NOT GIVENUNK Consuelo PAY INSURANCEPolicy Community Number: Effective Hospital Date:2018-06-17 Repository 07/01/2018 SAM T Primary Insurance:EGP SAM Zan Consuelo [id number] E RAY[employer] MANUFACTURINGPolicy GRESSDOB: [facility] Number: [id number], [place] [id number] Repository [address]Djn: 330) Date: [phone] () [place] [address]DL: 07/01/2018 Secondary Insurance:SELF NOT GIVENUNK Consuelo PAY INSURANCEPolicy Community Number: Effective Hospital Date:2018-07-01 Repository 06/17/2018 SAM [id number] Primary Insurance:EGP SAM TYB: Consuelo E ALEJANDRE RAY[employer] MANUFACTURINGPolicy [id number] Number: Hospital [address]Bne: 330 [id number] Repository [phone] () Date: [place] [address]QP: 06/17/2018 Secondary Insurance:SELF NOT GIVENUNK Consuelo PAY INSURANCEPolicy Community Number: Effective Hospital Date:2018-06-17 Repository 03/17/2018 SAM [id number] Primary Insurance:EGP SAM SHANKSDOB: Consuelo E ALEJANDRE [employer]UFACTURINGPolicy [id number], [place] Number: Hospital [address]Nhq: [phone] [id number] Repository [phone] () Date: [place] [address]SU: 03/17/2018 Secondary Insurance:SELF NOT GIVENUNK Consuelo PAY INSURANCEPolicy Community Number: Effective Hospital Date:2018-03-17 Repository 03/17/2018 SAM [id number] Primary Insurance:EGP SAM SHANKSDOB: Douglas E ALEJANDRE RAY[employer] MANUFACTURINGPolicy [id number] [facility] [place] Number: Hospital [address]Lcw: 614 [id number] Repository [phone] () Date: [place] [address]VE: 03/17/2018 Secondary Insurance:SELF NOT GIVENUNK Douglas PAY INSURANCEPolicy Community Number: Effective Hospital Date:2018-03-17 Repository 03/11/2018 SAM [id number] Primary Insurance:EGP SAM SHANKSDOB: Consuelo E ALEJANDRE [employer]AY[employer] MANUFACTURINGPolicy [id number], [place] Number: Hospital [address]Yxb: [phone] [id number] Repository [phone] () Date: [place] [address]AD: 03/11/2018 Secondary Insurance:SELF NOT GIVENUNK Douglas PAY INSURANCEPolicy Community Number: Effective Hospital Date:2018-02-21 Repository 02/13/2018 SAM [id number] Primary Insurance:EGP SAM TYB: Douglas E ALEJANDRE [employer]AY[employer] MANUFACTURINGPolicy [id number] [facility] [place] Number: Hospital [address]Vpx: [phone] [id number] Repository [phone] () Date: [place] [address]SW: 02/13/2018 Secondary Insurance:SELF NOT GIVENUNK Consuelo PAY INSURANCEPolicy Community Number: Effective Hospital Date:2018-02-13 Repository 02/13/2018 SAM [id number] Primary Insurance:EGP SAM GRESSDOB: Consuelo E ALEJANDRE [employer]AY[employer]UFACTURINGPolicy [id number], [place] Number: Hospital [address]Rcw: [phone] [id number] Repository [phone] () Date: [place] [address]AT: 02/13/2018 Secondary Insurance:SELF NOT GIVENUNK Consuelo PAY INSURANCEPolicy Community Number: Effective Hospital Date:2018-02-13 Repository 02/13/2018 SAM [id number] Primary Insurance:SELF NOT GIVENUNK Douglas E ALEJANDRE PAY INSURANCEPolicy [facility] Number: Effective Hospital [id number]: N Date:2018-02-13 Repository () 02/13/2018 SAM [id number] Primary Insurance:EGP SAM TYB: Consuelo E ALEJANDRE RAY[employer] MANUFACTURINGPolicy [id number] [facility] [place] [place] Number: Hospital [id number]: N [id number] Repository () Date: [place] [address]JT: 02/13/2018 Secondary Insurance:SELF NOT GIVENUNK Consuelo PAY INSURANCEPolicy Community Number: Effective Hospital Date:2018-02-13 Repository 02/13/2018 SAM [id number] Primary Insurance:EGP SAM TYB: Douglas E ALEJANDRE RAY[employer] MANUFACTURINGPolicy [id number], [place] Number: Hospital [address]Mbz: [phone] [id number] Repository [phone] () Date: [place] [address]AO: 02/13/2018 Secondary Insurance:SELF NOT GIVENUNK Douglas PAY INSURANCEPolicy Community Number: Effective Hospital Date:2018-02-13 Repository 02/13/2018 SAM [id number] Primary Insurance:EGP SAM SHANKSDOB: Consuelo E ALEJANDRE RAY[employer] MANUFACTURINGPolicy [id number] [facility] Number: Hospital [address]Mlf: [phone] [id number] Repository [phone] () Date: [place] [address]TU: 02/13/2018 Secondary Insurance:SELF NOT GIVENUNK Douglas PAY INSURANCEPolicy Community Number: Effective Hospital Date:2018-02-13 Repository 02/13/2018 SAM [id number] Primary Insurance:EGP SAM TYB: Consuelo PAGAN MANUFACTURINGPolicy [id number] [facility], [place] Number: Hospital [address]Ocf: ([phone]) [id number] Repository [phone] () Date: [place] [address]RM: 02/13/2018 Secondary Insurance:SELF NOT GIVENUNK Douglas PAY INSURANCEPolicy Community Number: Effective Hospital Date:2018-02-13 Repository 02/13/2018 SAM [id number] Primary Insurance:EGP SAM TYB: Consuelo PAGAN [employer] in the AirPolicy [id number] Number: Hospital [address]Yiz: [phone] [id number] Repository [phone] () Date: [place] [address]IE: 02/13/2018 Secondary Insurance:SELF NOT GIVENUNK Douglas PAY INSURANCEPolicy Community Number: Effective Hospital Date:2018-02-13 Repository
== END ==
PROVIDERS: Family Provider Family Medicine; PCP Family Medicine; Referring Provider Family Medicine; Visit Provider Family Medicine
DX: E78.2 Mixed hyperlipidemia (principal); Z79.899 Other long term (current) drug therapy
CPT/HCPCS: 36415; 80053; 80061; 81001; 83036

== ENCOUNTER → 2019-01-06 08:16 | Outpatient (CLI) | payer OTHER, SELFPAY ==
[2018-12-19 15:38] VITALS: BMI 33.5
[2019-01-06 09:40] LABS: AST(SGOT) 15 U/L (15-37); Alanine Aminotransfer ALT/SGPT 28 U/L (16-61); Albumin, Serum 3.4 g/dL (3.2-5.0); Alkaline Phosphatase 83 U/L (45-117); Bilirubin, Direct 0.22 mg/dL (0.00-0.30); Cholesterol 135 mg/dL (200); Globulin 3.5 g/dL (2.2-4.2); High Density Lipoprotein 61 mg/dL; Protein, Total 6.9 g/dL (6.4-8.2); Triglycerides 52 mg/dL; Very Low Density Lipoprotein 10 mg/dL (5-40)
== END ==
PROVIDERS: Family Provider Family Medicine; PCP Family Medicine; Referring Provider Internal Medicine Cardiovascular Disease; Visit Provider Internal Medicine Cardiovascular Disease
DX: I21.3 ST elevation (STEMI) myocardial infarction of unspecified site (principal); E78.5 Hyperlipidemia, unspecified
CPT/HCPCS: 36415; 80061; 80076

== ENCOUNTER → 2019-01-23 | Outpatient (CLI) | payer OTHER, SELFPAY ==
[2018-12-19 15:38] VITALS: BMI 33.5
--- NOTE | 2019-01-23 13:48 | ECHOD_ITS ---
Reason For Study: S/P IN, CAD Procedure This was a 2D Doppler, Color Flow transthoracic echocardiogram. Contrast injection was performed. Exam performed in department. Left Ventricle Normal size and thickness. The estimated ejection fraction is 65 %. Stage 1 diastolic dysfunction. No regional wall motion abnormalities noted. Right Ventricle Mildly dilated right ventricle. Normal systolic function. Atria Normal left atrium. Normal right atrium. Normal atrial septum. Mitral Valve The mitral valve is structurally normal. No prolapse or stenosis seen. Trivial mitral valve insufficiency. Tricuspid Valve Normal tricuspid valve. Trivial tricuspid valve insufficiency. Right ventricular systolic pressure estimated to be 29 mmHg. Aortic Valve Normal aortic valve. Trisinus/trileaflet aortic valve. Pulmonic Valve Normal pulmonic valve. Great Vessels Normal aortic root. Normal arch. Normal inferior vena cava. No collapse of the inferior vena cava. Pericardium/Pleural No pericardial effusion. Medication 22 gauge I.V. with prn adaptor inserted into right arm. Diluted definity 3.0ml given slow IV push to enhance endocardial definition. MMode/2D Measurements & Calculations LVIDd: 4.8 cm IVSd: 0.93 cm Ao root diam: 3.1 cm LVIDs: 3.1 cm LVPWd: 0.98 cm RVDd: 3.8 cm FS: 34.9 % LAV(MOD-bp): 64.3 ml LA A4 area: 21.3 cm2 LA dimension(2D): 4.0 cm LAV(MOD-bp) Indexed: 27.6 ml/m2 LAV(MOD-sp2): 61.4 ml LAV(MOD-sp4): 61.8 ml RA A4 area: 16.5 cm2 Time Measurements MV dec time: 0.18 sec Doppler Measurements & Calculations MV E max ramon: 79.2 cm/sec Lat Peak E' Ramon: 11.4 cm/sec Med Peak E' Ramon: 9.1 cm/sec MV A max ramon: 92.7 cm/sec E/E' lat: 6.9 E/E' med: 8.7 MV E/A: 0.85 Ao V2 max: 130.6 cm/sec LV V1 max: 98.5 cm/sec PA V2 max: 128.6 cm/sec Ao max P.8 mmHg LV V1 max P.9 mmHg TR max ramon: 242.5 cm/sec TR max P.5 mmHg Interpretation Summary The estimated ejection fraction is 65 %. Stage 1 diastolic dysfunction. Mildly dilated right ventricle. Trivial mitral valve insufficiency. Trivial tricuspid valve insufficiency. Right ventricular systolic pressure estimated to be 29 mmHg. Compared to echo report dated 07/01/2018, LV function has normalized. The study was technically difficult. Contrast injection was performed. Ordering Physician: Davian Ngo Referring Physician: Jonh Lynn Performed By: Edelmira Álvarez, MEGHA, RVT
== END | disposition home or self-care (01) ==
LOC: CVS 13:47
PROVIDERS: Family Provider Family Medicine; PCP Family Medicine; Referring Provider Internal Medicine Cardiovascular Disease; Visit Provider Internal Medicine Cardiovascular Disease
DX: I25.10 Atherosclerotic heart disease of native coronary artery without angina pectoris (principal); I42.9 Cardiomyopathy, unspecified; I21.3 ST elevation (STEMI) myocardial infarction of unspecified site; E78.5 Hyperlipidemia, unspecified; Z95.5 Presence of coronary angioplasty implant and graft
CPT/HCPCS: 93306; Q9957; A4216; C8929

== ENCOUNTER 2019-08-09 19:41 | Observation (INO) | payer OTHER, SELFPAY ==
[2018-12-19 15:38] VITALS: BMI 33.5
[2019-08-09] VITALS (10 sets, daily range): BP systolic 116–130; BP diastolic 71–94; PULSE 76–94; RESP 14–17; TEMP 36.9–39.6; O2SAT 94–99; BMI 35.5
[2019-08-09] MEDS: 0.9% Normal Saline 1,000 ML 999 ML IV ×3 (19:40→22:49)
[2019-08-09 19:51] LABS: Bedside Glucose 210 mg/dL (70-110)
--- NOTE | 2019-08-09 20:02 | EKG12_ITS ---
Test Reason : NEAR SYNCOPE Blood Pressure : / mmHG Vent. Rate : 077 BPM Atrial Rate : 077 BPM P-R Int : 162 ms QRS Dur : 082 ms QT Int : 364 ms P-R-T Axes : 056 001 027 degrees QTc Int : 411 ms Normal sinus rhythm Normal ECG Confirmed by EVELIA MEADOWS, TOYM ([id number]), graphics editor FLORIDALMA IRENE ([id number]) on 08/11/2019 1:19:45 PM Referred By: JOSE Confirmed By:ERIK ALTAMIRANO MD
--- NOTE | 2019-08-09 20:05 | RAD_ITS ---
STUDY: X-RAY CHEST REASON FOR EXAM: Male, 54 years old. Cough and fever TECHNIQUE: Single frontal view of the chest. COMPARISON: February 13, 2018 FINDINGS: Cardiac silhouette is enlarged, similar to prior. Pulmonary vascularity unremarkable. Aorta unremarkable. No focal airspace opacities. No pleural effusions. Upper abdomen unremarkable. Osseous structures intact. No pneumothorax. RAD/Chest 1 View (Portable) IMPRESSION: Cardiomegaly. No focal pulmonary consolidation. Electronically Signed: Jag Bishop, at 20:24 EDT Tel , Service support ,
[2019-08-09 20:24] LABS: Absolute Lymphocyte Count 1.69 X10^3/uL (0.83-4.51); Absolute Neutrophil Count 3.6 X10^3/uL (2.0-7.7); Basophil# 0.05 X10^3/uL; Basophil% 0.8 % (0-1); Eosinophil# 0.12 X10^3/uL; Eosinophils% 1.9 % (0-5); Hematocrit 48.2 % (40-54); Hemoglobin 16.5 g/dL (13.0-16.5); Lymphocyte # 1.69 X10^3/ul (4.0); Lymphocyte % 26.1 % (19-41); Mean Corp Hgb Conc 34.2 g/dL (32-36); Mean Corpuscular Hgb 31.4 pg (27.0-32.0); Mean Corpuscular Volume 91.8 fL (80-94); Monocyte# 0.93 X10^3/uL; Monocyte% 14.4 % (0-10); NRBC Flagged by Analyzer 0 % (0-5); Neutrophil # 3.64 X10^3/uL (2.7-7.7); Neutrophil % 56.2 % (47-70); POSITIVE MORPHOLOGY YES; Platelet Count 181 K/mm3 (150-450); RBC Distribution Width CV 11.6 % (11.6-14.6); RBC Distribution Width SD 39.1 fl (35.1-43.9); Red Blood Count 5.25 M/mm3 (4.6-6.2); White Blood Count 6.5 K/mm3 (4.4-11.0)
[2019-08-09 20:29] LABS: Prothrombin Time (Protime)PT. 13.3 SECONDS (11.7-14.9)
[2019-08-09 20:30] LABS: Partial Thromboplast Time 27.4 Seconds (24.1-36.2)
[2019-08-09 20:32] LABS: ALB/GLOB Ratio 0.9 RATIO (0.9-2.4); AST(SGOT) 15 U/L (15-37); Alanine Aminotransfer ALT/SGPT 30 U/L (16-61); Albumin, Serum 3.7 g/dL (3.2-5.0); Alkaline Phosphatase 87 U/L (45-117); Anion Gap 9 (5-15); BUN 12 mg/dL (7-18); BUN/Creat Ratio 12.1 RATIO (10-20); Calcium,Total 8.8 mg/dL (8.5-10.1); Chloride 102 mmol/L (98-107); Creatinine, Serum 0.99 mg/dL (0.70-1.30); EST Glomerular Filtration Rate 84 mL/min (>60); Est Glom Filt Rate - Afr Amer 102 mL/min (>60); Estimated Creatinine Clearance 92.96 ml/min; Globulin 4.1 g/dL (2.2-4.2); Glucose 196 mg/dL (74-106); Potassium 4.5 mmol/L (3.5-5.1); Protein, Total 7.8 g/dL (6.4-8.2); Sodium Level 132 mmol/L (136-145)
[2019-08-09] MEDS: Ondansetron 4 MG/2 ML Vial IV (20:40)
[2019-08-09] MEDS: Acetaminophen 500 MG Tablet 1000 MG PO (20:40)
[2019-08-09 20:44] LABS: Differential Indicated SCAN CRITERIA MET
[2019-08-09 21:01] LABS: Differential Comment SCANNED
[2019-08-09 21:36] LABS: Lactic Acid 2.3 mmol/L (0.4-2.0)
[2019-08-09 21:41] LABS: Bacteria 0 SEEN /hpf (None Seen); Red Blood Cells-Urine 0 SEEN /hpf (0-5); Squamous Epithelial Cells - UA 0 SEEN /hpf (0-5); White Blood Cells 0 SEEN /hpf (0-5)
--- NOTE | 2019-08-09 21:51 | ED.RN ---
dr rosario aware of lactic acid result of 2.0.
[2019-08-09 21:54] LABS: Color, Urine Yellow (Yellow); Glucose, Dipstick Normal (Normal); Ketone-Dipstick 15 mg/dl (Negative); Leukocyte Esterase-Dipstick 25 /ul (Negative); Nitrite-Dipstick Negative (Negative); Occult Blood-Urine Negative /ul (Negative); Protein-Dipstick 30 mg/dl (Negative); Urine Bilirubin Dipstick Negative (Negative); Urine Clarity Clear (Clear); Urine Urobilinogen 1 mg/dl (Normal)
[2019-08-09 22:07] LABS: Mucous, Urine 1+ /hpf (<or=2+)
--- NOTE | 2019-08-09 23:10 | PCM.HP.STD ---
Problem List (1) Acute febrile illness Status: Acute (2) Syncope and collapse Status: Acute (3) STEMI (ST elevation myocardial infarction) Status: Inactive Comment: Inferiolateral History of Present Illness Date of Admission: 08/09/19 Chief Complaint: CHILLS The patient is a 54 year old M with a significant history of NSTEMI who presented to emergency department with chills that started a day before his presentation. Associated with symptoms is fatigue that caused him to sleep for about 24 hours. Also he had anorexia and diffuse body weakness as well as lightheadedness. Patient was very weak. He was so weak to the point that he could not even walk. Further, he had a near syncopal episode while at home. Also he had subjective fever and anorexia. At the ED triage patient passed out. At the emergency department his initial temperature was 100.7. His temperature decreased to 99.5. He was given Tylenol and his temperature rather increased to 103.2. Past Medical History Past Medical History (Chronic Problems): Chronic Problems (Last Reviewed 08/10/19 @ 06:10 by Federico Ring MD) Hyperlipidemia (Chronic) Nonrheumatic tricuspid (valve) insufficiency (Chronic) Mild (1+) per echo 07/01/2018; RVSP 30 mmhg. EF up from 50% on 02/14/18 to 60% now. Cardiomyopathy (Chronic) CAD (coronary artery disease) (Chronic) Stent to RCA 2018 Stented coronary artery (Chronic 02/13/18) Morbid obesity (Chronic) Medical History: Medical History (Last Reviewed 08/10/19 @ 06:10 by Federico Ring MD) Hyperlipidemia (Chronic) E78.5 Nonrheumatic tricuspid (valve) insufficiency (Chronic) I36.1 Mild (1+) per echo 07/01/2018; RVSP 30 mmhg. EF up from 50% on 02/14/18 to 60% now. Cardiomyopathy (Chronic) I42.9 Morbid obesity (Chronic) E66.01 STEMI (ST elevation myocardial infarction) (Acute) Onset Date: 02/13/18 I21.3 Inferiolateral Allergies No Known Allergies Allergy (Verified 08/09/19 19:42) Home Medications: Ambulatory Orders Medication Instructions Recorded aspirin 81 mg chewable tablet 81 mg PO DAILY tab.chew 12/19/18 atorvastatin 80 mg tablet 80 mg PO QHS #90 tab 01/27/19 lisinopril 2.5 mg tablet 2.5 mg PO DAILY #90 tab 01/27/19 metoprolol tartrate 25 mg tablet 12.5 mg PO BID #90 tab 01/27/19 Ubidecarenone [Coq-10] 200 mg PO DAILY 08/09/19 Surgical History: Surgical History (Last Reviewed 08/10/19 @ 06:10 by Federico Ring MD) History of tonsillectomy (Resolved) Z90.89 Hx of appendectomy (Resolved) Z90.49 Stented coronary artery (Chronic) Onset Date: 02/13/18 Z95.5 Surgical History: - - T+A, appendectomy. Psychiatric History: No pertinent psych hx Lives: Spouse/ Significant Other Smoking Status: Never smoker Alcohol: Heavy - *Family History Maternal Family History: Family History (Last Reviewed 08/10/19 @ 06:11 by Federico Ring MD) Father Diabetes Mother Diabetes History Items: - - Patient is a maternal and paternal family history of diabetes. Paternal Family History: Family History (Last Reviewed 08/10/19 @ 06:11 by Federico Ring MD) Father Diabetes Mother Diabetes History Items: - - Patient is a maternal and paternal family history of diabetes. Review of Systems Constitutional: Reports: Anorexia, Chills, Fever - Subjective, Malaise, Weakness, Fatigue. Denies: Weight Change HEENT: Denies: Head Aches, Sinus Congestion, Sinus Drainage Cardiovascular: Reports: Syncope. Denies: Chest Pain, Palpitations Respiratory: Denies: Cough, Shortness of breath at rest, Sputum production Gastrointestinal: Denies: Abdominal Pain, Nausea, Vomiting Genitourinary: Denies: Dysuria Musculoskeletal: Denies: Joint Pain, Joint Tenderness Skin: Denies: Rash, Wounds Neurological: Denies: Numbness, Tingling, Focal weakness Psychiatric: Denies: Anxiety, Depression, Homicidal Ideations, Suicidal Ideations Hematologic/ Lymphatic: Denies: Easy Bruising, Easy Bleeding VTE Information - Inpt Only VTE Present on Admission: No VTE Mechan Device Prophylaxis: None VTE Pharm Prophylaxis ordered?: Yes Patient Problems: Active and Suspected Problems (Last Reviewed 08/10/19 @ 06:10 by Federico Ring MD) Acute febrile illness (Acute) Syncope and collapse (Acute) - Physical Exam Vitals/I&O's: Vital Signs Temp Pulse Resp BP Pulse Ox 99.6 F H 83 14 123/77 H 96 08/09/19 22:05 08/09/19 22:05 08/09/19 22:05 08/09/19 22:05 08/09/19 22:05 Oxygen Flow Rate (L/min) 2 Oxygen Delivery Method Room Air Weight: 115.666 kg Body Mass Index (BMI) 35.5 Intake and Output for Last 24 Hours 08/07/19 08/08/19 08/09/19 23:59 23:59 23:59 Intake Total 1999 Balance 1999 General: Alert, Oriented x3, Cooperative HEENT: Atraumatic, PERRLA, EOMI, Normocephalic Neck: Supple, No JVD, Negative Carotid Bruits Lungs: Clear to auscultation, Normal air movement Cardiovascular: Regular rate, No murmurs Abdomen: Bowel Sounds Present, Soft, Non Tender Extremities: No edema, Capillary Refill Less than 3 Seconds Skin: No rashes, No breakdown Musculoskeletal: No Tenderness to Palpation of Joints or Extremities Neurological: Cranial nerves II-XII grossly intact Psych/Mental Status: Normal Affect, Appropriate Microbiology Past 72 Hours 08/09/19 21:00 Mucosa - Nasopharyngeal Influenza Types A,B Direct FA ([facility]) - Final Laboratory Results 08/09/19 19:35: Sodium 132 L, Potassium 4.5, Chloride 102, Carbon Dioxide 21.0, Anion Gap 9, BUN 12, Creatinine 0.99, Estim Creat Clear Calc 92.96, Est GFR (MDRD) Af Amer 102, Est GFR (MDRD) Non-Af 84, BUN/Creatinine Ratio 12.1, Glucose 196 H, Calcium 8.8, Total Bilirubin 0.90, AST 15, ALT 30, Alkaline Phosphatase 87, Troponin I < 0.015, Total Protein 7.8, Albumin 3.7, Globulin 4.1, Albumin/Globulin Ratio 0.9 08/09/19 19:35: WBC 6.5, RBC 5.25, Hgb 16.5, Hct 48.2, MCV 91.8, MCH 31.4, MCHC 34.2, RDW Std Deviation 39.1, RDW Coeff of Celsa 11.6, Plt Count 181, MPV 9.0, Immature Gran % (Auto) 0.600, Neut % (Auto) 56.2, Lymph % (Auto) 26.1, [place] % (Auto) 14.4 H, Eos % (Auto) 1.9, Baso % (Auto) 0.8, Absolute Neuts (auto) 3.6, Absolute Lymphs (auto) 1.69, Nucleated RBC % 0, Differential Comment SCANNED 08/09/19 19:35: PT 13.3, INR 1.0, APTT 27.4 08/09/19 19:44: POC Glucose 210 H 08/09/19 20:30: Lactic Acid 2.3 H 08/09/19 21:40: Urine Color Yellow, Urine Clarity Clear, Urine pH 8.0, Ur Specific [place] 1.010, Urine Protein 30 H, Urine Glucose (UA) Normal, Urine Ketones 15 H, Urine Occult Blood Negative, Urine Nitrite Negative, Urine Bilirubin Negative, Urine Urobilinogen 1 H, Ur Leukocyte Esterase 25 H, Urine RBC 0 SEEN, Urine WBC 0 SEEN, Ur Squamous Epith Cells 0 SEEN, Urine Bacteria 0 SEEN, Urine Mucus 1+ Current Medications Sodium Chloride () 1,000 mls @ 999 mls/hr IV .Q1H1M ONE Stop: 08/09/19 23:12 Last Admin: 08/09/19 22:49 Dose: 999 mls/hr Documented by: Assessment/Plan All Active Problems (Last Reviewed 08/10/19 @ 06:10 by Federico Ring MD) Acute febrile illness (Acute) Syncope and collapse (Acute) History of tonsillectomy (Resolved) Hx of appendectomy (Resolved) The patient is a 54 year old M with a significant history of NSTEMI who presented to emergency department with chills; subjective fever; weakness; listlessness; lightheadedness; and nausea; near syncope at home and syncopal episode at the emergency department who was also found to have high-grade fever consistent with acute febrile illness with syncope. Acute febrile illness Etiology is unclear at this time. Rapid influenza screen was unremarkable. Respiratory pathogen panel is unremarkable. Chest x-ray showed cardiomegaly with no acute cardiopulmonary process. Urinalysis was unremarkable except some proteinuria and ketonuria. Blood cultures are pending; follow Supportive treatment with IV fluids PRN Tylenol ordered. Trend CBC and BMP Lactic acidosis Likely secondary to dehydration and acute febrile illness. Trend IV hydration as above Syncope Description discussed secondary to hypovolemia secondary to poor oral intake or acute febrile illness. EKG shows sinus rhythm. Obtain a surface echo Orthostatic vitals. IV hydration as above.. Trend troponin History of NSTEMI Metoprolol and lisinopril continued Aspirin continued Hypertension On presentation his blood pressure was fairly stable. Metoprolol and lisinopril continued Trend blood pressure and adjust blood pressure medications Hyponatremia Mild IV hydration with normal saline Trend BMP. Diabetes mellitus Reportedly patient is borderline diabetic at home. On presentation blood glucose was not within goal. A1c was obtained. A1c was in the diabetic range. Accu-Chek QA CHS with correction scale insulin ordered. Alcoholism Patient drinks 4-5 beers 3-4 nights per week. He thinks that he will not withdrawal. Counselled DVT prophylaxis Subcutaneous Lovenox Code Visit Inpatient E&M: 24687 Init Hosp L3
--- NOTE | 2019-08-09 23:17 | ED.DCSUM_ITS ---
- ER Visit Summary Date of Service: 08/09/19 Chief Complaint: Fever and syncope History of Present Illness: The patient is a 54 M who has a history of coronary artery disease (STEMI 2018) who presents tonight with fever. Patient states that on Wednesday he felt very fatigued. Wednesday he was experiencing chills while at work. Today he was significantly worse getting nauseous. States he has a slight cough very dry mouth. He asked his to take him to the hospital which is abnormal per the . While sitting in triage he got very lightheaded and had a syncopal episode less than 1 minute. Did not have any chest pain or shortness of breath. He notes he has some urinary frequency. He denies any rash. No back pain. No diarrhea. Physical Examination: 120/75 temperature 100.7 heart rate of 94 respirations are 17 pulse ox 97% on room air Gen: Well-nourished well-developed she appears ill Head: Normocephalic atraumatic Eyes: Perrl EOMI ENT: TMs clear no rhinorrhea moist mucous membranes Neck: Supple no lymphadenopathy no JVD nontender CVS: Regular rate rhythm no murmurs normal S1-S2 Respiratory: No distress clear to auscultation bilaterally chest nontender Abdomen: Soft nontender nondistended normal bowel sounds no masses Back: Nontender Extremity: Nontender no edema Skin: Normal color no rash slightly diaphoretic Neuro: alert orientated ?3 CN II-XII intact normal strength sensation reflexes gait cerebellar Psych: Normal affect normal mood Test Results: EKG sinus rhythm at a rate of 77. White count is normal. Glucose 196. Liver enzymes normal. Troponin is negative. Urinalysis is normal. Lactic acid is 2.3. Emergency Department Course and Treatment: Patient received IV fluids as well as Tylenol. He spiked a fever up to 103. He feels overall improved. I sent off a respiratory panel and influenza swab (influenza negative). Patient will be admitted into the hospital for continued observation. Impression: 1. Acute febrile illness 2. Elevated lactate 3. Syncope This note was generated with [employer] dictation software. It may contain incorrect words, spelling, and punctuation that were not noted in review of the chart prior to signing ED Disposition - Plan for ED Patient: Referrals: Jonh Lynn MD [Primary Care Provider] -
--- NOTE | 2019-08-09 23:48 | ECHOCS_ITS ---
Reason For Study: Syncope Procedure This was a 2D Doppler, Color Flow transthoracic echocardiogram. The study was technically difficult. Exam performed portable in patient room. Left Ventricle Normal LV size. The estimated ejection fraction is 55 %. Normal diastology for age. No regional wall motion abnormalities noted. Right Ventricle Normal RV size. Normal systolic function. Atria Normal left atrium. Normal right atrium. No doppler evidence for ASD. Mitral Valve There is no mitral valve stenosis. No mitral valve insufficiency. Tricuspid Valve There is no tricuspid stenosis. Trivial tricuspid valve insufficiency. Normal pulmonary artery pressure. Aortic Valve Trisinus/trileaflet aortic valve. There is no aortic stenosis. No aortic valve insufficiency. Pulmonic Valve There is no pulmonic valvular stenosis. No pulmonic valve insufficiency. Great Vessels Normal aortic root. Pericardium/Pleural No pericardial effusion. Medication Diluted definity 2ml given slow IV push to enhance endocardial definition. MMode/2D Measurements & Calculations LVIDd: 4.6 cm IVSd: 1.1 cm Ao root diam: 3.4 cm LVIDs: 2.7 cm LVPWd: 1.0 cm RVDd: 3.4 cm FS: 41.8 % LAV(MOD-bp): 54.8 ml LA A4 area: 19.4 cm2 LA dimension(2D): 3.7 cm LAV(MOD-bp) Indexed: 23.3 ml/m2 LAV(MOD-sp2): 55.6 ml LAV(MOD-sp4): 49.6 ml RA A4 area: 16.5 cm2 Doppler Measurements & Calculations MV E max ramon: 70.3 cm/sec Lat Peak E' Ramon: 12.4 cm/sec Med Peak E' Ramon: 10.9 cm/sec MV A max ramon: 76.7 cm/sec E/E' lat: 5.7 E/E' med: 6.5 MV E/A: 0.92 Ao V2 max: 158.4 cm/sec LV V1 max: 110.3 cm/sec PA V2 max: 120.2 cm/sec Ao max P.0 mmHg LV V1 max P.9 mmHg TR max ramon: 203.6 cm/sec TR max P.6 mmHg Interpretation Summary The study was technically difficult. Diluted definity 2ml given slow IV push to enhance endocardial definition. The estimated ejection fraction is 55 %. Normal diastology for age. The study was technically difficult. Ordering Physician: Federico Ring Referring Physician: Jonh Lynn Performed By: Destini Mcgovern RDCS
[2019-08-10] VITALS (14 sets, daily range): BP systolic 107–163; BP diastolic 47–92; PULSE 73–91; RESP 16–18; TEMP 37.2–37.9; O2SAT 94–98; BMI 35.6; BMI 35.9
[2019-08-10] MEDS: 0.9% Normal Saline 1,000 ML 999 ML IV (00:14)
--- NOTE | 2019-08-10 00:31 | NURSING ---
Unable to complete BP standing for orthos VS d/t patient becoming weak.
[2019-08-10 00:37] LABS: Reflex Lactate? Y
[2019-08-10 00:59] LABS: Hemoglobin A1c 7.1 % (4.2-6.3)
[2019-08-10 00:59] LABS: Lactic Acid 1.1 mmol/L (0.4-2.0)
[2019-08-10] MEDS: 0.9% Normal Saline 1,000 ML 100 ML IV ×2 (01:31→11:17)
[2019-08-10] MEDS: Insulin Lispro 100 UNIT/ML INSULN.PEN SC ×3 (06:34→16:45)
[2019-08-10 06:53] LABS: Absolute Lymphocyte Count 1.48 X10^3/uL (0.83-4.51); Absolute Neutrophil Count 2.6 X10^3/uL (2.0-7.7); Basophil# 0.02 X10^3/uL; Basophil% 0.4 % (0-1); Hematocrit 42.8 % (40-54); Hemoglobin 14.1 g/dL (13.0-16.5); Lymphocyte # 1.48 X10^3/ul (4.0); Lymphocyte % 30.8 % (19-41); Mean Corp Hgb Conc 32.9 g/dL (32-36); Mean Corpuscular Hgb 31.2 pg (27.0-32.0); Mean Corpuscular Volume 94.7 fL (80-94); Mean Platelet Vol. 9.1 fl (6.2-12.0); Monocyte# 0.64 X10^3/uL; Monocyte% 13.3 % (0-10); NRBC Flagged by Analyzer 0 % (0-5); Neutrophil # 2.64 X10^3/uL (2.7-7.7); Neutrophil % 54.9 % (47-70); Platelet Count 144 K/mm3 (150-450); RBC Distribution Width CV 11.7 % (11.6-14.6); RBC Distribution Width SD 40.7 fl (35.1-43.9); Red Blood Count 4.52 M/mm3 (4.6-6.2); White Blood Count 4.8 K/mm3 (4.4-11.0)
[2019-08-10 06:56] LABS: Bedside Glucose 166 mg/dL (70-110)
[2019-08-10] MEDS: Acetaminophen 325 MG Tablet 650 MG PO (08:39)
[2019-08-10] MEDS: Aspirin 81 MG TAB.CHEW PO (08:43)
[2019-08-10] MEDS: Metoprolol Tartrate 25 MG Tablet 12.5 MG PO (08:44)
[2019-08-10] MEDS: Lisinopril 2.5 MG Tablet PO (08:44)
[2019-08-10] MEDS: Enoxaparin 40 MG/0.4 ML Syringe SC (08:44)
[2019-08-10 11:26] LABS: Bedside Glucose 181 mg/dL (70-110)
--- NOTE | 2019-08-10 13:34 | CASEMGMT ---
SW spoke w/pt briefly in regard to alcohol use, present as well. Pt does not identify his alcohol use as problematic. Pt states he has never had a DUI, works, does not impact him. Pt states he drinks Michelob Ultra, pt states it's like water, agreed. Pt is not interested in any resources at this time for alcohol cessation at this time. SW remains available should any needs arise. PAVNA Iqbal
[2019-08-10 16:51] LABS: Bedside Glucose 156 mg/dL (70-110)
--- NOTE | 2019-08-10 18:27 | PN_ITS ---
Patient Problems: Active and Suspected Problems (Last Reviewed 08/10/19 @ 06:10 by Federico Ring MD) Acute febrile illness (Acute) Syncope and collapse (Acute) Objective: The patient is a 54-year-old male with a past medical history of coronary artery disease with prior N STEMI, PTCA/DEBBIE to the RCA in 2018, hyperlipidemia, heavy alcohol consumption with drinking 4-5 beers 3-4 nights a week. Nonrheumatic tricuspid regurgitation and morbid obesity who presented to the emergency department at [facility] on 08/09/2019 complaining of chills, fatigue, anorexia and diffuse body aches and weakness. He had a near syncopal episode at home secondary to lightheadedness. He had syncope while standing at the ED triage desk. Vital signs at presentation to the emergency department were temperature 100.7, blood pressure 120/75, respiratory rate 17 and he was 97% saturated on room air CBC was normal. PT and PTT were normal. Sodium was mildly decreased at 132 and the BUN was 12 with a creatinine of 0.99. Random blood sugar was 196 and he has no history of diabetes mellitus. A hemoglobin A1c was elevated at 7.1. Lactic acid was 2.3. The second lactic acid was down to 1.1. Troponin was less than 0.015. LFTs were normal. UA had 0 WBCs per high-power field. Chest x-ray showed no acute abnormalities. He was admitted to a monitored bed on PCU with a diagnosis of acute febrile illness, lactic acidosis, syncope and newly diagnosed diabetes mellitus type 2. No source of infection could be identified and he was not started on antibiotics. All events the past 24 hours of been reviewed. T-max over the past 24 hours has been 103.2. Current temperature is 99 ?F. Vital signs are stable. He is appropriately saturated on room air. All lab was personally reviewed. White blood cell count today is 4.8 with 55% neutrophils and 31% lymphocytes. Eosinophils were 0. Serial cardiac enzymes were negative. Respiratory panel was negative. Influenza swab was negative. Urine and blood cultures are pending but there is no growth so far. - Physical Exam Vitals/I&O's: Vital Signs Temp Pulse Resp BP Pulse Ox 99.0 F 86 16 117/57 L 95 08/10/19 14:25 08/10/19 16:23 08/10/19 14:25 08/10/19 14:25 08/10/19 14:25 Oxygen Flow Rate (L/min) 2 Oxygen Delivery Method Room Air Weight: 257 lb 11.526 oz Body Mass Index (BMI) 35.9 Orthostatic Vital Signs Start: 08/10/19 00:26 Freq: q24h Status: Active Protocol: Activity Type Activity Date Activity User E-Sign Co-Sign Detail Recorded Client Recorded Date Recorded By Document 08/10/19 06:26 [facility] [id number] 08/10/19 06:29 [facility] 08/10/19 06:26 Orthostatic Vitals Standing -Blood Pressure (90/60-120/80 mm Hg) 114/71 -Extremity Use Right Arm -Pulse Rate (60-100 beats/min) 91 Sitting -Blood Pressure (90/60-120/80 mm Hg) 131/76 H -Extremity Use Right Arm -Pulse Rate (60-100 beats/min) 89 Lying -Blood Pressure (90/60-120/80 mm Hg) 145/82 H -Extremity Use Right Arm -Pulse Rate (60-100 beats/min) 80 Intake and Output for Last 24 Hours 08/08/19 08/09/19 08/10/19 23:59 23:59 23:59 Intake Total 2849.15 / 2849.15 2963.67 / 2963.67 Balance 2849.15 / 2849.15 2963.67 / 2963.67 Microbiology Past 72 Hours 08/09/19 21:00 Mucosa - Nasopharyngeal Respiratory Panel (PCR) - Final 08/09/19 21:00 Mucosa - Nasopharyngeal Influenza Types A,B Direct FA ([facility]) - Final Laboratory Results 08/09/19 19:35: Sodium 132 L, Potassium 4.5, Chloride 102, Carbon Dioxide 21.0, Anion Gap 9, BUN 12, Creatinine 0.99, Estim Creat Clear Calc 92.96, Est GFR (MDRD) Af Amer 102, Est GFR (MDRD) Non-Af 84, BUN/Creatinine Ratio 12.1, Glucose 196 H, Calcium 8.8, Total Bilirubin 0.90, AST 15, ALT 30, Alkaline Phosphatase 87, Troponin I < 0.015, Total Protein 7.8, Albumin 3.7, Globulin 4.1, Albumin/Globulin Ratio 0.9 08/09/19 19:35: WBC 6.5, RBC 5.25, Hgb 16.5, Hct 48.2, MCV 91.8, MCH 31.4, MCHC 34.2, RDW Std Deviation 39.1, RDW Coeff of Celsa 11.6, Plt Count 181, MPV 9.0, Immature Gran % (Auto) 0.600, Neut % (Auto) 56.2, Lymph % (Auto) 26.1, [place] % (Auto) 14.4 H, Eos % (Auto) 1.9, Baso % (Auto) 0.8, Absolute Neuts (auto) 3.6, Absolute Lymphs (auto) 1.69, Nucleated RBC % 0, Differential Comment SCANNED 08/09/19 19:35: PT 13.3, INR 1.0, APTT 27.4 08/09/19 19:35: Hemoglobin A1c 7.1 H 08/09/19 19:44: POC Glucose 210 H 08/09/19 20:30: Lactic Acid 2.3 H 08/09/19 21:40: Urine Color Yellow, Urine Clarity Clear, Urine pH 8.0, Ur Specific [place] 1.010, Urine Protein 30 H, Urine Glucose (UA) Normal, Urine Ketones 15 H, Urine Occult Blood Negative, Urine Nitrite Negative, Urine Bilirubin Negative, Urine Urobilinogen 1 H, Ur Leukocyte Esterase 25 H, Urine RBC 0 SEEN, Urine WBC 0 SEEN, Ur Squamous Epith Cells 0 SEEN, Urine Bacteria 0 SEEN, Urine Mucus 1+ 08/10/19 00:27: Troponin I < 0.015 08/10/19 00:27: Lactic Acid 1.1 08/10/19 03:20: Troponin I < 0.015 08/10/19 06:05: WBC 4.8, RBC 4.52 L, Hgb 14.1, Hct 42.8, MCV 94.7 H, MCH 31.2, MCHC 32.9, RDW Std Deviation 40.7, RDW Coeff of Celsa 11.7, Plt Count 144 L, MPV 9.1, Immature Gran % (Auto) 0.600, Neut % (Auto) 54.9, Lymph % (Auto) 30.8, [place] % (Auto) 13.3 H, Eos % (Auto) 0.0, Baso % (Auto) 0.4, Absolute Neuts (auto) 2.6, Absolute Lymphs (auto) 1.48, Nucleated RBC % 0 08/10/19 06:05: Troponin I < 0.015 08/10/19 06:32: POC Glucose 166 H 08/10/19 11:14: POC Glucose 181 H 08/10/19 16:42: POC Glucose 156 H Current Medications Acetaminophen (Tylenol) 650 mg PO Q6H PRN PRN PRN Reason: Pain Score 1-3/Temp > 100.7 F Last Admin: 08/10/19 08:39 Dose: 650 mg Documented by: Aspirin (Aspirin, Baby) 81 mg PO Q48H [facility] Last Admin: 08/10/19 08:43 Dose: 81 mg Documented by: Atorvastatin Calcium (Lipitor) 80 mg PO QHS [facility] Dextrose (D50w Syringe) 0 gm IV X1 PRN; Protocol PRN Reason: Hypoglycemia Enoxaparin Sodium (Lovenox) 40 mg SC DAILY@1000 [place] Last Admin: 08/10/19 08:44 Dose: 40 mg Documented by: Glucagon () 1 mg IM .X1 PRN PRN Reason: Hypoglycemia Sodium Chloride () 1,000 mls @ 100 mls/hr IV .Q10H [facility] Stop: 08/10/19 19:47 Last Admin: 08/10/19 11:17 Dose: 100 mls/hr Documented by: Sodium Chloride () 250 mls @ 15 mls/hr IV .[id number] PRN PRN Reason: Saline Flush Insulin Human Lispro (Humalog Kwikpen (Bkc)) 0 unit SC ACHS [facility]; Protocol Last Admin: 08/10/19 16:45 Dose: 1 units Documented by: Lisinopril (Zestril) 2.5 mg PO DAILY [facility] Last Admin: 08/10/19 08:44 Dose: 2.5 mg Documented by: Melatonin (Melatonin) 3 mg PO QHS PRN PRN PRN Reason: INSOMNIA Metoprolol Tartrate (Lopressor (Beta Marcia)) 12.5 mg PO BID [facility] Last Admin: 08/10/19 08:44 Dose: 12.5 mg Documented by: Ondansetron HCl (Zofran) 4 mg IV Q8H PRN PRN PRN Reason: NAUSEA/VOMITING Sodium Chloride () 10 - 40 ml IV UD PRN PRN Reason: SALINE FLUSH Medical Necessity - Tobacco Use Smoking Status: Never smoker Assessment/Plan All Active Problems (Last Reviewed 08/10/19 @ 06:10 by Federico Ring MD) Acute febrile illness (Acute) Syncope and collapse (Acute) History of tonsillectomy (Resolved) Hx of appendectomy (Resolved)
--- NOTE | 2019-08-10 19:27 | PCM.DC ---
- Discharge Diagnoses Current Active Problems: Current Active and Chronic Problems (Last Reviewed 08/10/19 @ 06:10 by Federico Ring MD) Acute febrile illness (Acute) Syncope and collapse (Acute) You will use the following diet at home:: Calorie/Carbohydrate Controlled (specify 1200, 1400, etc), Cardiac Your food should be the consistency of: Regular Your liquids should be the consistency of: Regular/Thin Discharge Activity: - - Gradually increase activity to tolerance Call your doctor if you observe: Shortness of breath, Chest pain, - - Nausea, vomiting, diarrhea, abdominal pain, painful urination, sore throat, cough or fevers > 101 despite Tylenol. Additional Instructions: 1. I suspect you have a viral infection. We find no evidence of pneumonia, urinary tract infection, skin infection, etc. There are hundreds/thousands of viruses and we only have a test for a few. Most viruses run their course anywhere from 2-3 days up to 7-10 days. You will have more muscle pain, sweats and shaking chils with the temperature going up and down. To prevent this you should take Tylenol 1,000 mg every 8 hours for the next 48-72 hours. Make sure to stay well hydrated. Your urine should be a pale yellow and if it is dark yellow or orange you need to drink more water. 2. You ECHO showed that flor[place] heart squeezes better than it did when you had your heart attack. It now has an Ejection fraction of 55% which is low normal. It was 40-45% with the cardiac cath. There are no wall motion abnormalities which means there is no scarring of the heart from the heart attack since the artery was opened quickly with a stent when you were having the heart attack restoring blood flow in a timely fashion. 2. I reviewed the last lipid panel we have on file from December and the LDL is 64 ( the goal is less than 70) and the HDL or good cholesterol was 61 and the goal in a man is to have this number > 40. The Triglycerides were normal. 3. The HGBA1C is higher than I would like to see it. Ideally it should be less than 7.0 and yours is 7.1......not terrible but, you can do better. If you watch your carbohydrate intake, lose some weight and start an exercise program I do not think you will need medication. In would try diet and exercise and wt loss for 3 months and then recheck the HGBA1C.......if it is not under 7 at that time then you should consider starting a medication. 4. Make yourself a priority. You are a young man and I am sure you want to live a long life.......you only get 1 body and 1 heart and you need to protect this. Make getting exercise a prescription. 30 minutes of vigorous exercise 5-6 days a week is the recommendation for men your age with heart disease....this is just as important as taking medication. Take care. I will send a copy of your discharge summary to Dr. Lynn so he will know what transpired in the hospital. If you still feel like crap on Sat night do not go to [facility]. Allergies/Adverse Reactions: Allergies No Known Allergies Allergy (Verified 08/09/19 19:42) Medications to take at Discharge aspirin 81 mg chewable tablet 81 mg PO DAILY tab.chew 12/19/18 atorvastatin 80 mg tablet 80 mg PO QHS #90 tab 01/27/19 lisinopril 2.5 mg tablet 2.5 mg PO DAILY #90 tab 01/27/19 metoprolol tartrate 25 mg tablet 12.5 mg PO BID #90 tab 01/27/19 Ubidecarenone [Coq-10] 200 mg PO DAILY 08/09/19 Primary Care Physician: Jonh Lynn MD [Primary Care Provider] - Please follow up with your Primary Care Physician in: as needed Test Results: Test results from this visit will be discussed in further detail at your follow-up appointment, if applicable. Proposed Discharge Date: 08/10/19
--- NOTE | 2019-08-10 19:46 | DS.PCM_ITS ---
Discharge Date and Diagnosis - Problem List Patient Problems: Active and Suspected Problems (Last Reviewed 08/10/19 @ 06:10 by Federico Ring MD) Acute febrile illness (Acute) Syncope and collapse (Acute) Date of Admission: 08/09/19 Date of Discharge: 08/10/19 - Primary Discharge Diagnosis Active and Suspected Problems (Last Reviewed 08/10/19 @ 06:10 by Federico Ring MD) Acute febrile illness (Acute) -more likely than not viral Syncope and collapse (Acute)-suspect secondary to dehydration and acute febrile illness Lactic acidosis-secondary to dehydration - Secondary Discharge Diagnosis Chronic Problems (Last Reviewed 08/10/19 @ 06:10 by Federico Ring MD) Diabetes mellitus type 2 in obese (Chronic) Hyperlipidemia (Chronic) Nonrheumatic tricuspid (valve) insufficiency (Chronic) Mild (1+) per echo 07/01/2018; RVSP 30 mmhg. EF up from 50% on 02/14/18 to 55% now. No wall motion abnormalities Ischemic Cardiomyopathy (Chronic) - EF is now low normal CAD (coronary artery disease) (Chronic) Stented Right coronary artery (Chronic 02/13/18) Morbid obesity (Chronic) Hospital Course and Treatment Imaging Results: Clinical Impression(s) from Imaging Studies Chest X-Ray 08/09/19 20:05 IMPRESSION: Cardiomegaly. No focal pulmonary consolidation. Electronically Signed: Jag Bishop, at 20:24 EDT Tel , Service support , Laboratory Results - last 24 hr 08/09/19 08/09/19 08/09/19 19:35 19:35 19:35 WBC 6.5 RBC 5.25 Hgb 16.5 Hct 48.2 MCV 91.8 MCH 31.4 MCHC 34.2 RDW Std Deviation 39.1 RDW Coeff of Celsa 11.6 Plt Count 181 MPV 9.0 Immature Gran % (Auto) 0.600 Neut % (Auto) 56.2 Lymph % (Auto) 26.1 Stanley % (Auto) 14.4 H Eos % (Auto) 1.9 Baso % (Auto) 0.8 Absolute Neuts (auto) 3.6 Absolute Lymphs (auto) 1.69 Nucleated RBC % 0 Differential Comment SCANNED PT 13.3 INR 1.0 APTT 27.4 Sodium 132 L Potassium 4.5 Chloride 102 Carbon Dioxide 21.0 Anion Gap 9 BUN 12 Creatinine 0.99 Estim Creat Clear Calc 92.96 Est GFR (MDRD) Af Amer 102 Est GFR (MDRD) Non-Af 84 BUN/Creatinine Ratio 12.1 Glucose 196 H Hemoglobin A1c Lactic Acid Calcium 8.8 Total Bilirubin 0.90 AST 15 ALT 30 Alkaline Phosphatase 87 Troponin I < 0.015 Total Protein 7.8 Albumin 3.7 Globulin 4.1 Albumin/Globulin Ratio 0.9 Urine Color Urine Clarity Urine pH Ur Specific Montgomery Urine Protein Urine Glucose (UA) Urine Ketones Urine Occult Blood Urine Nitrite Urine Bilirubin Urine Urobilinogen Ur Leukocyte Esterase Urine RBC Urine WBC Ur Squamous Epith Cells Urine Bacteria Urine Mucus POC Glucose 08/09/19 08/09/19 08/09/19 19:35 19:44 20:30 WBC RBC Hgb Hct MCV MCH MCHC RDW Std Deviation RDW Coeff of Celsa Plt Count MPV Immature Gran % (Auto) Neut % (Auto) Lymph % (Auto) Stanley % (Auto) Eos % (Auto) Baso % (Auto) Absolute Neuts (auto) Absolute Lymphs (auto) Nucleated RBC % Differential Comment PT INR APTT Sodium Potassium Chloride Carbon Dioxide Anion Gap BUN Creatinine Estim Creat Clear Calc Est GFR (MDRD) Af Amer Est GFR (MDRD) Non-Af BUN/Creatinine Ratio Glucose Hemoglobin A1c 7.1 H Lactic Acid 2.3 H Calcium Total Bilirubin AST ALT Alkaline Phosphatase Troponin I Total Protein Albumin Globulin Albumin/Globulin Ratio Urine Color Urine Clarity Urine pH Ur Specific Montgomery Urine Protein Urine Glucose (UA) Urine Ketones Urine Occult Blood Urine Nitrite Urine Bilirubin Urine Urobilinogen Ur Leukocyte Esterase Urine RBC Urine WBC Ur Squamous Epith Cells Urine Bacteria Urine Mucus POC Glucose 210 H 08/09/19 08/10/19 08/10/19 21:40 00:27 00:27 WBC RBC Hgb Hct MCV MCH MCHC RDW Std Deviation RDW Coeff of Celsa Plt Count MPV Immature Gran % (Auto) Neut % (Auto) Lymph % (Auto) Stanley % (Auto) Eos % (Auto) Baso % (Auto) Absolute Neuts (auto) Absolute Lymphs (auto) Nucleated RBC % Differential Comment PT INR APTT Sodium Potassium Chloride Carbon Dioxide Anion Gap BUN Creatinine Estim Creat Clear Calc Est GFR (MDRD) Af Amer Est GFR (MDRD) Non-Af BUN/Creatinine Ratio Glucose Hemoglobin A1c Lactic Acid 1.1 Calcium Total Bilirubin AST ALT Alkaline Phosphatase Troponin I < 0.015 Total Protein Albumin Globulin Albumin/Globulin Ratio Urine Color Yellow Urine Clarity Clear Urine pH 8.0 Ur Specific Montgomery 1.010 Urine Protein 30 H Urine Glucose (UA) Normal Urine Ketones 15 H Urine Occult Blood Negative Urine Nitrite Negative Urine Bilirubin Negative Urine Urobilinogen 1 H Ur Leukocyte Esterase 25 H Urine RBC 0 SEEN Urine WBC 0 SEEN Ur Squamous Epith Cells 0 SEEN Urine Bacteria 0 SEEN Urine Mucus 1+ POC Glucose 08/10/19 08/10/19 08/10/19 03:20 06:05 06:05 WBC 4.8 RBC 4.52 L Hgb 14.1 Hct 42.8 MCV 94.7 H MCH 31.2 MCHC 32.9 RDW Std Deviation 40.7 RDW Coeff of Celsa 11.7 Plt Count 144 L MPV 9.1 Immature Gran % (Auto) 0.600 Neut % (Auto) 54.9 Lymph % (Auto) 30.8 Stanley % (Auto) 13.3 H Eos % (Auto) 0.0 Baso % (Auto) 0.4 Absolute Neuts (auto) 2.6 Absolute Lymphs (auto) 1.48 Nucleated RBC % 0 Differential Comment PT INR APTT Sodium Potassium Chloride Carbon Dioxide Anion Gap BUN Creatinine Estim Creat Clear Calc Est GFR (MDRD) Af Amer Est GFR (MDRD) Non-Af BUN/Creatinine Ratio Glucose Hemoglobin A1c Lactic Acid Calcium Total Bilirubin AST ALT Alkaline Phosphatase Troponin I < 0.015 < 0.015 Total Protein Albumin Globulin Albumin/Globulin Ratio Urine Color Urine Clarity Urine pH Ur Specific Montgomery Urine Protein Urine Glucose (UA) Urine Ketones Urine Occult Blood Urine Nitrite Urine Bilirubin Urine Urobilinogen Ur Leukocyte Esterase Urine RBC Urine WBC Ur Squamous Epith Cells Urine Bacteria Urine Mucus POC Glucose 08/10/19 08/10/19 08/10/19 06:32 11:14 16:42 WBC RBC Hgb Hct MCV MCH MCHC RDW Std Deviation RDW Coeff of Celsa Plt Count MPV Immature Gran % (Auto) Neut % (Auto) Lymph % (Auto) Stanley % (Auto) Eos % (Auto) Baso % (Auto) Absolute Neuts (auto) Absolute Lymphs (auto) Nucleated RBC % Differential Comment PT INR APTT Sodium Potassium Chloride Carbon Dioxide Anion Gap BUN Creatinine Estim Creat Clear Calc Est GFR (MDRD) Af Amer Est GFR (MDRD) Non-Af BUN/Creatinine Ratio Glucose Hemoglobin A1c Lactic Acid Calcium Total Bilirubin AST ALT Alkaline Phosphatase Troponin I Total Protein Albumin Globulin Albumin/Globulin Ratio Urine Color Urine Clarity Urine pH Ur Specific [place] Urine Protein Urine Glucose (UA) Urine Ketones Urine Occult Blood Urine Nitrite Urine Bilirubin Urine Urobilinogen Ur Leukocyte Esterase Urine RBC Urine WBC Ur Squamous Epith Cells Urine Bacteria Urine Mucus POC Glucose 166 H 181 H 156 H Microbiology 08/09/19 21:00 Mucosa - Nasopharyngeal Respiratory Panel (PCR) - Final Negative 08/09/19 21:00 Mucosa - Nasopharyngeal Influenza Types A,B Direct FA ([facility]) - Final negative none Operations: None Procedures: 2-D Echocardiogram - Interpretation Summary The study was technically difficult. Diluted definity 2ml given slow IV push to enhance endocardial definition. The estimated ejection fraction is 55 %. Normal diastology for age. The study was technically difficult. Summary of Care Provided: The patient is a 54-year-old male with a past medical history of coronary artery disease with prior STEMI (january 2018), PTCA/DEBBIE to the RCA 01/2018, hyperlipidemia, diet-controlled diabetes mellitus type 2, heavy alcohol consumption with drinking 4-5 beers 3-4 nights a week. Nonrheumatic tricuspid regurgitation and morbid obesity who presented to the emergency department at [facility] on 08/09/2019 complaining of chills, fatigue, anorexia and diffuse body aches and weakness. He denied nausea, vomiting, abdominal pain, dysuria, cough, shortness of breath. He had a near syncopal episode at home secondary to lightheadedness. He had syncope while standing at the ED triage desk. Vital signs at presentation to the emergency department were temperature 100.7, blood pressure 120/75, respiratory rate 17 and he was 97% saturated on room air. CBC was normal. PT and PTT were normal. Sodium was mildly decreased at 132 and the BUN was 12 with a creatinine of 0.99. Random blood sugar was 196. A hemoglobin A1c was elevated at 7.1. Lactic acid was 2.3. The second lactic acid was down to 1.1 following hydration. Troponin was less than 0.015. LFTs were normal. UA had 0 WBCs per high-power field. Chest x-ray showed no acute abnormalities. He was admitted to a monitored bed on PCU with a diagnosis of acute febrile illness, lactic acidosis, syncope and newly diagnosed diabetes mellitus type 2. No source of infection could be identified and he was not started on antibiotics. EKG showed NSR with no suspicious ST or T wave changes. He was admitted to a monitored be on PCU and IV fluids were initiated. He was not started on an antibiotic because there was no evidence of a bacterial infection. Orthostatics were + on the morning of 08/10 and and IV fluids were continued. His appetite improved and he was taking adequate PO fluids later in the day and was urinating frequently. He denied dizziness/lightheadedness. Repeat CBC on 08/10/2019 again showed a normal white blood cell count of 4.8 with an unremarkable differential. Hemoglobin was normal at 14.1 and the platelet count was mildly decreased at 144 either due to viral infection or to pharmacologic DVT prophylaxis. An echocardiogram was obtained that showed a left ventricular ejection fraction of 55% with no regional wall motion abnormalities. There was normal diastology for age. There was trivial tricuspid regurgitation and a normal pulmonary artery pressure. He felt better in the evening on the and he was discharged home. He was instructed to take 1 g of Tylenol every 8 hours for the next 48 to 72 hours to prevent shaking chills and high fevers. He will return to the hospital if he develops nausea/vomiting/abdominal pain/dysuria/cough/diarrhea. We discussed the elevated HGBA1C of 7.1% and he is going to work on his diet, decrease his alcohol intake, try and lose some weight and start an exercise program. In 3 months he should have a HGBA1C and another lipid panel done. If the HGBA1C is not less than 7 at that time he should be started on medications and I would chose Metformin since it does not tend to increase weight like the sulfonylureas. He has an upcoming appt with Dr. Lynn. PHYSICAL EXAM: GENERAL: alert, oriented X 3, Cooperative, NAD, he has a watery DC from his eyes and he has injection of the sclera. There is no mattering of the eyelids. ORAL: moist mucosa, no mucosal lesions, there is no pharyngeal exudate, no cervical nodes, no nuchal rigidity NECK: No JVD, supple, trachea midline LUNGS: CTA, symmetric chest expansion HEART: RRR, Normal S1 and S2, no rub, no gallop, no murmur ABDOMEN: soft, NT, ND, BS present, no guarding with palpation EXTREMITIES: no edema, no cyanosis, no calf tenderness SKIN: No rashes, no breakdown NEUROLOGIC: no focal neurologic deficits PSYCH: appropriate, normal affect, pleasant This note was generated with [employer] dictation software. It may contain incorrect words, spelling, and punctuation that were not noted in checking the note before signing. Patient Problems: Active and Suspected Problems (Last Reviewed 08/10/19 @ 06:10 by Federico Ring MD) Acute febrile illness (Acute) Syncope and collapse (Acute) - Physical Exam Vitals/I&O's: Vital Signs Temp Pulse Resp BP Pulse Ox 99.0 F 87 16 117/57 L 95 08/10/19 14:25 08/10/19 18:58 08/10/19 14:25 08/10/19 14:25 08/10/19 14:25 Oxygen Flow Rate (L/min) 2 Oxygen Delivery Method Room Air Weight: 257 lb 11.526 oz Body Mass Index (BMI) 35.9 Orthostatic Vital Signs Start: 08/10/19 00:26 Freq: q24h Status: Active Protocol: Activity Type Activity Date Activity User E-Sign Co-Sign Detail Recorded Client Recorded Date Recorded By Document 08/10/19 06:26 [facility] [id number] 08/10/19 06:29 [facility] 08/10/19 06:26 Orthostatic Vitals Standing -Blood Pressure (90/60-120/80 mm Hg) 114/71 -Extremity Use Right Arm -Pulse Rate (60-100 beats/min) 91 Sitting -Blood Pressure (90/60-120/80 mm Hg) 131/76 H -Extremity Use Right Arm -Pulse Rate (60-100 beats/min) 89 Lying -Blood Pressure (90/60-120/80 mm Hg) 145/82 H -Extremity Use Right Arm -Pulse Rate (60-100 beats/min) 80 Intake and Output for Last 24 Hours 08/08/19 08/09/19 08/10/19 23:59 23:59 23:59 Intake Total 2849.15 / 2849.15 3713.67 / 3713.67 Balance 2849.15 / 2849.15 3713.67 / 3713.67 Microbiology Past 72 Hours 08/09/19 21:00 Mucosa - Nasopharyngeal Respiratory Panel (PCR) - Final 08/09/19 21:00 Mucosa - Nasopharyngeal Influenza Types A,B Direct FA ([facility]) - Final Laboratory Results 08/09/19 19:35: Sodium 132 L, Potassium 4.5, Chloride 102, Carbon Dioxide 21.0, Anion Gap 9, BUN 12, Creatinine 0.99, Estim Creat Clear Calc 92.96, Est GFR (MDRD) Af Amer 102, Est GFR (MDRD) Non-Af 84, BUN/Creatinine Ratio 12.1, Glucose 196 H, Calcium 8.8, Total Bilirubin 0.90, AST 15, ALT 30, Alkaline Phosphatase 87, Troponin I < 0.015, Total Protein 7.8, Albumin 3.7, Globulin 4.1, Albumin/Globulin Ratio 0.9 08/09/19 19:35: WBC 6.5, RBC 5.25, Hgb 16.5, Hct 48.2, MCV 91.8, MCH 31.4, MCHC 34.2, RDW Std Deviation 39.1, RDW Coeff of Celsa 11.6, Plt Count 181, MPV 9.0, Immature Gran % (Auto) 0.600, Neut % (Auto) 56.2, Lymph % (Auto) 26.1, Stanley % (Auto) 14.4 H, Eos % (Auto) 1.9, Baso % (Auto) 0.8, Absolute Neuts (auto) 3.6, Absolute Lymphs (auto) 1.69, Nucleated RBC % 0, Differential Comment SCANNED 08/09/19 19:35: PT 13.3, INR 1.0, APTT 27.4 08/09/19 19:35: Hemoglobin A1c 7.1 H 08/09/19 19:44: POC Glucose 210 H 08/09/19 20:30: Lactic Acid 2.3 H 08/09/19 21:40: Urine Color Yellow, Urine Clarity Clear, Urine pH 8.0, Ur Specific Montgomery 1.010, Urine Protein 30 H, Urine Glucose (UA) Normal, Urine Ketones 15 H, Urine Occult Blood Negative, Urine Nitrite Negative, Urine Bilirubin Negative, Urine Urobilinogen 1 H, Ur Leukocyte Esterase 25 H, Urine RBC 0 SEEN, Urine WBC 0 SEEN, Ur Squamous Epith Cells 0 SEEN, Urine Bacteria 0 SEEN, Urine Mucus 1+ 08/10/19 00:27: Troponin I < 0.015 08/10/19 00:27: Lactic Acid 1.1 08/10/19 03:20: Troponin I < 0.015 08/10/19 06:05: WBC 4.8, RBC 4.52 L, Hgb 14.1, Hct 42.8, MCV 94.7 H, MCH 31.2, MCHC 32.9, RDW Std Deviation 40.7, RDW Coeff of Celsa 11.7, Plt Count 144 L, MPV 9.1, Immature Gran % (Auto) 0.600, Neut % (Auto) 54.9, Lymph % (Auto) 30.8, Stanley % (Auto) 13.3 H, Eos % (Auto) 0.0, Baso % (Auto) 0.4, Absolute Neuts (auto) 2.6, Absolute Lymphs (auto) 1.48, Nucleated RBC % 0 08/10/19 06:05: Troponin I < 0.015 08/10/19 06:32: POC Glucose 166 H 08/10/19 11:14: POC Glucose 181 H 08/10/19 16:42: POC Glucose 156 H Current Medications Acetaminophen (Tylenol) 650 mg PO Q6H PRN PRN PRN Reason: Pain Score 1-3/Temp > 100.7 F Last Admin: 08/10/19 08:39 Dose: 650 mg Documented by: Aspirin (Aspirin, Baby) 81 mg PO Q48H PENDING SALE TO [facility] Last Admin: 08/10/19 08:43 Dose: 81 mg Documented by: Atorvastatin Calcium (Lipitor) 80 mg PO QHS PENDING SALE TO [facility] Dextrose (D50w Syringe) 0 gm IV X1 PRN; Protocol PRN Reason: Hypoglycemia Enoxaparin Sodium (Lovenox) 40 mg SC DAILY@1000 [place] Last Admin: 08/10/19 08:44 Dose: 40 mg Documented by: Glucagon () 1 mg IM .X1 PRN PRN Reason: Hypoglycemia Sodium Chloride () 1,000 mls @ 100 mls/hr IV .Q10H [place] Stop: 08/10/19 19:47 Last Admin: 08/10/19 11:17 Dose: 100 mls/hr Documented by: Sodium Chloride () 250 mls @ 15 mls/hr IV .[id number] PRN PRN Reason: Saline Flush Insulin Human Lispro (Humalog Kwikpen (Bkc)) 0 unit SC ACHS PENDING SALE TO [facility]; Protocol Last Admin: 08/10/19 16:45 Dose: 1 units Documented by: Lisinopril (Zestril) 2.5 mg PO DAILY PENDING SALE TO [facility] Last Admin: 08/10/19 08:44 Dose: 2.5 mg Documented by: Melatonin (Melatonin) 3 mg PO QHS PRN PRN PRN Reason: INSOMNIA Metoprolol Tartrate (Lopressor (Beta Marcia)) 12.5 mg PO BID PENDING SALE TO [facility] Last Admin: 08/10/19 08:44 Dose: 12.5 mg Documented by: Ondansetron HCl (Zofran) 4 mg IV Q8H PRN PRN PRN Reason: NAUSEA/VOMITING Sodium Chloride () 10 - 40 ml IV UD PRN PRN Reason: SALINE FLUSH Discharge Activity: - - Gradually increase activity to tolerance Call your doctor if you observe: Shortness of breath, Chest pain, - - Nausea, vomiting, diarrhea, abdominal pain, painful urination, sore throat, cough or fevers > 101 despite Tylenol. Home Medications: Medications to take at Discharge aspirin 81 mg chewable tablet 81 mg PO DAILY tab.chew 12/19/18 atorvastatin 80 mg tablet 80 mg PO QHS #90 tab 01/27/19 lisinopril 2.5 mg tablet 2.5 mg PO DAILY #90 tab 01/27/19 metoprolol tartrate 25 mg tablet 12.5 mg PO BID #90 tab 01/27/19 Ubidecarenone [Coq-10] 200 mg PO DAILY 08/09/19 Primary Care Physician: Jonh Lynn MD [Primary Care Provider] - Please follow up with your Primary Care Physician in: as needed Minutes spent on discharge:: 30 Patient Condition:: Stable Medical Necessity - Tobacco Use Smoking Status: Never smoker Tobacco Use: Non-smoker Meaningful Use Info Meaningful Use Diagnoses (Choose all that apply): None applicable Code Visit OBSV E&M: 28653 Observation care discharge
--- NOTE | 2019-08-10 20:17 | NURSING ---
Pt IV was taken out, Heart monitor taken off, and vitals taken. Teaching and discharging needs read to patient and family, they verbalized that they understood. Pt left at 20:12, ambulating with family to vehicle.
== END 2019-08-10 20:12 | disposition home or self-care (01) ==
LOC: ED 21:20 → PCU 23:33
PROVIDERS: Admitting Provider Hospitalist; Emergency Provider Emergency Medicine; Family Provider Family Medicine; PCP Family Medicine; Visit Provider Internal Medicine
DX: R55 Syncope and collapse (principal); R50.9 Fever, unspecified; E87.2 Acidosis; E86.0 Dehydration; I25.2 Old myocardial infarction; E78.5 Hyperlipidemia, unspecified; I25.10 Atherosclerotic heart disease of native coronary artery without angina pectoris; I10 Essential (primary) hypertension; E87.1 Hypo-osmolality and hyponatremia; F10.20 Alcohol dependence, uncomplicated; I07.1 Rheumatic tricuspid insufficiency; E66.01 Morbid (severe) obesity due to excess calories; Z68.35 Body mass index [BMI] 35.0-35.9, adult; Z71.3 Dietary counseling and surveillance; Z79.899 Other long term (current) drug therapy; Z79.84 Long term (current) use of oral hypoglycemic drugs
CPT/HCPCS: 36415; 71045; 80053; 81001; 82962; 83036; 83605; 84484; 85025; 85610; 85730; 87040; 87086; 87088; 87149; 87633; 87804; 93005; 93306; 96361; 96372; 96374; 99218; 99284; J7030; Q9957; A4216; C8929; G0378; J2405